=== PATIENT | female | born 1950 | race Caucasian/White ===

== ENCOUNTER 2019-01-09 13:57 | Inpatient (IN) | payer MEDICARE ==
--- NOTE | 2019-01-09 14:48 | ED ---
Lower Extremity Injury HPI - General Source: patient, EMS, RN notes reviewed, old records reviewed Mode of arrival: EMS Limitations: no limitations <Jill Sierra - Last Filed: 01/09/19 16:38> <Jimbo Lopez - Last Filed: 01/09/19 16:49> - General Chief Complaint: Extremity Injury, Lower Stated Complaint: Fall-ankle injury Time Seen by Provider: 01/09/19 14:02 - History of Present Illness Initial Comments: Patient is a 68-year-old female who presents emergency department today with complaints of left ankle and foot pain. Patient which she rolled her ankle while trying to get into her vehicle after leaving a restaurant. Patient reports the road was slippery and she slipped and fell while lifting up her right leg and caused her left ankle to twist. Patient states that she has had no previous injuries to this ankle. She denies any hip pain. She denies any other injury related to the slight fall. (Jill Sierra) - Related Data Allergies Allergy/AdvReac Type Severity Reaction Status Date / Time No Known Allergies Allergy Verified 01/09/19 14:05 Review of Systems ROS Other: All systems not noted in ROS Statement are negative. <Jill Sierra - Last Filed: 01/09/19 16:38> ROS Other: All systems not noted in ROS Statement are negative. <Jimbo Lopez - Last Filed: 01/09/19 16:49> ROS Statement: Those systems with pertinent positive or pertinent negative responses have been documented in the HPI. Past Medical History Past Medical History: Hyperlipidemia, Hypertension, Thyroid Disorder History of Any Multi-Drug Resistant Organisms: None Reported Past Surgical History: No Surgical Hx Reported Past Psychological History: No Psychological Hx Reported Smoking Status: Never smoker Past Alcohol Use History: None Reported Past Drug Use History: None Reported <Jill Sierra - Last Filed: 01/09/19 16:38> General Exam Limitations: no limitations General appearance: alert, in no apparent distress Head exam: Present: atraumatic, normocephalic, normal inspection Eye exam: Present: normal appearance, PERRL, EOMI. Absent: scleral icterus, conjunctival injection, periorbital swelling ENT exam: Present: normal exam, mucous membranes moist Neck exam: Present: normal inspection. Absent: tenderness, meningismus, lymphadenopathy Respiratory exam: Present: normal lung sounds bilaterally. Absent: respiratory distress, wheezes, rales, rhonchi, stridor Cardiovascular Exam: Present: regular rate, normal rhythm, normal heart sounds. Absent: systolic murmur, diastolic murmur, rubs, gallop, clicks GI/Abdominal exam: Present: soft, normal bowel sounds. Absent: distended, tenderness, guarding, rebound, rigid Extremities exam: Present: normal inspection, full ROM, normal capillary refill. Absent: tenderness, pedal edema, joint swelling, calf tenderness Left Knee exam: Present: normal inspection, full ROM Lower Leg exam: Present: normal inspection, full ROM Ankle exam: Present: normal inspection, full ROM Foot/Toe exam: Present: normal inspection, tenderness (over lateral malleolus) Neurovascular tendon exam: Present: no vascular compromise, abnormal cap refill Gait: observed and normal Back exam: Present: normal inspection Neurological exam: Present: alert, oriented X3, CN II-XII intact Psychiatric exam: Present: normal affect, normal mood Skin exam: Present: warm, dry, intact, normal color. Absent: rash <Jill Sierra - Last Filed: 01/09/19 16:38> - General Exam Comments Initial Comments: 68-year-old female. Alert and oriented. No distress. (iJll Sierra) Course Vital Signs 01/09/19 01/09/19 14:05 15:57 Temperature 97.9 F Pulse Rate 115 H 103 H Respiratory 18 18 Rate Blood Pressure 176/84 151/83 O2 Sat by Pulse 98 96 Oximetry Procedures - Orthopedic Splinting/Casting Injury #1 Side: left Lower Extremity Injury Location: ankle Lower Extremity Immobilizer: posterior splint, stirrup splint, José Manuel wrap, synthetic pre-padded splint <Jill Sierra - Last Filed: 01/09/19 16:38> - Orthopedic Fracture Reduction Fracture #1 Consent Obtained: written consent Side: left Fracture Reduction Location: tibia, fibula Technique: direct manipulation Post Reduction X-rays Demonstrate: anatomical reduction Post-Reduction Neuro Exam: intact Post-Reduction Vascular Exam: intact Splint Applied: Yes Patient Tolerated Procedure: well <Jimbo Lopez - Last Filed: 01/09/19 16:49> Medical Decision Making - Lab Data Result diagrams: 01/09/19 15:54 01/09/19 15:54 - Radiology Data Radiology results: report reviewed <Jill Sierra - Last Filed: 01/09/19 16:38> - Lab Data Result diagrams: 01/09/19 15:54 01/09/19 15:54 <Jimbo Lopez - Last Filed: 01/09/19 16:49> - Medical Decision Making 60-year-old female is after rolling her left ankle. Patient x-ray of the ankle shows evidence of a trimalleolar fracture with ankle dislocation. Pulses are obtained she was wrestling intact. Ankle was reduced by Dr. Moe without sedation. Patient is placed in a posterior and ankle stirrup splint. Patient's repeat x-ray shows a subtle reduction. At this time Patient will be admitted under Dr. New's group with consult to medical physician for clearance for surgery likely on Friday. (Jill Sierra) 68-year-old female with left ankle injury. Patient has midshaft fibular fracture and trimalleolar fracture left ankle. This is reduced in the emergency department with morphine and Toradol. Patient tolerates procedure well. Patient lives alone, will be admitted for orthopedic evaluation. (Jimbo Lopez) - Lab Data Lab Results 01/09/19 01/09/19 01/09/19 Range/Units 15:54 15:54 15:54 WBC 14.9 H (3.8-10.6) k/uL RBC 5.11 (3.80-5.40) m/uL Hgb 14.9 (11.4-16.0) gm/dL Hct 46.9 H (34.0-46.0) % MCV 91.6 (80.0-100.0) fL MCH 29.2 (25.0-35.0) pg MCHC 31.9 (31.0-37.0) g/dL RDW 14.1 (11.5-15.5) % Plt Count 314 (150-450) k/uL Neutrophils % 84 % Lymphocytes % 9 % Monocytes % 4 % Eosinophils % 1 % Basophils % 0 % Neutrophils # 12.6 H (1.3-7.7) k/uL Lymphocytes # 1.4 (1.0-4.8) k/uL Monocytes # 0.7 (0-1.0) k/uL Eosinophils # 0.2 (0-0.7) k/uL Basophils # 0.0 (0-0.2) k/uL PT 9.5 (9.0-12.0) sec INR 0.9 (<1.2) APTT 21.7 L (22.0-30.0) sec Sodium 140 (137-145) mmol/L Potassium 4.6 (3.5-5.1) mmol/L Chloride 105 (98-107) mmol/L Carbon Dioxide 23 (22-30) mmol/L Anion Gap 12 mmol/L BUN 19 H (7-17) mg/dL Creatinine 0.82 (0.52-1.04) mg/dL Est GFR (CKD-EPI)AfAm 85 (>60 ml/min/1.73 sqM) Est GFR (CKD-EPI)NonAf 74 (>60 ml/min/1.73 sqM) Glucose 200 H (74-99) mg/dL Calcium 9.9 (8.4-10.2) mg/dL Total Bilirubin 0.4 (0.2-1.3) mg/dL AST 27 (14-36) U/L ALT 36 (9-52) U/L Alkaline Phosphatase 124 (38-126) U/L Total Protein 7.4 (6.3-8.2) g/dL Albumin 4.3 (3.5-5.0) g/dL - Radiology Data Evidence of trimalleolar fracture with mid fibular fracture. Interval reduction and casting previously dislocated ankle more T's. Redemonstrated trimalleolar fracture. (Jill Sierra) Disposition Is patient prescribed a controlled substance at d/c from ED?: No Time of Disposition: 16:40 <Jill Sierra - Last Filed: 01/09/19 16:38> <Jimbo Lopez - Last Filed: 01/09/19 16:49> Clinical Impression: Trimalleolar fracture Disposition: ADMITTED IP TO THIS HOSP Condition: Good Referrals: Nonstaff,Physician [Primary Care Provider] - 1-2 days
--- NOTE | 2019-01-09 15:06 | XR ---
EXAMINATION TYPE: XR tibia fibula LT DATE OF EXAM: 01/09/2019 CLINICAL HISTORY: Fall, pain TECHNIQUE: Two views of the left leg are obtained. COMPARISON: None. FINDINGS: Comminuted fracture with mild lateral displacement is identified of the mid diaphysis of th e left fibula. There is also an obliquely oriented fracture identified of the distal fibula with comm inution, lateral displacement, medial angulation and extension of the fracture line into the tibiofib ular articulation. Fracture is also identified of the medial malleolus with extension into the ankle mortise. The osseous structures appear grossly demineralized. The visualized portions of the distal femur are unremarkable. IMPRESSION: Tibial and fibular fractures as above. For further findings relating to the foot and ankle please see separate report
--- NOTE | 2019-01-09 15:09 | XR ---
EXAMINATION TYPE: XR ankle complete LT DATE OF EXAM: 01/09/2019 CLINICAL HISTORY: Fall, pain TECHNIQUE: Frontal, lateral and oblique images of the left ankle are obtained. COMPARISON: Radiographs earlier the same day. FINDINGS: Fractures are again identified of the medial and lateral malleoli. There is also suggestion of a frac ture involving the posterior aspect of the tibia. There is anterior dislocation of the tibiotalar art iculation with the talar dome. Diffuse soft tissue swelling is seen throughout the ankle. IMPRESSION: Trimalleolar fracture with dislocation of the ankle mortise.
--- NOTE | 2019-01-09 15:11 | XR ---
EXAMINATION TYPE: XR foot complete LT DATE OF EXAM: 01/09/2019 CLINICAL HISTORY: Fall, pain TECHNIQUE: Frontal, lateral, and oblique images of the left foot are obtained. COMPARISON: Ankle and leg radiographs earlier the same day FINDINGS: Trimalleolar fracture with anterior dislocation of the ankle mortise is again evident. There is no ev idence of fracture involving the calcaneus, forefoot or midfoot. Lisfranc interval appears intact. IMPRESSION: No fracture or dislocation of the foot. Please refer to separate reports for findings involving the a nkle and leg.
[2019-01-09] MEDS ORDERED: MORPHINE SULFATE 4 MG/ML SYRINGE IVP STA (15:15)
[2019-01-09] MEDS ORDERED: KETOROLAC 30 MG/ML 1 ML VIAL IVP STA (16:00)
[2019-01-09 16:15] LABS: Basophils % (A) 0 %; Eosinophils # (A) 0.2 k/uL (0-0.7); Eosinophils % (A) 1 %; HCT 46.9 % (34.0-46.0); HGB 14.9 gm/dL (11.4-16.0); Lymphocytes # (A) 1.4 k/uL (1.0-4.8); Lymphocytes % (A) 9 %; MCH 29.2 pg (25.0-35.0); MCHC 31.9 g/dL (31.0-37.0); MCV 91.6 fL (80.0-100.0); Mean Platelet Volume 6.9; Monocytes # (A) 0.7 k/uL (0-1.0); Monocytes % (A) 4 %; Neutrophils # (A) 12.6 k/uL (1.3-7.7); Neutrophils % (A) 84 %; Platelet Count 314 k/uL (150-450); RBC 5.11 m/uL (3.80-5.40); RDW 14.1 % (11.5-15.5); WBC 14.9 k/uL (3.8-10.6)
[2019-01-09 16:25] LABS: Albumin 4.3 g/dL (3.5-5.0); Calcium 9.9 mg/dL (8.4-10.2); Potassium 4.6 mmol/L (3.5-5.1); Total Bilirubin 0.4 mg/dL (0.2-1.3); Total Protein 7.4 g/dL (6.3-8.2)
[2019-01-09 16:28] LABS: INR 0.9 (<1.2); Prothrombin Time 9.5 sec (9.0-12.0)
--- NOTE | 2019-01-09 16:33 | XR ---
EXAMINATION TYPE: XR ankle limited LT DATE OF EXAM: 01/09/2019 CLINICAL HISTORY: Fall, fracture, interval casting TECHNIQUE: Frontal, lateral images of the left ankle are obtained. COMPARISON: Tibia/fibula, ankle and foot radiographs from earlier the same day. FINDINGS: Overlying cast material limits evaluation of the osseous structures. There is interval near complete reduction of the distal fibular fracture. Medial malleolus fracture is not well identified. The poste rior tibial fracture is again seen on the lateral projection. The ankle mortise is now in normal sri omic alignment. IMPRESSION: 1. Interval reduction and casting of previously dislocated ankle mortise. 2. Redemonstrated of trimalleolar fracture.
[2019-01-09] MEDS ORDERED: NALOXONE 0.4 MG/ML 1 ML VIAL IV PRN (16:41)
[2019-01-09] MEDS ORDERED: KETOROLAC 30 MG/ML 1 ML VIAL IVP PRN (16:41)
[2019-01-09] MEDS ORDERED: MORPHINE SULFATE 4 MG/ML SYRINGE IV PRN (16:41)
[2019-01-09 16:44] LABS: Partial Thromboplastin Time 21.7 sec (22.0-30.0)
[2019-01-09] MEDS ORDERED: hydrALAZINE HCL 20 MG/ML 1 ML VIAL IVP PRN (18:47)
[2019-01-09] MEDS ORDERED: TEMAZEPAM 15 MG CAP PO PRN (18:47)
[2019-01-09] MEDS ORDERED: ALPRAZolam 0.25 MG TAB PO PRN (18:47)
[2019-01-09] MEDS ORDERED: HYDROcodone/APAP 5-325MG 1 EACH TAB PO PRN (18:47)
[2019-01-09] MEDS: HEPARIN SODIUM,PORCINE 5,000 UNIT/ML 1 ML VIAL SQ SCH (20:13)
--- NOTE | 2019-01-10 00:18 | CONS ---
CONSULTATION DATE OF SERVICE: 01/09/2019. REASON FOR CONSULTATION: Advice regarding hypertension requested by Dr. Yin. HISTORY OF PRESENT ILLNESS: This 68-year-old woman with a past medical history of multiple medical problems including hypertension, hyperlipidemia, hypothyroidism being followed by in the outpatient setting, apparently admitted with left fall and left lower injury with left ankle pain. The patient had left ankle fracture which was reduced in the ER and the patient admitted to the hospital under orthopedic surgery. Blood pressure is slightly elevated. There is no history of fever, rigors. No history of headache, loss of consciousness, seizures. Definitive surgery is planned subsequently. PAST MEDICAL HISTORY: Hypertension, hyperlipidemia and hypothyroidism. MEDICATIONS: Prior to admission include: 1. Detrol LA 4 mg p.o. daily. 2. Zocor 20 mg daily. 3. Synthroid 125 mcg. 4. Bisacodyl hydrochlorothiazide 1 tablet p.o. daily. ALLERGIES: None. FAMILY HISTORY: No history of heart disease or strokes in the family. SOCIAL HISTORY: No history of smoking. No history of alcohol. REVIEW OF SYSTEMS: ENT: No diminished vision. No diminished hearing. Cardio system: No angina. Respiratory: No cough. No hemoptysis. GI no nausea or vomiting. : No dysuria. NERVOUS SYSTEM: No numbness or weakness. ALLERGY/IMMUNOLOGY: No asthma or hayfever. MUSCULOSKELETAL as mentioned earlier. ENDOCRINE: As mentioned earlier. HEMATOLOGY/ONCOLOGY: No history of anemia. CONSTITUTIONAL: As mentioned earlier. Dermatology: Negative. Rheumatology: Negative. Psychiatry: As mentioned earlier. PHYSICAL EXAMINATION: The patient is alert and oriented times three. Pulse is 107, blood pressure 143/87, respiratory rate 20, temperature 97.9, pulse ox 93% on room air. HEENT: Conjunctivae normal. Oral mucosa moist. Neck is no jugular venous distention. No carotid bruit. No lymph node enlargement. Cardiovascular system: S1, S2. No S3, no S4. Respiratory: Breath sounds diminished in the bases. No rhonchi. No crackles. ABDOMEN: Soft, obese, nontender. No mass. Legs status post left ankle fracture which is in a splint. Nervous system: No focal deficits. Skin: No ulcer, rash, bleeding. JOINTS: No active deforming arthropathy. LABS: WBC 14.2, hemoglobin is 14.9. APTT 21.2. Sodium 140, potassium 4.6, glucose 200. The x-rays from the tibial-fibular x-ray showed noted. ASSESSMENT: 1. Left ankle fracture with comminuted fracture with mild lateral displacement identified in the left fibula. 2. Hypertension. 3. Hyperlipidemia. 4. Hypothyroidism. 5. Morbid obesity. 6. Increased WBC. 7. Increased random blood sugar. RECOMMENDATIONS AND DISCUSSION: This 68-year-old woman who presented with multiple medical issues, at this time I recommend to continue current medicine, resume the home medication. Monitor blood sugars closely. DVT prophylaxis. Also recommend UA with micro and baseline chest x- ray and EKG also. The patient is stable and previous exercise tolerance appears to be adequate. The patient cleared for surgery at this time. We will continue to monitor. Thank you, Dr. Yin for letting us participate in the care of this patient. [place] / DESTINEY: [id number] / MTDD
[2019-01-10] MEDS: LEVOTHYROXINE 125 MCG TAB PO SCH (08:29)
[2019-01-10] MEDS: OXYBUTYNIN XL 5 MG TAB.ER.24 PO SCH (08:29)
[2019-01-10] MEDS: ATORVASTATIN 10 MG TAB PO SCH (08:29)
[2019-01-10] MEDS: BISOPROLOL-HCTZ 5-6.25 MG 1 EACH TAB PO SCH (08:29)
[2019-01-10] MEDS: HEPARIN SODIUM,PORCINE 5,000 UNIT/ML 1 ML VIAL SQ SCH ×2 (08:30→21:44)
[2019-01-10] MEDS: PANTOPRAZOLE 40 MG/10 ML VIAL IV SCH (08:30)
--- NOTE | 2019-01-10 10:43 | P.HPOR ---
History of Present Illness H&P Date: 01/10/19 Chief Complaint: Left Ankle fracture Patient is a 68-year-old female who was brought to yesterday afternoon after sustaining a slip and fall and injury to her left ankle. She was attempting to get into her car when she slipped on wet pavement. Upon arrival to the hospital, imaging lab test done. Images demonstrated a displaced and subluxed left ankle with a trimalleolar ankle fracture. I was contacted by the emergency room staff regarding this patient, was able to review the images with attending Dr. Yin. Emergency room staff reduced the ankle and splinted. Patient does live alone and has minimal help, she was admitted to the hospital for further workup and likely surgical intervention. Patient was evaluated bedside, she is resting comfortably. Her pain is well-controlled with regards to left ankle. She denies any other orthopedic complaints at this time. She utilizes a cane with ambulation, she has a history of bilateral knee osteoarthritis. She denies any previous orthopedic surgery. Review of Systems Constitutional: Reports as per HPI Past Medical History Past Medical History: Hyperlipidemia, Hypertension, Thyroid Disorder History of Any Multi-Drug Resistant Organisms: None Reported Past Surgical History: No Surgical Hx Reported Past Anesthesia/Blood Transfusion Reactions: No Reported Reaction Past Psychological History: No Psychological Hx Reported Smoking Status: Never smoker Past Alcohol Use History: None Reported Past Drug Use History: None Reported Medications and Allergies Home Medications Medication Instructions Recorded Confirmed Type Bisoprolol-Hctz 5-6.25 mg [Ziac 1 tab PO DAILY 01/09/19 01/09/19 History 5-6.25 MG] Levothyroxine Sodium [Synthroid] 125 mcg PO DAILY 01/09/19 01/09/19 History Simvastatin [Zocor] 20 mg PO DAILY 01/09/19 01/09/19 History Tolterodine Tartrate [Detrol LA] 4 mg PO DAILY 01/09/19 01/09/19 History Allergies Allergy/AdvReac Type Severity Reaction Status Date / Time No Known Allergies Allergy Verified 01/09/19 17:08 Physical Examination Left lower extremity: Posterior splint is in good position and condition, she is able to wiggle the toes with no difficulty. Her sensory exam to light touch. Proximal distal to the splinter intact. There is no tenderness with palpation surrounding the knee. Logroll maneuver the hip reproduces no pain. Results - Labs Labs: Abnormal Lab Results - Last 24 Hours (Table) 01/09/19 01/09/19 01/09/19 Range/Units 15:54 15:54 15:54 WBC 14.9 H (3.8-10.6) k/uL Hct 46.9 H (34.0-46.0) % Neutrophils # 12.6 H (1.3-7.7) k/uL APTT 21.7 L (22.0-30.0) sec BUN 19 H (7-17) mg/dL Glucose 200 H (74-99) mg/dL H & H 01/09/19 Range/Units 15:54 Hgb 14.9 (11.4-16.0) gm/dL Hct 46.9 H (34.0-46.0) % Coagulation 01/09/19 Range/Units 15:54 INR 0.9 (<1.2) Result Diagrams: 01/09/19 15:54 01/09/19 15:54 - Diagnostic results Ankle/Foot x-ray: report reviewed, image reviewed Assessment and Plan Plan: Imaging: Multiple views of the left ankle were obtained. Prereduction films demonstrated a displaced left trimalleolar ankle fracture with subluxation of the mortise joint. Reduction x-rays do demonstrate adequate alignment left ankle, fractures are visualized. Assessment: 1. Displaced left trimalleolar ankle fracture 2. Status post fall from standing Plan: I was able to discuss the case, including the physical exam findings and imaging studies my attending Dr. Yin. We would like to proceed with surgical intervention, more specifically open reduction internal fixation procedure of the left ankle. We plan for surgery on 01/12/2019. Nothing by mouth after midnight 01/11/2019 Obtaining consent Risk and benefits of the procedure were discussed with the patient, this to include but not exclusive blood loss, infection, neurovascular injury, development of blood clot, pain and stiffness, inadequate healing of bone, need for subsequent surgery. Patient is in good understanding would like to proceed. Medical clearance Pain control Nonweightbearing left lower extremity Further recommendations to follow Time with Patient: Less than 30
[2019-01-10 12:25] LABS: Basophils % (A) 0 %; Eosinophils # (A) 0.1 k/uL (0-0.7); Eosinophils % (A) 1 %; HCT 42.6 % (34.0-46.0); HGB 13.7 gm/dL (11.4-16.0); Lymphocytes # (A) 1.4 k/uL (1.0-4.8); Lymphocytes % (A) 15 %; MCH 29.1 pg (25.0-35.0); MCHC 32.1 g/dL (31.0-37.0); MCV 90.7 fL (80.0-100.0); Mean Platelet Volume 7.2; Monocytes # (A) 0.8 k/uL (0-1.0); Monocytes % (A) 9 %; Neutrophils # (A) 6.9 k/uL (1.3-7.7); Neutrophils % (A) 73 %; Platelet Count 294 k/uL (150-450); RDW 14.2 % (11.5-15.5); WBC 9.4 k/uL (3.8-10.6)
[2019-01-10 12:41] LABS: Potassium 4.7 mmol/L (3.5-5.1)
[2019-01-10] MEDS: ACETAMINOPHEN TAB 500 MG TAB PO PRN (19:23)
--- NOTE | 2019-01-10 22:01 | PN ---
PROGRESS NOTE DATE OF SERVICE: 01/10/2019 This 68-year-old woman who was admitted with left ankle fracture also had hypertension. The patient being closely monitored. Orthopedics are planning surgery. No chest pain. No palpitations. No fever. EXAM: Alert and oriented times three. Pulse is 83. Blood pressure 130/74. Respiration 14, temperature 97.8, pulse ox 94% on room air. HEENT: Conjunctivae normal. NECK: No jugular venous distention. CARDIOVASCULAR: S1, S2 muffled. RESPIRATORY: Breath sounds diminished in the bases. No rhonchi. No crackles. Abdomen soft. Legs status post left ankle fracture. central nervous system: No focal deficits. LABS: WBC 9.4, sodium 130, potassium 4.7. ASSESSMENT: 1. Left ankle fracture with a comminuted fracture with mild lateral displacement identified in the left fibula. 2. Hypertension. 3. Hyperlipidemia. 4. Hypothyroidism. 5. Morbid obesity. 6. Increased WBC. 7. Increased random blood sugar. RECOMMENDATIONS AND DISCUSSION: Recommend to continue current medications, continue with monitoring, symptomatic treatment. Patient is clinically stable. The patient cleared was cleared for surgery. Otherwise, continue with DVT prophylaxis. Continue with the rest of the medications. Closely followed with Orthopedic surgery. Further recommendations to follow. MMODL / IJN: [id number] /
[2019-01-11] MEDS: LEVOTHYROXINE 125 MCG TAB PO SCH (06:03)
[2019-01-11] MEDS: OXYBUTYNIN XL 5 MG TAB.ER.24 PO SCH (09:21)
[2019-01-11] MEDS: ATORVASTATIN 10 MG TAB PO SCH (09:21)
[2019-01-11] MEDS: BISOPROLOL-HCTZ 5-6.25 MG 1 EACH TAB PO SCH (09:21)
[2019-01-11] MEDS: HEPARIN SODIUM,PORCINE 5,000 UNIT/ML 1 ML VIAL SQ SCH ×2 (09:22→20:37)
[2019-01-11] MEDS: PANTOPRAZOLE 40 MG/10 ML VIAL IV SCH (09:22)
--- NOTE | 2019-01-11 10:59 | P.PN ---
Subjective Progress Note Date: 01/11/19 Principal diagnosis: Left trimalleolar ankle fracture Patient evaluated at bedside today, she is resting comfortably. She has no acute complaints. Objective - Vital Signs Vital signs: Vital Signs Temp 97.8 F 01/11/19 05:20 Pulse 75 01/11/19 05:20 Resp 20 01/11/19 05:20 BP 132/77 01/11/19 05:20 Pulse Ox 95 01/10/19 22:00 Intake & Output 01/10/19 01/11/19 01/11/19 18:59 06:59 18:59 Intake Total 1200 500 Balance 1200 500 Intake: Oral 1200 500 Other: Voiding Method Bedpan Bedpan # Voids 1 2 # Bowel Movements 0 - Exam Lower extremity: Posterior splint is in good position and condition. She is able to wiggle the toes minimal difficulty, sensation to light touch both proximal distal splint are intact. - Labs CBC & Chem 7: 01/10/19 11:27 01/10/19 11:27 Labs: Abnormal Lab Results - Last 24 Hours (Table) 01/10/19 Range/Units 11:27 BUN 22 H (7-17) mg/dL Glucose 152 H (74-99) mg/dL Assessment and Plan Plan: Assessment: 1. Displaced left trimalleolar ankle fracture 2. Status post fall from standing Plan: Planning for surgery on 01/12/2019 Nothing by mouth after midnight 01/11/2019 Obtaining consent Medical clearance Pain control Nonweightbearing left lower extremity Further recommendations to follow Time with Patient: Less than 30
[2019-01-11 11:53] LABS: Basophils # (A) 0.1 k/uL (0-0.2); Basophils % (A) 1 %; Eosinophils # (A) 0.2 k/uL (0-0.7); Eosinophils % (A) 3 %; HCT 40.4 % (34.0-46.0); HGB 13.5 gm/dL (11.4-16.0); Lymphocytes # (A) 1.2 k/uL (1.0-4.8); Lymphocytes % (A) 16 %; MCHC 33.3 g/dL (31.0-37.0); MCV 90.1 fL (80.0-100.0); Mean Platelet Volume 7.8; Monocytes # (A) 0.6 k/uL (0-1.0); Monocytes % (A) 8 %; Neutrophils % (A) 70 %; Platelet Count 251 k/uL (150-450); RBC 4.48 m/uL (3.80-5.40); RDW 14.5 % (11.5-15.5); WBC 7.1 k/uL (3.8-10.6)
[2019-01-11 12:01] LABS: Calcium 9.6 mg/dL (8.4-10.2); Potassium 4.8 mmol/L (3.5-5.1)
[2019-01-11 15:03] LABS: Appearance,Urine Cloudy (Clear); Bilirubin,Urine Negative (Negative); Blood,Urine Negative (Negative); Color,Urine Yellow; Glucose,Urine (UA) Negative (Negative); Hyaline Casts,Urine 1 /lpf (0-2); Ketones,Urine Negative (Negative); Leukocyte Esterase,Urine Moderate (Negative); Mucus,Urine Rare /hpf; Nitrite,Urine Negative (Negative); PH, Urine 5.5 (5.0-8.0); Protein,Urine Negative (Negative); RBC,Urine 5 /hpf (0-5); Specific Gravity,Urine 1.021 (1.001-1.035); Squamous Epithelial Cell,Urine 4 /hpf (0-4); Urobilinogen,Urine <2.0 mg/dL (<2.0); WBC,Urine 14 /hpf (0-5)
--- NOTE | 2019-01-11 18:12 | PN ---
PROGRESS NOTE DATE OF SERVICE: 01/11/2019 This 68-year-old woman who was admitted after left ankle fracture is slated to have surgery tomorrow. The blood pressure is well controlled. No chest pain. No palpitations. No fever. The patient is cleared from medical standpoint for surgery. PHYSICAL EXAMINATION: Alert and oriented x3. Pulse 70, blood pressure 133/80, respirations 17, temperature normal, pulse ox 96% on room air. HEENT: Conjunctivae normal. NECK: No jugular venous distention. CARDIOVASCULAR SYSTEM: S1, S2 muffled. RESPIRATORY SYSTEM: Breath sounds diminished at the bases. No rhonchi. No crackles. ABDOMEN: Soft, non-tender. LEGS: Status post left ankle fracture. NERVOUS SYSTEM: No focal deficit. LABS: CBC within normal limits. Sodium 139, potassium 4.8. Urine is cloudy; evidence of possible mild UTI. ASSESSMENT: 1. Left ankle fracture with a comminuted fracture with mild lateral displacement identified in the left fibula. 2. Hypertension. 3. Hyperlipidemia. 4. Possible mild urinary tract infection, present on admission. 5. Hypothyroidism. 6. Morbid obesity. 7. Increased white count. 8. Increased random blood sugar. RECOMMENDATIONS AND DISCUSSION: I recommend to continue current medications, continue with the monitoring, symptomatic treatment. I recommend continuing with antibiotics. Otherwise, I would recommend DVT prophylaxis. Continue the blood pressure medications. Closely follow with Orthopedic Surgery. Further recommendations to follow. [place] / DESTINEY: [id number] /
[2019-01-12] MEDS ORDERED: LACTATED RINGERS 1,000 ML IV ONE (07:15)
[2019-01-12] MEDS ORDERED: MIDAZOLAM 2 MG/2 ML VIAL IV ONE (07:16)
[2019-01-12] MEDS ORDERED: ONDANSETRON 4 MG/2 ML VIAL IVP ONE (07:30)
[2019-01-12] MEDS ORDERED: DEXAMETHASONE SOD PHOSPHATE 10 MG/ML 1 ML VIAL IV ONE (07:30)
--- NOTE | 2019-01-12 07:37 | P.ONQ ---
Anesthesiology Proc Note - PNB - Peripheral Nerve Block Performed Left Popliteal Single Time Out Performed: Yes Procedure Start Time: :17 Procedure Stop Time: : Indication: Acute Post-Operative Pain, Analgesia, Requested by physician Sedation Type: Sedate with meaningful contact maintained Preparation: Sterile Prep Position: Supine Catheter: None Needle Types: On-Q Needle Size: 100mm (4") Needle Gauge: 20 Technique: Ultrasound Injectate: 0.5% Ropivacaine (see comment for volume) Blood Aspirated: No Pain Paresthesia on Injection Noted: No Resistance on Injection: Normal Events: Uneventful and Well Tolerated (20ml total solution used)
[2019-01-12] MEDS ORDERED: ROPIVACAINE 5 MG/ML 30 ML VIAL ONE (07:57)
[2019-01-12] MEDS ORDERED: LIDOCAINE 1% INJ 10MG/ML (20 ML MDV) ONE (07:57)
[2019-01-12] MEDS ORDERED: SUCCINYLCHOLINE CHLORIDE 100 MG/5 ML SYR IV ONE (07:57)
[2019-01-12] MEDS ORDERED: MIDAZOLAM 2 MG/2 ML VIAL ONE (07:57)
[2019-01-12] MEDS ORDERED: PROPOFOL 10 MG/ML 20 ML VIAL IV ONE (07:57)
[2019-01-12] MEDS ORDERED: fentaNYL (PF) 50 MCG/ML 2 ML AMP ONE (07:57)
[2019-01-12] MEDS ORDERED: ceFAZolin 1,000 MG in SODIUM CHLORIDE 0.9% 1,000 ML IRRIGATION ONE (08:28)
[2019-01-12] MEDS ORDERED: HYDROcodone/APAP 5-325MG 1 EACH TAB PO PRN (09:47)
[2019-01-12] MEDS ORDERED: MAGNESIUM HYDROXIDE 2,400 MG/10 ML CUP PO PRN (09:48)
[2019-01-12] MEDS ORDERED: DOCUSATE 100 MG CAP PO PRN (09:48)
--- NOTE | 2019-01-12 09:57 | P.OP ---
Date of Procedure: 01/12/19 Preoperative Diagnosis: Left trimalleolar ankle fracture/dislocation Postoperative Diagnosis: Same Procedure(s) Performed: Open reduction and internal fixation left lateral malleolar/medial malleolar fractures Implants: Arthrex 7 hole one third tubular plate with appropriate length screws, partially threaded 4.0 x 44 mm cancellus screws 2 Anesthesia: zeus ONOFRE Surgeon: Justin Yin Estimated Blood Loss (ml): 75 Pathology: none sent Condition: stable Disposition: PACU Indications for Procedure: The patient is a 68-year-old morbidly obese female presents after falling injuring her left ankle. Upon evaluation she is noted to have a closed di splaced left trimalleolar ankle fracture/dislocation. A discussion of the risks and benefits of operative intervention was made with patient. Check proceed with surgery. Operative risks to include infection, neurovascular injury, development of blood clots, possible development of nonunion/malunion/and possible need for subsequent procedures was discussed. Informed consent was obtained. Operative Findings: As below Description of Procedure: The patient was brought to the operating room, and after induction of general anesthesia the left lower extremity was prepped and draped in a normal fashion. The tourniquet was inflated to 270 mmHg. Attention was first paid towards the lateral malleolar fracture. A 12 cm incision was made along the posterior subcutaneous border of the fibula. The skin was incised sharply. Subcu tissues were divided bluntly. Electrocautery was used for hemostasis. The fracture site was identified and cleaned of clot and debris. The periosteum was elevated. The fracture was easily reduced with a reduction clamp. A 7-hole one third tubular plate was placed laterally in a neutralization position. This was attached proximally with 3.5 mm cortical screws of the appropriate length. Distally 4.0 mm cancellus screws the appropriate length were placed. This was done with the aid of fluoroscopy. I felt there was adequate mandaeism of fibular length and alignment. Attention was then paid towards fixation the medial lateral fragment. A 5 cm incision was made along the medial aspect of the ankle over the medial malleolus. The skin was incised sharply. The subcutaneous tissues were divided bluntly. Again electrocautery was used for hemostasis. A fracture site was identified and the periosteum elevated. The medial talar dome was inspected. There was some posterior fragmentation of the fragment. 2 parallel guidewires were then placed for provisional fixation. This is verified with fluoroscopy. A cannulated drill was used over these. 4.0 mm x 44 mm partially threaded cancellus screws were then inserted. There was good compression at the fracture site. Final fluoroscopic views to include AP, mortise, and lateral view showed adequate reduction of the medial and lateral malleolar fractures as well as the small posterior malleolar fragment. The medial clear space appeared 3 mm. A cotton test was performed and I do not feel the need for any syndesmotic fixation. The wounds were irrigated with normal saline. The subcutaneous tissues were reapproximated interrupted 2-0 Vicryl sutures. The tourniquet was deflated with approximately 70 minutes total tourniquet time. The skin was reapproximated with waylon. A sterile dressing was applied in addition to a bulky splint. The patient was then awoken from general anesthesia and transferred to recovery room in good condition. Blood loss was estimated 75 mL. No complications were incurred. Sponge and needle counts were correct at the end of the case.
[2019-01-12 10:50] LABS: ABG Base Excess -0.4 mmol/L; ABG HCO3 27 mmol/L (21-25); ABG PCO2 63 mmHg (35-45); ABG PH 7.24 (7.35-7.45); ABG PO2 114 mmHg (83-108); ABG TCO2 29 mmol/L (19-24)
[2019-01-12] MEDS: NEOSTIGMINE 1 MG/ML 10 ML VIAL IV ONE ×2 (10:53→10:55)
[2019-01-12] MEDS ORDERED: GLYCOPYRROLATE 0.2 MG/ML 2 ML VIAL IVP ONE (10:53)
[2019-01-12] MEDS ORDERED: ALBUTEROL NEBULIZED 2.5 MG/3 ML INHALATION ONE ×2 (10:59→11:04)
--- NOTE | 2019-01-12 11:52 | XR ---
Limited left ankle HISTORY: Open reduction internal fixation 2 intraoperative C-arm images document the procedure.
--- NOTE | 2019-01-12 12:28 | FL ---
EXAMINATION TYPE: FL guidance operating room DATE OF EXAM: 01/12/2019 FLUOROSCOPY Fluoroscopy time of 16 seconds was used during left ankle ORIF. 2 image/s document/s the procedure.
[2019-01-12] MEDS: LEVOTHYROXINE 125 MCG TAB PO SCH (14:12)
[2019-01-12] MEDS: HEPARIN SODIUM,PORCINE 5,000 UNIT/ML 1 ML VIAL SQ SCH ×2 (14:14→20:37)
[2019-01-12] MEDS: ATORVASTATIN 10 MG TAB PO SCH (14:14)
[2019-01-12] MEDS: BISOPROLOL-HCTZ 5-6.25 MG 1 EACH TAB PO SCH (14:14)
[2019-01-12] MEDS: OXYBUTYNIN XL 5 MG TAB.ER.24 PO SCH (14:15)
[2019-01-12 14:41] LABS: Glucose,Whole Blood 196 mg/dL (75-99)
[2019-01-12] MEDS: ACETAMINOPHEN TAB 500 MG TAB PO PRN ×2 (15:49→23:20)
[2019-01-12 16:39] LABS: Calcium 9.1 mg/dL (8.4-10.2); Potassium 5.9 mmol/L (3.5-5.1)
[2019-01-12 16:44] LABS: Basophils % (A) 0 %; Eosinophils # (A) 0.1 k/uL (0-0.7); Eosinophils % (A) 1 %; HCT 41.5 % (34.0-46.0); Lymphocytes # (A) 0.6 k/uL (1.0-4.8); Lymphocytes % (A) 5 %; MCH 29.3 pg (25.0-35.0); MCHC 31.3 g/dL (31.0-37.0); MCV 93.6 fL (80.0-100.0); Mean Platelet Volume 7.1; Monocytes # (A) 0.7 k/uL (0-1.0); Monocytes % (A) 6 %; Neutrophils # (A) 10.7 k/uL (1.3-7.7); Neutrophils % (A) 88 %; Platelet Count 294 k/uL (150-450); RBC 4.43 m/uL (3.80-5.40); WBC 12.2 k/uL (3.8-10.6)
[2019-01-12 16:48] LABS: Glucose,Whole Blood 143 mg/dL (75-99)
[2019-01-12] MEDS: INSULIN ASPART (NovoLOG) 100 UNIT/ML VIAL SQ SCH ×2 (17:14→20:37)
[2019-01-12] MEDS: PANTOPRAZOLE 40 MG/10 ML VIAL IV SCH (17:15)
--- NOTE | 2019-01-12 19:01 | CONS ---
CONSULTATION DATE OF CONSULTATION: 01/12/2019 This is a 68-year-old female who underwent open reduction, internal fixation of a left ankle fracture. The patient apparently injured her ankle on Friday when she was at one of the local restaurants. She apparently fell in the restaurant but then was able to pull herself up and get back into the romero that she was sitting in. Subsequent to that, when she was walking out to the car, she fell trying to get into the car. She may have also injured the ankle then. Anyway, she underwent an open reduction, internal fixation of a left ankle fracture today by Dr. Yin. She apparently was difficult to extubate and was apparently placed on BiPAP in the recovery area. When she arrived here in the ICU, she was not on BiPAP. The patient denies any history of lung issues. She did smoke for a number of years, maybe 18 or so, less than a pack a day. She quit many years back. In addition, she does admit to me that she snores at nighttime when she sleeps and she may have underlying sleep apnea syndrome and/or pickwickian syndrome. Anyway, since she has been here in the ICU she has been extremely stable. She has been on a couple liters of oxygen. Her blood pressure has been good. She has not been sleepy or lethargic. No BiPAP therapy here in the unit. ALLERGIES: NONE. HOME MEDICATIONS: Her home medications include: 1. Detrol LA. 2. Zocor. 3. Synthroid. 4. Ziac. MEDICAL HISTORY: Includes: 1. Hyperlipidemia. 2. Hypertension. 3. Hypothyroidism. 4. Urinary incontinence. PAST SURGICAL HISTORY: Apparently negative. SOCIAL HISTORY: Significant for previous tobacco use. She quit many years back. She denies any alcohol use or illicit drug use. The rest of the history is not pertinent. Again, she denies any history of any lung issues. Her primary doctor is a doctor down in the [place] area. As I mentioned, she may in fact have sleep apnea syndrome, but it has never been actually diagnosed. REVIEW OF SYSTEMS: CONSTITUTIONAL: Negative. NEUROLOGIC: Negative. HEENT: Negative. CARDIOVASCULAR: Negative. PULMONARY: Negative. GI: Negative. : Negative. RHEUMATOLOGIC: Negative. IMMUNOLOGIC: Negative. ENDOCRINOLOGIC: Negative. DERMATOLOGIC: Negative. PHYSICAL EXAMINATION: Current vital signs are reviewed. Temperature 98, heart rate 80, respiratory rate 13, blood pressure 133/84, mean 100, saturations on a couple of liters 99%. Appears in no acute distress. HEENT examination is grossly unremarkable. Mucous membranes are moist. No oral lesions. NECK: Supple. Full range of motion. No adenopathy or thyromegaly. Neck veins are flat. Cardiovascular examination reveals regular rhythm and rate. Heart rate about 80 beats per minute. S1, S2 normal. No S3, S4, murmur. Heart sounds are distant. Lungs are relatively clear. A few scattered rhonchi noted. No wheezes or crackles. ABDOMEN: Soft. Bowel sounds are heard. She is obese. Extremities are intact. The left leg is wrapped. Skin without rash. Neurologic examination is brief but nonfocal. LAB WORK: She did have lab work today showing alveolar hypoventilation. Her PO2 was 114. Her pCO2 was 63. Her pH was 7.24. This is consistent with pure alveolar hypoventilation, probably from narcotics. She was on 100% at that time. Yesterday she had a CBC which was normal. White count 7.1, hemoglobin 13.5 and platelet count normal. Likewise yesterday she had an electrolyte profile, all of which was normal. No x-rays noted. ASSESSMENT: 1. Alveolar hypoventilation secondary to sedatives, anesthetics and narcotics used during the surgical procedure, resolved. 2. Possible sleep apnea syndrome. 3. Possible pickwickian syndrome (obesity/hypoventilation syndrome). 4. History of obesity. 5. Urinary incontinence. 6. Hyperlipidemia. 7. Hypothyroidism. 8. Hypertension. PLAN: The patient is doing well. She probably will stay here in the unit overnight. No additional recommendations are made. We will put in the ICU orders. The patient could probably be weaned off of oxygen. No additional recommendations are made. Prognosis is guarded. She will need to be evaluated for sleep apnea syndrome in the future. She may also have a component of obesity/hypoventilation syndrome or pickwickian syndrome. MMODL / IJN: [id number] /
--- NOTE | 2019-01-12 19:49 | PN ---
PROGRESS NOTE DATE OF SERVICE: 01/12/2019 This 68-year-old woman was admitted with left ankle sprain also has history of hypertension. The patient underwent ORIF of the left ankle by Dr. Yin. The patient had hypoxia and respiratory difficulties postprocedure. The patient also had an ABG showed 7.24 with respiratory acidosis. The patient was also noted to have sodium 136 and potassium was 5.9 and because of multiple abnormalities, patient has been admitted to ICU at this time. PAST MEDICAL HISTORY: Reviewed. REVIEW OF SYSTEMS: CARDIOVASCULAR: No angina or palpitations. Respirations: As mentioned earlier. GI as mentioned earlier. : No nausea or vomiting. Central nervous system: No focal deficits. CURRENT MEDICATIONS ARE: Current medications are reviewed and include: 1. Tylenol 650 q.6h p.r.n. 2. [place] 5 mg q.8h p.r.n. 3. Xanax. 4. Lipitor 10 mg. 5. Ziac. 6. Rocephin 1 g daily. 7. Colace. 8. Heparin 5000 subcu b.i.d. 9. Apresoline. 10.NovoLog. 11.Toradol. 12.Synthroid. 13.Milk of Magnesia. 14.Narcan. 16.Protonix. 17.Restoril. PHYSICAL EXAM: Patient is alert, oriented x3. Pulse is 98, blood pressure 129/74, respirations 18, temperature normal, pulse ox 98 percent. HEENT: Conjunctivae normal. Oral mucosa moist. Neck is no jugular venous distention. No carotid bruit. No lymph node enlargement. Cardiovascular: S1, S2 muffled. Respirations: Breath sounds diminished in the bases. A few scattered rhonchi. No crackles. ABDOMEN: Soft, nontender. No mass palpable. Legs no edema. No swelling. NERVOUS SYSTEM: Higher functions as mentioned earlier. Moves all four extremities. No focal deficits. Lymphatics: No lymph nodes palpable in the neck, axillae or groin. SKIN: No ulcer, rash or bleeding. LEGS: Status post surgery. LAB STUDIES: WBC 12.2, sodium 130, potassium 5.9. Ankle x-ray noted. ASSESSMENT: 1. Left ankle fracture with comminuted fracture status post ORIF. 2. Postoperative hypoxia. 3. Hypertension. 4. Rule out sleep apnea. 5. Hyperlipidemia. 6. Possible mild urinary tract infection, present on admission. 7. Hypothyroidism. 8. Morbid obesity. 9. Increased WBC. 10.Increased random blood sugar. 11.Hyponatremia. 12.Mild hyperkalemia. RECOMMENDATIONS/DISCUSSION: In this 68-year-old woman who presented with multiple complex medical issues, we will monitor the patient closely, continue the current medications, management and symptomatic treatment. I would recommend continue the current medications. Continue with bronchodilators. Monitor closely in ICU. Otherwise, I would also recommend a portable chest x-ray. Continue with DVT prophylaxis. Continue with empiric antibiotics for UTI. I would also recommend repeat lytes. Dr. Dunn is consulted. Guarded prognosis. Further recommendations to follow. Patient also under care for further evaluation for sleep apnea as well as other medical issues. MMODL / IJN: [id number] / MTDInes
[2019-01-12 20:32] LABS: Glucose,Whole Blood 152 mg/dL (75-99)
[2019-01-13 05:17] LABS: Basophils % (A) 0 %; Eosinophils # (A) 0.1 k/uL (0-0.7); Eosinophils % (A) 1 %; Lymphocytes # (A) 1.4 k/uL (1.0-4.8); Lymphocytes % (A) 14 %; MCH 29.7 pg (25.0-35.0); MCHC 32.4 g/dL (31.0-37.0); MCV 91.7 fL (80.0-100.0); Mean Platelet Volume 7.1; Monocytes # (A) 0.8 k/uL (0-1.0); Monocytes % (A) 8 %; Neutrophils # (A) 7.5 k/uL (1.3-7.7); Neutrophils % (A) 75 %; Platelet Count 268 k/uL (150-450); RBC 4.03 m/uL (3.80-5.40)
[2019-01-13 05:51] LABS: Calcium 9.3 mg/dL (8.4-10.2); Magnesium 2.2 mg/dL (1.6-2.3); Phosphorus 4.8 mg/dL (2.5-4.5)
[2019-01-13] MEDS: LEVOTHYROXINE 125 MCG TAB PO SCH (06:13)
[2019-01-13] MEDS: ACETAMINOPHEN TAB 500 MG TAB PO PRN ×2 (06:33→15:34)
[2019-01-13] MEDS: INSULIN ASPART (NovoLOG) 100 UNIT/ML VIAL SQ SCH ×4 (06:57→20:59)
[2019-01-13 07:07] LABS: Glucose,Whole Blood 118 mg/dL (75-99)
[2019-01-13] MEDS: ATORVASTATIN 10 MG TAB PO SCH (09:16)
[2019-01-13] MEDS: HEPARIN SODIUM,PORCINE 5,000 UNIT/ML 1 ML VIAL SQ SCH ×2 (09:18→20:59)
[2019-01-13] MEDS: PANTOPRAZOLE 40 MG/10 ML VIAL IV SCH (09:18)
[2019-01-13] MEDS: BISOPROLOL-HCTZ 5-6.25 MG 1 EACH TAB PO SCH (09:18)
[2019-01-13] MEDS: OXYBUTYNIN XL 5 MG TAB.ER.24 PO SCH (09:18)
--- NOTE | 2019-01-13 09:28 | XR ---
EXAMINATION TYPE: XR chest 1V DATE OF EXAM: 01/13/2019 COMPARISON: None INDICATION: Short of breath TECHNIQUE: Single frontal view of the chest is obtained. FINDINGS: The heart size is normal. The pulmonary vasculature is normal. Some mild atelectasis may be at the left lung base. Lungs otherwise appear clear. Linear opacity at the right lung base appears to extend beyond the thoracic cavity is felt to be rela marquez to skinfold. IMPRESSION: 1. Mild plate atelectasis left lung base.
--- NOTE | 2019-01-13 09:39 | P.PN ---
Subjective Progress Note Date: 01/13/19 Principal diagnosis: Left trimalleolar ankle fracture Patient evaluated at bedside today, she's currently the ICU. She had a episode of very low O2 sats after surgery, she was not able to be, BiPAP. She is currently on BiPAP doing well. She'll be transferred back to the medic al/surgical floor. We will likely keep her 1 additional night for observation with plan for discharge to rehab tomorrow. Objective - Vital Signs Vital signs: Vital Signs Temp 97.4 F L 01/13/19 08:00 Pulse 74 01/13/19 09:00 Resp 8 L 01/13/19 09:00 BP 121/63 01/13/19 09:00 Pulse Ox 95 01/13/19 09:00 Intake & Output 01/12/19 01/13/19 01/13/19 18:59 06:59 18:59 Intake Total 1073 960 200 Output Total 325 1150 100 Balance 748 -190 100 Weight 154.7 kg Intake: IV 851 Oral 222 960 200 Output: Urine 250 1150 100 Estimated Blood Loss 75 Other: # Bowel Movements 1 - Exam Lower extremity: Postop splint is in good position and condition. She is able to wiggle the toes minimal difficulty, sensation to light touch both proximal distal splint are intact. - Labs CBC & Chem 7: 01/13/19 04:35 01/13/19 04:35 Labs: Abnormal Lab Results - Last 24 Hours (Table) 01/12/19 01/12/19 01/12/19 Range/Units 10:24 14:39 16:14 WBC 12.2 H (3.8-10.6) k/uL Neutrophils # 10.7 H (1.3-7.7) k/uL Lymphocytes # 0.6 L (1.0-4.8) k/uL ABG pH 7.24 L (7.35-7.45) ABG pCO2 63 H (35-45) mmHg ABG pO2 114 H (83-108) mmHg ABG HCO3 27 H (21-25) mmol/L ABG Total CO2 29 H (19-24) mmol/L Sodium (137-145) mmol/L Potassium (3.5-5.1) mmol/L BUN (7-17) mg/dL Glucose (74-99) mg/dL POC Glucose (mg/dL) 196 H (75-99) mg/dL Phosphorus (2.5-4.5) mg/dL 01/12/19 01/12/19 01/12/19 Range/Units 16:14 16:46 20:30 WBC (3.8-10.6) k/uL Neutrophils # (1.3-7.7) k/uL Lymphocytes # (1.0-4.8) k/uL ABG pH (7.35-7.45) ABG pCO2 (35-45) mmHg ABG pO2 (83-108) mmHg ABG HCO3 (21-25) mmol/L ABG Total CO2 (19-24) mmol/L Sodium 136 L (137-145) mmol/L Potassium 5.9 H (3.5-5.1) mmol/L BUN 21 H (7-17) mg/dL Glucose 161 H (74-99) mg/dL POC Glucose (mg/dL) 143 H 152 H (75-99) mg/dL Phosphorus (2.5-4.5) mg/dL 01/13/19 01/13/19 Range/Units 04:35 06:56 WBC (3.8-10.6) k/uL Neutrophils # (1.3-7.7) k/uL Lymphocytes # (1.0-4.8) k/uL ABG pH (7.35-7.45) ABG pCO2 (35-45) mmHg ABG pO2 (83-108) mmHg ABG HCO3 (21-25) mmol/L ABG Total CO2 (19-24) mmol/L Sodium (137-145) mmol/L Potassium (3.5-5.1) mmol/L BUN 19 H (7-17) mg/dL Glucose 112 H (74-99) mg/dL POC Glucose (mg/dL) 118 H (75-99) mg/dL Phosphorus 4.8 H (2.5-4.5) mg/dL Assessment and Plan Plan: Assessment: 1. Postop day #1 status post ORIF left lateral malleolus/medial malleolus fracture Plan: Pain control, continue oral medication GI and DVT prophylaxis, continue current medication Patient will be transferred out of the ICU hopefully today, back to the medical surgical floor with 1 more day of observation. We'll discharge to rehab tomorrow Nonweightbearing left lower extremity Other forensic medical examiner recommendations Time with Patient: Less than 30
--- NOTE | 2019-01-13 10:14 | PN ---
PROGRESS NOTE DATE OF SERVICE: January 13, 2019 This is a very pleasant 68-year-old female, postop day #1 status post open reduction internal fixation of a left ankle fracture. The patient developed some postoperative alveolar hypoventilation secondary to sedatives, narcotics and anesthetics after her surgery yesterday. She apparently was placed on BiPAP in the recovery room after being extubated. She was transferred here to the ICU. She arrives here on nasal O2, never needed BiPAP after that. This morning, she is doing very well. After I saw her yesterday, I suspected that she probably has some underlying Pickwickian syndrome and/or sleep apnea syndrome. Anyway, the patient is doing much better. She does have a history of hyperlipidemia, hypertension, hypothyroidism, urinary incontinence and obesity and she may have as I mentioned above sleep apnea syndrome, and Pickwickian syndrome. She is feeling well today. No major complaints. Vital signs are reviewed. Temperature 97.4, heart rate 68, respiratory rate 15, blood pressure 121/63, mean 82, and saturation on room air 95%. Appears in no acute distress. HEENT examination is grossly unremarkable. Mucous membranes are moist. No oral lesions. NECK: Supple. Full range of motion. No adenopathy or thyromegaly. Neck veins are flat. Cardiovascular examination reveals regular rhythm and rate. Heart rate in mid 70s. S1, S2 normal. No S3, S4 or murmur. Lungs reveal relatively clear breath sounds. No wheezes, rhonchi, or crackles. Breath sounds equal. Abdomen is soft. Bowel sounds are heard. Extremities are intact. No cyanosis, clubbing, or edema. Left ankle and leg is wrapped. Skin without rash. Neurologic examination is nonfocal. Labs are reviewed. White count 10, hemoglobin 12, hematocrit 37.0, platelet count 268,000. Sodium, potassium, chloride, CO2 all normal. Anion gap 9. BUN and creatinine were 19 and 0.86. Chest x-ray shows some plate atelectasis at the left lung base. Medications are reviewed. ASSESSMENT: 1. Alveolar hypoventilation secondary to sedatives, anesthetics and narcotics used during the surgical procedure, resolved. 2. Possible/probable sleep apnea syndrome. 3. Possible/probable Pickwickian syndrome (obesity/hypoventilation syndrome). 4. History of obesity. 5. Urinary incontinence. 6. Hyperlipidemia. 7. Hypothyroidism. 8. Hypertension. PLAN: The patient is doing well. We encouraged her to continue using the incentive spirometer. She has been weaned off of oxygen. The patient is not having any pain. We will continue to follow. The patient could be transferred out of the ICU. She apparently is going to be transferred over to [facility] for rehab. We will continue to follow here in the hospital while she is here. Again prognosis is generally thought to be very good. MMMARIA ESTHERL / IJN: [id number] /
[2019-01-13 12:02] LABS: Glucose,Whole Blood 137 mg/dL (75-99)
[2019-01-13 16:58] LABS: Glucose,Whole Blood 122 mg/dL (75-99)
--- NOTE | 2019-01-13 18:38 | PN ---
PROGRESS NOTE DATE OF SERVICE: 01/13/2019 This 68-year-old woman who was admitted after left ankle fracture and ORIF also had hypoxia. The patient was monitored in the ICU. Orthopedic Surgery is following the patient closely. Dr. Dunn saw the patient as well. The hypoxia was thought to be secondary to sedative anesthesia narcotics and possible surgical procedures. Possibility of pickwickian syndrome is also considered. The patient is improving significantly at this time. Patient will be transferred out of ICU. A chest x-ray was done, reviewed personally by me, which showed mild atelectasis in the left lung base. PHYSICAL EXAMINATION: Patient is alert and oriented x3. Pulse is 79, blood pressure 112/70, respiration 16, temperature normal, pulse ox 94% on room air. HEENT: Conjunctivae normal. NECK: No jugular venous distention. CARDIOVASCULAR SYSTEM: S1, S2 muffled. RESPIRATORY SYSTEM: Breath sounds diminished at the bases. A few scattered rhonchi. No crackles. ABDOMEN: Soft, obese, non-tender. LEGS: Status post surgery. NERVOUS SYSTEM: No focal deficit. LABS: CBC within normal limits. Glucose 112, 118. Phosphorus 4.8. ASSESSMENT: 1. Left ankle fracture with comminuted fracture, status post open reduction internal fixation. 2. Postoperative hypoxia, multifactorial, possibly secondary to sedatives, narcotics or sleep apnea and pickwickian syndrome. 3. Hypertension. 4. Possible sleep apnea. 5. Hyperlipidemia. 6. Possible mild urinary tract infection, present on admission. 7. Hypothyroidism. 8. Morbid obesity. 9. Increased white count. 10.Increased random blood sugar. 11.Hyponatremia. 12.Mild hypokalemia. RECOMMENDATIONS AND DISCUSSION: I recommend to continue current medications, continue with the monitoring, symptomatic treatment. Continue with incentive spirometry, DVT prophylaxis. Continue with empiric antibiotics. Otherwise, I would follow closely with Pulmonary as well as Orthopedic Surgery. PT/OT evaluation. Further recommendations to follow. MMODL / IJN: [id number] /
[2019-01-13 20:48] LABS: Glucose,Whole Blood 161 mg/dL (75-99)
[2019-01-14 03:37] VITALS: TEMP 98.3
[2019-01-14] MEDS: LEVOTHYROXINE 125 MCG TAB PO SCH (05:54)
[2019-01-14 07:43] LABS: Glucose,Whole Blood 129 mg/dL (75-99)
[2019-01-14] MEDS: INSULIN ASPART (NovoLOG) 100 UNIT/ML VIAL SQ SCH ×2 (08:33→12:46)
[2019-01-14] MEDS: PANTOPRAZOLE 40 MG/10 ML VIAL IV SCH (08:36)
[2019-01-14] MEDS: HEPARIN SODIUM,PORCINE 5,000 UNIT/ML 1 ML VIAL SQ SCH (08:36)
[2019-01-14] MEDS: OXYBUTYNIN XL 5 MG TAB.ER.24 PO SCH (08:36)
[2019-01-14] MEDS: ATORVASTATIN 10 MG TAB PO SCH (08:36)
[2019-01-14] MEDS: BISOPROLOL-HCTZ 5-6.25 MG 1 EACH TAB PO SCH (08:42)
[2019-01-14] MEDS ORDERED: PANTOPRAZOLE 40 MG TABLET PO SCH (08:45)
[2019-01-14 09:44] VITALS: BP 119/71; RESP 18
[2019-01-14 10:52] VITALS: PULSE 82
--- NOTE | 2019-01-14 10:53 | P.PN ---
Subjective Progress Note Date: 01/14/19 Principal diagnosis: Left trimalleolar ankle fracture Patient evaluated at bedside today, she is resting comfortably. She's had no difficulty with breathing. Her pain is well-controlled. No shortness of breath or chest pain. Objective - Vital Signs Vital signs: Vital Signs Temp 98.3 F 01/14/19 07:00 Pulse 95 01/14/19 07:00 Resp 18 01/14/19 08:00 BP 119/71 01/14/19 07:00 Pulse Ox 96 01/14/19 02:04 Intake & Output 01/13/19 01/14/19 01/14/19 18:59 06:59 18:59 Intake Total 550 Output Total 300 Balance 250 Intake: Intake, IV Titration 50 Amount cefTRIAXone 1 gm In 50 Sodium Chloride 0.9% 50 ml @ 100 mls/hr IVPB Q24HR GARY Rx#:[id number] Oral 500 Output: Urine 300 Other: Voiding Method Incontinent Incontinent # Bowel Movements 1 - Exam Lower extremity: Postop splint is in good position and condition. She is able to wiggle the toes minimal difficulty, sensation to light touch both proximal distal splint are intact. - Labs CBC & Chem 7: 01/13/19 04:35 01/13/19 04:35 Labs: Abnormal Lab Results - Last 24 Hours (Table) 01/13/19 01/13/19 01/13/19 Range/Units 11:35 16:42 20:37 POC Glucose (mg/dL) 137 H 122 H 161 H (75-99) mg/dL 01/14/19 Range/Units 07:32 POC Glucose (mg/dL) 129 H (75-99) mg/dL Assessment and Plan Plan: Assessment: 1. Postop day #2 status post ORIF left lateral malleolus/medial malleolus fracture Plan: Pain control, continue oral medication GI and DVT prophylaxis, aspirin 325 daily Nonweightbearing left lower extremity Other medical records specialist recommendations Discharge rehab today Time with Patient: Less than 30
--- NOTE | 2019-01-14 10:59 | P.DS ---
Providers Date of admission: 01/09/19 16:47 Expected date of discharge: 01/14/19 Attending physician: Justin Yin Consults: 01/09/19 16:41 Consult Physician Stat Consulting Provider: Reba Bowens Consult Reason/Comments: Medical clearance for Ankle fracture Do you want consulting provider notified?: Yes 01/12/19 12:34 Consult Physician Routine Consulting Provider: Jimbo Dunn Reason/Comments: Low O2 sats, status post ankle surgery requiring BiPAP Do you want consulting provider notified?: Yes Primary care physician: Physician Nonstaff Hospital Course: Date of admission: 01/09/2019 Date of discharge: 01/14/2019 Admission diagnosis: Displaced left ankle trimalleolar Discharge diagnosis: Status post ORIF left lateral malleolus/medial malleolus fracture Attending physician: Dr. Yin Surgical procedures: Open reduction internal fixation left ankle lateral malleolus/medial malleolus fracture Brief history: Patient is a 68-year-old female with a history of with a slip and fall on 01/09/2019 that resulted in the displaced left trimalleolar ankle fracture. She was brought to [facility] prehospital for further evaluation and x-rays. Patient was admitted to the hospital for further evaluation and treatment. Patient underwent surgery on 01/12/2019. Hospital course: Details of patient's surgery can be found in operative report. Patient tolerated the procedure well and was subsequently transported to orthopedic floor. Patient's orthopeidc and medical care was provided daily. Patient had daily laboratory tests performed for evaluation of overall blood counts. Patient had daily physical therapy to include strengthening range of motion as well as education with walker ambulation. Patient was treated with heparin for their postoperative DVT prophylaxis during their inpatient stay. After surgery, patient had a very difficult time coming up that the ventilator. She required BiPAP for a full day, she was in the ICU. Her O2 levels and breathing did improve, she was transferred back to the med surgical floor. She was followed by pulmonology during this time, she will be scheduled for follow- up palpation. Patient reported satisfactory pain control with oral pain medications by postoperative day 0. Patient showed satisfactory progress with physical therapy. Patient moved steadily through the program and had no diffic ulty meeting the goals by postoperative day 2. Given patient's otherwise satisfactory course and having met physical therapy goals, plan is to discharge patient rehab on postoperative day 2. Discharge condition/disposition: Patient will be discharged to rehab in stable condition. Discharge medications: Instructions are given on resumption of patient's normal daily medications per primary care recommendation, in addition patient will be prescribed Tylenol 650 mg, aspirin 325 mg. Discharge instructions: 1. Wound care and infection precautions, keep incision dry and covered while showering, no lotions, creams, moisturizers. No soaking, tubs, pools, hottubs. Do not scrub over the incision. 2. Nonweightbearing left lower extremity, do not remove splint 3. Ice and elevate when necessary. Do not exceed 20 minutes per hour with ice pack. 4. Utilize compression sleeve until seen at first follow up appointment. 5. Visiting nursing care. 6. Home physical therapy. 7. Pain meds and anticoagulants per prescription. 8. Pain medication has potential to cause constipation. Increase oral fluid and fiber intake. Contact primary care provider if you have not had a bowel movement within 48 hours after discharge 9. No anti-inflammatory medication until discussed at first post operative visit, this including Motrin, Aleve, Mobic, Diclofenac. 10. Follow up in office at 2 weeks postop with Joselito Marie PA-C 11. Follow up with your primary care doctor 7-10 days after discharge. 12. Contact [facility] with any questions, . Procedures: Open reduction internal fixation left lateral malleolus/medial malleolus fracture Patient Condition at Discharge: Good Plan - Discharge Summary New Discharge Prescriptions: New Aspirin 325 mg PO DAILY #30 tab Acetaminophen Tab [Tylenol Tab] 650 mg PO Q6H PRN #30 tablet PRN Reason: Pain No Action Tolterodine Tartrate [Detrol LA] 4 mg PO DAILY Simvastatin [Zocor] 20 mg PO DAILY Levothyroxine Sodium [Synthroid] 125 mcg PO DAILY Bisoprolol-Hctz 5-6.25 mg [Ziac 5-6.25 MG] 1 tab PO DAILY Discharge Medication List Bisoprolol-Hctz 5-6.25 mg [Ziac 5-6.25 MG] 1 tab PO DAILY 01/09/19 [History] Levothyroxine Sodium [Synthroid] 125 mcg PO DAILY 01/09/19 [History] Simvastatin [Zocor] 20 mg PO DAILY 01/09/19 [History] Tolterodine Tartrate [Detrol LA] 4 mg PO DAILY 01/09/19 [History] Acetaminophen Tab [Tylenol Tab] 650 mg PO Q6H PRN #30 tablet 01/14/19 [Rx] Aspirin 325 mg PO DAILY #30 tab 01/14/19 [Rx] Follow up Appointment(s)/Referral(s): Nonstaff,Physician [Primary Care Provider] - 1-2 days Sravan Marie PAC [PHYSICIAN ELEVATOR PILOT] - 2 Weeks Activity/Diet/Wound Care/Special Instructions: Orthopedic discharge instructions: 1. Pain control, Tylenol as needed 2. Nonweightbearing left lower extremity, do not remove splint 3. Ice and elevate often 4. Aspirin 325 mg daily for DVT prophylaxis 5. Follow-up [facility] in 2 weeks Discharge Disposition: TRANSFER TO SNF/ECF
[2019-01-14 12:13] LABS: Glucose,Whole Blood 124 mg/dL (75-99)
--- NOTE | 2019-01-14 21:45 | PN ---
PROGRESS NOTE DATE OF SERVICE: 01/14/2019 This 68-year-old woman who was admitted with left ankle fracture with comminuted fracture is being closely monitored. ECF rehab is being planned. No chest pain. No palpitations. No fever. On exam, alert and oriented x3. Pulse 82, blood pressure 119/71, respiration 18, temperature 98.3, pulse ox 94% on room air. HEENT: Conjunctivae normal. NECK: No jugular venous distention. CARDIOVASCULAR SYSTEM: S1, S2 muffled. RESPIRATORY SYSTEM: Breath sounds diminished at the bases. A few scattered rhonchi and crackles. ABDOMEN: Soft, non-tender. LEGS: Status post surgery. NERVOUS SYSTEM: No focal deficit. LABS: CBC within normal limits. Sodium 138, potassium 5, glucose 124. ASSESSMENT: 1. Left ankle fracture with comminuted fracture, status post open reduction internal fixation. 2. Postoperative hypoxia, multifactorial, possibly secondary to sedatives, narcotics, sleep apnea and pickwickian syndrome. 3. Hypertension. 4. Possible sleep apnea. 5. Hyperlipidemia. 6. Possible mild urinary tract infection, present on admission. 7. Hypothyroidism. 8. Morbid obesity. 9. Increased white count. 10.Increased random blood sugar. 11.Hyponatremia. 12.Mild hypokalemia. RECOMMENDATIONS AND DISCUSSION: I recommend to continue current medications, continue with the monitoring, symptomatic treatment. Otherwise at this time I would recommend continuing with current medications. ECF rehab per Orthopedic Surgery. Further recommendations to follow. MMODL / IJN: [id number] /
== END 2019-01-14 16:35 | DRG 493 ==
LOC: EC 13:57 → 4MS4W 16:47 → 2SICU 01-12 14:57 → 4SSUR 01-13 14:41
PROVIDERS: ADMIT Orthopaedic Surgery; ATTEND Orthopaedic Surgery
PROC: 0QSH04Z Reposition Left Tibia with Internal Fixation Device, Open Approach (ICD-10-PCS; 2019-01-12)
PROC: 0QSHXZZ Reposition Left Tibia, External Approach (ICD-10-PCS; 2019-01-12)
PROC: 0QSKXZZ Reposition Left Fibula, External Approach (ICD-10-PCS; 2019-01-12)
PROC: 5A09457 Assistance with Respiratory Ventilation, 24-96 Consecutive Hours, Continuous Positive Airway Pressure (ICD-10-PCS; 2019-01-12)
PROC: 0QSK04Z Reposition Left Fibula with Internal Fixation Device, Open Approach (ICD-10-PCS; principal; 2019-01-12 08:00)
DX: S82.852A Displaced trimalleolar fracture of left lower leg, initial encounter for closed fracture (principal); Z68.44 Body mass index [BMI] 60.0-69.9, adult; E66.2 Morbid (severe) obesity with alveolar hypoventilation; E87.1 Hypo-osmolality and hyponatremia; E87.2 Acidosis; J98.11 Atelectasis; N39.0 Urinary tract infection, site not specified; E87.5 Hyperkalemia; R09.02 Hypoxemia; G47.30 Sleep apnea, unspecified; E03.9 Hypothyroidism, unspecified; E78.5 Hyperlipidemia, unspecified; I10 Essential (primary) hypertension; M17.0 Bilateral primary osteoarthritis of knee; R32 Unspecified urinary incontinence; Z79.890 Hormone replacement therapy; Z79.899 Other long term (current) drug therapy; Z87.891 Personal history of nicotine dependence; W01.0XXA Fall on same level from slipping, tripping and stumbling without subsequent striking against object, initial encounter; Y93.01 Activity, walking, marching and hiking; Y92.481 Parking lot as the place of occurrence of the external cause
CPT/HCPCS: 27818; 36415; 36600; 64450; 71045; 80048; 80053; 81001; 82805; 83735; 84100; 85025; 85610; 85730; 86850; 86900; 86901; 94002; 94660; 96374; 96375; 99285

== ENCOUNTER 2024-04-13 11:12 | Inpatient (IN) | payer MEDICARE ==
[2024-04-13] MEDS: ACETAMINOPHEN TAB 500 MG TAB PO STA (12:00)
[2024-04-13] MEDS: SODIUM CHLORIDE 0.9% 1,000 ML IV STA (12:37)
[2024-04-13 12:51] LABS: Basophils % (A) 0 %; Eosinophils # (A) 0.1 k/uL (0-0.7); Eosinophils % (A) 1 %; HCT 54.4 % (34.0-46.0); HGB 16.9 gm/dL (11.4-16.0); Lymphocytes # (A) 0.8 k/uL (1.0-4.8); Lymphocytes % (A) 8 %; MCV 96.8 fL (80.0-100.0); Mean Platelet Volume 8.3; Monocytes # (A) 0.7 k/uL (0-1.0); Monocytes % (A) 7 %; Neutrophils % (A) 83 %; Platelet Count 297 k/uL (150-450); RBC 5.62 m/uL (3.80-5.40); RDW 15.2 % (11.5-15.5); WBC 9.7 k/uL (3.8-10.6)
[2024-04-13 13:04] LABS: INR 1.2 (<1.2); Prothrombin Time 12.9 sec (10.0-12.5)
[2024-04-13 13:12] LABS: Partial Thromboplastin Time 20.1 sec (22.0-30.0)
[2024-04-13] MEDS ORDERED: VANCOMYCIN IV PER PHARMACY 1 EACH MISC MISCELLANE PRN ×2 (13:19→16:57)
[2024-04-13 13:32] LABS: Appearance,Urine Clear (Clear); Bilirubin,Urine 1+ (Negative); Blood,Urine Small (Negative); Color,Urine Yellow; Glucose,Urine (UA) Negative (Negative); Hyaline Casts,Urine 11 /lpf (0-2); Ketones,Urine 1+ (Negative); Leukocyte Esterase,Urine Negative (Negative); Mucus,Urine Few /hpf; Nitrite,Urine Negative (Negative); PH, Urine 5.5 (5.0-8.0); Protein,Urine 1+ (Negative); RBC,Urine 20 /hpf (0-5); Specific Gravity,Urine 1.036 (1.001-1.035); Squamous Epithelial Cell,Urine 1 /hpf (0-4); WBC,Urine 4 /hpf (0-5)
--- NOTE | 2024-04-13 13:39 | ED ---
General Adult HPI - General Source: patient, RN notes reviewed, old records reviewed Mode of arrival: EMS Limitations: no limitations, physical limitation <Joss Copeland - Last Filed: 04/13/24 14:57> - General Source: RN notes reviewed, old records reviewed Mode of arrival: EMS Limitations: no limitations, altered mental status - History of Present Illness -: days(s) Radiation: non-radiation Consistency: constant Worsens with: none Associated Symptoms: malaise, weakness Treatments Prior to Arrival: none <Marco Nguyen - Last Filed: 04/17/24 00:20> - General Chief complaint: Weakness Stated complaint: weakness Time Seen by Provider: 04/13/24 11:45 - History of Present Illness Initial comments: Patient is a 73-year-old female who presents emergency department complaining of weakness. Has been having weeks of weakness. Has been issues performing her normal ADLs. Has been sliding down at home but no obvious falls or loss of conscious or hitting her head. Is not on blood thinners. Complaining of sores and sweating and wounds under her pannus as well as under her left armpit. Presents for further evaluation at this time. No obvious complaints at this time other than generalized weakness which is progressively chronic. (Joss Copeland) 73 female to ER for evaluation of multiple complaints weakness debility shortness of breath decreased activity level abdominal pain swelling leg pain and swelling (Marco Nguyen) - Related Data Home Medications Medication Instructions Recorded Confirmed No Known Home Medications 04/13/24 04/13/24 Allergies Allergy/AdvReac Type Severity Reaction Status Date / Time No Known Allergies Allergy Verified 04/13/24 12:58 Review of Systems ROS Other: All systems not noted in ROS Statement are negative. <Joss Copeland - Last Filed: 04/13/24 14:57> ROS Other: All systems not noted in ROS Statement are negative. <Marco Nguyen - Last Filed: 04/17/24 00:20> ROS Statement: Those systems with pertinent positive or pertinent negative responses have been documented in the HPI. Review of Systems: CONST: Denies fever EYES: Denies blurry vision ENT: Denies nasal congestion C/V: Denies Chest pain RESP: Denies shortness of breath GI: Denies abdominal pain : Denies dysuria SKIN: Endorses rash under right armpit as well as under her pannus along the right side. MSK: Endorses right shoulder pain NEURO: Denies headache (Joss Copeland) Past Medical History Past Medical History: Hyperlipidemia, Hypertension, Thyroid Disorder History of Any Multi-Drug Resistant Organisms: None Reported Past Surgical History: No Surgical Hx Reported Additional Past Surgical History / Comment(s): Left ankle surgery Past Anesthesia/Blood Transfusion Reactions: No Reported Reaction Past Psychological History: No Psychological Hx Reported Smoking Status: Former smoker Past Alcohol Use History: None Reported Past Drug Use History: None Reported <Joss Copeland - Last Filed: 04/13/24 14:57> General Exam Limitations: no limitations, physical limitation <Joss Copeland - Last Filed: 04/13/24 14:57> Limitations: no limitations, altered mental status, physical limitation General appearance: alert, anxious, in distress, obese Head exam: Present: atraumatic, normocephalic, normal inspection Eye exam: Present: normal appearance, PERRL, EOMI. Absent: scleral icterus, conjunctival injection, periorbital swelling ENT exam: Present: normal exam, mucous membranes moist Neck exam: Present: normal inspection. Absent: tenderness, meningismus, lymphadenopathy Respiratory exam: Present: normal lung sounds bilaterally. Absent: respiratory distress, wheezes, rales, rhonchi, stridor Cardiovascular Exam: Present: regular rate, normal rhythm, normal heart sounds. Absent: systolic murmur, diastolic murmur, rubs, gallop, clicks GI/Abdominal exam: Present: soft, normal bowel sounds. Absent: distended, tenderness, guarding, rebound, rigid Extremities exam: Present: normal inspection, full ROM, normal capillary refill. Absent: tenderness, pedal edema, joint swelling, calf tenderness Back exam: Present: normal inspection Neurological exam: Present: alert, oriented X3, CN II-XII intact Psychiatric exam: Present: normal affect, normal mood Skin exam: Present: warm, dry, intact, normal color. Absent: rash <Marco Nguyen - Last Filed: 04/17/24 00:20> - General Exam Comments Initial Comments: General: Obese, poor hygiene. Patient does have dirt under her pannus. HEAD: Normal with no signs of head trauma. EYES: PERRLA, EOMI, conjunctiva normal, no discharge. ENT: Hearing grossly intact, normal oropharynx. RESPIRATORY: Clear breath sounds bilaterally. No wheezes, rales, or rhonchi. C/V: Regular rate and rhythm. S1 and S2 auscultated, no edema, peripheral pulses 2+ and intact throughout ABD: Abd is soft, nontender, nondistended EXT: Normal range of motion, no obvious deformity. Patient has tenderness palpation over the right shoulder, worse with movement. Has been ongoing for multiple weeks. SKIN: Patient has skin breakdown concerning for cellulitis under her pannus as well as into the right arm which is also appears somewhat of an abrasion. NEURO: Alert and oriented x 4. No focal deficits. (Joss Copeland) Course Vital Signs 04/13/24 04/13/24 04/13/24 11:13 14:21 15:42 Temperature 97.6 F Pulse Rate 99 84 78 Respiratory 20 20 20 Rate Blood Pressure 139/96 124/74 124/70 O2 Sat by Pulse 94 L 96 Oximetry 04/13/24 04/13/24 04/13/24 18:14 19:56 22:36 Temperature 97.8 F 97.4 F L Pulse Rate 75 71 75 Respiratory 20 18 20 Rate Blood Pressure 137/87 116/78 102/78 O2 Sat by Pulse 98 99 97 Oximetry 04/14/24 04/14/24 04/14/24 01:06 01:46 05:19 Temperature Pulse Rate 73 67 65 Respiratory 18 16 16 Rate Blood Pressure 119/74 142/73 O2 Sat by Pulse 92 L 98 96 Oximetry 04/14/24 04/14/24 04/14/24 05:40 08:00 12:00 Temperature 98.5 F Pulse Rate 62 62 82 Respiratory 21 16 16 Rate Blood Pressure 128/76 115/71 96/65 O2 Sat by Pulse 96 97 97 Oximetry 04/14/24 15:17 Temperature Pulse Rate 80 Respiratory 16 Rate Blood Pressure 148/83 O2 Sat by Pulse 98 Oximetry Medical Decision Making - Lab Data Result diagrams: 04/13/24 12:03 - EKG Data -: EKG Interpreted by Mo <Joss Copeland - Last Filed: 04/13/24 14:57> - Lab Data Result diagrams: 04/16/24 02:18 04/16/24 02:18 - Radiology Data Radiology results: report reviewed (Chest x-ray x-ray shoulder ultrasound shows positive DVT), image reviewed <Marco Nguyen Donald - Last Filed: 04/17/24 00:20> - Medical Decision Making Was pt. sent in by a medical professional or institution (KATHY Smith, INDUSTRIAL SOCIOLOGIST, urgent care, hospital, or long-term...) When possible be specific @ -No Did you speak to anyone other than the patient for history (EMS, parent, family, police, friend...)? What history was obtained from this source @ -No Did you review nursing and triage notes (agree or disagree)? Why? @ -I reviewed and agree with nursing and triage notes Were old charts reviewed (outside hosp., previous admission, EMS record, old EKG, old radiological studies, urgent care reports/EKG's, long-term records)? Report findings @ -No old charts were reviewed Differential Diagnosis (chest pain, altered mental status, abdominal pain women, abdominal pain men, vaginal bleeding, weakness, fever, dyspnea, syncope, headache, dizziness, GI bleed, back pain, seizure, CVA, palpatations, mental health, musculoskeletal)? @ -Differential Weakness: Hypoglycemia, shock, sepsis, hyponatremia, anemia, infection, RI, ETOH, adverse medicine reaction, overdose, stroke, this is not meant to be an all-inclusive list. EKG interpreted by me (3pts min.). @ -None done X-rays interpreted by me (1pt min.). @ -Pending CT interpreted by me (1pt min.). @ -Pending U/S interpreted by me (1pt. min.). @ -None done What testing was considered but not performed or refused? (CT, X-rays, U/S, labs)? Why? @ -None What meds were considered but not given or refused? Why? @ -None Did you discuss the management of the patient with other professionals (professionals i.e. KATHY Smith, INDUSTRIAL SOCIOLOGIST, lab, RT, psych nurse, hospital social worker, equity trader, teacher, chief commercial officer, family preservation caseworker)? Give summary @ -No Was smoking cessation discussed for >3mins.? @ -No Was critical care preformed (if so, how long)? @ -No Were there social determinants of health that impacted care today? How? (Homelessness, low income, unemployed, alcoholism, drug addiction, transportation, low edu. Level, literacy, decrease access to med. care, group home, rehab)? @ -No Was there de-escalation of care discussed even if they declined (Discuss DNR or withdrawal of care, Hospice)? DNR status @ -No What co-morbidities impacted this encounter? (DM, HTN, Smoking, COPD, CAD, Cancer, CVA, ARF, Chemo, Hep., AIDS, mental health diagnosis, sleep apnea, morbid obesity)? @ -None Was patient admitted / discharged? Hospital course, mention meds given and route, prescriptions, significant lab abnormalities, going to OR and other pertinent info. @ -Patient presents with weakness and failure to thrive and debility. Concern also for right shoulder injury as well as skin infection. We will obtain CT imaging the abdomen pelvis as well as x-rays and broad labs. She will be empirically started on vancomycin over concern for skin infection under pannus. Blood cultures obtained and sent. Patient was in agreement this plan. She will be admitted to the hospital. Patient's laboratory studies remarkable for elevated lactic acidosis of 2.1. Remainder the labs so far unremarkable. Had to redraw recent multiple laboratory studies. CT imaging and x-ray still pending at this time. Patient signed out to Dr. Nguyen Pending results of remaining workup. Patient would likely be admitted. Undiagnosed new problem with uncertain prognosis? @ -No Drug Therapy requiring intensive monitoring for toxicity (Heparin, Nitro, Insulin, Cardizem)? @ -No Were any procedures done? @ -No (Joss Copeland) 73 female to ER for evaluation will admit for significant cellulitis abdominal wall cellulitis and candidiasis as well as left lower extremity DVT and cellulitis, patient admitted for further supportive care (Marco Nguyen) - Lab Data Lab Results 04/13/24 04/13/24 04/13/24 Range/Units 12:03 12:03 12:03 WBC 9.7 (3.8-10.6) k/uL RBC 5.62 H (3.80-5.40) m/uL Hgb 16.9 H (11.4-16.0) gm/dL Hct 54.4 H (34.0-46.0) % MCV 96.8 (80.0-100.0) fL MCH 30.0 (25.0-35.0) pg MCHC 31.0 (31.0-37.0) g/dL RDW 15.2 (11.5-15.5) % Plt Count 297 (150-450) k/uL MPV 8.3 Neutrophils % 83 % Lymphocytes % 8 % Monocytes % 7 % Eosinophils % 1 % Basophils % 0 % Neutrophils # 8.0 H (1.3-7.7) k/uL Lymphocytes # 0.8 L (1.0-4.8) k/uL Monocytes # 0.7 (0-1.0) k/uL Eosinophils # 0.1 (0-0.7) k/uL Basophils # 0.0 (0-0.2) k/uL PT 12.9 H (10.0-12.5) sec INR 1.2 H (<1.2) APTT 20.1 L (22.0-30.0) sec Sodium (137-145) mmol/L Potassium (3.5-5.1) mmol/L Chloride (98-107) mmol/L Carbon Dioxide (22-30) mmol/L Anion Gap mmol/L BUN (7-17) mg/dL Creatinine (0.52-1.04) mg/dL Est GFR (CKD-EPI)AfAm (>60 ml/min/1.73 sqM) Est GFR (CKD-EPI)NonAf (>60 ml/min/1.73 sqM) Glucose (74-99) mg/dL Lactic Ac Sepsis Rflx Plasma Lactic Acid Tristan (0.7-2.0) mmol/L Calcium (8.4-10.2) mg/dL Magnesium (1.6-2.3) mg/dL Total Bilirubin (0.2-1.3) mg/dL AST (14-36) U/L ALT (4-34) U/L Alkaline Phosphatase (38-126) U/L Total Protein (6.3-8.2) g/dL Albumin (3.5-5.0) g/dL Urine Color Yellow Urine Appearance Clear (Clear) Urine pH 5.5 (5.0-8.0) Ur Specific [place] 1.036 H (1.001-1.035) Urine Protein 1+ H (Negative) Urine Glucose (UA) Negative (Negative) Urine Ketones 1+ H (Negative) Urine Blood Small H (Negative) Urine Nitrite Negative (Negative) Urine Bilirubin 1+ H (Negative) Urine Urobilinogen 3.0 (<2.0) mg/dL Ur Leukocyte Esterase Negative (Negative) Urine RBC 20 H (0-5) /hpf Urine WBC 4 (0-5) /hpf Ur Squamous Epith Cells 1 (0-4) /hpf Hyaline Casts 11 H (0-2) /lpf Urine Mucus Few H (None) /hpf Influenza Type A (PCR) (Not Detectd) Influenza Type B (PCR) (Not Detectd) RSV (PCR) (Not Detectd) SARS-CoV-2 (PCR) (Not Detectd) 04/13/24 04/13/24 04/13/24 Range/Units 12:03 12:03 13:08 WBC (3.8-10.6) k/uL RBC (3.80-5.40) m/uL Hgb (11.4-16.0) gm/dL Hct (34.0-46.0) % MCV (80.0-100.0) fL MCH (25.0-35.0) pg MCHC (31.0-37.0) g/dL RDW (11.5-15.5) % Plt Count (150-450) k/uL MPV Neutrophils % % Lymphocytes % % Monocytes % % Eosinophils % % Basophils % % Neutrophils # (1.3-7.7) k/uL Lymphocytes # (1.0-4.8) k/uL Monocytes # (0-1.0) k/uL Eosinophils # (0-0.7) k/uL Basophils # (0-0.2) k/uL PT (10.0-12.5) sec INR (<1.2) APTT (22.0-30.0) sec Sodium (137-145) mmol/L Potassium (3.5-5.1) mmol/L Chloride (98-107) mmol/L Carbon Dioxide (22-30) mmol/L Anion Gap mmol/L BUN (7-17) mg/dL Creatinine (0.52-1.04) mg/dL Est GFR (CKD-EPI)AfAm (>60 ml/min/1.73 sqM) Est GFR (CKD-EPI)NonAf (>60 ml/min/1.73 sqM) Glucose (74-99) mg/dL Lactic Ac Sepsis Rflx Y Plasma Lactic Acid Tristan 2.1 H* (0.7-2.0) mmol/L Calcium (8.4-10.2) mg/dL Magnesium (1.6-2.3) mg/dL Total Bilirubin (0.2-1.3) mg/dL AST (14-36) U/L ALT (4-34) U/L Alkaline Phosphatase (38-126) U/L Total Protein (6.3-8.2) g/dL Albumin (3.5-5.0) g/dL Urine Color Urine Appearance (Clear) Urine pH (5.0-8.0) Ur Specific [place] (1.001-1.035) Urine Protein (Negative) Urine Glucose (UA) (Negative) Urine Ketones (Negative) Urine Blood (Negative) Urine Nitrite (Negative) Urine Bilirubin (Negative) Urine Urobilinogen (<2.0) mg/dL Ur Leukocyte Esterase (Negative) Urine RBC (0-5) /hpf Urine WBC (0-5) /hpf Ur Squamous Epith Cells (0-4) /hpf Hyaline Casts (0-2) /lpf Urine Mucus (None) /hpf Influenza Type A (PCR) Not Detected (Not Detectd) Influenza Type B (PCR) Not Detected (Not Detectd) RSV (PCR) Not Detected (Not Detectd) SARS-CoV-2 (PCR) Not Detected (Not Detectd) 04/13/24 04/13/24 04/13/24 Range/Units 14:02 15:50 16:43 WBC (3.8-10.6) k/uL RBC (3.80-5.40) m/uL Hgb (11.4-16.0) gm/dL Hct (34.0-46.0) % MCV (80.0-100.0) fL MCH (25.0-35.0) pg MCHC (31.0-37.0) g/dL RDW (11.5-15.5) % Plt Count (150-450) k/uL MPV Neutrophils % % Lymphocytes % % Monocytes % % Eosinophils % % Basophils % % Neutrophils # (1.3-7.7) k/uL Lymphocytes # (1.0-4.8) k/uL Monocytes # (0-1.0) k/uL Eosinophils # (0-0.7) k/uL Basophils # (0-0.2) k/uL PT (10.0-12.5) sec INR (<1.2) APTT (22.0-30.0) sec Sodium 139 (137-145) mmol/L Potassium 4.0 (3.5-5.1) mmol/L Chloride 107 (98-107) mmol/L Carbon Dioxide 18 L (22-30) mmol/L Anion Gap 14 mmol/L BUN 27 H (7-17) mg/dL Creatinine 1.41 H (0.52-1.04) mg/dL Est GFR (CKD-EPI)AfAm 43 (>60 ml/min/1.73 sqM) Est GFR (CKD-EPI)NonAf 37 (>60 ml/min/1.73 sqM) Glucose 127 H (74-99) mg/dL Lactic Ac Sepsis Rflx Y Plasma Lactic Acid Tristan 2.4 H* (0.7-2.0) mmol/L Calcium 9.0 (8.4-10.2) mg/dL Magnesium 1.8 (1.6-2.3) mg/dL Total Bilirubin 1.0 (0.2-1.3) mg/dL AST 24 (14-36) U/L ALT 26 (4-34) U/L Alkaline Phosphatase 131 H (38-126) U/L Total Protein 6.2 L (6.3-8.2) g/dL Albumin 3.3 L (3.5-5.0) g/dL Urine Color Urine Appearance (Clear) Urine pH (5.0-8.0) Ur Specific [place] (1.001-1.035) Urine Protein (Negative) Urine Glucose (UA) (Negative) Urine Ketones (Negative) Urine Blood (Negative) Urine Nitrite (Negative) Urine Bilirubin (Negative) Urine Urobilinogen (<2.0) mg/dL Ur Leukocyte Esterase (Negative) Urine RBC (0-5) /hpf Urine WBC (0-5) /hpf Ur Squamous Epith Cells (0-4) /hpf Hyaline Casts (0-2) /lpf Urine Mucus (None) /hpf Influenza Type A (PCR) (Not Detectd) Influenza Type B (PCR) (Not Detectd) RSV (PCR) (Not Detectd) SARS-CoV-2 (PCR) (Not Detectd) - EKG Data EKG Comments: 12-lead Electrocardiogram Interpretation Note EKG was reviewed and interpreted by myself. 12-lead ECG performed at 1220 is interpreted by me as revealing normal sinus rhythm at a rate of 92 beats per minute. [place] is normal. [place] interval is 138 ms, QRS duration is 82 ms, QTc is 422 ms.. There were no ST or T wave abnormalities to suggest myocardial ischemia or injury. R wave progression across the precordium was satisfactory. By my interpretation this EKG is non-diagnostic for acute ischemia. (Joss Copeland) Disposition <Joss Copeland - Last Filed: 04/13/24 14:57> Is patient prescribed a controlled substance at d/c from ED?: No Time of Disposition: 18:00 <Marco Nguyen - Last Filed: 04/17/24 00:20> Clinical Impression: Dehydration, Abdominal wall cellulitis, Candidal intertrigo, Left leg cellulitis, Lactic acidosis, DVT (deep venous thrombosis), Cellulitis of groin Disposition: ADMITTED IP TO THIS HOSP Condition: Fair
[2024-04-13] MEDS: DIPH,PERTUS(ACELL)TETVAC-LF 0.5 ML VIAL IM ONE (14:15)
[2024-04-13] MEDS: VANCOMYCIN 2,000 MG in SODIUM CHLORIDE 0.9% 500 ML 500 ML IVPB STA (14:20)
--- NOTE | 2024-04-13 15:14 | XR ---
EXAMINATION TYPE: XR chest 2V DATE OF EXAM: 04/13/2024 3:05 PM CLINICAL INDICATION:Female, 73 years old with history of Weakness; [facility] COMPARISON: Chest radiographs from 01/13/2019 TECHNIQUE: XR chest 2V Frontal and lateral views of the chest. FINDINGS: Lungs/Pleura: There is no evidence of pleural effusion, focal consolidation, or pneumothorax. Pulmonary vascularity: Unremarkable. Heart/mediastinum: Cardiomediastinal silhouette is unremarkable. Musculoskeletal: No acute osseous pathology. IMPRESSION: Low lung volumes with a generalized hazy appearance which could represent atelectasis versus pulmonar y edema correlate with serum BNP.
--- NOTE | 2024-04-13 15:15 | XR ---
EXAMINATION TYPE: XR shoulder complete RT DATE OF EXAM: 04/13/2024 3:05 PM CLINICAL INDICATION:Female, 73 years old with history of pain; COMPARISON: None TECHNIQUE: XR shoulder complete RT; examined in AP, internally rotated and scapular Y projections. FINDINGS: No evidence of acute osseous pathology, joint dislocation, or soft tissue swelling. The remaining po rtions of the visualized chest are unremarkable. Degeneration changes of the acromion, distal clavic le with osteophyte formation. There is osteophyte formation of the glenoid and humeral head. There is joint space narrowing of glenohumeral joint. IMPRESSION: 1. No acute osseous pathology. 2. 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
[2024-04-13 16:06] LABS: ALT 26 U/L (4-34); African American GFR (CKD) 43 (>60 ml/min/1.73 sqM); Albumin 3.3 g/dL (3.5-5.0); Anion Gap 14 mmol/L; Blood Urea Nitrogen 27 mg/dL (7-17); Carbon Dioxide 18 mmol/L (22-30); Chloride 107 mmol/L (98-107); Glucose 127 mg/dL (74-99); Non-African American GFR(CKD) 37 (>60 ml/min/1.73 sqM); Sodium 139 mmol/L (137-145); Total Protein 6.2 g/dL (6.3-8.2)
[2024-04-13 16:38] LABS: AST 24 U/L (14-36); Alkaline Phosphatase 131 U/L (38-126)
[2024-04-13 16:39] LABS: Magnesium 1.8 mg/dL (1.6-2.3)
[2024-04-13] MEDS ORDERED: MORPHINE SULFATE 4 MG/ML SYRINGE IV PRN (17:54)
[2024-04-13] MEDS ORDERED: ONDANSETRON 4 MG/2 ML VIAL IVP PRN (17:54)
[2024-04-13] MEDS ORDERED: NALOXONE 0.4 MG/ML 1 ML VIAL IV PRN (17:54)
--- NOTE | 2024-04-13 17:57 | CT ---
EXAMINATION TYPE: CT abdomen pelvis w con DATE OF EXAM: 04/13/2024 COMPARISON: NONE HISTORY: 73-year-old female generalized abd pain TECHNIQUE: Contiguous axial scanning of the abdomen and pelvis following administration of 80 ml Isov ue 300 IV contrast. Delayed images through the kidneys and coronal/sagittal reconstructions performe d. CT DLP: 2666.7 mGycm Automated exposure control for dose reduction was used. FINDINGS: Heart normal size without pericardial effusion. RCA coronary artery calcifications are pres ent. Some mild strandy atelectasis in the lower lungs. No pleural effusion. Possible tiny hiatal hernia. Markedly diminished attenuation of the hepatic parenchyma. Portal venous system is patent. No biliary ductal dilatation. Gallbladder mildly hydropic and 4.1 cm wide but without any surrounding inflammation. Adrenal glands, left kidney, and pancreas within normal limits. There is a 3.1 cm cyst at the upper pole of the spleen. 4 mm nonobstructing right renal stone. No dilated small bowel, free fluid, or free air. No mesenteric or retroperitoneal lymphadenopathy. No significant stool burden. There is proximal sigmoid diverticulosis. No pericolonic inflammatory ch kaylene. Bladder is collapsed with Daugherty catheter in place. Uterus anteverted. Ovaries are visualized. Right-s ided pelvic phlebolith. No abnormal fluid collection in the pelvis or pelvic lymphadenopathy. Osteopenia. Mild degenerative change of the hips. Advanced spondylotic changes throughout the lumbar spine. Nearly grade 2 anterolisthesis at L4-L5. Mcelroy perior endplate deformities at both L3 and L4 have a chronic appearance and can be correlated clinica lly. IMPRESSION: 1. OSTEOPENIA. L3 AND L4 SUPERIOR ENDPLATE DEFORMITIES ARE SUSPECTED TO BE CHRONIC. CLINICALLY CORREL ATE. 2. SEVERE HEPATIC STEATOSIS. MILDLY HYDROPIC GALLBLADDER LIKELY DUE TO FASTING STATE. NO SURROUNDING INFLAMMATION BY CT. IF FURTHER IMAGING ASSESSMENT OF THE GALLBLADDER IS DESIRED, HIDA SCAN CAN BE CON SIDERED. 3. A NONOBSTRUCTIVE 4 MM RIGHT RENAL STONE. SIGMOID DIVERTICULOSIS WITHOUT ACUTE DIVERTICULITIS.
[2024-04-13] MEDS: SODIUM CHLORIDE 0.9% 1,000 ML IV SCH (18:43)
[2024-04-13] MEDS: NYSTATIN 100,000UNIT/GM CREAM 30 GM TUBE TOPICAL STA (18:47)
[2024-04-13] MEDS: TRIAMCINOLONE 0.1% CREAM 80 GM TUBE TOPICAL STA (18:47)
[2024-04-13] MEDS: NYSTAT-TRIAMCIN 100,000-0.1 UNIT/GM-% CREAM 30 GM TUBE TOPICAL STA (18:48)
--- NOTE | 2024-04-13 20:11 | US ---
EXAMINATION TYPE: US venous doppler duplex LE LT DATE OF EXAM: 04/13/2024 7:13 PM COMPARISON: NONE CLINICAL INDICATION: Female, 73 years old with history of DVT; Patient states no known hx of DVT. Pat ient not on blood thinners. Left leg swelling. SIDE PERFORMED: Left TECHNIQUE: The lower extremity deep venous system is examined utilizing real time linear array sonog osmel with graded compression, doppler sonography and color-flow sonography. VESSELS IMAGED: Common Femoral Vein Deep Femoral Vein Greater Saphenous Vein * Femoral Vein Popliteal Vein Small Saphenous Vein * Proximal Calf Veins (* superficial vessels) Extremely limited exam due to morbidly obese patient and deep course of vessels Left Leg: Echoes seen throughout upper CFV down to the popliteal vein. Areas of thready flow seen wi thin. This vessel does not appear fully compressible. Unable to visualize distal CFV and distal popli teal vein IMPRESSION: Extensive DVT of the left lower extremity from at least the upper CFV down into the popliteal vein. T he presence of thready flow in some portions suggests a chronic component. Further clinical correlati on recommended.
[2024-04-13] MEDS: HEPARIN SOD,PORK IN 0.45% NACL 25,000 UNIT in 0.45% NACL 1 250ML.BAG IV SCH (22:03)
[2024-04-13] MEDS: HEPARIN SODIUM 1,000 UN/ML (10ML VL) IV ONE (22:03)
[2024-04-14 04:48] LABS: ALT 19 U/L (4-34); AST 30 U/L (14-36); African American GFR (CKD) 66 (>60 ml/min/1.73 sqM); Albumin 2.4 g/dL (3.5-5.0); Albumin/Globulin Ratio 0.9; Alkaline Phosphatase 111 U/L (38-126); Anion Gap 8 mmol/L; Blood Urea Nitrogen 23 mg/dL (7-17); Calcium 8.1 mg/dL (8.4-10.2); Carbon Dioxide 20 mmol/L (22-30); Chloride 109 mmol/L (98-107); Globulin 2.7 g/dL; Glucose 106 mg/dL (74-99); Magnesium 1.9 mg/dL (1.6-2.3); Non-African American GFR(CKD) 57 (>60 ml/min/1.73 sqM); Phosphorus 3.1 mg/dL (2.5-4.5); Potassium 3.1 mmol/L (3.5-5.1); Sodium 137 mmol/L (137-145); Total Bilirubin 0.8 mg/dL (0.2-1.3); Total Protein 5.1 g/dL (6.3-8.2)
[2024-04-14] MEDS ORDERED: Potassium Replacement Protocol 1 EACH MISC MISCELLANE PRN ×2 (05:22→05:24)
[2024-04-14] MEDS: POTASSIUM CHLORIDE ER 20 MEQ TAB.ER PO SCH (05:34)
[2024-04-14 09:03] LABS: Basophils # (A) 0.04 X 10*3/uL (0.00-0.10); Basophils % (A) 0.6 %; Eosinophils % (A) 2.9 %; HCT 40.8 % (37.2-46.3); HGB 13.2 g/dL (12.0-15.0); Lymphocytes # (A) 1.46 X 10*3/uL (0.90-5.00); Lymphocytes % (A) 21.1 %; MCH 30.1 pg (27.0-32.0); MCHC 32.4 g/dL (32.0-37.0); MCV 92.9 FL (80.0-97.0); Monocytes # (A) 0.73 X 10*3/uL (0.20-1.00); Monocytes % (A) 10.6 %; NRBC Per 100 WBC 0 X 10*3/uL (0.00-0.01); Neutrophils # (A) 4.39 X 10*3/uL (1.80-7.70); Neutrophils % (A) 63.5 %; Platelet Count 238 X 10*3/uL (140-440); RBC 4.39 X 10*6/uL (4.10-5.20); RDW 16.6 % (11.5-14.5); WBC 6.91 X 10*3/uL (4.50-10.00)
[2024-04-14] MEDS: NYSTATIN 100,000 UNIT/GM POWD 15 GM TOPICAL SCH (09:13)
[2024-04-14] MEDS: VANCOMYCIN 2,000 MG in SODIUM CHLORIDE 0.9% 500 ML 500 ML IVPB ONE (09:14)
[2024-04-14] MEDS ORDERED: HYDROcodone/APAP 5-325MG 1 EACH TAB PO PRN (12:54)
[2024-04-14] MEDS ORDERED: HYDROmorphone 0.5 MG/0.5 ML SYRINGE IVP PRN (12:54)
--- NOTE | 2024-04-14 20:01 | HP ---
HISTORY AND PHYSICAL CHIEF COMPLAINT: Bilateral leg cellulitis as well as weakness. HISTORY OF PRESENT ILLNESS: This is a 73-year-old woman with a past medical history of multiple medical problems including hypertension, hyperlipidemia, was noted to have bilateral leg cellulitis. The patient is also having weakness and sliding down at home. The patient also had infection under the pannus. There is no history of any fever, rigors, or chills at this time. The patient is being admitted for further evaluation and treatment. The labs which I reviewed personally showed lactic acid is 2.1. The APTT was more than 200. PAST MEDICAL HISTORY: Reviewed include hypertension, hyperlipidemia. Rest of the history and rest of the chart is also reviewed. HOME MEDICATIONS: None. ALLERGIES: None. FAMILY HISTORY: No history of heart disease or strokes in the family. SOCIAL HISTORY: Previous history of smoking. REVIEW OF SYSTEMS: Fourteen-point review is negative except as mentioned earlier. PHYSICAL EXAMINATION: VITAL SIGNS: Pulse is 62, blood pressure 115/70, respirations 16. HEENT: Conjunctivae normal. NECK: No JVD. CARDIOVASCULAR: S1, S2. RESPIRATIONS: Breath sounds diminished at the bases. Scattered rhonchi and crackles. ABDOMEN: Soft, obese, nontender. Intertrigo present. LEGS: Bilateral leg cellulitis and infection present. Edema present. LABORATORY DATA: Potassium 3.1. Rest of the labs are noted. ASSESSMENT: 1. Bilateral leg cellulitis. 2. Extensive deep venous thrombosis of the left lower limb. 3. Hypokalemia. 4. Acute renal failure present on admission. 5. Dehydration present on admission. 6. Lactic acidosis, present on admission. 7. Abdominal wall cellulitis. RECOMMENDATIONS: Recommend to continue current management. Continue symptomatic treatment. Otherwise, we will repeat labs. Antibiotics, Infectious Disease evaluation, cultures. Resume the home medications once they are confirmed. Prognosis guarded because of multiple complex medical issues. Further recommendations to follow. The patient had multiple evaluations including chest x-ray, which showed some increased bronchovascular markings. I would also recommend a 2D echo with a doppler and complete cardiac workup also. CT scan of the abdomen showed osteopenia and severe hepatic steatosis. Nonobstructing renal calculi was also noted. The venous Doppler showed extensive DVT on the left lower extremity. We will consult Hematology, Oncology also. Guarded prognosis. Further recommendations to follow. MMODL / IJN: [id number] /
[2024-04-14] MEDS: HEPARIN SODIUM 1,000 UN/ML (10ML VL) IV PRN (21:04)
--- NOTE | 2024-04-14 23:48 | P.CONS ---
History of Present Illness - Reason for Consult Consult date: 04/14/24 Cellulitis Requesting physician: Reba Bowens - Chief Complaint Weakness groin and armpit excoriation x days - History of Present Illness Patient is a 73-year-old female with a past medical history significant for hypertension hyperlipidemia morbid obesity former smoker presenting to the hospital yesterday afternoon for evaluation of weakness apparently the patient did have a progressive illness and did have difficulty performing her normal activities of daily living has been sliding down at home but no obvious falls or loss of consciousness patient be complaining of sores and pain to the bilateral groin and the right armpit area that apparently has been getting worse over the last few days patient has been attributing them to be significant swelling and maceration she did have a mild dull aching to sharp pain without any radiation with associated maceration and some foul-smelling but denies having any purulent drainage patient denies having any headache or URI symptoms no chest pain shortness of the cough no nausea vomiting no abdominal pain no diarrhea on presentation to the hospital the patient was afebrile and no fever have recorded subsequently patient was nontachycardic hypotensive or hypoxic patient did have a white count of 9 point 7 repeat is 6.91 BUN/creatinine has been mildly elevated liver isms are normal urine is negative influenza RSV COVID testing negative blood cultures obtained which are currently pending patient did have a chest x-ray low lung volumes with generalized hazy appearance could represent atelectasis abdominal pelvis CT osteopenia L3-L4 superior endplate deformities suspected to be chronic severe hepatic steatosis nonobstructing renal calculus venous Doppler no mention of acute thrombus patient has been started on vancomycin last admission border infectious disease was consulted for further management of antibiotic therapy Review of Systems Positive point and negatives has been mentioned in the HPI, complete review of systems was performed and all other systems are negative Past Medical History Past Medical History: Hyperlipidemia, Hypertension, Thyroid Disorder History of Any Multi-Drug Resistant Organisms: None Reported Past Surgical History: No Surgical Hx Reported Additional Past Surgical History / Comment(s): Left ankle surgery Past Anesthesia/Blood Transfusion Reactions: No Reported Reaction Past Psychological History: No Psychological Hx Reported Smoking Status: Former smoker Past Alcohol Use History: None Reported Past Drug Use History: None Reported Medications and Allergies Home Medications Medication Instructions Recorded Confirmed Type No Known Home Medications 04/13/24 04/13/24 History Allergies Allergy/AdvReac Type Severity Reaction Status Date / Time No Known Allergies Allergy Verified 04/13/24 12:58 Physical Exam Vitals: Vital Signs Temp Pulse Resp BP Pulse Ox 04/14/24 08:00 62 16 115/71 97 04/14/24 05:40 98.5 F 62 21 128/76 96 04/14/24 05:19 65 16 142/73 96 04/14/24 01:46 67 16 98 04/14/24 01:06 73 18 119/74 92 L 04/13/24 22:36 75 20 102/78 97 04/13/24 19:56 97.4 F L 71 18 116/78 99 04/13/24 18:14 97.8 F 75 20 137/87 98 04/13/24 15:42 78 20 124/70 96 04/13/24 14:21 84 20 124/74 Intake and Output 04/13/24 04/14/24 04/14/24 22:59 06:59 14:59 Intake Total 166.202 98.27 Output Total 320 150 Balance -153.798 -51.73 Intake: Intake, IV Titration 166.202 98.27 Amount Heparin Sod,Pork in 0.45% 166.202 98.27 NaCl 25,000 unit In 0.45 % NaCl 1 250ml.bag @ 18 UNITS/KG/HR 23.914 mls/hr IV .[id number] [facility] Rx#: [id number] Output: Urine 320 150 Uretheral (Daugherty) 150 GENERAL DESCRIPTION: Elderly female lying in bed, no distress. No tachypnea or accessory muscle of respiration use. HEENT: Shows Pallor , no scleral icterus. Oral mucous membrane is dry. NECK: Trachea central, no thyromegaly. LUNGS: Unlabored breathing. Clear to auscultation anteriorly. No wheeze or crackle. HEART: S1, S2, regular rate and rhythm. No loud murmur ABDOMEN: Soft, no tenderness , EXTREMITIES: Patient did have extensive excoriation of bilateral groin area and also to the right armpit with some foul smell minimal redness SKIN: No rash, no masses palpable. NEUROLOGICAL: The patient is awake, alert, oriented x3, mood and affect normal. Results CBC & Chem 7: 04/14/24 03:49 04/14/24 10:52 Labs: Abnormal Lab Results - Last 24 Hours (Table) 04/13/24 04/13/24 04/13/24 Range/Units 12:03 12:03 12:03 RDW (11.5-14.5) % Immature Gran # (0.00-0.04) X 10*3/uL PT 12.9 H (10.0-12.5) sec INR 1.2 H (<1.2) APTT 20.1 L (22.0-30.0) sec Potassium (3.5-5.1) mmol/L Chloride (98-107) mmol/L Carbon Dioxide (22-30) mmol/L BUN (7-17) mg/dL Creatinine (0.52-1.04) mg/dL Glucose (74-99) mg/dL Plasma Lactic Acid Tristan 2.1 H* (0.7-2.0) mmol/L Calcium (8.4-10.2) mg/dL Alkaline Phosphatase (38-126) U/L Total Protein (6.3-8.2) g/dL Albumin (3.5-5.0) g/dL Ur Specific [place] 1.036 H (1.001-1.035) Urine Protein 1+ H (Negative) Urine Ketones 1+ H (Negative) Urine Blood Small H (Negative) Urine Bilirubin 1+ H (Negative) Urine RBC 20 H (0-5) /hpf Hyaline Casts 11 H (0-2) /lpf Urine Mucus Few H (None) /hpf 04/13/24 04/13/24 04/13/24 Range/Units 14:02 15:50 18:49 RDW (11.5-14.5) % Immature Gran # (0.00-0.04) X 10*3/uL PT (10.0-12.5) sec INR (<1.2) APTT (22.0-30.0) sec Potassium (3.5-5.1) mmol/L Chloride (98-107) mmol/L Carbon Dioxide 18 L (22-30) mmol/L BUN 27 H (7-17) mg/dL Creatinine 1.41 H (0.52-1.04) mg/dL Glucose 127 H (74-99) mg/dL Plasma Lactic Acid Tristan 2.4 H* 2.1 H* (0.7-2.0) mmol/L Calcium (8.4-10.2) mg/dL Alkaline Phosphatase 131 H (38-126) U/L Total Protein 6.2 L (6.3-8.2) g/dL Albumin 3.3 L (3.5-5.0) g/dL Ur Specific [place] (1.001-1.035) Urine Protein (Negative) Urine Ketones (Negative) Urine Blood (Negative) Urine Bilirubin (Negative) Urine RBC (0-5) /hpf Hyaline Casts (0-2) /lpf Urine Mucus (None) /hpf 04/14/24 04/14/24 04/14/24 Range/Units 03:49 03:49 03:49 RDW 16.6 H (11.5-14.5) % Immature Gran # 0.09 H (0.00-0.04) X 10*3/uL PT (10.0-12.5) sec INR (<1.2) APTT >200.0 H* (22.0-30.0) sec Potassium 3.1 L (3.5-5.1) mmol/L Chloride 109 H (98-107) mmol/L Carbon Dioxide 20 L (22-30) mmol/L BUN 23 H (7-17) mg/dL Creatinine (0.52-1.04) mg/dL Glucose 106 H (74-99) mg/dL Plasma Lactic Acid Tristan (0.7-2.0) mmol/L Calcium 8.1 L (8.4-10.2) mg/dL Alkaline Phosphatase (38-126) U/L Total Protein 5.1 L (6.3-8.2) g/dL Albumin 2.4 L (3.5-5.0) g/dL Ur Specific [place] (1.001-1.035) Urine Protein (Negative) Urine Ketones (Negative) Urine Blood (Negative) Urine Bilirubin (Negative) Urine RBC (0-5) /hpf Hyaline Casts (0-2) /lpf Urine Mucus (None) /hpf 04/14/24 Range/Units 10:52 RDW (11.5-14.5) % Immature Gran # (0.00-0.04) X 10*3/uL PT (10.0-12.5) sec INR (<1.2) APTT >200.0 H* (22.0-30.0) sec Potassium (3.5-5.1) mmol/L Chloride (98-107) mmol/L Carbon Dioxide (22-30) mmol/L BUN (7-17) mg/dL Creatinine (0.52-1.04) mg/dL Glucose (74-99) mg/dL Plasma Lactic Acid Tristan (0.7-2.0) mmol/L Calcium (8.4-10.2) mg/dL Alkaline Phosphatase (38-126) U/L Total Protein (6.3-8.2) g/dL Albumin (3.5-5.0) g/dL Ur Specific [place] (1.001-1.035) Urine Protein (Negative) Urine Ketones (Negative) Urine Blood (Negative) Urine Bilirubin (Negative) Urine RBC (0-5) /hpf Hyaline Casts (0-2) /lpf Urine Mucus (None) /hpf Assessment and Plan (1) Cellulitis of groin Current Visit: Yes Status: Acute Code(s): L03.314 - CELLULITIS OF GROIN SNOMED Code(s): 00669747 (2) Candidal intertrigo Current Visit: Yes Status: Acute Code(s): B37.2 - CANDIDIASIS OF SKIN AND NAIL SNOMED Code(s): 343292418 Plan: 1patient with extensive excoriation to the bilateral groin and right armpit area likely from extensive cutaneous candidiasis and possible component of secondary cellulitis not entirely excluded and likely from gram-positive skin joy 2-patient with elevated creatinine and risk of nephrotoxicity from vancomycin 3-discontinue vancomycin 4-we will start the patient cefazolin 2 g every 8 hours along with nystatin powder to the groin and armpit area We will follow on clinical condition and cultures to further adjust medication if needed Thank you for this consultation we will follow the patient along with you Dictation was produced using [employer] software. please excuse any grammatical, word or spelling errors.
[2024-04-15 04:39] LABS: Basophils % (A) 1 %; Eosinophils # (A) 0.2 k/uL (0-0.7); Eosinophils % (A) 3 %; HCT 42.2 % (34.0-46.0); Lymphocytes % (A) 17 %; MCH 30.2 pg (25.0-35.0); MCHC 30.7 g/dL (31.0-37.0); MCV 98.1 fL (80.0-100.0); Monocytes # (A) 0.6 k/uL (0-1.0); Monocytes % (A) 9 %; Neutrophils # (A) 4.3 k/uL (1.3-7.7); Neutrophils % (A) 69 %; Platelet Count 227 k/uL (150-450); RDW 15.2 % (11.5-15.5); WBC 6.2 k/uL (3.8-10.6)
[2024-04-15 06:20] LABS: African American GFR (CKD) 77 (>60 ml/min/1.73 sqM); Anion Gap 5 mmol/L; Blood Urea Nitrogen 18 mg/dL (7-17); Calcium 8.1 mg/dL (8.4-10.2); Carbon Dioxide 22 mmol/L (22-30); Chloride 109 mmol/L (98-107); Glucose 99 mg/dL (74-99); Non-African American GFR(CKD) 66 (>60 ml/min/1.73 sqM); Potassium 3.4 mmol/L (3.5-5.1); Sodium 136 mmol/L (137-145)
[2024-04-15 06:25] LABS: Vancomycin,Random 14.7 ug/mL
[2024-04-15] MEDS: POTASSIUM CHLORIDE ER 20 MEQ TAB.ER PO SCH (06:38)
--- NOTE | 2024-04-15 13:17 | P.CONS ---
History of Present Illness - Reason for Consult Consult date: 04/15/24 LLE DVT - History of Present Illness The patient is a 73-year-old white female, with multimedical problems, including morbid obesity. The patient come into the hospital because of progressive weakness over the past several weeks. this was causing difficulty in ambulation and performance of daily activities. She had had episodes of sliding down to the ground, although she had not had overt falls with trauma. The patient had been having irritation in the right axillary and bilateral groin areas, as well as under her abdominal pannus due to which she had been scratching these areas quite persistently. She had developed excoriation with redness in both these areas. On evaluation she was felt to have extensive fungal infection with possible superimposed cellulitis. Shoulder and chest x-ray, due to trauma and pain on examination, did not reveal any fracture. She also had a Doppler of the left lower extremity, due to swelling and increased redness revealing an extensive DVT, extending from the common femoral down into the calf veins. There was some thready flow indicating at least a partial chronic component. Consult was therefore placed for further evaluation and recommendations. In the meantime the patient was started on IV heparin. She denies any prior history of arterial or venous thrombosis she had left ankle surgery after an ankle fracture, 4 years ago. She states that the left leg has felt heavier and somewhat weaker compared to the right, or possibly the past few weeks. She denies any chest pain or change in respiratory status. However she was placed on oxygen, because of desaturations felt to be related to sleep apnea. She denies any recent hospitalizations, prior to this 1, or any prolonged travel. However she states that she is quite sedentary at home, although she was doing her regular ADLs, before onset of the current symptoms. She quit smoking in 1987. No history of any pre-existing, chronic inflammatory condition. No history of COVID Review of Systems Constitutional: Reports poor appetite, Reports weakness Eyes: denies blurred vision, denies pain Ears: deny: decreased hearing, ear discharge, earache, tinnitus Ears, nose, mouth and throat: Denies headache, Denies sore throat Cardiovascular: Reports decreased exercise tolerance Respiratory: Denies cough Gastrointestinal: Denies abdominal pain, Denies diarrhea, Denies nausea, Denies vomiting Genitourinary: Denies dysuria, Denies hematuria Menstruation: Reports postmenopausal Musculoskeletal: Reports muscle weakness Integumentary: Reports as per HPI Neurological: Reports weakness Psychiatric: Denies anxiety, Denies depression Endocrine: Reports fatigue Hematologic/Lymphatic: Reports as per HPI, Reports lymphedema Past Medical History Past Medical History: Hyperlipidemia, Hypertension, Thyroid Disorder History of Any Multi-Drug Resistant Organisms: None Reported Past Surgical History: No Surgical Hx Reported Additional Past Surgical History / Comment(s): Left ankle surgery Past Anesthesia/Blood Transfusion Reactions: No Reported Reaction Past Psychological History: No Psychological Hx Reported Smoking Status: Former smoker Past Alcohol Use History: None Reported Past Drug Use History: None Reported Medications and Allergies Home Medications Medication Instructions Recorded Confirmed Type No Known Home Medications 04/13/24 04/13/24 History Allergies Allergy/AdvReac Type Severity Reaction Status Date / Time No Known Allergies Allergy Verified 04/13/24 12:58 Physical Exam Vitals: Vital Signs Temp Pulse Pulse Resp BP BP BP 04/15/24 07:24 97.4 F L 61 18 131/80 04/15/24 01:14 97.8 F 70 20 107/68 04/14/24 18:55 98.4 F 77 20 111/65 04/14/24 16:24 98.7 F 81 19 108/65 04/14/24 15:17 80 16 148/83 Pulse Ox 04/15/24 07:24 99 04/15/24 01:14 96 04/14/24 18:55 94 L 04/14/24 16:24 96 04/14/24 15:17 98 Intake and Output 04/14/24 04/15/24 04/15/24 22:59 06:59 14:59 Intake Total 0 130.133 46.823 Output Total 300 Balance 0 -169.867 46.823 Intake: Intake, IV Titration 0 130.133 46.823 Amount Heparin Sod,Pork in 0.45% 0 130.133 46.823 NaCl 25,000 unit In 0.45 % NaCl 1 250ml.bag @ 18 UNITS/KG/HR 23.914 mls/hr IV [id number] [facility] Rx#: [id number] Output: Urine 300 Other: Voiding Method Indwelling Catheter Weight 132.857 kg - Constitutional General appearance: no acute distress - EENT Eyes: EOMI, PERRLA ENT: hearing grossly normal, normal oropharynx - Respiratory Respiratory: bilateral: diminished - Cardiovascular Rhythm: regular Heart sounds: normal: S1, S2 - Gastrointestinal General gastrointestinal: normal bowel sounds, soft - Integumentary Extensive erythema with excoriation, right axilla, lower abdomen intertriginous area, and bilateral groins as well as distal left lower extremity - Neurologic Neurologic: CNII-XII intact - Musculoskeletal Left lower extremity girth greater than right. Musculoskeletal: generalized weakness, strength equal bilaterally - Psychiatric Psychiatric: A&O x's 3, appropriate affect, intact judgment & insight Results CBC & Chem 7: 04/15/24 04:15 04/15/24 04:15 Labs: Abnormal Lab Results - Last 24 Hours (Table) 04/14/24 04/15/24 04/15/24 Range/Units 10:52 04:15 04:15 MCHC 30.7 L (31.0-37.0) g/dL APTT >200.0 H* (22.0-30.0) sec Sodium 136 L (137-145) mmol/L Potassium 3.4 L (3.5-5.1) mmol/L Chloride 109 H (98-107) mmol/L BUN 18 H (7-17) mg/dL Calcium 8.1 L (8.4-10.2) mg/dL 04/15/24 04/15/24 Range/Units 04:15 11:10 MCHC (31.0-37.0) g/dL APTT >200.0 H* 41.2 H (22.0-30.0) sec Sodium (137-145) mmol/L Potassium (3.5-5.1) mmol/L Chloride (98-107) mmol/L BUN (7-17) mg/dL Calcium (8.4-10.2) mg/dL Microbiology - Last 24 Hours (Table) 04/13/24 12:37 Blood Culture - Preliminary Blood 04/13/24 12:07 Blood Culture - Preliminary Blood Chest x-ray: report reviewed CT scan - abdomen: report reviewed CT scan - pelvis: report reviewed Venous US: report reviewed Assessment and Plan (1) DVT (deep venous thrombosis) Narrative/Plan: The patient has been found to have an extensive left lower extremity DVT. Doppl ers indicate at least a partial chronic component. The patient did have ankle surgery on the left side, 4 years ago. Therefore a chronic DVT in that lower extremity cannot be ruled out. However given the ultrasound appearance, as well as clinical history of increased symptoms more prominent on the left compared to the right over the past few weeks, and acute component is definitely possible. -Therefore it is reasonable to start the patient on anticoagulation, as has been done. Switch to oral, preferably a DOAC, depending on coverage -The patient does have some risk factors in terms of morbid obesity, overall decreased activity, as well as recent issues with inflammation in multiple areas . These are overall somewhat soft, and therefore it would be reasonable to consider doing a hypercoagulable workup as an outpatient. Patient was advised that the results would likely not change her management, but may have implications for her family. She is willing to consider this. -Check Dopplers of the right lower extremity, as well as CT angiogram for baseline. -Recommend anticoagulation for at least 3 months, or for 6 months (if a PE is found) at which time the patient should be reevaluated. If she is felt to have ongoing risk factors at the time, such as the current ones, then a longer duration of anticoagulation will need to be considered. Current Visit: Yes Status: Acute Code(s): I82.409 - ACUTE EMBOLISM AND THOMBOS UNSP DEEP VN UNSP LOWER EXTREMITY SNOMED Code(s): 288284381 Plan: Defer to the admitting service and other consultants for management of other medical problems
[2024-04-15] MEDS: FLUCONAZOLE IN NACL,ISO-OSM 100 MG in SALINE 1 50ML.BAG IVPB SCH (14:50)
--- NOTE | 2024-04-15 16:28 | P.PN ---
Subjective Progress Note Date: 04/15/24 Principal diagnosis: Reason for follow-up is extensive cutaneous candidiasis and cellulitis Patient is a 73-year-old female with a past medical history significant for hypertension hyperlipidemia morbid obesity former smoker presenting to the hospital for evaluation of worsening excoriation and discomfort to the armpit and bilateral groin area has been diagnosed with extensive cutaneous candidiasis and cellulitis. On today's evaluation that is 04/15/2024,the patient remains to be afebrile, patient is on 2 L nasal cannula supplemental oxygen and denies any shortness of breath no chest pain or cough.Patient denies having any nausea or vomiting, no abdominal pain and no diarrhea, the pain discomfort to the armpit and the groin slightly decreased. Patient white count 6.2 creatinine 0.87 Objective - Vital Signs Vital signs: Vital Signs Temp 97.4 F L 04/15/24 07:24 Pulse 61 04/15/24 07:24 Resp 18 04/15/24 07:24 BP 131/80 04/15/24 07:24 Pulse Ox 99 04/15/24 07:24 FiO2 Intake & Output 04/14/24 04/15/24 04/15/24 18:59 06:59 18:59 Intake Total 98.27 130.133 46.823 Output Total 150 300 Balance -51.73 -169.867 46.823 Weight 132.857 kg Intake: Intake, IV Titration 98.27 130.133 46.823 Amount Heparin Sod,Pork in 0.45% 98.27 130.133 46.823 NaCl 25,000 unit In 0.45 % NaCl 1 250ml.bag @ 18 UNITS/KG/HR 23.914 mls/hr IV .[id number] [facility] Rx#: [id number] Output: Urine 150 300 Uretheral (Daugherty) 150 Other: Voiding Method Indwelling Catheter - Exam GENERAL DESCRIPTION: An elderly female lying in bed in no distress RESPIRATORY SYSTEM: Unlabored breathing , decreased breath sounds at bases HEART: S1 S2 regular rate and rhythm , ABDOMEN: Soft , no tenderness EXTREMITIES: Swelling to the lower extremity no redness - Labs CBC & Chem 7: 04/15/24 04:15 04/15/24 04:15 Labs: Abnormal Lab Results - Last 24 Hours (Table) 04/15/24 04/15/24 04/15/24 Range/Units 04:15 04:15 04:15 MCHC 30.7 L (31.0-37.0) g/dL APTT >200.0 H* (22.0-30.0) sec Sodium 136 L (137-145) mmol/L Potassium 3.4 L (3.5-5.1) mmol/L Chloride 109 H (98-107) mmol/L BUN 18 H (7-17) mg/dL Calcium 8.1 L (8.4-10.2) mg/dL 04/15/24 Range/Units 11:10 MCHC (31.0-37.0) g/dL APTT 41.2 H (22.0-30.0) sec Sodium (137-145) mmol/L Potassium (3.5-5.1) mmol/L Chloride (98-107) mmol/L BUN (7-17) mg/dL Calcium (8.4-10.2) mg/dL Microbiology - Last 24 Hours (Table) 04/13/24 12:37 Blood Culture - Preliminary Blood 04/13/24 12:07 Blood Culture - Preliminary Blood Assessment and Plan (1) Cellulitis of groin Current Visit: Yes Status: Acute Code(s): L03.314 - CELLULITIS OF GROIN SNOMED Code(s): 72849542 (2) Candidal intertrigo Current Visit: Yes Status: Acute Code(s): B37.2 - CANDIDIASIS OF SKIN AND NAIL SNOMED Code(s): 461087171 Plan: 1patient with extensive excoriation to the bilateral groin and right armpit area likely from extensive cutaneous candidiasis and possible component of secondary cellulitis not entirely excluded and likely from gram-positive skin joy 2-patient with elevated creatinine and risk of nephrotoxicity from vancomycin 3-patient to continue with cefazolin 2 g every 8 hours along with nystatin powder to the groin and armpit area Dictation was produced using [employer] software. please excuse any grammatical, word or spelling errors. Time with Patient: Less than 30
--- NOTE | 2024-04-15 16:48 | US ---
EXAMINATION TYPE: US venous doppler duplex LE RT DATE OF EXAM: 04/15/2024 4:21 PM COMPARISON: LLEV 04/13/2024 CLINICAL INDICATION: Female, 73 years old with history of DVT; Hx DVT left leg 04/13/24, patient is on Heparin. SIDE PERFORMED: Right TECHNIQUE: The lower extremity deep venous system is examined utilizing real time linear array sonog osmel with graded compression, doppler sonography and color-flow sonography. VESSELS IMAGED: Common Femoral Vein Deep Femoral Vein Greater Saphenous Vein * Femoral Vein Popliteal Vein Small Saphenous Vein * Proximal Calf Veins (* superficial vessels) Right Leg: No evidence of DVT. Exam is very limited due to patient body habitus. Unable to compress right distal femoral vein due to patient's pain level. Color flow seen within all veins imaged. IMPRESSION: No evidence for deep vein thrombosis
--- NOTE | 2024-04-15 19:57 | PN ---
PROGRESS NOTE DATE OF SERVICE: 04/15/2024 SUBJECTIVE: This is a 73-year-old woman, who was admitted with bilateral leg cellulitis, also had extensive DVT of the left leg. The patient is closely monitored. The patient is on heparin. Hematology/Oncology following the patient closely and also recommended hypercoagulable workup as an outpatient. At least 3 to 6 months anticoagulation has been recommended by Hematology/Oncology. CT angio of the chest was ordered. PAST MEDICAL HISTORY: Reviewed. REVIEW OF SYSTEMS: Fourteen-point review is negative except as mentioned earlier. CURRENT MEDICATIONS: Reviewed include: 1. Heparin. 2. Cefazolin. PHYSICAL EXAMINATION: VITAL SIGNS: Pulse is 70, blood pressure 107/60, and respirations 20. HEENT: Conjunctivae normal. CARDIOVASCULAR: S1 and S2. RESPIRATIONS: Breath sounds diminished at the bases. Few scattered rhonchi. ABDOMEN: Soft. LEGS: Left leg cellulitis present. LABORATORY DATA: Sodium 136 and potassium 3.4. ASSESSMENT: 1. Extensive deep vein thrombosis of the left leg, on heparin. 2. Bilateral leg cellulitis. 3. Hypokalemia. 4. Acute renal failure, present on admission. 5. Dehydration, present on admission. 6. Lactic acidosis. 7. Abdominal wall cellulitis. RECOMMENDATIONS: Recommend to continue current medical management, continue symptomatic treatment. Closely follow with multiple consultants. Continue with heparin, antifungals, antibacterials. The cultures are negative so far. Repeat labs in the morning. Supplement potassium replacement protocol. Prognosis guarded. Further recommendations to follow. MMODL / IJN: [id number] /
[2024-04-16 02:45] LABS: Basophils # (A) 0.1 k/uL (0-0.2); Basophils % (A) 1 %; Eosinophils # (A) 0.2 k/uL (0-0.7); Eosinophils % (A) 3 %; HGB 13.1 gm/dL (11.4-16.0); Hypochromasia Slight; Lymphocytes # (A) 1.3 k/uL (1.0-4.8); Lymphocytes % (A) 19 %; MCH 30.7 pg (25.0-35.0); MCHC 31.2 g/dL (31.0-37.0); MCV 98.5 fL (80.0-100.0); Macrocytosis Slight; Monocytes # (A) 0.5 k/uL (0-1.0); Monocytes % (A) 8 %; Neutrophils # (A) 4.7 k/uL (1.3-7.7); Neutrophils % (A) 68 %; Platelet Count 220 k/uL (150-450); RBC 4.26 m/uL (3.80-5.40); RDW 15.4 % (11.5-15.5); WBC 6.9 k/uL (3.8-10.6)
[2024-04-16 08:58] LABS: ALT 16 U/L (8-44); AST 20 U/L (13-35); Albumin 2.7 g/dL (3.8-4.9); Albumin/Globulin Ratio 1.17 Ratio (1.60-3.17); Alkaline Phosphatase 87 U/L (41-126); Calcium 7.9 mg/dL (8.7-10.3); Carbon Dioxide 21.6 mmol/L (21.6-31.8); Chloride 107 mmol/L (96-109); Globulin 2.3 g/dL (1.6-3.3); Glucose 105 mg/dL (70-110); Potassium 4.2 mmol/L (3.5-5.5); Sodium 138 mmol/L (135-145); Total Bilirubin <0.2 mg/dL (0.3-1.2)
--- NOTE | 2024-04-16 10:21 | CT ---
EXAMINATION TYPE: CT angio chest DATE OF EXAM: 04/16/2024 COMPARISON: Radiographs 04/13/2024 HISTORY: 73-year-old female with DVT, SOB TECHNIQUE: Contiguous axial scanning of the chest after the administration of 80 mL of Isovue 370. C oronal/sagittal MIP reconstructions performed. CT DLP: 1349mGycm. Automatic exposure control utilized for a dose reduction. FINDINGS: The heart is upper limits of normal in size without pericardial effusion. No flattening of the interv entricular septum reflux of contrast into the hepatic veins. LAD and RCA coronary calcifications are present. Mild atherosclerotic arch calcifications. Aberrant direct takeoff of the left vertebral artery direct ly from the aortic arch. Borderline caliber main right and left pulmonary arteries up to 2.5 cm may reflect underlying pulmona ry arterial hypertension. No pulmonary embolus is seen. No thoracic lymphadenopathy by CT size criteria. There is some focal pleural thickening along the posteromedial left mid lung, etiology unclear, proba jerod some localized subpleural atelectasis. Minimal underlying emphysematous change suspected. Strandy scarring or atelectasis at the lung bases. Visualized upper abdomen shows diminished attenuation of the hepatic parenchyma as well as a probable cyst measuring 2.2 cm upper pole of the spleen. Osteopenia. Disc lower thoracic spine. Mild to moderate height loss of T3 vertebral body with a horiz ontal cleft of air at the superior endplate. There may be mild paravertebral soft tissue thickening h ere, axial image 33. Mild superior endplate deformity T2. IMPRESSION: 1. No evidence for pulmonary embolus. 2. Age-indeterminate mild to moderate vertebral compression deformity of the T3 vertebral body. Prese nce of mild paravertebral thickening here suggests a possible subacute compression deformity. Correla te for any focal pain at this level. 3. Mild compression deformity of T2 suspected chronic. 4. Some focal pleural thickening along the posteromedial left mid lung may be reactive to the vertebr al body injury. Follow-up CT chest in 6 months to assess for stability/clearance. Minimal emphysema. 5. Incidental: Hepatic steatosis.
--- NOTE | 2024-04-16 15:04 | P.PN ---
Subjective Progress Note Date: 04/16/24 Principal diagnosis: Reason for follow-up is extensive cutaneous candidiasis and cellulitis Patient is a 73-year-old female with a past medical history significant for hypertension hyperlipidemia morbid obesity former smoker presenting to the hospital for evaluation of worsening excoriation and discomfort to the armpit and bilateral groin area has been diagnosed with extensive cutaneous candidiasis and cellulitis. On today's evaluation that is 04/16/2024, the patient continues to be afebrile, the patient is on 2 L nasal cannula oxygen and breathing comfortably, the Pt denies having any chest pain or cough, the patient denies having any abdominal pain no vomiting or any diarrhea patient mention slight decrease in discomfort to the armpit and groin area. Patient white count 6.9 creatinine is 1.2 groin cultures growing E. coli and Proteus Objective - Vital Signs Vital signs: Vital Signs Temp 97.4 F L 04/16/24 07:55 Pulse 66 04/16/24 07:55 Resp 19 04/16/24 07:55 BP 122/77 04/16/24 07:55 Pulse Ox 99 04/16/24 07:55 FiO2 Intake & Output 04/15/24 04/16/24 04/16/24 18:59 06:59 18:59 Intake Total 87.507 66.473 180.17 Output Total 950 Balance 87.507 -883.527 180.17 Intake: Intake, IV Titration 87.507 66.473 180.17 Amount Heparin Sod,Pork in 0.45% 87.507 66.473 180.17 NaCl 25,000 unit In 0.45 % NaCl 1 250ml.bag @ 18 UNITS/KG/HR 23.914 mls/hr IV .[id number] [facility] Rx#: [id number] Output: Urine 950 Other: Voiding Method Indwelling Catheter Indwelling Catheter Indwelling Catheter # Bowel Movements 1 - Exam GENERAL DESCRIPTION: An elderly female lying in bed in no distress RESPIRATORY SYSTEM: Unlabored breathing , decreased breath sounds at bases HEART: S1 S2 regular rate and rhythm , ABDOMEN: Soft , no tenderness EXTREMITIES: Swelling to the lower extremity no redness - Labs CBC & Chem 7: 04/16/24 02:18 04/16/24 02:18 Labs: Abnormal Lab Results - Last 24 Hours (Table) 04/15/24 04/16/24 04/16/24 Range/Units 19:22 02:18 02:18 APTT 87.0 H 55.4 H (22.0-30.0) sec Est GFR (CKD-EPI) 48 L (>=60) Calcium 7.9 L (8.7-10.3) mg/dL Total Bilirubin <0.2 L (0.3-1.2) mg/dL Total Protein 5.0 L (6.2-8.2) g/dL Albumin 2.7 L (3.8-4.9) g/dL Albumin/Globulin Ratio 1.17 L (1.60-3.17) Ratio 04/16/24 Range/Units 06:50 APTT 48.1 H (22.0-30.0) sec Est GFR (CKD-EPI) (>=60) Calcium (8.7-10.3) mg/dL Total Bilirubin (0.3-1.2) mg/dL Total Protein (6.2-8.2) g/dL Albumin (3.8-4.9) g/dL Albumin/Globulin Ratio (1.60-3.17) Ratio Microbiology - Last 24 Hours (Table) 04/14/24 22:30 Gram Stain - Preliminary Groin Wound Culture - Preliminary Escherichia coli Proteus mirabilis 04/13/24 12:37 Blood Culture - Preliminary Blood 04/13/24 12:07 Blood Culture - Preliminary Blood Assessment and Plan (1) Cellulitis of groin Current Visit: Yes Status: Acute Code(s): L03.314 - CELLULITIS OF GROIN SNOMED Code(s): 95488690 (2) Candidal intertrigo Current Visit: Yes Status: Acute Code(s): B37.2 - CANDIDIASIS OF SKIN AND NAIL SNOMED Code(s): 479786536 Plan: 1patient with extensive excoriation to the bilateral groin and right armpit area likely from extensive cutaneous candidiasis and possible component of secondary cellulitis not entirely excluded and likely from gram-positive skin joy 2-patient white count is normal groin culture done by admitting team and growing Proteus and E. coli awaiting sensitivity 3-patient to continue with cefazolin 2 g every 8 hours along with nystatin powder to the groin and armpit area and monitor clinical course closely Dictation was produced using dragon dictation software. please excuse any grammatical, word or spelling errors. Time with Patient: Less than 30
--- NOTE | 2024-04-17 15:24 | P.PN ---
Subjective Progress Note Date: 04/17/24 Principal diagnosis: Reason for follow-up is extensive cutaneous candidiasis and cellulitis Patient is a 73-year-old female with a past medical history significant for hypertension hyperlipidemia morbid obesity former smoker presenting to the hospital for evaluation of worsening excoriation and discomfort to the armpit and bilateral groin area has been diagnosed with extensive cutaneous candidiasis and cellulitis. On today's evaluation that is 04/17/2024, Patient is afebrile patient is currently on 2 L nasal cannula oxygen and denies having any shortness of breath, the patient denies any chest pain or cough, the patient denies any nausea vomiting did not have any abdominal pain and no diarrhea discomfort to the outpatient groin has decreased in intensity. Did have a PTT of 36.8 no CBC was done today groin culture growing E. coli Proteus and strep Objective - Vital Signs Vital signs: Vital Signs Temp 97.5 F L 04/17/24 07:44 Pulse 77 04/17/24 07:44 Resp 18 04/17/24 07:44 BP 108/73 04/17/24 07:44 Pulse Ox 95 04/17/24 07:44 FiO2 Intake & Output 04/16/24 04/17/24 04/17/24 18:59 06:59 18:59 Intake Total 180.17 219.335 Output Total 620 600 Balance -439.83 -600 219.335 Intake: Intake, IV Titration 180.17 219.335 Amount Heparin Sod,Pork in 0.45% 180.17 219.335 NaCl 25,000 unit In 0.45 % NaCl 1 250ml.bag @ 18 UNITS/KG/HR 23.914 mls/hr IV .[id number] [facility] Rx#: [id number] Output: Urine 620 600 Other: Voiding Method Indwelling Catheter Indwelling Catheter # Bowel Movements 1 1 - Exam GENERAL DESCRIPTION: An elderly female lying in bed in no distress RESPIRATORY SYSTEM: Unlabored breathing , decreased breath sounds at bases HEART: S1 S2 regular rate and rhythm , ABDOMEN: Soft , no tenderness EXTREMITIES: Swelling to the lower extremity no redness - Labs CBC & Chem 7: 04/16/24 02:18 04/16/24 02:18 Labs: Abnormal Lab Results - Last 24 Hours (Table) 04/17/24 Range/Units 06:18 APTT 36.8 H (22.0-30.0) sec Microbiology - Last 24 Hours (Table) 04/14/24 22:30 Gram Stain - Preliminary Groin Wound Culture - Preliminary Escherichia coli Proteus mirabilis 04/13/24 12:37 Blood Culture - Preliminary Blood 04/13/24 12:07 Blood Culture - Preliminary Blood Assessment and Plan (1) Cellulitis of groin Current Visit: Yes Status: Acute Code(s): L03.314 - CELLULITIS OF GROIN SNOMED Code(s): 95080605 (2) Candidal intertrigo Current Visit: Yes Status: Acute Code(s): B37.2 - CANDIDIASIS OF SKIN AND NAIL SNOMED Code(s): 397499945 Plan: 1patient with extensive excoriation to the bilateral groin and right armpit area likely from extensive cutaneous candidiasis and possible component of secondary cellulitis not entirely excluded and likely from gram-positive skin joy 2-patient white count is normal groin culture done by admitting team and growing Proteus and E. coli which is a sensitive pathogen 3-patient did have some clinical improvement and will continue with cefazolin 2 g every 8 hours along with nystatin powder to the groin and armpit area and monitor clinical course closely Dictation was produced using [employer] dictation software. please excuse any grammatical, word or spelling errors. Time with Patient: Less than 30
--- NOTE | 2024-04-18 08:19 | P.PN ---
Subjective Progress Note Date: 04/16/24 73-year-old female with a past medical history significant for hypertension hyperlipidemia morbid obesity former smoker presenting to the hospital yesterday afternoon for evaluation of weakness apparently the patient did have a progressive illness and did have difficulty performing her normal ac tivities of daily living has been sliding down at home but no obvious falls or loss of consciousness patient be complaining of sores and pain to the bilateral groin and the right armpit area that apparently has been getting worse over the last few days patient has been attributing them to be significant swelling and maceration she did have a mild dull aching to sharp pain without any radiation with associated maceration and some foul-smelling but denies having any purulent drainage patient denies having any headache or URI symptoms no chest pain shortness of the cough no nausea vomiting no abdominal pain no diarrhea on presentation to the hospital the patient was afebrile and no fever have recorded subsequently patient was nontachycardic hypotensive or hypoxic patient did have a white count of 9 point 7 repeat is 6.91 BUN/creatinine has been mildly elevated liver isms are normal urine is negative influenza RSV COVID testing negative blood cultures obtained which are currently pending patient did have a chest x-ray low lung volumes with generalized hazy appearance could represent atelectasis abdominal pelvis CT osteopenia L3-L4 superior endplate deformities suspected to be chronic severe hepatic steatosis nonobstructing renal calculus venous Doppler no mention of acute thrombus patient has been started on vancomycin Objective - Vital Signs Vital signs: Vital Signs Temp 97.4 F L 04/16/24 07:55 Pulse 66 04/16/24 07:55 Resp 19 04/16/24 07:55 BP 122/77 04/16/24 07:55 Pulse Ox 99 04/16/24 07:55 FiO2 Intake & Output 04/15/24 04/16/24 04/16/24 18:59 06:59 18:59 Intake Total 87.507 66.473 180.17 Output Total 950 Balance 87.507 -883.527 180.17 Intake: Intake, IV Titration 87.507 66.473 180.17 Amount Heparin Sod,Pork in 0.45% 87.507 66.473 180.17 NaCl 25,000 unit In 0.45 % NaCl 1 250ml.bag @ 18 UNITS/KG/HR 23.914 mls/hr IV .[id number] Rx#: [id number] Output: Urine 950 Other: Voiding Method Indwelling Catheter Indwelling Catheter Indwelling Catheter # Bowel Movements 1 - Exam GENERAL DESCRIPTION: Elderly female lying in bed, no distress. No tachypnea or accessory muscle of respiration use. HEENT: Shows Pallor , no scleral icterus. Oral mucous membrane is dry. NECK: Trachea central, no thyromegaly. LUNGS: Unlabored breathing. Clear to auscultation anteriorly. No wheeze or crackle. HEART: S1, S2, regular rate and rhythm. No loud murmur ABDOMEN: Soft, no tenderness , EXTREMITIES: Patient did have extensive excoriation of bilateral groin area and also to the right armpit with some foul smell minimal redness SKIN: No rash, no masses palpable. NEUROLOGICAL: The patient is awake, alert, oriented x3, mood and affect normal. - Labs CBC & Chem 7: 04/16/24 02:18 04/16/24 02:18 Labs: Abnormal Lab Results - Last 24 Hours (Table) 04/15/24 04/16/24 04/16/24 Range/Units 19:22 02:18 02:18 APTT 87.0 H 55.4 H (22.0-30.0) sec Est GFR (CKD-EPI) 48 L (>=60) Calcium 7.9 L (8.7-10.3) mg/dL Total Bilirubin <0.2 L (0.3-1.2) mg/dL Total Protein 5.0 L (6.2-8.2) g/dL Albumin 2.7 L (3.8-4.9) g/dL Albumin/Globulin Ratio 1.17 L (1.60-3.17) Ratio 04/16/24 Range/Units 06:50 APTT 48.1 H (22.0-30.0) sec Est GFR (CKD-EPI) (>=60) Calcium (8.7-10.3) mg/dL Total Bilirubin (0.3-1.2) mg/dL Total Protein (6.2-8.2) g/dL Albumin (3.8-4.9) g/dL Albumin/Globulin Ratio (1.60-3.17) Ratio Microbiology - Last 24 Hours (Table) 04/14/24 22:30 Gram Stain - Preliminary Groin Wound Culture - Preliminary Escherichia coli Proteus mirabilis 04/13/24 12:37 Blood Culture - Preliminary Blood 04/13/24 12:07 Blood Culture - Preliminary Blood Assessment and Plan Assessment: 1. Extensive cellulitis bilateral lower extremities -Patient remains on cefazolin 2 g IV every 8 hours; patient initially treated with IV vancomycin which was discontinued given high risk for nephrotoxicity -Will monitor CBC, CRP and procalcitonin 2. Extensive cutaneous candidiasis; skin folds including groin and armpit area; patient remains on nystatin powder; fluconazole 100 mg IV daily -We will monitor closely 3. Extensive DVT left lower extremity -CTA chest was completed and is negative for PE -Patient remains on IV heparin per protocol -Hematology on board 4. Acute renal injury; resolved; creatinine is down to normal at 1.2; we will monitor strict ASHLEY's, daily weights, renal function electrolytes; avoid nephrotoxins and hypotension 5. Electrolyte imbalance/hypokalemia; supplemented; will monitor electrolytes closely and supplement as needed DVT prophylaxis; IV heparin CODE STATUS; full code
--- NOTE | 2024-04-18 08:20 | P.PN ---
Subjective Progress Note Date: 04/17/24 73-year-old female with a past medical history significant for hypertension hyperlipidemia morbid obesity former smoker presenting to the hospital yesterday afternoon for evaluation of weakness apparently the patient did have a progressive illness and did have difficulty performing her normal ac tivities of daily living has been sliding down at home but no obvious falls or loss of consciousness patient be complaining of sores and pain to the bilateral groin and the right armpit area that apparently has been getting worse over the last few days patient has been attributing them to be significant swelling and maceration she did have a mild dull aching to sharp pain without any radiation with associated maceration and some foul-smelling but denies having any purulent drainage patient denies having any headache or URI symptoms no chest pain shortness of the cough no nausea vomiting no abdominal pain no diarrhea on presentation to the hospital the patient was afebrile and no fever have recorded subsequently patient was nontachycardic hypotensive or hypoxic patient did have a white count of 9 point 7 repeat is 6.91 BUN/creatinine has been mildly elevated liver isms are normal urine is negative influenza RSV COVID testing negative blood cultures obtained which are currently pending patient did have a chest x-ray low lung volumes with generalized hazy appearance could represent atelectasis abdominal pelvis CT osteopenia L3-L4 superior endplate deformities suspected to be chronic severe hepatic steatosis nonobstructing renal calculus venous Doppler no mention of acute thrombus patient has been started on vancomycin 24-hour interval change 04/17/2024 Patient is seen and evaluated in room at bedside; resting comfortably; denies any specific complaint Vital signs are reviewed and remained stable patient with extensive excoriation to the bilateral groin and right armpit area likely from extensive cutaneous candidiasis and possible component of secondary cellulitis not entirely excluded and likely from gram-positive skin joy -patient white count is normal groin culture done by admitting team and growing Proteus and E. coli which is a sensitive pathogen -patient did have some clinical improvement and will continue with cefazolin 2 g every 8 hours along with nystatin powder to the groin and armpit area and monitor clinical course closely Objective - Vital Signs Vital signs: Vital Signs Temp 97.7 F 04/17/24 14:10 Pulse 105 H 04/17/24 14:10 Resp 18 07/06/24 14:10 BP 129/70 04/17/24 14:10 Pulse Ox 97 04/17/24 14:10 FiO2 Intake & Output 04/16/24 04/17/24 04/17/24 18:59 06:59 18:59 Intake Total 180.17 250.000 Output Total 620 600 Balance -439.83 -600 250.000 Intake: Intake, IV Titration 180.17 250.000 Amount Heparin Sod,Pork in 0.45% 180.17 250.000 NaCl 25,000 unit In 0.45 % NaCl 1 250ml.bag @ 18 UNITS/KG/HR 23.914 mls/hr IV .[id number] [facility] Rx#: [id number] Output: Urine 620 600 Other: Voiding Method Indwelling Catheter Indwelling Catheter Indwelling Catheter # Bowel Movements 1 1 - Exam GENERAL DESCRIPTION: Elderly female lying in bed, no distress. No tachypnea or accessory muscle of respiration use. HEENT: Shows Pallor , no scleral icterus. Oral mucous membrane is dry. NECK: Trachea central, no thyromegaly. LUNGS: Unlabored breathing. Clear to auscultation anteriorly. No wheeze or crackle. HEART: S1, S2, regular rate and rhythm. No loud murmur ABDOMEN: Soft, no tenderness , EXTREMITIES: Patient did have extensive excoriation of bilateral groin area and also to the right armpit with some foul smell minimal redness SKIN: No rash, no masses palpable. NEUROLOGICAL: The patient is awake, alert, oriented x3, mood and affect normal. - Labs CBC & Chem 7: 04/16/24 02:18 04/16/24 02:18 Labs: Abnormal Lab Results - Last 24 Hours (Table) 04/17/24 Range/Units 06:18 APTT 36.8 H (22.0-30.0) sec Microbiology - Last 24 Hours (Table) 04/14/24 22:30 Gram Stain - Preliminary Groin Wound Culture - Preliminary Escherichia coli Proteus mirabilis Beta Hemolytic Streptococcus F 04/13/24 12:37 Blood Culture - Preliminary Blood 04/13/24 12:07 Blood Culture - Preliminary Blood Assessment and Plan Assessment: 1. Extensive cellulitis bilateral lower extremities -Patient remains on cefazolin 2 g IV every 8 hours; patient initially treated with IV vancomycin which was discontinued given high risk for nephrotoxicity -Will monitor CBC, CRP and procalcitonin 2. Extensive cutaneous candidiasis; skin folds including groin and armpit area; patient remains on nystatin powder; fluconazole 100 mg IV daily -We will monitor closely 3. Extensive DVT left lower extremity -CTA chest was completed and is negative for PE -Patient remains on IV heparin per protocol -Hematology on board 4. Acute renal injury; resolved; creatinine is down to normal at 1.2; we will monitor strict ASHLEY's, daily weights, renal function electrolytes; avoid nephrotoxins and hypotension 5. Electrolyte imbalance/hypokalemia; supplemented; will monitor electrolytes closely and supplement as needed DVT prophylaxis; IV heparin CODE STATUS; full code
[2024-04-18 09:12] LABS: Basophils # (A) 0.1 k/uL (0-0.2); Basophils % (A) 1 %; Eosinophils # (A) 0.2 k/uL (0-0.7); Eosinophils % (A) 4 %; HCT 41.9 % (34.0-46.0); HGB 12.9 gm/dL (11.4-16.0); Hypochromasia Slight; Lymphocytes # (A) 1.2 k/uL (1.0-4.8); Lymphocytes % (A) 19 %; MCH 30.5 pg (25.0-35.0); MCHC 30.7 g/dL (31.0-37.0); MCV 99.4 fL (80.0-100.0); Macrocytosis Slight; Mean Platelet Volume 8.6; Monocytes # (A) 0.7 k/uL (0-1.0); Monocytes % (A) 10 %; Neutrophils # (A) 4.1 k/uL (1.3-7.7); Neutrophils % (A) 64 %; Platelet Count 201 k/uL (150-450); RBC 4.22 m/uL (3.80-5.40); RDW 15.4 % (11.5-15.5); WBC 6.4 k/uL (3.8-10.6)
[2024-04-18 09:18] LABS: African American GFR (CKD) >90 (>60 ml/min/1.73 sqM); Anion Gap 1 mmol/L; Blood Urea Nitrogen 11 mg/dL (7-17); Calcium 8.3 mg/dL (8.4-10.2); Carbon Dioxide 25 mmol/L (22-30); Chloride 108 mmol/L (98-107); Glucose 94 mg/dL (74-99); Non-African American GFR(CKD) 86 (>60 ml/min/1.73 sqM); Sodium 134 mmol/L (137-145)
[2024-04-18 09:23] LABS: Potassium 4.1 mmol/L (3.5-5.1)
--- NOTE | 2024-04-18 15:23 | P.PN ---
Subjective Progress Note Date: 04/18/24 Principal diagnosis: Reason for follow-up is extensive cutaneous candidiasis and cellulitis Patient is a 73-year-old female with a past medical history significant for hypertension hyperlipidemia morbid obesity former smoker presenting to the hospital for evaluation of worsening excoriation and discomfort to the armpit and bilateral groin area has been diagnosed with extensive cutaneous candidiasis and cellulitis. On today's evaluation that is 04/18/2024, patient has been afebrile, patient is breathing comfortably and is currently on 2 L current oxygen patient denies having any significant cough no chest pain shortness of breath, patient denies nausea vomiting or diarrhea and no abdominal pain patient has right upper extremity excoriation from infiltrated IV which has been discontinued. The patient white count is 6.4 creatinine 0.70 blood culture negative Objective - Vital Signs Vital signs: Vital Signs Temp 97.8 F 04/18/24 13:30 Pulse 70 04/18/24 13:30 Resp 20 04/18/24 13:30 BP 120/84 04/18/24 13:30 Pulse Ox 99 04/18/24 13:30 FiO2 Intake & Output 04/17/24 04/18/24 04/18/24 18:59 06:59 18:59 Intake Total 250.000 235.211 Output Total 200 Balance 250.000 -200 235.211 Intake: Intake, IV Titration 250.000 235.211 Amount Heparin Sod,Pork in 0.45% 250.000 235.211 NaCl 25,000 unit In 0.45 % NaCl 1 250ml.bag @ 18 UNITS/KG/HR 23.914 mls/hr IV .[id number] [facility] Rx#: [id number] Output: Urine 200 Other: Voiding Method Indwelling Catheter External Catheter External Catheter # Voids 0 - Exam GENERAL DESCRIPTION: An elderly female lying in bed in no distress RESPIRATORY SYSTEM: Unlabored breathing , decreased breath sounds at bases HEART: S1 S2 regular rate and rhythm , ABDOMEN: Soft , no tenderness EXTREMITIES: Patient did have localized excoriation to the right upper extremity from the IV site no fluctuation no drainage - Labs CBC & Chem 7: 04/18/24 06:33 04/18/24 06:33 Labs: Abnormal Lab Results - Last 24 Hours (Table) 04/18/24 04/18/24 04/18/24 Range/Units 06:33 06:33 06:33 MCHC 30.7 L (31.0-37.0) g/dL APTT 68.1 H (22.0-30.0) sec Sodium 134 L (137-145) mmol/L Chloride 108 H (98-107) mmol/L Calcium 8.3 L (8.4-10.2) mg/dL Microbiology - Last 24 Hours (Table) 04/14/24 22:30 Gram Stain - Final Groin Wound Culture - Final Escherichia coli Proteus mirabilis Beta Hemolytic Streptococcus F Assessment and Plan (1) Cellulitis of groin Current Visit: Yes Status: Acute Code(s): L03.314 - CELLULITIS OF GROIN SNOMED Code(s): 78706400 (2) Candidal intertrigo Current Visit: Yes Status: Acute Code(s): B37.2 - CANDIDIASIS OF SKIN AND NAIL SNOMED Code(s): 194377143 Plan: 1patient with extensive excoriation to the bilateral groin and right armpit area likely from extensive cutaneous candidiasis and possible component of secondary cellulitis not entirely excluded and likely from gram-positive skin joy 2-patient white count is normal groin culture done by admitting team and growing Proteus and E. coli which is a sensitive pathogen 3-patient did have excoriation to right upper extremity from an IV infiltration which has been discontinued nursing staff is advised to monitor the area for redness will apply Mycolog cream to the area, patient to continue with cefazolin 2 g every 8 hours along with nystatin powder to the groin and armpit area and monitor clinical course closely Dictation was produced using [employer] dictation software. please excuse any grammatical, word or spelling errors. Time with Patient: Less than 30
[2024-04-18] MEDS: NYSTATIN 100,000UNIT/GM CREAM 30 GM TUBE TOPICAL SCH (17:49)
[2024-04-18] MEDS: TRIAMCINOLONE 0.1% CREAM 80 GM TUBE TOPICAL SCH (17:49)
[2024-04-18] MEDS: NYSTAT-TRIAMCIN 100,000-0.1 UNIT/GM-% CREAM 30 GM TUBE TOPICAL SCH (17:56)
--- NOTE | 2024-04-19 05:30 | P.PN ---
Subjective Progress Note Date: 04/18/24 73-year-old female with a past medical history significant for hypertension hyperlipidemia morbid obesity former smoker presenting to the hospital yesterday afternoon for evaluation of weakness apparently the patient did have a progressive illness and did have difficulty performing her normal ac tivities of daily living has been sliding down at home but no obvious falls or loss of consciousness patient be complaining of sores and pain to the bilateral groin and the right armpit area that apparently has been getting worse over the last few days patient has been attributing them to be significant swelling and maceration she did have a mild dull aching to sharp pain without any radiation with associated maceration and some foul-smelling but denies having any purulent drainage patient denies having any headache or URI symptoms no chest pain shortness of the cough no nausea vomiting no abdominal pain no diarrhea on presentation to the hospital the patient was afebrile and no fever have recorded subsequently patient was nontachycardic hypotensive or hypoxic patient did have a white count of 9 point 7 repeat is 6.91 BUN/creatinine has been mildly elevated liver isms are normal urine is negative influenza RSV COVID testing negative blood cultures obtained which are currently pending patient did have a chest x-ray low lung volumes with generalized hazy appearance could represent atelectasis abdominal pelvis CT osteopenia L3-L4 superior endplate deformities suspected to be chronic severe hepatic steatosis nonobstructing renal calculus venous Doppler no mention of acute thrombus patient has been started on vancomycin 24-hour interval change 04/17/2024 Patient is seen and evaluated in room at bedside; resting comfortably; denies any specific complaint Vital signs are reviewed and remained stable patient with extensive excoriation to the bilateral groin and right armpit area likely from extensive cutaneous candidiasis and possible component of secondary cellulitis not entirely excluded and likely from gram-positive skin joy -patient white count is normal groin culture done by admitting team and growing Proteus and E. coli which is a sensitive pathogen -patient did have some clinical improvement and will continue with cefazolin 2 g every 8 hours along with nystatin powder to the groin and armpit area and monitor clinical course closely 24-hour interval change 04/18/2024 Patient is seen and evaluated in room at bedside; no specific complaints reported Vital signs are reviewed and remained stable patient with extensive excoriation to the bilateral groin and right armpit area likely from extensive cutaneous candidiasis and possible component of secondary cellulitis not entirely excluded and likely from gram-positive skin joy -patient white count is normal groin culture done by admitting team and growing Proteus and E. coli which is a sensitive pathogen -patient did have excoriation to right upper extremity from an IV infiltration which has been discontinued nursing staff is advised to monitor the area for redness will apply Mycolog cream to the area, patient to continue with cefazolin 2 g every 8 hours along with nystatin powder to the groin and armpit area and monitor clinical course closely Objective - Vital Signs Vital signs: Vital Signs Temp 97.3 F L 04/18/24 07:10 Pulse 67 04/18/24 07:10 Resp 22 04/18/24 07:10 BP 120/79 04/18/24 07:10 Pulse Ox 98 04/18/24 07:10 FiO2 Intake & Output 04/17/24 04/18/24 04/18/24 18:59 06:59 18:59 Intake Total 250.000 Output Total 200 Balance 250.000 -200 Intake: Intake, IV Titration 250.000 Amount Heparin Sod,Pork in 0.45% 250.000 NaCl 25,000 unit In 0.45 % NaCl 1 250ml.bag @ 18 UNITS/KG/HR 23.914 mls/hr IV .[id number] [facility] Rx#: [id number] Output: Urine 200 Other: Voiding Method Indwelling Catheter External Catheter # Voids 0 - Exam GENERAL DESCRIPTION: Elderly female lying in bed, no distress. No tachypnea or accessory muscle of respiration use. HEENT: Shows Pallor , no scleral icterus. Oral mucous membrane is dry. NECK: Trachea central, no thyromegaly. LUNGS: Unlabored breathing. Clear to auscultation anteriorly. No wheeze or crackle. HEART: S1, S2, regular rate and rhythm. No loud murmur ABDOMEN: Soft, no tenderness , EXTREMITIES: Patient did have extensive excoriation of bilateral groin area and also to the right armpit with some foul smell minimal redness SKIN: No rash, no masses palpable. NEUROLOGICAL: The patient is awake, alert, oriented x3, mood and affect normal. - Labs CBC & Chem 7: 04/18/24 06:33 04/18/24 06:33 Labs: Abnormal Lab Results - Last 24 Hours (Table) 04/18/24 Range/Units 06:33 APTT 68.1 H (22.0-30.0) sec Microbiology - Last 24 Hours (Table) 04/14/24 22:30 Gram Stain - Preliminary Groin Wound Culture - Preliminary Escherichia coli Proteus mirabilis Beta Hemolytic Streptococcus F Assessment and Plan Assessment: 1. Extensive cellulitis bilateral lower extremities -Patient remains on cefazolin 2 g IV every 8 hours; patient initially treated with IV vancomycin which was discontinued given high risk for nephrotoxicity -Will monitor CBC, CRP and procalcitonin 2. Extensive cutaneous candidiasis; skin folds including groin and armpit area; patient remains on nystatin powder; fluconazole 100 mg IV daily -We will monitor closely 3. Extensive DVT left lower extremity -CTA chest was completed and is negative for PE -Patient remains on IV heparin per protocol -Hematology on board 4. Acute renal injury; resolved; creatinine is down to normal at 1.2; we will monitor strict ASHLEY's, daily weights, renal function electrolytes; avoid nephrotoxins and hypotension 5. Electrolyte imbalance/hypokalemia; supplemented; will monitor electrolytes closely and supplement as needed DVT prophylaxis; IV heparin CODE STATUS; full code
[2024-04-19 08:33] LABS: HCT 38.5 % (37.2-46.3); HGB 12.6 g/dL (12.0-15.0); MCH 30.7 pg (27.0-32.0); MCHC 32.7 g/dL (32.0-37.0); MCV 93.9 FL (80.0-97.0); Mean Platelet Volume 10.3 FL (9.5-12.2); NRBC Per 100 WBC 0 X 10*3/uL (0.00-0.01); Platelet Count 170 X 10*3/uL (140-440); RDW 16.9 % (11.5-14.5); WBC 6.92 X 10*3/uL (4.50-10.00)
[2024-04-19 09:24] LABS: Basophils # (M) 0.07 X 10*3/uL (0.00-0.10); Eosinophils # (M) 0.14 X 10*3/uL (0.04-0.35); Lymphocytes # (M) 1.25 X 10*3/uL (0.90-5.00); Metamyelocytes % 1 % (0-0); Monocytes # (M) 0.42 X 10*3/uL (0.20-1.00); Myelocytes % 1 % (0-0); Neutrophils # (M) 4.91 X 10*3/uL (1.80-7.70); Neutrophils % (M) 71 %; RBC Morphology Normal (Normal)
[2024-04-19 11:23] LABS: BUN/Creat Ratio 14.14 Ratio (12.00-20.00); Blood Urea Nitrogen 9.9 mg/dL (9.0-27.0); Calcium 8.5 mg/dL (8.7-10.3); Carbon Dioxide 22.8 mmol/L (21.6-31.8); Chloride 104 mmol/L (96-109); Glucose 102 mg/dL (70-110); Potassium 4.1 mmol/L (3.5-5.5); Sodium 138 mmol/L (135-145)
--- NOTE | 2024-04-19 12:24 | P.PN ---
Subjective Progress Note Date: 04/19/24 Principal diagnosis: Reason for follow-up is extensive cutaneous candidiasis and cellulitis Patient is a 73-year-old female with a past medical history significant for hypertension hyperlipidemia morbid obesity former smoker presenting to the hospital for evaluation of worsening excoriation and discomfort to the armpit and bilateral groin area has been diagnosed with extensive cutaneous candidiasis and cellulitis. On today's evaluation that is 04/19/2024, Patient is afebrile this morning and denies any chills, patient mention breathing comfortably and is currently on 2 L current oxygen, patient denies any chest pain occasional cough patient denies any abdominal pain no diarrhea no nausea no vomiting denies any discomfort to the output of the right forearm. Patient white count 6.92, creatinine 0.7 Objective - Vital Signs Vital signs: Vital Signs Temp 98.3 F 04/19/24 07:21 Pulse 72 04/19/24 07:21 Resp 17 04/19/24 07:21 BP 131/81 04/19/24 07:21 Pulse Ox 98 04/19/24 07:21 FiO2 Intake & Output 04/18/24 04/19/24 04/19/24 18:59 06:59 18:59 Intake Total 235.211 242.992 Output Total 200 500 Balance 35.211 -257.008 Intake: Intake, IV Titration 235.211 242.992 Amount Heparin Sod,Pork in 0.45% 235.211 242.992 NaCl 25,000 unit In 0.45 % NaCl 1 250ml.bag @ 18 UNITS/KG/HR 23.914 mls/hr IV .[id number] [facility] Rx#: [id number] Output: Urine 200 500 Other: Voiding Method External Catheter External Catheter External Catheter # Voids 1 # Bowel Movements 1 - Exam GENERAL DESCRIPTION: An elderly female lying in bed in no distress RESPIRATORY SYSTEM: Unlabored breathing , decreased breath sounds at bases HEART: S1 S2 regular rate and rhythm , ABDOMEN: Soft , no tenderness EXTREMITIES: Patient did have localized excoriation to the right upper extremity from the IV site no fluctuation no drainage - Labs CBC & Chem 7: 04/19/24 03:58 04/19/24 03:58 Labs: Abnormal Lab Results - Last 24 Hours (Table) 04/19/24 04/19/24 04/19/24 Range/Units 03:58 03:58 03:58 RDW 16.9 H (11.5-14.5) % APTT 63.8 H (22.0-30.0) sec Calcium 8.5 L (8.7-10.3) mg/dL Microbiology - Last 24 Hours (Table) 04/13/24 12:37 Blood Culture - Final Blood 04/13/24 12:07 Blood Culture - Final Blood 04/14/24 22:30 Gram Stain - Final Groin Wound Culture - Final Escherichia coli Proteus mirabilis Beta Hemolytic Streptococcus F Assessment and Plan (1) Cellulitis of groin Current Visit: Yes Status: Acute Code(s): L03.314 - CELLULITIS OF GROIN SNOMED Code(s): 98754508 (2) Candidal intertrigo Current Visit: Yes Status: Acute Code(s): B37.2 - CANDIDIASIS OF SKIN AND NAIL SNOMED Code(s): 343636241 Plan: 1patient with extensive excoriation to the bilateral groin and right armpit area likely from extensive cutaneous candidiasis and possible component of secondary cellulitis not entirely excluded and likely from gram-positive skin joy 2-patient white count is normal groin culture done by admitting team and growing Proteus and E. coli which is a sensitive pathogen 3-patient did have excoriation to right upper extremity from an IV infiltration which has been discontinued nursing staff is advised to monitor the area for redness to continue with Mycolog cream to the area, 4- patient to continue with cefazolin 2 g every 8 hours along with nystatin powder to the groin and armpit area and plan to finish therapy with oral Keflex Dictation was produced using [employer] dictation software. please excuse any grammatical, word or spelling errors. Time with Patient: Less than 30
[2024-04-19] MEDS: APIXABAN 5 MG TAB PO SCH (21:05)
[2024-04-20 07:44] VITALS: BMI 63.3
[2024-04-20 08:22] VITALS: RESP 17
--- NOTE | 2024-04-20 09:12 | P.PN ---
Subjective Progress Note Date: 04/19/24 73-year-old female with a past medical history significant for hypertension hyperlipidemia morbid obesity former smoker presenting to the hospital yesterday afternoon for evaluation of weakness apparently the patient did have a progressive illness and did have difficulty performing her normal activities of daily living has been sliding down at home but no obvious falls or loss of consciousness patient be complaining of sores and pain to the bilateral groin and the right armpit area that apparently has been getting worse over the last few days patient has been attributing them to be significant swelling and maceration she did have a mild dull aching to sharp pain without any radiation w ith associated maceration and some foul-smelling but denies having any purulent drainage patient denies having any headache or URI symptoms no chest pain shortness of the cough no nausea vomiting no abdominal pain no diarrhea on presentation to the hospital the patient was afebrile and no fever have recorded subsequently patient was nontachycardic hypotensive or hypoxic patient did have a white count of 9 point 7 repeat is 6.91 BUN/creatinine has been mildly elevated liver isms are normal urine is negative influenza RSV COVID testing negative blood cultures obtained which are currently pending patient did have a chest x-ray low lung volumes with generalized hazy appearance could represent at electasis abdominal pelvis CT osteopenia L3-L4 superior endplate deformities suspected to be chronic severe hepatic steatosis nonobstructing renal calculus venous Doppler no mention of acute thrombus patient has been started on vancomycin 24-hour interval change 04/17/2024 Patient is seen and evaluated in room at bedside; resting comfortably; denies any specific complaint Vital signs are reviewed and remained stable patient with extensive excoriation to the bilateral groin and right armpit area likely from extensive cutaneous candidiasis and possible component of secondary cellulitis not entirely excluded and likely from gram-positive skin joy -patient white count is normal groin culture done by admitting team and growing Proteus and E. coli which is a sensitive pathogen -patient did have some clinical improvement and will continue with cefazolin 2 g every 8 hours along with nystatin powder to the groin and armpit area and monitor clinical course closely 24-hour interval change 04/18/2024 Patient is seen and evaluated in room at bedside; no specific complaints reported Vital signs are reviewed and remained stable patient with extensive excoriation to the bilateral groin and right armpit area likely from extensive cutaneous candidiasis and possible component of secondary cellulitis not entirely excluded and likely from gram-positive skin joy -patient white count is normal groin culture done by admitting team and growing Proteus and E. coli which is a sensitive pathogen -patient did have excoriation to right upper extremity from an IV infiltration which has been discontinued nursing staff is advised to monitor the area for redness will apply Mycolog cream to the area, patient to continue with cefazolin 2 g every 8 hours along with nystatin powder to the groin and armpit area and monitor clinical course closely 04/19/2024 Patient is seen and evaluated in follow-up today with infectious disease following. Continued on local wound care and antibiotics in the form of cefazolin. Patient showing clinical improvement and will hopefully discharge to [facility] on oral antibiotics. Continue with nystatin cream and also Mycolog to the right extremity with previous IV site. Patient is afebrile with no reports of chest pain or shortness of breath. Patient tolerating diet with no reported nausea or vomiting. Patient with significant weakness evaluated by physical therapy recommending rehab. Case management is following with plans on discharging to [facility]. Patient will require insurance authorization which is currently pending. Review of systems: Constitutional: No reports of fatigue, fever, or chills Cardiovascular: No reports of chest pain or palpitations Respiratory: No reports of shortness of breath or cough GI: No reports of nausea, vomiting, or diarrhea : No reports of dysuria or retention Neurovascular: reports of generalized weakness All medications have been reviewed Physical exam: GENERAL DESCRIPTION: Elderly female sitting up in bed, no distress. No tachypnea or accessory muscle of respiration use. Well-developed, elderly appearing, morbidly obese HEENT: Shows Pallor , no scleral icterus. Oral mucous membrane is moist NECK: Trachea central, no thyromegaly. LUNGS: Unlabored breathing. Clear to auscultation anteriorly. No wheeze or crackle. HEART: S1, S2, regular rate and rhythm. No loud murmur ABDOMEN: Soft, no tenderness , obese EXTREMITIES: Patient did have extensive excoriation of bilateral groin area and also to the right armpit with some foul smell minimal redness SKIN: No rash, no masses palpable. NEUROLOGICAL: The patient is awake, alert, oriented x3, mood and affect normal. Assessment: -Extensive cellulitis bilateral lower extremities, present on admission, culture showing Proteus and Marilee -Extensive cutaneous candidiasis; skin folds including groin and armpit area; patient remains on nystatin powder; fluconazole 100 mg IV daily -Extensive DVT left lower extremity, continued on IV heparin and will transition to Eliquis -CTA chest was completed and is negative for PE -Acute renal injury; resolved -Electrolyte imbalance/hypokalemia; supplemented; improved -DVT prophylaxis; IV heparin and will transition to Eliquis -full code -GI prophylaxis Plan: Patient to continue on IV antibiotics in the form of cefazolin with infectious disease following. Patient will continue on oral Diflucan and will transition to oral Keflex on discharge. Continue with local wound care and nystatin cream as well as Mycolog to the right arm. Elevate right arm while at rest Patient evaluated by PT/OT therapy recommending rehab and patient is agreeable. Case management following working on possible [place] and patient will require insurance authorization Encouraged oral intake and increase activity as tolerated Possible discharge planning in the next 24 to 48 hours to [facility] The impression and plan of care has been dictated by Julia Saavedra, Nurse Practitioner as directed. Dr. Gunnar MD I have performed a history and examination and MDM of this patient, discussed the same with the dictator, and agree with the dictator's assessment and plan as written ,documented as a scribe. Based on total visit time, I have performed more than 50% of the visit. Objective - Vital Signs Vital signs: Vital Signs Temp 98.3 F 04/19/24 07:21 Pulse 72 04/19/24 07:21 Resp 17 04/19/24 07:21 BP 131/81 04/19/24 07:21 Pulse Ox 98 04/19/24 07:21 FiO2 Intake & Output 04/18/24 04/19/24 04/19/24 18:59 06:59 18:59 Intake Total 235.211 242.992 Output Total 200 500 Balance 35.211 -257.008 Intake: Intake, IV Titration 235.211 242.992 Amount Heparin Sod,Pork in 0.45% 235.211 242.992 NaCl 25,000 unit In 0.45 % NaCl 1 250ml.bag @ 18 UNITS/KG/HR 23.914 mls/hr IV .[id number] [facility] Rx#: [id number] Output: Urine 200 500 Other: Voiding Method External Catheter External Catheter # Voids 1 # Bowel Movements 1 - Labs CBC & Chem 7: 04/19/24 03:58 04/19/24 03:58 Labs: Abnormal Lab Results - Last 24 Hours (Table) 04/19/24 04/19/24 Range/Units 03:58 03:58 RDW 16.9 H (11.5-14.5) % APTT 63.8 H (22.0-30.0) sec Microbiology - Last 24 Hours (Table) 04/13/24 12:37 Blood Culture - Final Blood 04/13/24 12:07 Blood Culture - Final Blood 04/14/24 22:30 Gram Stain - Final Groin Wound Culture - Final Escherichia coli Proteus mirabilis Beta Hemolytic Streptococcus F
--- NOTE | 2024-04-20 12:51 | P.PN ---
Subjective Progress Note Date: 04/20/24 Principal diagnosis: Reason for follow-up is extensive cutaneous candidiasis and cellulitis Patient is a 73-year-old female with a past medical history significant for hypertension hyperlipidemia morbid obesity former smoker presenting to the hospital for evaluation of worsening excoriation and discomfort to the armpit and bilateral groin area has been diagnosed with extensive cutaneous candidiasis and cellulitis. On today's evaluation that is 04/20/2024,the patient denies any fever or any chills, patient is breathing comfortably on room air, the patient denies chest pain shortness of breath and no significant cough, patient denies abdominal pain, no nausea vomiting or diarrhea. Overall discomfort to the abdomen in the groin and has decreased not complaining of some discomfort to the left knee fold No new labs has been repeated today Objective - Vital Signs Vital signs: Vital Signs Temp 97.9 F 04/20/24 07:35 Pulse 76 04/20/24 07:35 Resp 17 04/20/24 07:35 BP 136/83 04/20/24 07:35 Pulse Ox 95 04/20/24 07:35 FiO2 Intake & Output 04/19/24 04/20/24 04/20/24 18:59 06:59 18:59 Output Total 1200 1750 Balance -1200 -1750 Weight 132.857 kg Output: Urine 1200 1750 Other: Voiding Method External Catheter External Catheter External Catheter # Bowel Movements 2 - Exam GENERAL DESCRIPTION: An elderly female lying in bed in no distress RESPIRATORY SYSTEM: Unlabored breathing , decreased breath sounds at bases HEART: S1 S2 regular rate and rhythm , ABDOMEN: Soft , no tenderness EXTREMITIES: Patient did have localized excoriation to the right upper extremity from the IV site no fluctuation no drainage - Labs CBC & Chem 7: 04/19/24 03:58 04/19/24 03:58 Assessment and Plan (1) Cellulitis of groin Current Visit: Yes Status: Acute Code(s): L03.314 - CELLULITIS OF GROIN SNOMED Code(s): 25288953 (2) Candidal intertrigo Current Visit: Yes Status: Acute Code(s): B37.2 - CANDIDIASIS OF SKIN AND NAIL SNOMED Code(s): 247288762 Plan: 1patient with extensive excoriation to the bilateral groin and right armpit area likely from extensive cutaneous candidiasis and possible component of secondary cellulitis not entirely excluded and likely from gram-positive skin joy 2-patient white count is normal groin culture done by admitting team and growing Proteus and E. coli which is a sensitive pathogen 3-patient did have excoriation to right upper extremity from an IV infiltration which has been discontinued nursing staff is advised to monitor the area for redness to continue with Mycolog cream to the area, 4- patient to continue with cefazolin 2 g every 8 hours along with nystatin powder to the groin and armpit area while inpatient however the patient be able to finish therapy with oral Keflex and to continue with the nystatin powder for about 7 days on discharge Dictation was produced using [employer] dictation software. please excuse any gr ammatical, word or spelling errors. Time with Patient: Less than 30
--- NOTE | 2024-04-20 14:30 | P.DS ---
Providers Date of admission: 04/13/24 17:56 Expected date of discharge: 04/20/24 Attending physician: Reba Bowens Consults: 04/14/24 12:52 Consult Physician Routine Consulting Provider: Og Mc Consult Reason/Comments: dvt Do you want consulting provider notified?: Yes Consult Physician Routine Consulting Provider: Andreina Nugent Consult Reason/Comments: cellulitis Do you want consulting provider notified?: Yes Primary care physician: Yadira Alberto Hospital Course: Final diagnosis -Extensive cellulitis bilateral lower extremities, present on admission, culture showing Proteus and Marilee -Extensive cutaneous candidiasis; skin folds including groin and armpit area; present on admission -Extensive DVT left lower extremity, continued on Eliquis -CTA chest was completed and is negative for PE -Acute renal injury; resolved -Electrolyte imbalance/hypokalemia; supplemented; improved -DVT prophylaxis; transition to Eliquis -full code -GI prophylaxis Discharge disposition Patient is being discharged in a stable condition with guarded prognosis to [facility]. Patient will follow-up with Dr. Alberto in the outpatient setting upon discharge. Patient is to continue with oral antibiotics as well as Diflucan and close outpatient follow-up with infectious disease as scheduled. Total time taken is greater than 35 minutes. Hospital course This is a 73-year-old female who was recently admitted with extensive bilateral lower extremity cellulitis with culture showing Proteus as well as Marilee. Patient also with intertrigo in multiple areas of skin folds with cellulitic appearance as well as yeasty buildup being followed by infectious disease maintained on nystatin creams and powders along with IV cefazolin. Patient showing clinical improvement in lower extremities and will continue on oral Keflex to complete the course. Recommend outpatient follow-up with infectious disease in the clinic. Patient to continue with local wound care as mentioned below and also has been instructed to follow-up with primary care provider on discharge. Patient with significant weakness and prolonged hospitalization was evaluated by physical therapy recommending rehab and patient is agreeable. Patient has been accepted at [facility] and insurance authorization was obtained. Please refer to other consultation notes for further HPI. Currently no reports of chest pain, shortness of breath, or palpitations. Patient is afebrile. No reports of nausea or vomiting and patient is tolerating diet. Patient with some generalized swelling of the upper and lower extremities will be given a dose of IV Lasix on discharge and recommend to continue with Lasix 40 mg daily for the next 1 week and repeat labs of CBC, CMP, magnesium. Encouraged the patient to elevate lower extremities while at rest and continue with local wound care. Patient will be going to [facility] today. Guarded prognosis Physical exam: Gen: This is a 73-year-old female who is awake, alert and oriented x 3, well- developed, elderly appearing, morbidly obese HEENT: Head is atraumatic, normocephalic. Pupils equal, round. Sclerae is anicteric. NECK: Supple. No JVD. No lymphadenopathy. No thyromegaly. LUNGS: Diminished breath sounds bilaterally otherwise clear to auscultation. No wheezes or rhonchi. No intercostal retractions. HEART: Regular rate and rhythm. No murmur. ABDOMEN: Soft. Obese bowel sounds are present. No masses. No tenderness. EXTREMITIES: No pedal edema. No calf tenderness. Lower extremity swelling bilaterally showing improvements in redness of the calf area NEUROLOGICAL: Patient is awake, alert and oriented x3. Cranial nerves 2 through 12 are grossly intact. Diffusely weak Please refer to medication reconciliation sheet for a list of medications. The impression and plan of care has been dictated by Julia Saavedra, Nurse Practitioner as directed. Dr. Gunnar MD I have performed a history and examination and MDM of this patient, discussed the same with the dictator, and agree with the dictator's assessment and plan as written ,documented as a scribe. Based on total visit time, I have performed more than 50% of the visit. Patient Condition at Discharge: Fair Plan - Discharge Summary Discharge Rx Participant: Yes New Discharge Prescriptions: New Cephalexin [Keflex] 500 mg PO Q8HR 10 Days #30 cap Triamcinolone 0.1% Cream [Kenalog 0.1% Cream] 1 applic TOPICAL BID each Nystatin 100,000 Unit/gm Powd [Mycostatin Powder] 1 applic TOPICAL BID each Fluconazole [Diflucan] 100 mg PO DAILY 10 Days #10 tablet Apixaban [Eliquis] See Taper PO BID tab Nystatin 100,000Unit/gm Cream [Mycostatin Cream] 1 applic TOPICAL BID each Furosemide [Lasix] 40 mg PO DAILY 7 Days #7 tablet Discharge Medication List Apixaban [Eliquis] See Taper PO BID tab 04/20/24 [Rx] Cephalexin [Keflex] 500 mg PO Q8HR 10 Days #30 cap 04/20/24 [Rx] Fluconazole [Diflucan] 100 mg PO DAILY 10 Days #10 tablet 04/20/24 [Rx] Furosemide [Lasix] 40 mg PO DAILY 7 Days #7 tablet 04/20/24 [Rx] Nystatin 100,000 Unit/gm Powd [Mycostatin Powder] 1 applic TOPICAL BID each 04/20/24 [Rx] Nystatin 100,000Unit/gm Cream [Mycostatin Cream] 1 applic TOPICAL BID each 04/20/24 [Rx] Triamcinolone 0.1% Cream [Kenalog 0.1% Cream] 1 applic TOPICAL BID each 04/20/24 [Rx] Follow up Appointment(s)/Referral(s): Og Mc [STAFF PHYSICIAN] - 1 Week (Office stated they will call patient with follow-up appointment time and date.) Yadira Alberto DO [Primary Care Provider] - 1-2 days ([facility] please call for follow-up appointment.) Bautista Pollard, [NON-STAFF] - As Needed Andreina Nugent MD [STAFF PHYSICIAN] - 04/26/24 2:45 pm Activity/Diet/Wound Care/Special Instructions: Patient is going to [facility] Activity as tolerated Continue with antibiotics for 10 days to complete the course Continue nystatin cream twice daily to all the folds of the skin Follow-up with primary care provider on discharge Follow-up with infectious disease outpatient Continue local wound care with cleansing the area and reapplying nystatin cream and powder to the folds Continue heart healthy diet Continue with Eliquis 10 mg twice daily for the next 6 days and then transition to Eliquis 5 mg twice daily thereafter, verify coverage and provide 1 month free coupon on discharge Follow-up with hematology outpatient on discharge from [facility] Discharge Disposition: TRANSFER TO SNF/F
[2024-04-20] MEDS: FUROSEMIDE 10 MG/ML 4 ML VIAL IV STA (14:46)
[2024-04-20 16:09] VITALS: BP 135/81; PULSE 98; TEMP 97.8
== END 2024-04-20 18:05 | DRG 603 ==
LOC: EC 11:12 → SUPCPDRO 11:12 → 4SSUR 17:56
PROVIDERS: ADMIT Hospitalist; ATTEND Hospitalist
DX: L03.314 Cellulitis of groin (principal); E87.20 Acidosis, unspecified; I82.402 Acute embolism and thrombosis of unspecified deep veins of left lower extremity; L03.115 Cellulitis of right lower limb; L03.116 Cellulitis of left lower limb; N17.9 Acute kidney failure, unspecified; Z68.44 Body mass index [BMI] 60.0-69.9, adult; L03.311 Cellulitis of abdominal wall; B37.2 Candidiasis of skin and nail; B96.20 Unspecified Escherichia coli [E. coli] as the cause of diseases classified elsewhere; B96.4 Proteus (mirabilis) (morganii) as the cause of diseases classified elsewhere; E66.01 Morbid (severe) obesity due to excess calories; E78.5 Hyperlipidemia, unspecified; E86.0 Dehydration; E87.6 Hypokalemia; G47.30 Sleep apnea, unspecified; I10 Essential (primary) hypertension; K76.0 Fatty (change of) liver, not elsewhere classified; M85.80 Other specified disorders of bone density and structure, unspecified site; R62.7 Adult failure to thrive; Z79.01 Long term (current) use of anticoagulants; Z87.891 Personal history of nicotine dependence
CPT/HCPCS: 36415; 71046; 71275; 74177; 80048; 80053; 80202; 81001; 83605; 83735; 84100; 84132; 85025; 85610; 85730; 87040; 87070; 87077; 87186; 87205; 87636; 90471; 90715; 93005; 96361; 96365; 96366; 96367; 96375; 99285

== ENCOUNTER 2024-06-09 18:01 | Observation (INO) | payer MEDICARE ==
--- NOTE | 2024-06-09 20:32 | XR ---
EXAMINATION TYPE: XR chest 2V DATE OF EXAM: 06/09/2024 8:25 PM CLINICAL INDICATION:Female, 73 years old with history of Weakness; [facility] COMPARISON: Chest radiographs from 04/13/2024 TECHNIQUE: XR chest 2V Frontal and lateral views of the chest. FINDINGS: Lungs/Pleura: There is no evidence of pleural effusion, focal consolidation, or pneumothorax. Pulmonary vascularity: Unremarkable. Heart/mediastinum: Cardiomediastinal silhouette is unremarkable. Musculoskeletal: Redemonstrated mild compression deformities seen on prior CT. IMPRESSION: 1. No acute cardiopulmonary disease/process. 2. Redemonstrated remote compression deformities of the thoracic spine, most pronounced at T3.
--- NOTE | 2024-06-09 20:33 | XR ---
EXAMINATION TYPE: XR pelvis AP view DATE OF EXAM: 06/09/2024 8:25 PM CLINICAL INDICATION:Female, 73 years old with history of fall; [facility] COMPARISON: None TECHNIQUE: The pelvis was examined in a single projection. FINDINGS: There is no evidence of fracture or dislocation. There is no soft tissue abnormality. No a bnormal calcifications are present. The spine appears intact. IMPRESSION: No acute osseous pathology.
[2024-06-09] MEDS: LIDOCAINE 4% PATCH TOPICAL ONE (20:43)
[2024-06-09] MEDS: DIPH,PERTUS(ACELL)TETVAC-LF 0.5 ML VIAL IM ONE (20:44)
--- NOTE | 2024-06-09 21:00 | CT ---
EXAMINATION TYPE: CT brain wo con CT DLP: 1272.4 mGycm, Automated exposure control for dose reduction was used. DATE OF EXAM: 06/09/2024 8:40 PM COMPARISON: None. CLINICAL INDICATION:Female, 73 years old with history of weakness, Weakness. TECHNIQUE: Brain: Axial CT images of the brain were obtained with coronal and sagittal reformats created and rev iewed. Contrast used: None. Oral contrast used: None. FINDINGS: Brain: Extra-axial spaces: No abnormal extra-axial fluid collections. Ventricular system: Within normal limits Cerebral parenchyma: No acute intraparenchymal hemorrhage or mass effect. Focal areas of hypoattenua tion are present within the right MCA territory involving the right frontal and parietal lobes as wel l as the precentral gyrus. Scattered hypoattenuating areas are seen within the white matter. Cerebellum: Unremarkable. Mass effect: No evidence of midline shift. Intracranial vasculature: Atherosclerotic calcifications of the intracranial vessels. Soft tissues: Normal. Calvarium/osseous structures: No depressed skull fracture. Paranasal sinuses and mastoid air cells: Mild scattered paranasal sinus disease. Visualized orbits: Orbital contents are intact. IMPRESSION: 1. Areas of low-attenuation and loss of mendes-white junction involving the right MCA territory, favore d subacute in nature. Consider further evaluation with dedicated MRI brain. 2. No intracranial hemorrhage. Findings of the case were called to and discussed with Dr. Copeland on 06/01/2024 at [address] Nuno.
[2024-06-09] MEDS ORDERED: NALOXONE 0.4 MG/ML 1 ML VIAL IV PRN (21:21)
[2024-06-09] MEDS ORDERED: ACETAMINOPHEN TAB 325 MG TAB PO PRN (21:21)
--- NOTE | 2024-06-09 21:39 | ED ---
General Adult HPI - General Chief complaint: Fall Stated complaint: Weakness Time Seen by Provider: 06/09/24 18:48 Source: patient, EMS, RN notes reviewed, old records reviewed Mode of arrival: EMS Limitations: no limitations - History of Present Illness Initial comments: Is a 73-year-old female with past medical history remarkable for hypertension, hyperlipidemia,, DVT on blood thinners who presents emergency department complaining of a mechanical fall at home. Patient states she was using her walker when she had a mechanical fall after she stepped awkwardly. No significant injuries when she landed on the floor. Does not believe she hit her head. No loss of consciousness. Complaining of chronic right buttock pain. Has chronic lower extremity weakness and ambulates with a walker at baseline. Also chronic right shoulder pain from old rotator cuff injury. Has an abrasion on her right forearm from when she was being extricated from her home. Has no other acute complaints at this time. Denies chest pain or shortness of breath. Denies any sensory deficits. Denies fainting. Presents for further evaluation. States she lives by herself. Feels unsafe going home. Would like to be admitted. - Related Data Previous Rx's Medication Instructions Recorded Apixaban [Eliquis] See Taper PO BID tab 04/20/24 Cephalexin [Keflex] 500 mg PO Q8HR 10 Days #30 cap 04/20/24 Fluconazole [Diflucan] 100 mg PO DAILY 10 Days #10 tablet 04/20/24 Furosemide [Lasix] 40 mg PO DAILY 7 Days #7 tablet 04/20/24 Nystatin 100,000 Unit/gm Powd 1 applic TOPICAL BID each 04/20/24 [Mycostatin Powder] Nystatin 100,000Unit/gm Cream 1 applic TOPICAL BID each 04/20/24 [Mycostatin Cream] Triamcinolone 0.1% Cream [Kenalog 1 applic TOPICAL BID each 04/20/24 0.1% Cream] Allergies Allergy/AdvReac Type Severity Reaction Status Date / Time No Known Allergies Allergy Verified 04/13/24 12:58 Review of Systems ROS Statement: Those systems with pertinent positive or pertinent negative responses have been documented in the HPI. Review of Systems: CONST: Denies fever EYES: Denies blurry vision ENT: Denies nasal congestion C/V: Denies Chest pain RESP: Denies shortness of breath GI: Denies abdominal pain : Denies dysuria SKIN: Endorses abrasion to right forearm MSK: Endorses chronic right buttock pain, chronic right shoulder pain. NEURO: Denies headache ROS Other: All systems not noted in ROS Statement are negative. Past Medical History Past Medical History: Hyperlipidemia, Hypertension, Thyroid Disorder History of Any Multi-Drug Resistant Organisms: None Reported Past Surgical History: No Surgical Hx Reported Additional Past Surgical History / Comment(s): Left ankle surgery Past Anesthesia/Blood Transfusion Reactions: No Reported Reaction Past Psychological History: No Psychological Hx Reported Smoking Status: Former smoker Past Alcohol Use History: None Reported Past Drug Use History: None Reported General Exam - General Exam Comments Initial Comments: General: Appears in no acute distress. Obvious debility. Patient covered in urine. HEAD: Normal with no signs of head trauma. No Syed sign. Negative raccoon eyes. EYES: PERRLA, EOMI, conjunctiva normal, no discharge. Pupils are 3 mm and equal bilaterally. ENT: Hearing grossly intact, normal oropharynx. RESPIRATORY: Clear breath sounds bilaterally. No wheezes, rales, or rhonchi. C/V: Regular rate and rhythm. S1 and S2 auscultated, chronic lower extremity pitting edema peripheral pulses 2+ and intact throughout ABD: Abd is soft, nontender, nondistended EXT: Normal range of motion, no obvious deformity SKIN: Skin tear on posterior right forearm NEURO: Alert and oriented x 4. Cranial nerves II-XII intact. No focal sensory or strength deficits. GCS of 15. NIH of 0 for acute symptoms. Chronic symmetrical lower extremity weakness. Chronic weakness of the right upper extremity secondary to chronic rotator cuff issues. Limitations: no limitations Course Vital Signs 06/09/24 18:04 Temperature 97.5 F L Pulse Rate 91 Respiratory 18 Rate Blood Pressure 141/82 O2 Sat by Pulse 95 Oximetry Medical Decision Making - Medical Decision Making Was pt. sent in by a medical professional or institution (, PA, DIRECTOR PUBLIC, urgent care, hospital, or halfway...) When possible be specific @ -No Did you speak to anyone other than the patient for history (EMS, parent, family, police, friend...)? What history was obtained from this source @ -No Did you review nursing and triage notes (agree or disagree)? Why? @ -I reviewed and agree with nursing and triage notes Were old charts reviewed (outside hosp., previous admission, EMS record, old EKG, old radiological studies, urgent care reports/EKG's, halfway records)? Report findings @ -No old charts were reviewed Differential Diagnosis (chest pain, altered mental status, abdominal pain women, abdominal pain men, vaginal bleeding, weakness, fever, dyspnea, syncope, headache, dizziness, GI bleed, back pain, seizure, CVA, palpatations, mental health, musculoskeletal)? @ -Differential Weakness: Hypoglycemia, shock, sepsis, hyponatremia, anemia, infection, MT, ETOH, adverse medicine reaction, overdose, stroke, this is not meant to be an all-inclusive list. EKG interpreted by me (3pts min.). @ -As above X-rays interpreted by me (1pt min.). @ -Chest x-ray, pelvis x-ray negative for any obvious acute process or injury. CT interpreted by me (1pt min.). @ -CT brain per radiology shows concerning signs of subacute infarct in the right MCA. I was contacted via phone call regarding these findings. U/S interpreted by me (1pt. min.). @ -None done What testing was considered but not performed or refused? (CT, X-rays, U/S, labs)? Why? @ -None What meds were considered but not given or refused? Why? @ -None Did you discuss the management of the patient with other professionals (professionals i.e. , PA, DIRECTOR PUBLIC, lab, RT, psych nurse, social work program coordinator, town planner, teacher, licensed mortgage loan officer, lead case manager)? Give summary @ -Spoke with admitting provider, CHIN Small of [facility] who accepted the admission. Spoke with radiologist regarding the CT findings. Spoke with on-call neurologist Dr. Dunn. Recommended ordering CT angiogram and he will evaluate the patient in the morning. Was smoking cessation discussed for >3mins.? @ -No Was critical care preformed (if so, how long)? @ -No Were there social determinants of health that impacted care today? How? (Homelessness, low income, unemployed, alcoholism, drug addiction, transportation, low edu. Level, literacy, decrease access to med. care, detention, rehab)? @ -No Was there de-escalation of care discussed even if they declined (Discuss DNR or withdrawal of care, Hospice)? DNR status @ -No What co-morbidities impacted this encounter? (DM, HTN, Smoking, COPD, CAD, Cancer, CVA, ARF, Chemo, Hep., AIDS, mental health diagnosis, sleep apnea, morbid obesity)? @ -Debility Was patient admitted / discharged? Hospital course, mention meds given and route, prescriptions, significant lab abnormalities, going to OR and other pertinent info. @ -Patient presents emergency department after mechanical fall at home on blood thinners. Patient is on blood thinners for DVT. Has chronic neurological findings including symmetrical lower extremity weakness and a relates with a walker at baseline. Also chronic right upper extremity weakness from rotator cuff injury. No acute findings. NIH is 0 for any acute findings. Laboratory studies are still pending at this time. Vitals are within acceptable limits. Imaging is remarkable for negative x-rays however patient does have possible subacute right MCA stroke on brain CT. Patient has no symptoms to suggest this at this time that are obviously acute. NIH is 0 for acute symptoms. Therefore patient is not a candidate for tPA. Risks far outweigh the benefits. However we will have neurology evaluate the patient. I spoke with Dr. Dunn of neurology. Requested CTA which was ordered and pending. Patient will be admitted for debility and for placement. Patient given 325 mg of aspirin. Tet anus updated. EKG showed no signs of acute ischemia. I spoke with CHIN Small of [facility] who accepted the admission. Undiagnosed new problem with uncertain prognosis? @ -No Drug Therapy requiring intensive monitoring for toxicity (Heparin, Nitro, Insulin, Cardizem)? @ -No Were any procedures done? @ -No Diagnosis/symptom? @ -Mechanical fall, debility, possible subacute CVA Acute, or Chronic, or Acute on Chronic? @ -Acute on chronic Uncomplicated (without systemic symptoms) or Complicated (systemic symptoms)? @ -Complicated Side effects of treatment? @ -No Exacerbation, Progression, or Severe Exacerbation? @ -No Poses a threat to life or bodily function? How? (Chest pain, USA, MT, pneumonia, PE, COPD, DKA, ARF, appy, cholecystitis, CVA, Diverticulitis, Homicidal, Suicidal, threat to staff... and all critical care pts) @ -Potentially, yes Disposition Clinical Impression: Fall, Debility Narrative: Possible subacute CVA Disposition: ADMITTED IP TO THIS HOSP Condition: Stable Referrals: Yadira Alberto DO [Primary Care Provider] - 1-2 days Time of Disposition: 21:40
[2024-06-09 21:59] LABS: INR 1.3 (<1.2); Partial Thromboplastin Time 32.6 sec (22.0-30.0); Prothrombin Time 13.4 sec (10.0-12.5)
[2024-06-09 22:03] LABS: ALT 16 U/L (4-34); AST 27 U/L (14-36); African American GFR (CKD) 71 (>60 ml/min/1.73 sqM); Albumin 3.1 g/dL (3.5-5.0); Alkaline Phosphatase 121 U/L (38-126); Anion Gap 5 mmol/L; Blood Urea Nitrogen 13 mg/dL (7-17); Calcium 8.9 mg/dL (8.4-10.2); Carbon Dioxide 24 mmol/L (22-30); Chloride 108 mmol/L (98-107); Glucose 114 mg/dL (74-99); Non-African American GFR(CKD) 62 (>60 ml/min/1.73 sqM); Potassium 3.6 mmol/L (3.5-5.1); Sodium 137 mmol/L (137-145); Total Bilirubin 1.3 mg/dL (0.2-1.3); Total Protein 5.9 g/dL (6.3-8.2)
[2024-06-09] MEDS: ASPIRIN 325 MG TAB PO STA (22:14)
[2024-06-09 22:19] LABS: Basophils % (A) 0 %; Eosinophils # (A) 0.1 k/uL (0-0.7); Eosinophils % (A) 1 %; HCT 43.2 % (34.0-46.0); HGB 14.3 gm/dL (11.4-16.0); Lymphocytes # (A) 1.1 k/uL (1.0-4.8); Lymphocytes % (A) 10 %; MCH 31.9 pg (25.0-35.0); MCHC 33.1 g/dL (31.0-37.0); MCV 96.2 fL (80.0-100.0); Mean Platelet Volume 8.9; Monocytes % (A) 9 %; Neutrophils # (A) 7.9 k/uL (1.3-7.7); Neutrophils % (A) 78 %; Platelet Count 260 k/uL (150-450); RBC 4.49 m/uL (3.80-5.40); RDW 15.9 % (11.5-15.5); WBC 10.1 k/uL (3.8-10.6)
--- NOTE | 2024-06-10 00:21 | CT ---
EXAMINATION TYPE: CT angio head neck DATE OF EXAM: 06/10/2024 HISTORY: Possible subacute stroke. COMPARISON: None CT DLP: 1268 mGycm. Automated Exposure Control for Dose Reduction was Utilized. TECHNIQUE: CTA scan of the head and neck is performed with IV Contrast, patient injected with 80 mL of Isovue 370, axial images are obtained, coronal and sagittal reformatted images are reviewed. 3D re constructed images are created on an independent workstation and reviewed. FINDINGS: Carotid/Vascular Structures: There is a 4 vessel origin from aortic arch which is normal variant. Stephan e calcified plaque in the proximal left vertebral artery is present. There is medial course of the co mmon carotid arteries bilaterally. [id number] peripheral calcified plaque proximal right photo intern al carotid artery just past carotid bulb without significant stenosis. The right external carotid art peter. More severe calcified plaque left carotid bulb extending into the proximal internal carotid rosanna ry without significant stenosis. Patent left external carotid artery. Tortuous course to the internal carotid arteries bilaterally is seen. Vertebral arteries are codominant and patent to the basilar ju nction. Mild to moderate peripheral calcified plaque distal internal carotid arteries bilaterally. No large vessel occlusion or aneurysm in the anterior posterior circulations. Patent left-sided posteri or communicating artery is seen. Other: Mild compression type fracture at T2 level and moderate to severe compression type fracture at T3 lev el. Both are sclerotic suggesting subacute or chronic in age. IMPRESSION: No significant vascular abnormality is seen. NASCET criteria was used in interpretation of this exam?
[2024-06-10 09:19] LABS: Appearance,Urine Cloudy (Clear); Bacteria,Urine Moderate /hpf; Bilirubin,Urine Negative (Negative); Blood,Urine Small (Negative); Color,Urine Yellow; Glucose,Urine (UA) Negative (Negative); Hyaline Casts,Urine 16 /lpf (0-2); Ketones,Urine Trace (Negative); Leukocyte Esterase,Urine Large (Negative); Mucus,Urine Occasional /hpf; Nitrite,Urine Positive (Negative); PH, Urine 5.5 (5.0-8.0); Protein,Urine Trace (Negative); RBC,Urine 4 /hpf (0-5); Specific Gravity,Urine 1.026 (1.001-1.035); Squamous Epithelial Cell,Urine 2 /hpf (0-4); Urobilinogen,Urine <2.0 mg/dL (<2.0); WBC,Urine 24 /hpf (0-5)
[2024-06-10 11:03] LABS: Basophils % (A) 0 %; Eosinophils # (A) 0.2 k/uL (0-0.7); Eosinophils % (A) 3 %; HCT 39.7 % (34.0-46.0); HGB 12.6 gm/dL (11.4-16.0); Hypochromasia Moderate; Lymphocytes # (A) 0.9 k/uL (1.0-4.8); Lymphocytes % (A) 11 %; MCH 31.2 pg (25.0-35.0); MCHC 31.7 g/dL (31.0-37.0); MCV 98.3 fL (80.0-100.0); Mean Platelet Volume 8.2; Monocytes # (A) 0.7 k/uL (0-1.0); Monocytes % (A) 9 %; Neutrophils % (A) 76 %; Platelet Count 248 k/uL (150-450); RBC 4.04 m/uL (3.80-5.40); RDW 15.4 % (11.5-15.5); WBC 7.9 k/uL (3.8-10.6)
[2024-06-10 11:15] LABS: ALT 13 U/L (4-34); AST 23 U/L (14-36); African American GFR (CKD) 72 (>60 ml/min/1.73 sqM); Albumin 2.6 g/dL (3.5-5.0); Alkaline Phosphatase 115 U/L (38-126); Anion Gap 5 mmol/L; Blood Urea Nitrogen 14 mg/dL (7-17); Calcium 8.4 mg/dL (8.4-10.2); Carbon Dioxide 22 mmol/L (22-30); Chloride 108 mmol/L (98-107); Glucose 133 mg/dL (74-99); Non-African American GFR(CKD) 62 (>60 ml/min/1.73 sqM); Potassium 3.7 mmol/L (3.5-5.1); Sodium 135 mmol/L (137-145); Total Protein 5.2 g/dL (6.3-8.2)
--- NOTE | 2024-06-10 11:40 | P.HPIM ---
History of Present Illness 73-year-old female came in after mechanical fall and generalized weakness patient denied any focal weakness although imaging studies including CT of brain chest x-ray and pelvic x-ray did not show any significant abnormality. Patient has extensive bilateral pedal edema with the left leg cellulitis with localized of temperature patient does not have any fever or leukocytosis at this time. Patient does have intertrigo as well. Patient is on Eliquis for left lower extremity DVT in the past. REVIEW OF SYSTEMS: All other systems are negative except those mentioned in the HPI PHYSICAL EXAMINATION: GENERAL: The patient is alert and oriented x3, not in any acute distress. Well developed, well nourished. Obese HEENT: Pupils are round and equally reacting to light. EOMI. No scleral icterus. No conjunctival pallor. Normocephalic, atraumatic. No pharyngeal erythema. No thyromegaly. CARDIOVASCULAR: S1 and S2 present. No murmurs, rubs, or gallops. PULMONARY: Chest is clear to auscultation, no wheezing or crackles. ABDOMEN: Soft, nontender, nondistended, normoactive bowel sounds. No palpable organomegaly. MUSCULOSKELETAL: No joint swelling or deformity. EXTREMITIES: No cyanosis, clubbing, patient does have bilateral pedal edema NEUROLOGICAL: Gross neurological examination did not reveal any focal deficits. SKIN: Patient has skin fold fungal infection along with cellulitis of the left lower extremity extending almost up to the knee circumferentially with localized of temperature and redness Assessment and plan -Cellulitis of the left lower extremity patient does not have any history of MRSA in the past patient will be started on cefazolin with ID consultation. -Chronic venous insufficiency -Morbid obesity -Falls secondary to generalized weakness physical therapy Occupational Therapy evaluation -History of DVT in the past for which patient is on Eliquis which will be continued DVT prophylaxis: Patient is on Eliquis because of her history of DVT in the past Past Medical History Past Medical History: Hyperlipidemia, Hypertension, Thyroid Disorder History of Any Multi-Drug Resistant Organisms: None Reported Past Surgical History: No Surgical Hx Reported Additional Past Surgical History / Comment(s): Left ankle surgery Past Anesthesia/Blood Transfusion Reactions: No Reported Reaction Past Psychological History: No Psychological Hx Reported Smoking Status: Former smoker Past Alcohol Use History: None Reported Past Drug Use History: None Reported Medications and Allergies Home Medications Medication Instructions Recorded Confirmed Type Apixaban [Eliquis] 5 mg PO DAILY 08/29/24 08/29/24 History Allergies Allergy/AdvReac Type Severity Reaction Status Date / Time No Known Allergies Allergy Verified 06/10/24 06:53 Physical Exam Vitals: Vital Signs Temp Pulse Resp BP Pulse Ox 06/10/24 04:00 98.4 F 78 20 108/71 96 06/10/24 00:00 97.9 F 83 20 129/79 96 06/09/24 18:04 97.5 F L 91 18 141/82 95 Intake and Output 06/09/24 06/10/24 06/10/24 22:59 06:59 14:59 Other: Weight 135.171 kg Results CBC & Chem 7: 06/10/24 10:14 06/10/24 10:14 Labs: Abnormal Lab Results - Last 24 Hours (Table) 06/09/24 06/09/24 06/09/24 Range/Units 21:39 21:39 21:39 RDW 15.9 H (11.5-15.5) % Neutrophils # 7.9 H (1.3-7.7) k/uL Lymphocytes # (1.0-4.8) k/uL PT 13.4 H (10.0-12.5) sec INR 1.3 H (<1.2) APTT 32.6 H (22.0-30.0) sec Sodium (137-145) mmol/L Chloride 108 H (98-107) mmol/L Glucose 114 H (74-99) mg/dL Total Protein 5.9 L (6.3-8.2) g/dL Albumin 3.1 L (3.5-5.0) g/dL Urine Appearance (Clear) Urine Protein (Negative) Urine Ketones (Negative) Urine Blood (Negative) Urine Nitrite (Negative) Ur Leukocyte Esterase (Negative) Urine WBC (0-5) /hpf Urine Bacteria (None) /hpf Hyaline Casts (0-2) /lpf Urine Mucus (None) /hpf 06/09/24 06/10/24 06/10/24 Range/Units 23:04 10:14 10:14 RDW (11.5-15.5) % Neutrophils # (1.3-7.7) k/uL Lymphocytes # 0.9 L (1.0-4.8) k/uL PT (10.0-12.5) sec INR (<1.2) APTT (22.0-30.0) sec Sodium 135 L (137-145) mmol/L Chloride 108 H (98-107) mmol/L Glucose 133 H (74-99) mg/dL Total Protein 5.2 L (6.3-8.2) g/dL Albumin 2.6 L (3.5-5.0) g/dL Urine Appearance Cloudy H (Clear) Urine Protein Trace H (Negative) Urine Ketones Trace H (Negative) Urine Blood Small H (Negative) Urine Nitrite Positive H (Negative) Ur Leukocyte Esterase Large H (Negative) Urine WBC 24 H (0-5) /hpf Urine Bacteria Moderate H (None) /hpf Hyaline Casts 16 H (0-2) /lpf Urine Mucus Occasional H (None) /hpf
[2024-06-10] MEDS: NYSTATIN 100,000 UNIT/GM POWD 15 GM TOPICAL SCH (13:11)
[2024-06-10] MEDS: ceFAZolin 3 GM in SODIUM CHLORIDE 0.9% 100 ML IVPB SCH (13:11)
[2024-06-10] MEDS: FUROSEMIDE 10 MG/ML 4 ML VIAL IV SCH (13:12)
--- NOTE | 2024-06-10 21:37 | P.CONS ---
History of Present Illness - Reason for Consult Consult date: 06/10/24 Cellulitis Requesting physician: Nereyda Harvey - Chief Complaint Weakness and fall x 1 day - History of Present Illness Patient is a 73-year-old female past medical history significant for hypertension hyperlipidemia hypothyroidism, DVT presenting to the hospital after apparently the patient did have a fall at home patient was using her walker still stepped and fell landing on the floor hit her head but no loss of consciousness has been complaining of weakness with the symptoms the patient has been brought into the hospital on presentation to the hospital patient was afebrile and no fever have been recorded subsequently patient was not tachycardic hypotensive or hypoxic did have white count of 10.1 with a left shift creatinine was normal electrolytes are normal liver isms are normal urine has been positive patient noticed to have a significant swelling redness left lower extremity has been diagnosed with a cellulitis started on cefazolin infect ious disease was consulted for further management of antibiotic therapy patient did have a chest x-ray no acute cardiopulmonary disease process patient did have diffuse swelling and redness of the left lower extremity apparently getting worse for last few days. Denies any history of trauma to the leg open wound or any drainage denies significant pain or any drainage from the left leg Review of Systems Positive point and negatives has been mentioned in the HPI, complete review of systems was performed and all other systems are negative Past Medical History Past Medical History: Hyperlipidemia, Hypertension, Thyroid Disorder History of Any Multi-Drug Resistant Organisms: None Reported Past Surgical History: No Surgical Hx Reported Additional Past Surgical History / Comment(s): Left ankle surgery Past Anesthesia/Blood Transfusion Reactions: No Reported Reaction Past Psychological History: No Psychological Hx Reported Smoking Status: Former smoker Past Alcohol Use History: None Reported Past Drug Use History: None Reported - Past Family History Mother Family Medical History: Diabetes Mellitus Medications and Allergies Home Medications Medication Instructions Recorded Confirmed Type Apixaban [Eliquis] 5 mg PO DAILY 06/10/24 06/10/24 History Allergies Allergy/AdvReac Type Severity Reaction Status Date / Time No Known Allergies Allergy Verified 06/10/24 06:53 Physical Exam Vitals: Vital Signs Temp Pulse Resp BP Pulse Ox 06/10/24 04:00 98.4 F 78 20 108/71 96 06/10/24 00:00 97.9 F 83 20 129/79 96 06/09/24 18:04 97.5 F L 91 18 141/82 95 Intake and Output 06/09/24 06/10/24 06/10/24 22:59 06:59 14:59 Other: Weight 135.171 kg GENERAL DESCRIPTION: Elderly female lying in bed, no distress. No tachypnea or accessory muscle of respiration use. HEENT: Shows Pallor , no scleral icterus. Oral mucous membrane is dry. No pharyngeal erythema or thrush NECK: Trachea central, no thyromegaly. LUNGS: Unlabored breathing. Clear to auscultation anteriorly. No wheeze or crackle. HEART: S1, S2, regular rate and rhythm. No loud murmur ABDOMEN: Soft, no tenderness , guarding or rigidity, no organomegaly EXTREMITIES: Left lower extremity diffuse swelling and redness which is warm to touch SKIN: No rash, no masses palpable. NEUROLOGICAL: The patient is awake, alert, oriented x3, mood and affect normal. Results CBC & Chem 7: 06/10/24 10:14 06/10/24 10:14 Labs: Abnormal Lab Results - Last 24 Hours (Table) 06/09/24 06/09/24 06/09/24 Range/Units 21:39 21:39 21:39 RDW 15.9 H (11.5-15.5) % Neutrophils # 7.9 H (1.3-7.7) k/uL Lymphocytes # (1.0-4.8) k/uL PT 13.4 H (10.0-12.5) sec INR 1.3 H (<1.2) APTT 32.6 H (22.0-30.0) sec Sodium (137-145) mmol/L Chloride 108 H (98-107) mmol/L Glucose 114 H (74-99) mg/dL Total Protein 5.9 L (6.3-8.2) g/dL Albumin 3.1 L (3.5-5.0) g/dL Urine Appearance (Clear) Urine Protein (Negative) Urine Ketones (Negative) Urine Blood (Negative) Urine Nitrite (Negative) Ur Leukocyte Esterase (Negative) Urine WBC (0-5) /hpf Urine Bacteria (None) /hpf Hyaline Casts (0-2) /lpf Urine Mucus (None) /hpf 06/09/24 06/10/24 06/10/24 Range/Units 23:04 10:14 10:14 RDW (11.5-15.5) % Neutrophils # (1.3-7.7) k/uL Lymphocytes # 0.9 L (1.0-4.8) k/uL PT (10.0-12.5) sec INR (<1.2) APTT (22.0-30.0) sec Sodium 135 L (137-145) mmol/L Chloride 108 H (98-107) mmol/L Glucose 133 H (74-99) mg/dL Total Protein 5.2 L (6.3-8.2) g/dL Albumin 2.6 L (3.5-5.0) g/dL Urine Appearance Cloudy H (Clear) Urine Protein Trace H (Negative) Urine Ketones Trace H (Negative) Urine Blood Small H (Negative) Urine Nitrite Positive H (Negative) Ur Leukocyte Esterase Large H (Negative) Urine WBC 24 H (0-5) /hpf Urine Bacteria Moderate H (None) /hpf Hyaline Casts 16 H (0-2) /lpf Urine Mucus Occasional H (None) /hpf Assessment and Plan (1) Left leg cellulitis Current Visit: No Status: Acute Code(s): L03.116 - CELLULITIS OF LEFT LOWER LIMB SNOMED Code(s): 95640053556757571 Plan: 1patient with diffuse swelling and redness to the left lower extremity which is warm to touch concerning for cellulitis likely from gram-positive skin joy in this patient with diffuse swelling redness likely streptococcal disease. 2marked the area of the redness. And will benefit from gentle José Manuel wrap for compression to get some of the swelling down 3cefazolin 3 g every 8 hours We will follow on clinical condition and cultures to further adjust medication if needed Thank you for this consultation we will follow the patient along with you Dictation was produced using [employer] dictation software. please excuse any grammatical, word or spelling errors. Time with Patient: Greater than 30
[2024-06-10] MEDS: APIXABAN 5 MG TAB PO SCH (22:21)
[2024-06-11 01:44] LABS: Chol/HDL Ratio 2.26 Ratio; LDL Cholesterol,Calculated 29.7 mg/dL (0.0-131.0)
[2024-06-11 10:41] LABS: HGB 11.8 g/dL (12.0-15.0); MCH 31.1 pg (27.0-32.0); MCHC 32.8 g/dL (32.0-37.0); Mean Platelet Volume 10.8 FL (9.5-12.2); NRBC Per 100 WBC 0 X 10*3/uL (0.00-0.01); Platelet Count 231 X 10*3/uL (140-440); RBC 3.79 X 10*6/uL (4.10-5.20); RDW 16.6 % (11.5-14.5); WBC 7.69 X 10*3/uL (4.50-10.00)
[2024-06-11 10:53] LABS: BUN/Creat Ratio 11.58 Ratio (12.00-20.00); Blood Urea Nitrogen 13.9 mg/dL (9.0-27.0); Calcium 7.8 mg/dL (8.7-10.3); Carbon Dioxide 22.9 mmol/L (21.6-31.8); Chloride 104 mmol/L (96-109); Glucose 92 mg/dL (70-110); Potassium 3.4 mmol/L (3.5-5.5); Sodium 139 mmol/L (135-145)
--- NOTE | 2024-06-11 12:50 | P.PN ---
Subjective Progress Note Date: 06/11/24 Principal diagnosis: Reason for follow-up is left leg cellulitis Patient is a 73-year-old female past medical history significant for hypertension hyperlipidemia hypothyroidism, DVT presenting to the hospital after apparently the patient did have a fall at home, patient also noted to have extensive swelling redness of the left leg concerning for cellulitis. On today's evaluation that is 06/11/2024, Patient is afebrile this morning patient denies having any chest pain shortness of breath or cough, the patient is breathing comfortably and currently on room air, patient denies any abdominal pain no diarrhea no nausea no vomiting, denies pain to the left lower extremity still have some swelling redness is slightly down. Patient white count is 7.69, creatinine is 1.2 Objective - Vital Signs Vital signs: Vital Signs Temp 98.2 F 06/11/24 07:30 Pulse 72 06/11/24 07:30 Resp 16 06/11/24 07:30 BP 106/69 06/11/24 07:30 Pulse Ox 94 L 06/11/24 07:30 FiO2 Intake & Output 06/10/24 06/11/24 06/11/24 18:59 06:59 18:59 Output Total 650 Balance -650 Weight 135.171 kg Output: Urine 650 Other: Voiding Method External Catheter External Catheter # Voids 2 # Bowel Movements 1 - Exam GENERAL DESCRIPTION: An elderly female hyponatremia in no distress RESPIRATORY SYSTEM: Unlabored breathing , decreased breath sounds at bases HEART: S1 S2 regular rate and rhythm , ABDOMEN: Soft , no tenderness EXTREMITIES: Diffuse swelling to the left leg redness slightly decreased - Labs CBC & Chem 7: 06/11/24 06:25 06/11/24 06:25 Labs: Abnormal Lab Results - Last 24 Hours (Table) 06/11/24 06/11/24 Range/Units 06:25 06:25 RBC 3.79 L (4.10-5.20) X 10*6/uL Hgb 11.8 L (12.0-15.0) g/dL Hct 36.0 L (37.2-46.3) % RDW 16.6 H (11.5-14.5) % Potassium 3.4 L (3.5-5.5) mmol/L Anion Gap 12.10 H (4.00-12.00) mmol/L Est GFR (CKD-EPI) 48 L (>=60) BUN/Creatinine Ratio 11.58 L (12.00-20.00) Ratio Calcium 7.8 L (8.7-10.3) mg/dL Assessment and Plan (1) Left leg cellulitis Current Visit: No Status: Acute Code(s): L03.116 - CELLULITIS OF LEFT LOWER LIMB SNOMED Code(s): 19562516511890810 Plan: 1patient with diffuse swelling and redness to the left lower extremity which is warm to touch concerning for cellulitis likely from gram-positive skin joy in this patient with diffuse swelling redness likely streptococcal disease. 2we will check a Doppler if negative apply José Manuel wrap to get some of the swelling down 3patient to continue cefazolin 3 g every 8 hours Dictation was produced using [employer] dictation software. please excuse any grammatical, word or spelling errors. Time with Patient: Less than 30
--- NOTE | 2024-06-11 13:56 | US ---
EXAMINATION TYPE: US venous doppler duplex LE LT DATE OF EXAM: 06/11/2024 1:45 PM COMPARISON: 04/15/2024 CLINICAL INDICATION: Female, 73 years old with history of swelling; History of DVT. Edema left leg. P atient on blood thinner SIDE PERFORMED: left TECHNIQUE: The lower extremity deep venous system is examined utilizing real time linear array sonog osmel with graded compression, doppler sonography and color-flow sonography. VESSELS IMAGED: Common Femoral Vein Deep Femoral Vein Greater Saphenous Vein * Femoral Vein Popliteal Vein Small Saphenous Vein * Proximal Calf Veins (* superficial vessels) Left Leg: Technical limitations due to patient's body habitus ( morbidly obese). Unable to visuali ze lower femoral vein for compression. Patient unable to tolerate compressions CFV. positive for DVT left femoral vein, thready flow (as on prior exam). unable to evaluate popliteal vein, patient unable to tolerate Grayscale, color doppler, spectral doppler imaging performed of the deep veins of the lower extremiti es. There is normal flow, compressibility, vascular waveforms. IMPRESSION: Positive deep vein thrombosis in the left femoral vein. Limited evaluation of other mass es described above.
[2024-06-12 09:54] LABS: Basophils # (A) 0.02 X 10*3/uL (0.00-0.10); Basophils % (A) 0.3 %; Eosinophils # (A) 0.31 X 10*3/uL (0.04-0.35); Eosinophils % (A) 4.7 %; HCT 35.2 % (37.2-46.3); HGB 11.6 g/dL (12.0-15.0); Lymphocytes # (A) 1.32 X 10*3/uL (0.90-5.00); Lymphocytes % (A) 19.9 %; MCH 30.7 pg (27.0-32.0); MCV 93.1 FL (80.0-97.0); Mean Platelet Volume 10.7 FL (9.5-12.2); Monocytes # (A) 0.71 X 10*3/uL (0.20-1.00); Monocytes % (A) 10.7 %; NRBC Per 100 WBC 0 X 10*3/uL (0.00-0.01); Neutrophils # (A) 4.19 X 10*3/uL (1.80-7.70); Neutrophils % (A) 63.3 %; Platelet Count 236 X 10*3/uL (140-440); RBC 3.78 X 10*6/uL (4.10-5.20); RDW 16.1 % (11.5-14.5); WBC 6.62 X 10*3/uL (4.50-10.00)
[2024-06-12 10:08] LABS: Blood Urea Nitrogen 12.8 mg/dL (9.0-27.0); Calcium 7.9 mg/dL (8.7-10.3); Carbon Dioxide 25.1 mmol/L (21.6-31.8); Chloride 100 mmol/L (96-109); Glucose 87 mg/dL (70-110); Potassium 3.2 mmol/L (3.5-5.5); Sodium 137 mmol/L (135-145)
[2024-06-12] MEDS: POTASSIUM CHLORIDE ER 20 MEQ TAB.ER PO STA (13:57)
--- NOTE | 2024-06-12 15:35 | P.PN ---
Subjective Progress Note Date: 06/11/24 73-year-old female came in after mechanical fall and generalized weakness patient denied any focal weakness although imaging studies including CT of brain chest x-ray and pelvic x-ray did not show any significant abnormality. Patient has extensive bilateral pedal edema with the left leg cellulitis with localized of temperature patient does not have any fever or leukocytosis at this time. Patient does have intertrigo as well. Patient is on Eliquis for left lower extremity DVT in the past. Objective - Vital Signs Vital signs: Vital Signs Temp 97.5 F L 06/11/24 13:01 Pulse 75 06/11/24 13:01 Resp 20 06/11/24 13:01 BP 125/81 06/11/24 13:01 Pulse Ox 95 06/11/24 13:01 FiO2 Intake & Output 06/10/24 06/11/24 06/11/24 18:59 06:59 18:59 Output Total 650 Balance -650 Weight 135.171 kg Output: Urine 650 Other: Voiding Method External Catheter External Catheter # Voids 2 # Bowel Movements 1 - Exam GENERAL: The patient is alert and oriented x3, not in any acute distress. Well developed, well nourished. Obese HEENT: Pupils are round and equally reacting to light. EOMI. No scleral icterus. No conjunctival pallor. Normocephalic, atraumatic. No pharyngeal erythema. No thyromegaly. CARDIOVASCULAR: S1 and S2 present. No murmurs, rubs, or gallops. PULMONARY: Chest is clear to auscultation, no wheezing or crackles. ABDOMEN: Soft, nontender, nondistended, normoactive bowel sounds. No palpable organomegaly. MUSCULOSKELETAL: No joint swelling or deformity. EXTREMITIES: No cyanosis, clubbing, patient does have bilateral pedal edema NEUROLOGICAL: Gross neurological examination did not reveal any focal deficits. SKIN: Patient has skin fold fungal infection along with cellulitis of the left lower extremity extending almost up to the knee circumferentially with localized of temperature and redness - Labs CBC & Chem 7: 06/12/24 05:13 06/12/24 05:13 Labs: Abnormal Lab Results - Last 24 Hours (Table) 06/11/24 06/11/24 Range/Units 06:25 06:25 RBC 3.79 L (4.10-5.20) X 10*6/uL Hgb 11.8 L (12.0-15.0) g/dL Hct 36.0 L (37.2-46.3) % RDW 16.6 H (11.5-14.5) % Potassium 3.4 L (3.5-5.5) mmol/L Anion Gap 12.10 H (4.00-12.00) mmol/L Est GFR (CKD-EPI) 48 L (>=60) BUN/Creatinine Ratio 11.58 L (12.00-20.00) Ratio Calcium 7.8 L (8.7-10.3) mg/dL Assessment and Plan Assessment: -Cellulitis of the left lower extremity patient does not have any history of MRSA in the past patient will be started on cefazolin with ID consultation. -Chronic venous insufficiency -Morbid obesity -Falls secondary to generalized weakness physical therapy Occupational Therapy evaluation -History of DVT in the past for which patient is on Eliquis which will be con tinued DVT prophylaxis: Patient is on Eliquis because of her history of DVT in the past
--- NOTE | 2024-06-12 15:37 | P.PN ---
Subjective Progress Note Date: 06/12/24 73-year-old female came in after mechanical fall and generalized weakness patient denied any focal weakness although imaging studies including CT of brain chest x-ray and pelvic x-ray did not show any significant abnormality. Patient has extensive bilateral pedal edema with the left leg cellulitis with localized of temperature patient does not have any fever or leukocytosis at this time. Patient does have intertrigo as well. Patient is on Eliquis for left lower extremity DVT in the past. 24-hour interval change 06/12/2024 Patient is seen and evaluated sitting up in bedside chair; denies any specific complaints Vital signs are reviewed stable with temperature 97.4, pulse 75, respirations 16 blood pressure 111/79 Lab review WBC 6.6, hemoglobin 11.6 and platelet count of 236, sodium 137, potassium 3.2, BUNs/creatinine of 12.8/1.0 -Patient remains on IV cefazolin -- PT/OT consulted for generalized weakness and falls Objective - Vital Signs Vital signs: Vital Signs Temp 97.7 F 06/12/24 07:39 Pulse 70 06/12/24 07:39 Resp 15 06/12/24 07:39 BP 111/77 06/12/24 07:39 Pulse Ox 95 06/12/24 07:39 FiO2 Intake & Output 06/11/24 06/12/24 06/12/24 18:59 06:59 18:59 Intake Total 1620 Output Total 700 400 Balance 920 -400 Intake: Oral 1620 Output: Urine 700 400 Other: Voiding Method External Catheter External Catheter External Catheter # Voids 2 1 # Bowel Movements 1 1 - Exam GENERAL: The patient is alert and oriented x3, not in any acute distress. Well developed, well nourished. Obese HEENT: Pupils are round and equally reacting to light. EOMI. No scleral icterus. No conjunctival pallor. Normocephalic, atraumatic. No pharyngeal erythema. No thyromegaly. CARDIOVASCULAR: S1 and S2 present. No murmurs, rubs, or gallops. PULMONARY: Chest is clear to auscultation, no wheezing or crackles. ABDOMEN: Soft, nontender, nondistended, normoactive bowel sounds. No palpable organomegaly. MUSCULOSKELETAL: No joint swelling or deformity. EXTREMITIES: No cyanosis, clubbing, patient does have bilateral pedal edema NEUROLOGICAL: Gross neurological examination did not reveal any focal deficits. SKIN: Patient has skin fold fungal infection along with cellulitis of the left lower extremity extending almost up to the knee circumferentially with localized of temperature and redness - Labs CBC & Chem 7: 06/12/24 05:13 06/12/24 05:13 Labs: Abnormal Lab Results - Last 24 Hours (Table) 06/12/24 06/12/24 Range/Units 05:13 05:13 RBC 3.78 L (4.10-5.20) X 10*6/uL Hgb 11.6 L (12.0-15.0) g/dL Hct 35.2 L (37.2-46.3) % RDW 16.1 H (11.5-14.5) % Immature Gran # 0.07 H (0.00-0.04) X 10*3/uL Potassium 3.2 L (3.5-5.5) mmol/L Est GFR (CKD-EPI) 59 L (>=60) Calcium 7.9 L (8.7-10.3) mg/dL Assessment and Plan Assessment: -Cellulitis of the left lower extremity patient does not have any history of MRSA in the past patient will be started on cefazolin with ID consultation. -Chronic venous insufficiency -Morbid obesity -Falls secondary to generalized weakness physical therapy Occupational Therapy evaluation -History of DVT in the past for which patient is on Eliquis which will be continued DVT prophylaxis: Patient is on Eliquis because of her history of DVT in the past
--- NOTE | 2024-06-12 21:16 | P.PN ---
Subjective Progress Note Date: 06/12/24 Principal diagnosis: Reason for follow-up is left leg cellulitis Patient is a 73-year-old female past medical history significant for hypertension hyperlipidemia hypothyroidism, DVT presenting to the hospital after apparently the patient did have a fall at home, patient also noted to have extensive swelling redness of the left leg concerning for cellulitis. On today's evaluation that is 06/12/2024,the patient denies any fever or any chills, patient is breathing comfortably on room air, the patient denies chest pain shortness of breath and no significant cough, patient denies abdominal pain, no nausea vomiting or diarrhea. Patient denies pain to the left lower extremity. White count 6.62, creatinine 1.0 Objective - Vital Signs Vital signs: Vital Signs Temp 98.4 F 06/12/24 01:47 Pulse 84 06/12/24 01:47 Resp 18 06/12/24 01:47 BP 128/77 06/12/24 01:47 Pulse Ox 92 L 06/12/24 01:47 FiO2 Intake & Output 06/11/24 06/12/24 06/12/24 18:59 06:59 18:59 Intake Total 1620 Output Total 700 400 Balance 920 -400 Intake: Oral 1620 Output: Urine 700 400 Other: Voiding Method External Catheter External Catheter # Voids 2 1 # Bowel Movements 1 1 - Exam GENERAL DESCRIPTION: An elderly female hyponatremia in no distress RESPIRATORY SYSTEM: Unlabored breathing , decreased breath sounds at bases HEART: S1 S2 regular rate and rhythm , ABDOMEN: Soft , no tenderness EXTREMITIES: Diffuse swelling to the left leg redness slightly decreased - Labs CBC & Chem 7: 06/12/24 05:13 06/12/24 05:13 Labs: Abnormal Lab Results - Last 24 Hours (Table) 06/11/24 06/11/24 Range/Units 06:25 06:25 RBC 3.79 L (4.10-5.20) X 10*6/uL Hgb 11.8 L (12.0-15.0) g/dL Hct 36.0 L (37.2-46.3) % RDW 16.6 H (11.5-14.5) % Potassium 3.4 L (3.5-5.5) mmol/L Anion Gap 12.10 H (4.00-12.00) mmol/L Est GFR (CKD-EPI) 48 L (>=60) BUN/Creatinine Ratio 11.58 L (12.00-20.00) Ratio Calcium 7.8 L (8.7-10.3) mg/dL Assessment and Plan (1) Left leg cellulitis Current Visit: No Status: Acute Code(s): L03.116 - CELLULITIS OF LEFT LOWER LIMB SNOMED Code(s): 82238391793682707 Plan: 1patient with diffuse swelling and redness to the left lower extremity which is warm to touch concerning for cellulitis likely from gram-positive skin joy in this patient with diffuse swelling redness likely streptococcal disease. 2Doppler ultrasound has been negative for DVT nursing staff has been advised to apply José Manuel wrap to get some of the swelling down 3patient will be treated with cefazolin and will reevaluate tomorrow Dictation was produced using [employer] dictation software. please excuse any grammatical, word or spelling errors. Time with Patient: Less than 30
--- NOTE | 2024-06-13 15:02 | P.PN ---
Subjective Progress Note Date: 06/13/24 Principal diagnosis: Reason for follow-up is left leg cellulitis Patient is a 73-year-old female past medical history significant for hypertension hyperlipidemia hypothyroidism, DVT presenting to the hospital after apparently the patient did have a fall at home, patient also noted to have extensive swelling redness of the left leg concerning for cellulitis. On today's evaluation that is 06/13/2024,the patient remains to be afebrile, patient is on room air not requiring supplemental oxygen and denies any shortness of breath no chest pain or cough.Patient denies having any nausea or vomiting, no abdominal pain and no diarrhea has been reported, denies pain to the left lower extremity. Patient did have potassium of 3.7 no CBC was done today no cultures Objective - Vital Signs Vital signs: Vital Signs Temp 97.3 F L 06/13/24 12:53 Pulse 63 06/13/24 12:53 Resp 17 06/13/24 12:53 BP 120/78 06/13/24 12:53 Pulse Ox 95 06/13/24 12:53 FiO2 Intake & Output 06/12/24 06/13/24 06/13/24 18:59 06:59 18:59 Output Total 1550 300 Balance -1550 -300 Output: Urine 1550 300 Other: Voiding Method External Catheter External Catheter External Catheter # Bowel Movements 1 1 - Exam GENERAL DESCRIPTION: An elderly female hyponatremia in no distress RESPIRATORY SYSTEM: Unlabored breathing , decreased breath sounds at bases HEART: S1 S2 regular rate and rhythm , ABDOMEN: Soft , no tenderness EXTREMITIES: Left leg is covered in José Manuel wrap - Labs CBC & Chem 7: 06/12/24 05:13 06/13/24 13:18 Assessment and Plan (1) Left leg cellulitis Current Visit: No Status: Acute Code(s): L03.116 - CELLULITIS OF LEFT LOWER LIMB SNOMED Code(s): 60523889463036165 Plan: 1patient with diffuse swelling and redness to the left lower extremity which is warm to touch concerning for cellulitis likely from gram-positive skin joy in this patient with diffuse swelling redness likely streptococcal disease. 2Doppler ultrasound has been negative for DVT patient to continue with apply José Manuel wrap to get some of the swelling down 3patient currently being treated with cefazolin and monitor clinical course closely Dictation was produced using dragon dictation software. please excuse any grammatical, word or spelling errors. Time with Patient: Less than 30
--- NOTE | 2024-06-13 18:13 | P.PN ---
Subjective Progress Note Date: 06/13/24 73-year-old female came in after mechanical fall and generalized weakness patient denied any focal weakness although imaging studies including CT of brain chest x-ray and pelvic x-ray did not show any significant abnormality. Patient has extensive bilateral pedal edema with the left leg cellulitis with localized of temperature patient does not have any fever or leukocytosis at this time. Patient does have intertrigo as well. Patient is on Eliquis for left lower extremity DVT in the past. 24-hour interval change 06/12/2024 Patient is seen and evaluated sitting up in bedside chair; denies any specific complaints Vital signs are reviewed stable with temperature 97.4, pulse 75, respirations 16 blood pressure 111/79 Lab review WBC 6.6, hemoglobin 11.6 and platelet count of 236, sodium 137, potassium 3.2, BUNs/creatinine of 12.8/1.0 -Patient remains on IV cefazolin -- PT/OT consulted for generalized weakness and falls 06/13/2024 --the patient remains to be afebrile, patient is on room air not requiring supplemental oxygen and denies any shortness of breath no chest pain or cough.Patient denies having any nausea or vomiting, no abdominal pain and no diarrhea has been reported, denies pain to the left lower extremity. Patient did have potassium of 3.7 no CBC was done today no cultures patient with diffuse swelling and redness to the left lower extremity which is warm to touch concerning for cellulitis likely from gram-positive skin joy in this patient with diffuse swelling redness likely streptococcal disease. Doppler ultrasound has been negative for DVT patient to continue with apply José Manuel wrap to get some of the swelling down patient currently being treated with cefazolin and monitor clinical course closely Objective - Vital Signs Vital signs: Vital Signs Temp 97.8 F 06/13/24 07:42 Pulse 68 06/13/24 07:42 Resp 16 06/13/24 07:42 BP 116/74 06/13/24 07:42 Pulse Ox 91 L 06/13/24 07:42 FiO2 Intake & Output 06/12/24 06/13/24 06/13/24 18:59 06:59 18:59 Output Total 1550 300 Balance -1550 -300 Output: Urine 1550 300 Other: Voiding Method External Catheter External Catheter External Catheter # Bowel Movements 1 1 - Exam GENERAL: The patient is alert and oriented x3, not in any acute distress. Well developed, well nourished. Obese HEENT: Pupils are round and equally reacting to light. EOMI. No scleral icterus. No conjunctival pallor. Normocephalic, atraumatic. No pharyngeal erythema. No thyromegaly. CARDIOVASCULAR: S1 and S2 present. No murmurs, rubs, or gallops. PULMONARY: Chest is clear to auscultation, no wheezing or crackles. ABDOMEN: Soft, nontender, nondistended, normoactive bowel sounds. No palpable organomegaly. MUSCULOSKELETAL: No joint swelling or deformity. EXTREMITIES: No cyanosis, clubbing, patient does have bilateral pedal edema NEUROLOGICAL: Gross neurological examination did not reveal any focal deficits. SKIN: Patient has skin fold fungal infection along with cellulitis of the left lower extremity extending almost up to the knee circumferentially with localized of temperature and redness - Labs CBC & Chem 7: 06/12/24 05:13 06/13/24 13:18 Assessment and Plan Assessment: -Cellulitis of the left lower extremity patient does not have any history of MRSA in the past patient will be started on cefazolin with ID consultation. -Chronic venous insufficiency -Morbid obesity -Falls secondary to generalized weakness physical therapy Occupational Therapy evaluation -History of DVT in the past for which patient is on Eliquis which will be continued DVT prophylaxis: Patient is on Eliquis because of her history of DVT in the past
[2024-06-14 12:42] LABS: Blood Urea Nitrogen 11.6 mg/dL (9.0-27.0); Calcium 7.9 mg/dL (8.7-10.3); Carbon Dioxide 29.7 mmol/L (21.6-31.8); Chloride 99 mmol/L (96-109); Glucose 127 mg/dL (70-110); Potassium 3.5 mmol/L (3.5-5.5); Sodium 138 mmol/L (135-145)
--- NOTE | 2024-06-14 16:10 | P.PN ---
Subjective 73-year-old female came in after mechanical fall and generalized weakness patient denied any focal weakness although imaging studies including CT of brain chest x-ray and pelvic x-ray did not show any significant abnormality. Patient has extensive bilateral pedal edema with the left leg cellulitis with localized of temperature patient does not have any fever or leukocytosis at this time. Patient does have intertrigo as well. Patient is on Eliquis for left lower extremity DVT in the past. 24-hour interval change 06/12/2024 Patient is seen and evaluated sitting up in bedside chair; denies any specific complaints Vital signs are reviewed stable with temperature 97.4, pulse 75, respirations 16 blood pressure 111/79 Lab review WBC 6.6, hemoglobin 11.6 and platelet count of 236, sodium 137, potassium 3.2, BUNs/creatinine of 12.8/1.0 -Patient remains on IV cefazolin -- PT/OT consulted for generalized weakness and falls 06/13/2024 --the patient remains to be afebrile, patient is on room air not requiring supplemental oxygen and denies any shortness of breath no chest pain or cough.Patient denies having any nausea or vomiting, no abdominal pain and no diarrhea has been reported, denies pain to the left lower extremity. Patient did have potassium of 3.7 no CBC was done today no cultures patient with diffuse swelling and redness to the left lower extremity which is warm to touch concerning for cellulitis likely from gram-positive skin joy in this patient with diffuse swelling redness likely streptococcal disease. Doppler ultrasound has been negative for DVT patient to continue with apply José Manuel wrap to get some of the swelling down patient currently being treated with cefazolin and monitor clinical course closely 06/14/2024 Patient lying bed comfortable She was admitted with left leg cellulitis and currently receiving cefazolin. No leg pain and dressing of the left leg is in place Also on admission patient had a fall at home without syncope, she had CT of the brain showing area of low-attenuation and loss of mendes-white junction territory of the right MCA Pelvic x-ray was negative for acute fracture Patient is already on Eliquis 5 mg She is also on IV Lasix 40 mg once daily, which can be switched to oral dose Review of systems CONSTITUTIONAL: No fever, no malaise, no fatigue. HEENT: No recent visual problems or hearing problems. Denied any sore throat. pain. Normoactive bowel sounds. NEUROLOGICAL: No headaches, no weakness, no numbness. HEMATOLOGICAL: Denies any bleeding or petechiae. GENITOURINARY: Denies any burning micturition, frequency, or urgency. MUSCULOSKELETAL/RHEUMATOLOGICAL: Denies any joint pain, swelling, or any muscle pain. ENDOCRINE: Denies any polyuria or polydipsia. Active Medications Generic Name Dose Route Start Last Admin Trade Name Freq PRN Reason Stop Dose Admin Acetaminophen 650 mg 06/09/24 21:21 Acetaminophen Tab 325 Mg Tab PO Q6HR PRN Mild Pain or Fever > 100.5 Apixaban 5 mg 06/10/24 21:00 06/14/24 08:21 Apixaban 5 Mg Tab PO 5 mg BID GARY Administration Protocol Furosemide 40 mg 06/15/24 09:00 Furosemide 40 Mg Tab PO DAILY GARY Cefazolin Sodium 3 gm/ Sodium 100 mls @ 200 mls/hr 06/10/24 12:00 06/14/24 12:06 Chloride IVPB 200 mls/hr Q8H [facility] Administration Protocol Naloxone HCl 0.2 mg 06/09/24 21:21 Naloxone 0.4 Mg/Ml 1 Ml Vial IV Q2M PRN Opioid Reversal Nystatin 1 applic 06/10/24 16:00 06/14/24 08:21 Nystatin 100,000 Unit/Gm Powd 15 Gm TOPICAL 1 applic TID GARY Administration Protocol Objective - Vital Signs Vital signs: Vital Signs Temp 97.4 F L 06/14/24 13:04 Pulse 66 06/14/24 13:04 Resp 18 06/14/24 13:04 BP 120/84 06/14/24 13:04 Pulse Ox 97 06/14/24 13:04 FiO2 Intake & Output 06/13/24 06/14/24 06/14/24 18:59 06:59 18:59 Intake Total 240 1080 Output Total 650 200 Balance -266 02 8047 Intake: Oral 240 1080 Output: Urine 650 200 Other: Voiding Method External Catheter External Catheter External Catheter # Voids 1 # Bowel Movements 1 1 - Exam -GENERAL: The patient is alert and oriented x3, not in any acute distress. Well developed, well nourished. Morbidly obese HEENT: Pupils are round and equally reacting to light. EOMI. No scleral icterus. No conjunctival pallor. Normocephalic, atraumatic. No pharyngeal erythema. No thyromegaly. CARDIOVASCULAR: S1 and S2 present. No murmurs, rubs, or gallops. PULMONARY: Chest is clear to auscultation, no wheezing , no crackles. ABDOMEN: Soft, nontender, nondistended, normoactive bowel sounds. No palpable organomegaly. MUSCULOSKELETAL: No joint swelling or deformity. -EXTREMITIES: No cyanosis, clubbing, or pedal edema. Left leg cellulitis with José Manuel wrap in place NEUROLOGICAL: Gross neurological examination did not reveal any focal deficits. SKIN: No rashes. no petechiae. - Labs CBC & Chem 7: 06/12/24 05:13 06/14/24 03:02 Labs: Abnormal Lab Results - Last 24 Hours (Table) 06/14/24 Range/Units 03:02 Est GFR (CKD-EPI) 59 L (>=60) BUN/Creatinine Ratio 11.60 L (12.00-20.00) Ratio Glucose 127 H (70-110) mg/dL Calcium 7.9 L (8.7-10.3) mg/dL Assessment and Plan Assessment: -Cellulitis of the left lower extremity patient does not have any history of MRSA in the past patient will be started on cefazolin with ID consultation. -Possible stroke with CT of the brain showing area of low-attenuation and loss of mendes-white junction territory of the right MCA artery thought secondary to subacute stroke. Patient currently not on antiplatelet therapy. Will consult neurology. Check lipid panel -Chronic venous insufficiency -Morbid obesity -Falls secondary to generalized weakness physical therapy Occupational Therapy evaluation -History of DVT in the past for which patient is on Eliquis which will be c ontinued DVT prophylaxis: Patient is on Eliquis because of her history of DVT in the past GI prophylaxis: Pepcid PT/OT evaluation
[2024-06-14] MEDS: FAMOTIDINE 20 MG/2 ML VIAL IV SCH (20:18)
--- NOTE | 2024-06-14 22:51 | P.PN ---
Subjective Progress Note Date: 06/14/24 Principal diagnosis: Reason for follow-up is left leg cellulitis Patient is a 73-year-old female past medical history significant for hypertension hyperlipidemia hypothyroidism, DVT presenting to the hospital after apparently the patient did have a fall at home, patient also noted to have extensive swelling redness of the left leg concerning for cellulitis. On today's evaluation that is 06/14/2024, the patient continues to be afebrile, the patient is on room air and breathing comfortably, the Pt denies having any chest pain or cough, the patient denies having any abdominal pain no vomiting or any diarrhea denies pain to the left lower extremity. Patient did have a creatinine 1.0 Objective - Vital Signs Vital signs: Vital Signs Temp 97.4 F L 06/14/24 13:04 Pulse 66 06/14/24 13:04 Resp 18 06/14/24 13:04 BP 120/84 06/14/24 13:04 Pulse Ox 97 06/14/24 13:04 FiO2 Intake & Output 06/13/24 06/14/24 06/14/24 18:59 06:59 18:59 Intake Total 240 1080 Output Total 650 200 Balance -048 20 7965 Intake: Oral 240 1080 Output: Urine 650 200 Other: Voiding Method External Catheter External Catheter External Catheter # Voids 1 # Bowel Movements 1 1 - Exam GENERAL DESCRIPTION: An elderly female hyponatremia in no distress RESPIRATORY SYSTEM: Unlabored breathing , decreased breath sounds at bases HEART: S1 S2 regular rate and rhythm , ABDOMEN: Soft , no tenderness EXTREMITIES: Left leg is covered in José Manuel wrap - Labs CBC & Chem 7: 06/12/24 05:13 06/14/24 03:02 Labs: Abnormal Lab Results - Last 24 Hours (Table) 06/14/24 Range/Units 03:02 Est GFR (CKD-EPI) 59 L (>=60) BUN/Creatinine Ratio 11.60 L (12.00-20.00) Ratio Glucose 127 H (70-110) mg/dL Calcium 7.9 L (8.7-10.3) mg/dL Assessment and Plan (1) Left leg cellulitis Current Visit: No Status: Acute Code(s): L03.116 - CELLULITIS OF LEFT LOWER LIMB SNOMED Code(s): 09293650592933424 Plan: 1patient with diffuse swelling and redness to the left lower extremity which is warm to touch concerning for cellulitis likely from gram-positive skin joy in this patient with diffuse swelling redness likely streptococcal disease. 2Doppler ultrasound has been negative for DVT patient to continue with apply José Manuel wrap to get some of the swelling down 3patient did have some clinical improvement, will continue cefazolin and patient in therapy with oral Keflex Dictation was produced using [employer] dictation software. please excuse any grammatical, word or spelling errors. Time with Patient: Less than 30
[2024-06-15] MEDS: FUROSEMIDE 40 MG TAB PO SCH (09:46)
[2024-06-15] MEDS: FAMOTIDINE 20 MG/2 ML VIAL IV SCH (09:47)
--- NOTE | 2024-06-15 13:54 | P.CNNES ---
History of Present Illness Consult date: 06/15/24 Requesting physician: Sonu E Martin Reason for Consult: subacute stroke on ct of the brain History of Present Illness: Patient is a 73-year-old right-handed female came to the hospital by ambulance on 06/09/2024 for a fall. Neurology consulted for abnormal CT head, rule out CVA. Patient states that she uses walker with seat at home. She tried to get into the bathroom, turned around, lost balance and fell between the toilet seat and the wall. Her right leg was folded but the left leg was straight forwards, going into the adkins. Patient could not get up. She herself called 911, and they helped her up. Patient denies any slurred speech, facial droop, focal numbness or tingling or weakness. Denies any stroke symptoms. As per EMS flowsheet, they arrived for patient for lift assist after patient alva ffered from a fall. Patient was sitting on the floor alert, next to her toilet in the bathroom. Patient had mentioned that she was attempting to sit on the toilet when she slipped falling on her buttock. Patient denied any head injury or loss of consciousness. Patient has history of previous falls and does take Eliquis daily. Patient was alert and orient x 4, GCS 15 lungs were clear. Patient was complaining of difficulty with ambulating on her own. Patient's vitals at the scene was blood pressure 160/82, pulse rate 104, respirations 16 saturation 95%. Temperature 98.1. Her blood test shows normal WBC hemoglobin 11.6, platelets 236. Basic metabolic panel is normal. BUN 11.6, creatinine 1.0. Hepatic panel is normal. UA shows positive nitrite, large amount of leukocyte esterase. Patient currently on cefazolin 3 g every [address] head showed area of low-attenuation and loss of mendes-white junction involving the right MCA territory favors subacute in nature. Consider further evaluation with dedicated MRI. No intracranial hemorrhage. On my review there is no definitive evidence of subacute stroke. Patient does have moderate burden of small vessel ischemic disease, with evidence of somewhat confluent hypodensity in the bilateral frontal centrum semiovale.. Patient s tates that about 1 or 2 years ago, 1 day she had problem with the right leg. She had less strength on the right side. Next day she was fine. However gradually she has noticed that she does not have strength as she used to have in the past. Patient denies history of hypertension or diabetes. She is smoked half pack per day for 20 years, quit 08/29/1988. Denies any use of marijuana. Denies any alcohol use. Home medications include Eliquis 5 mg daily. Patient has history of blood clot in the left leg about couple months ago. Review of Systems Positive for peripheral edema, tiredness. Patient has some skin changes. Other all pertinent positive and negative review of systems as per HPI. Past Medical History Past Medical History: Hyperlipidemia, Hypertension, Thyroid Disorder History of Any Multi-Drug Resistant Organisms: None Reported Past Surgical History: No Surgical Hx Reported Additional Past Surgical History / Comment(s): Left ankle surgery Past Anesthesia/Blood Transfusion Reactions: No Reported Reaction Past Psychological History: No Psychological Hx Reported Smoking Status: Former smoker Past Alcohol Use History: None Reported Past Drug Use History: None Reported - Past Family History Mother Family Medical History: Diabetes Mellitus Medications and Allergies Home Medications Medication Instructions Recorded Confirmed Type Apixaban [Eliquis] 5 mg PO DAILY 06/10/24 06/10/24 History Allergies Allergy/AdvReac Type Severity Reaction Status Date / Time No Known Allergies Allergy Verified 06/10/24 06:53 Physical Examination - Vital Signs Vital Signs: Vital Signs Temp Pulse Resp BP Pulse Ox 06/15/24 07:55 97.7 F 67 18 111/72 95 06/15/24 01:12 98.2 F 71 18 118/75 92 L 06/14/24 19:21 97.4 F L 80 18 131/82 94 L 06/14/24 13:04 97.4 F L 66 18 120/84 97 Intake and Output 06/14/24 06/15/24 06/15/24 22:59 06:59 14:59 Intake Total 1080 Output Total 200 250 Balance 880 -250 Intake: Oral 1080 Output: Urine 200 250 Other: Voiding Method Toilet Toilet Diaper # Bowel Movements 1 Patient is an elderly female, very pleasant, in no acute distress. Patient is alert awake oriented to time place and person. Speech and language functions are normal. Patient can name and repeat very well. No aphasia or dysarthria. Attention, concentration and fund of knowledge is adequate. On cranial nerve examination, pupils are equal, round and reacting to light, visual armas are full on confrontation, with no neglect on double simultaneous stimulation. Extraocular muscles are intact with no nystagmus. Face is symmetric, tongue protrudes to the midline. Palatal elevation and sensation normal, hearing and shoulder shrug normal, facial sensation normal. On muscle strength testing, there is no pronator drift and the strength is normal in arms and legs distally and proximally, except bilateral shoulder, which are weak from arthritis/rotator cuff problems. Deep tendon reflexes are (right/left) biceps 1/2, brachioradialis 1/2, knees are absent, ankles absent. Plantars are flat. Sensory to touch is equal with no neglect on double simultaneous stimulation. Cerebellar function showed no ataxia for [id number] testing. No dysdiadocho kinesia. Tone and bulk of muscles normal. Gait deferred.. On general examination, there is no carotid bruit or murmur, S1-S2 audible. Chest is clear on consultation. Abdomen is soft nontender. No organomegaly, bowel sounds present. Peripheral pulses could not be felt because of significant peripheral edema. Patient has some skin changes. Results - Laboratory Findings CBC and BMP: 06/12/24 05:13 06/14/24 03:02 Abnormal Lab Findings: Abnormal Labs 06/09/24 06/09/24 06/09/24 21:39 21:39 21:39 RBC Hgb Hct RDW 15.9 H Immature Gran # Neutrophils # 7.9 H Lymphocytes # PT 13.4 H INR 1.3 H APTT 32.6 H Sodium Potassium Chloride 108 H Anion Gap Est GFR (CKD-EPI) BUN/Creatinine Ratio Glucose 114 H Calcium Total Protein 5.9 L Albumin 3.1 L Urine Appearance Urine Protein Urine Ketones Urine Blood Urine Nitrite Ur Leukocyte Esterase Urine WBC Urine Bacteria Hyaline Casts Urine Mucus 06/09/24 06/10/24 06/10/24 23:04 10:14 10:14 RBC Hgb Hct RDW Immature Gran # Neutrophils # Lymphocytes # 0.9 L PT INR APTT Sodium 135 L Potassium Chloride 108 H Anion Gap Est GFR (CKD-EPI) BUN/Creatinine Ratio Glucose 133 H Calcium Total Protein 5.2 L Albumin 2.6 L Urine Appearance Cloudy H Urine Protein Trace H Urine Ketones Trace H Urine Blood Small H Urine Nitrite Positive H Ur Leukocyte Esterase Large H Urine WBC 24 H Urine Bacteria Moderate H Hyaline Casts 16 H Urine Mucus Occasional H 06/11/24 06/11/24 06/12/24 06:25 06:25 05:13 RBC 3.79 L 3.78 L Hgb 11.8 L 11.6 L Hct 36.0 L 35.2 L RDW 16.6 H 16.1 H Immature Gran # 0.07 H Neutrophils # Lymphocytes # PT INR APTT Sodium Potassium 3.4 L Chloride Anion Gap 12.10 H Est GFR (CKD-EPI) 48 L BUN/Creatinine Ratio 11.58 L Glucose Calcium 7.8 L Total Protein Albumin Urine Appearance Urine Protein Urine Ketones Urine Blood Urine Nitrite Ur Leukocyte Esterase Urine WBC Urine Bacteria Hyaline Casts Urine Mucus 06/12/24 06/14/24 05:13 03:02 RBC Hgb Hct RDW Immature Gran # Neutrophils # Lymphocytes # PT INR APTT Sodium Potassium 3.2 L Chloride Anion Gap Est GFR (CKD-EPI) 59 L 59 L BUN/Creatinine Ratio 11.60 L Glucose 127 H Calcium 7.9 L 7.9 L Total Protein Albumin Urine Appearance Urine Protein Urine Ketones Urine Blood Urine Nitrite Ur Leukocyte Esterase Urine WBC Urine Bacteria Hyaline Casts Urine Mucus Assessment and Plan Assessment: * Status post fall, due to losing balance. Patient did not pass out. Patient denies any focal neurological symptoms whatsoever. * Abnormal CT head, with evidence of confluent bilateral frontal subcortical white matter hypodensities, likely due to small vessel disease. * Cellulitis of the left lower extremity * Chronic venous insufficiency * Morbid obesity * Possible UTI, on cefazolin. * History of DVT in the left leg, for which patient is on Eliquis. Plan: * Patient CT head showed evidence of subcortical white hypodensities, likely fr om small vessel disease. No evidence of MCA territory infarct. Patient has no focal neurological symptoms or neurological deficits on examination. * We will however check carotid Doppler, rule out carotid stenosis. * Lipid panel with cholesterol 98, LDL 29, HDL 43, triglycerides 125. Lipids are well-controlled. * We will check hemoglobin A1c, B12, folate, TSH. * Continue Eliquis 5 mg twice daily. * Other medical management as per IM. * Neurology will follow. Thank you for the consult.
--- NOTE | 2024-06-15 14:35 | P.PN ---
Subjective 73-year-old female came in after mechanical fall and generalized weakness patient denied any focal weakness although imaging studies including CT of brain chest x-ray and pelvic x-ray did not show any significant abnormality. Patient has extensive bilateral pedal edema with the left leg cellulitis with localized of temperature patient does not have any fever or leukocytosis at this time. Patient does have intertrigo as well. Patient is on Eliquis for left lower extremity DVT in the past. 24-hour interval change 06/12/2024 Patient is seen and evaluated sitting up in bedside chair; denies any specific complaints Vital signs are reviewed stable with temperature 97.4, pulse 75, respirations 16 blood pressure 111/79 Lab review WBC 6.6, hemoglobin 11.6 and platelet count of 236, sodium 137, potassium 3.2, BUNs/creatinine of 12.8/1.0 -Patient remains on IV cefazolin -- PT/OT consulted for generalized weakness and falls 06/13/2024 --the patient remains to be afebrile, patient is on room air not requiring supplemental oxygen and denies any shortness of breath no chest pain or cough.Patient denies having any nausea or vomiting, no abdominal pain and no diarrhea has been reported, denies pain to the left lower extremity. Patient did have potassium of 3.7 no CBC was done today no cultures patient with diffuse swelling and redness to the left lower extremity which is warm to touch concerning for cellulitis likely from gram-positive skin joy in this patient with diffuse swelling redness likely streptococcal disease. Doppler ultrasound has been negative for DVT patient to continue with apply José Manuel wrap to get some of the swelling down patient currently being treated with cefazolin and monitor clinical course closely 06/14/2024 Patient lying bed comfortable She was admitted with left leg cellulitis and currently receiving cefazolin. No leg pain and dressing of the left leg is in place Also on admission patient had a fall at home without syncope, she had CT of the brain showing area of low-attenuation and loss of mendes-white junction territory of the right MCA Pelvic x-ray was negative for acute fracture Patient is already on Eliquis 5 mg She is also on IV Lasix 40 mg once daily, which can be switched to oral dose 06/15 Left leg infection is improving slowly and gradually No new complaints Patient is pleasant Neurological evaluation is appreciated, no evidence of stroke currently Follow-up carotid duplex Objective - Vital Signs Vital signs: Vital Signs Temp 97.4 F L 06/15/24 12:27 Pulse 67 06/15/24 12:27 Resp 16 06/15/24 12:27 BP 137/83 06/15/24 12:27 Pulse Ox 94 L 06/15/24 12:27 FiO2 Intake & Output 06/14/24 06/15/24 06/15/24 18:59 06:59 18:59 Intake Total 2160 Output Total 200 250 Balance 1960 -250 Intake: Oral 2160 Output: Urine 200 250 Other: Voiding Method External Catheter Toilet Toilet Diaper # Voids 1 # Bowel Movements 1 - Exam -GENERAL: The patient is alert and oriented x3, not in any acute distress. Well developed, well nourished. Morbidly obese HEENT: Pupils are round and equally reacting to light. EOMI. No scleral icterus. No conjunctival pallor. Normocephalic, atraumatic. No pharyngeal erythema. No thyromegaly. CARDIOVASCULAR: S1 and S2 present. No murmurs, rubs, or gallops. PULMONARY: Chest is clear to auscultation, no wheezing , no crackles. ABDOMEN: Soft, nontender, nondistended, normoactive bowel sounds. No palpable organomegaly. MUSCULOSKELETAL: No joint swelling or deformity. -EXTREMITIES: No cyanosis, clubbing, or pedal edema. Left leg cellulitis with José Manuel wrap in place NEUROLOGICAL: Gross neurological examination did not reveal any focal deficits. SKIN: No rashes. no petechiae. - Labs CBC & Chem 7: 06/12/24 05:13 06/14/24 03:02 Assessment and Plan Assessment: -Cellulitis of the left lower extremity patient does not have any history of MRSA in the past patient will be started on cefazolin with ID consultation. -Unlikely stroke stroke but rather ischemic chronic small vessel disease seen with CT of the brain showing area of low-attenuation and loss of mendes-white junction territory of the right MCA artery thought secondary to subacute stroke. Patient currently not on antiplatelet therapy. Will consult neurology. Check lipid panel -Chronic venous insufficiency -Morbid obesity -Falls secondary to generalized weakness physical therapy Occupational Therapy evaluation -History of DVT in the past for which patient is on Eliquis which will be continued DVT prophylaxis: Patient is on Eliquis because of her history of DVT in the past GI prophylaxis: Pepcid PT/OT evaluation
--- NOTE | 2024-06-15 14:48 | P.PN ---
Subjective Progress Note Date: 06/15/24 Principal diagnosis: Reason for follow-up is left leg cellulitis Patient is a 73-year-old female past medical history significant for hypertension hyperlipidemia hypothyroidism, DVT presenting to the hospital after apparently the patient did have a fall at home, patient also noted to have extensive swelling redness of the left leg concerning for cellulitis. On today's evaluation that is 06/15/2024, Patient is afebrile patient is currently on room air and denies having any shortness of breath, the patient denies any chest pain or cough, the patient denies any nausea vomiting did not have any abdominal pain and no diarrhea, denies any worsening pain to the left l ower extremity. Patient did not have any new lab draw today Objective - Vital Signs Vital signs: Vital Signs Temp 97.4 F L 06/15/24 12:27 Pulse 67 06/15/24 12:27 Resp 16 06/15/24 12:27 BP 137/83 06/15/24 12:27 Pulse Ox 94 L 06/15/24 12:27 FiO2 Intake & Output 06/14/24 06/15/24 06/15/24 18:59 06:59 18:59 Intake Total 2160 Output Total 200 250 Balance 1960 -250 Intake: Oral 2160 Output: Urine 200 250 Other: Voiding Method External Catheter Toilet Toilet Diaper # Voids 1 # Bowel Movements 1 - Exam GENERAL DESCRIPTION: An elderly female hyponatremia in no distress RESPIRATORY SYSTEM: Unlabored breathing , decreased breath sounds at bases HEART: S1 S2 regular rate and rhythm , ABDOMEN: Soft , no tenderness EXTREMITIES: Left leg is covered in José Manuel wrap - Labs CBC & Chem 7: 06/12/24 05:13 06/14/24 03:02 Assessment and Plan (1) Left leg cellulitis Current Visit: No Status: Acute Code(s): L03.116 - CELLULITIS OF LEFT LOWER LIMB SNOMED Code(s): 94156663413886724 Plan: 1patient with diffuse swelling and redness to the left lower extremity which is warm to touch concerning for cellulitis likely from gram-positive skin joy in this patient with diffuse swelling redness likely streptococcal disease. 2Doppler ultrasound has been negative for DVT patient to continue with apply José Manuel wrap to get some of the swelling down 3patient will continue cefazolin while inpatient however plan to finish therapy with oral Keflex on discharge Dictation was produced using [employer] dictation software. please excuse any grammatical, word or spelling errors. Time with Patient: Less than 30
--- NOTE | 2024-06-15 16:13 | US ---
EXAMINATION TYPE: US carotid duplex BILAT DATE OF EXAM: 06/15/2024 COMPARISON: CT 2023 CLINICAL INDICATION: Female, 73 years old with history of Fall, abnormal CT head; TECHNIQUE: Carotid duplex ultrasound examination. Indirect Doppler criteria was utilized. FINDINGS: EXAM MEASUREMENTS: RIGHT: Peak Systolic Velocity (PSV) cm/sec ----- Right CCA: 78.3 ----- Right ICA: 63.8 ----- Right ECA: 104.5 ICA/CCA ratio: 0.8 RIGHT: End Diastole cm/sec ----- Right CCA: 11.8 ----- Right ICA: 16.9 ----- Right ECA: 0.0 LEFT: Peak Systolic Velocity (PSV) cm/sec ----- Left CCA: 71.1 ----- Left ICA: 68.9 ----- Left ECA: 83.2 ICA/CCA ratio: 1.0 LEFT: End Diastole cm/sec ----- Left CCA: 8.4 ----- Left ICA: 15.0 ----- Left ECA: 7.3 VERTEBRALS (direction of flow): Right Vertebral: Antegrade Left Vertebral: Antegrade Rhythm: Normal Cloth Dyer notes:Difficult and limited study due to patient body habitus. No significant stenosis IMPRESSION: No hemodynamically significant internal carotid artery stenosis on either side. Technically difficult and limited exam as above. Criteria for Assigning % of Stenosis / Diameter reduction (Estimation based on the indirect measurements of the internal carotid artery velocities (ICA PSV). 1. Normal (no stenosis)=ICA PSV < 125 cm/s: ratio < 2.0: ICA EDV<40 cm/s. 2. Less than 50% stenosis=ICA PSV < 125 cm/s: ratio < 2.0: ICA EDV<40 cm/s. 3. 50 to 69% stenosis=ICA PSV of 125 to 230 cm/s: ration 2.0 ? 4.0: ICA EDV 40-100 cm/s. 4. Greater than 70% stenosis to near occlusion= ICA PSV > 230 cm/s: ratio > 4.0: ICA EDV > 100 cm/s. 5. Near occlusion= ICA PSV velocities may be low or undetectable: variable ratio and ICA EDV. 6. Total occlusion=unable to detect flow.
[2024-06-16 12:25] VITALS: BMI 58.1
[2024-06-17 07:18] LABS: Glucose,Whole Blood 92 mg/dL (70-110)
--- NOTE | 2024-06-17 07:50 | P.PN ---
Subjective Progress Note Date: 06/16/24 Principal diagnosis: Reason for follow-up is left leg cellulitis Patient is a 73-year-old female past medical history significant for hypertension hyperlipidemia hypothyroidism, DVT presenting to the hospital after apparently the patient did have a fall at home, patient also noted to have extensive swelling redness of the left leg concerning for cellulitis. On today's evaluation that is 06/16/2024, patient has been afebrile, patient is breathing comfortably and is currently on room air, patient denies having any significant cough no chest pain shortness of breath, patient denies nausea vomiting or diarrhea and no abdominal pain and denies pain to the left lower extremity. No new labs were obtained today Objective - Vital Signs Vital signs: Vital Signs Temp 97.4 F L 06/16/24 01:49 Pulse 64 06/16/24 01:49 Resp 14 06/16/24 01:49 BP 99/61 06/16/24 01:49 Pulse Ox 92 L 06/16/24 01:49 FiO2 - Exam GENERAL DESCRIPTION: An elderly female hyponatremia in no distress RESPIRATORY SYSTEM: Unlabored breathing , decreased breath sounds at bases HEART: S1 S2 regular rate and rhythm , ABDOMEN: Soft , no tenderness EXTREMITIES: Left leg swelling redness has decreased no drainage - Labs CBC & Chem 7: 06/12/24 05:13 06/14/24 03:02 Assessment and Plan (1) Left leg cellulitis Current Visit: No Status: Acute Code(s): L03.116 - CELLULITIS OF LEFT LOWER LIMB SNOMED Code(s): 99335295471843398 Plan: 1patient with diffuse swelling and redness to the left lower extremity which is warm to touch concerning for cellulitis likely from gram-positive skin joy in this patient with diffuse swelling redness likely streptococcal disease. 2Doppler ultrasound has been negative for DVT patient to continue with apply José Manuel wrap to get some of the swelling down 3patient did have clinical improvement with cefazolin and plan to finish t herapy with oral Keflex on discharge, currently waiting for placement Dictation was produced using [employer] software. please excuse any grammatical, word or spelling errors. Time with Patient: Less than 30
[2024-06-17 08:07] VITALS: RESP 16
--- NOTE | 2024-06-17 09:27 | P.PN ---
Subjective Progress Note Date: 06/16/24 Patient was seen for a follow-up. Patient states that "feels better because she peed". Offers no complaints. Patient is laying in the bed. Patient denies any headache, any numbness tingling focal weakness, or any strokelike symptoms. Objective - Vital Signs Vital signs: Vital Signs Temp 97.5 F L 06/16/24 12:16 Pulse 74 06/16/24 12:16 Resp 16 06/16/24 12:16 BP 111/72 06/16/24 12:16 Pulse Ox 95 06/16/24 12:16 FiO2 Intake & Output 06/15/24 06/16/24 06/16/24 18:59 06:59 18:59 Intake Total 100 120 Balance 100 120 Weight 135.171 kg Intake: Intake, IV Titration 100 Amount ceFAZolin 3 gm In Sodium 100 Chloride 0.9% 100 ml @ 200 mls/hr IVPB Q8H GARY Rx#:[id number] Oral 120 Other: Voiding Method Toilet Toilet Toilet # Voids 1 1 # Bowel Movements 1 - Exam Mentation is normal. Examination unchanged. - Labs CBC & Chem 7: 06/12/24 05:13 06/14/24 03:02 Assessment and Plan Assessment: * Status post fall, due to losing balance. Patient did not pass out. Patient denies any focal neurological symptoms whatsoever. * Abnormal CT head, with evidence of confluent bilateral frontal subcortical white matter hypodensities, likely due to small vessel disease. * Cellulitis of the left lower extremity * Chronic venous insufficiency * Morbid obesity * Possible UTI, on cefazolin. * History of DVT in the left leg, for which patient is on Eliquis. Plan: * Patient CT head showed evidence of subcortical white hypodensities, likely from small vessel disease. No evidence of MCA territory infarct. Patient has no focal neurological symptoms or neurological deficits on examination. * Carotid Doppler has been completed, but because of some technical reason, cannot see the report in the EMR. * Lipid panel with cholesterol 98, LDL 29, HDL 43, triglycerides 125. Lipids are well-controlled. * Await hemoglobin A1c, B12, folate, TSH. * Continue Eliquis 5 mg twice daily. * Other medical management as per IM.
--- NOTE | 2024-06-17 12:30 | P.DS ---
Providers Date of admission: 06/09/24 21:21 Attending physician: Reba Bowens Consults: 06/10/24 11:36 Consult Physician Routine Consulting Provider: Andreina Nugent Consult Reason/Comments: cellulitis Do you want consulting provider notified?: Yes 06/14/24 16:09 Consult Physician Routine Consulting Provider: Prerna Vu Consult Reason/Comments: subacute stroke on ct of the brain Do you want consulting provider notified?: Yes Primary care physician: Yadira Alberto Hospital Course: Final Diagnosis -Cellulitis of the left lower extremity -Unlikely stroke stroke but rather ischemic chronic small vessel disease -Chronic venous insufficiency -Morbid obesity -Falls secondary to generalized weakness physical therapy Occupational Therapy evaluation recommending JEAN-PIERRE -History of DVT in the past for which patient is on Eliquis which will be continued -History hypertension -Hyperlipidemia Discharge Disposition Stable for discharge to subacute rehab she is going to [facility]. She is continue on IV Keflex for the next 7 days and to follow-up with Dr. Nugent in the office in 1 week. Patient should continue on nystatin for the intertrigo to the groin and abdominal folds as well as the back of her knees. Was also discharged on Lasix daily for the lower extremity edema and will continue on oral potassium supplementation with this as well. Patient to continue on Eliquis for history of DVT. Repeat blood work in 2 to 3 days. Hospital Course This is a 73-year-old female with medical history of hypertension, hyperlipidemia, hypothyroidism, patient comes in after mechanical fall and generalized weakness. Patient had a pelvic x-ray that did not show any significant abnormality after the fall. She had a CT of the brain and chest x- ray which were unremarkable. Patient does have evidence of extensive bilateral pedal edema with left leg cellulitis having no history of fever or leukocytosis. Patient is of a history for extremity DVT maintained on Eliquis. Patient was admitted to the hospital with a consult placed to infectious disease was started on IV cefazolin and has had improvement in her lower extremity cellulitis there is also evidence of chronic hyperpigmentation likely from peripheral vascular disease and venous insufficiency. Patient clinically improved and ID is recommending a course of oral Keflex on discharge. Patient has not reported any shortness of breath no chest pain no cough no nausea vomiting or diarrhea she is not having any abdominal pain and she is also not having any pain to her left lower extremity. Patient had a Doppler that was negative for DVT. She was given IV Lasix for the lower extremity with improvement with switch to oral Lasix. Patient was also eval by neurology who felt that there was no evidence of an acute stroke. Her renal function has remained within normal limits, hemodynamically she is stable and she is medically cleared for discharge to subacute rehab. Please see medication reconciliation for a list of current medications. Thank you for allowing us to participate in the care of this patient. The impression and plan of care has been dictated by Rubina Salazar, Nurse Practitioner as directed. Dr. Candice MD I have performed a history and physical examination and medical decision making of this patient, discussed the same with the dictator, and agree with the dictators assessment and plan as written, documented as a scribe. Based on total visit time, I have performed more than 50% of this visit. Patient Condition at Discharge: Stable Plan - Discharge Summary Discharge Rx Participant: No New Discharge Prescriptions: New Furosemide [Lasix] 40 mg PO DAILY tab Famotidine [Pepcid] 20 mg PO DAILY #30 tablet Acetaminophen Tab [Tylenol] 650 mg PO Q6HR PRN tab PRN Reason: Mild Pain Or Fever > 100.5 Cephalexin [Keflex] 500 mg PO Q8HR 7 Days #28 cap Potassium Chloride ER [K-Dur 20] 20 meq PO DAILY #30 tab Nystatin 100,000 Unit/gm Powd [Mycostatin Powder] 1 applic TOPICAL TID each Continue Apixaban [Eliquis] 5 mg PO DAILY Discharge Medication List Apixaban [Eliquis] 5 mg PO DAILY 06/10/24 [History] Acetaminophen Tab [Tylenol] 650 mg PO Q6HR PRN tab 06/16/24 [Rx] Cephalexin [Keflex] 500 mg PO Q8HR 7 Days #28 cap 06/16/24 [Rx] Famotidine [Pepcid] 20 mg PO DAILY #30 tablet 06/16/24 [Rx] Furosemide [Lasix] 40 mg PO DAILY tab 06/16/24 [Rx] Nystatin 100,000 Unit/gm Powd [Mycostatin Powder] 1 applic TOPICAL TID each 06/16/24 [Rx] Potassium Chloride ER [K-Dur 20] 20 meq PO DAILY #30 tab 06/16/24 [Rx] Follow up Appointment(s)/Referral(s): Viet Alaniz MD [STAFF PHYSICIAN] - 1-2 Days Yadira Alberto DO [Primary Care Provider] - 1-2 days Andreina Nugent MD [STAFF PHYSICIAN] - 1 Week Ambulatory/Diagnostic Orders: Basic Metabolic Panel [LAB.AMB] Time Frame: 4 Days, Location: None Selected Discharge Disposition: TRANSFER TO SNF/ECF
[2024-06-17 12:41] VITALS: BP 120/80; PULSE 55; TEMP 97.4
[2024-06-17 12:52] LABS: T4, Free (Free Thyroxine) 0.82 ng/dL (0.78-2.19)
[2024-06-17] MEDS: LEVOTHYROXINE 50 MCG TAB PO SCH (15:05)
--- NOTE | 2024-06-17 15:49 | P.PN ---
Subjective Progress Note Date: 06/17/24 Principal diagnosis: Reason for follow-up is left leg cellulitis Patient is a 73-year-old female past medical history significant for hypertension hyperlipidemia hypothyroidism, DVT presenting to the hospital after apparently the patient did have a fall at home, patient also noted to have extensive swelling redness of the left leg concerning for cellulitis. On today's evaluation that is 06/17/2024, Patient is afebrile this morning patient denies having any chest pain shortness of breath or cough, the patient is breathing comfortably and currently on room air, patient denies any abdominal pain no diarrhea no nausea no vomiting, denies pain to the left lower extremity. No CBC or BMP was done today Objective - Vital Signs Vital signs: Vital Signs Temp 97.4 F L 06/17/24 12:40 Pulse 55 L 06/17/24 12:40 Resp 16 06/17/24 12:40 BP 120/80 06/17/24 12:40 Pulse Ox 93 L 06/17/24 12:40 FiO2 Intake & Output 06/16/24 06/17/24 06/17/24 18:59 06:59 18:59 Intake Total 1020 Output Total 1 Balance 1019 Weight 135.171 kg Intake: Oral 1020 Output: Stool 1 Other: Voiding Method Toilet Toilet # Voids 1 0 1 # Bowel Movements 1 - Exam GENERAL DESCRIPTION: An elderly female hyponatremia in no distress RESPIRATORY SYSTEM: Unlabored breathing , decreased breath sounds at bases HEART: S1 S2 regular rate and rhythm , ABDOMEN: Soft , no tenderness EXTREMITIES: Left leg swelling redness has decreased no drainage - Labs CBC & Chem 7: 06/12/24 05:13 06/14/24 03:02 Labs: Abnormal Lab Results - Last 24 Hours (Table) 06/17/24 Range/Units 11:20 TSH 22.500 H (0.465-4.680) mIU/L Assessment and Plan (1) Left leg cellulitis Current Visit: No Status: Acute Code(s): L03.116 - CELLULITIS OF LEFT LOWER LIMB SNOMED Code(s): 70583978234984859 Plan: 1patient with diffuse swelling and redness to the left lower extremity which is warm to touch concerning for cellulitis likely from gram-positive skin joy in this patient with diffuse swelling redness likely streptococcal disease. 2patient to finish therapy with oral Keflex on discharge, along with José Manuel wrap for compression Dictation was produced using [employer] dictation software. please excuse any grammatical, word or spelling errors. Time with Patient: Less than 30
--- NOTE | 2024-06-17 16:34 | P.PN ---
Subjective Progress Note Date: 06/17/24 Patient was seen for a follow-up. Offers no complaints. Patient is laying in the bed. Patient denies any headache, any numbness tingling focal weakness, or any strokelike symptoms. Objective - Vital Signs Vital signs: Vital Signs Temp 97.4 F L 06/17/24 12:40 Pulse 55 L 06/17/24 12:40 Resp 16 06/17/24 12:40 BP 120/80 06/17/24 12:40 Pulse Ox 93 L 06/17/24 12:40 FiO2 Intake & Output 06/16/24 06/17/24 06/17/24 18:59 06:59 18:59 Intake Total 1020 Output Total 1 Balance 1019 Weight 135.171 kg Intake: Oral 1020 Output: Stool 1 Other: Voiding Method Toilet Toilet # Voids 1 0 1 # Bowel Movements 1 - Exam Mentation is normal. Examination unchanged. - Labs CBC & Chem 7: 06/12/24 05:13 06/14/24 03:02 Labs: Abnormal Lab Results - Last 24 Hours (Table) 06/17/24 Range/Units 11:20 TSH 22.500 H (0.465-4.680) mIU/L Assessment and Plan Assessment: * Status post fall, due to losing balance. Patient did not pass out. Patient denies any focal neurological symptoms whatsoever. * Abnormal CT head, with evidence of confluent bilateral frontal subcortical white matter hypodensities, likely due to small vessel disease. * Cellulitis of the left lower extremity * Chronic venous insufficiency * Morbid obesity * Possible UTI, on cefazolin. * History of DVT in the left leg, for which patient is on Eliquis. Plan: * Patient CT head showed evidence of subcortical white hypodensities, likely from small vessel disease. No evidence of MCA territory infarct. Patient has no focal neurological symptoms or neurological deficits on examination. * Carotid Doppler has been completed, but because of some technical reason, cannot see the report in the EMR. * Lipid panel with cholesterol 98, LDL 29, HDL 43, triglycerides 125. Lipids are well-controlled. * Hemoglobin A1c, B12, folate (cancelled by PCP), TSH 22.50, with free T4 normal 0.22. IM to address abnormal thyroid functions. * Continue Eliquis 5 mg twice daily. * Other medical management as per IM. * Neurologically clear.
== END 2024-06-17 17:58 ==
LOC: EC 18:01 → 5NMEDONC 21:21 → INTOOBSV 21:21 → 5NMEDONC 06-10 05:59 → 3SCARD 06-10 13:29 → 5NMEDONC 06-10 16:06 → UNDODISIN 06-17 17:58
PROVIDERS: ADMIT Hospitalist; ATTEND Hospitalist
DX: L03.116 Cellulitis of left lower limb (principal); R53.81 Other malaise; I10 Essential (primary) hypertension; E78.5 Hyperlipidemia, unspecified; E03.9 Hypothyroidism, unspecified; E66.01 Morbid (severe) obesity due to excess calories; G89.29 Other chronic pain; M25.511 Pain in right shoulder; L30.4 Erythema intertrigo; S50.811A Abrasion of right forearm, initial encounter; W01.0XXA Fall on same level from slipping, tripping and stumbling without subsequent striking against object, initial encounter; I87.2 Venous insufficiency (chronic) (peripheral); Z86.718 Personal history of other venous thrombosis and embolism; Z79.01 Long term (current) use of anticoagulants; Z79.899 Other long term (current) drug therapy; Z87.891 Personal history of nicotine dependence; Z23 Encounter for immunization; I73.9 Peripheral vascular disease, unspecified; Z91.81 History of falling
CPT/HCPCS: 36415; 70450; 70496; 70498; 71046; 72170; 80048; 80053; 80061; 81001; 84132; 84439; 84443; 85025; 85027; 85610; 85730; 90471; 90715; 93005; 93880; 96365; 96366; 96367; 96375; 96376; 99285

== ENCOUNTER 2024-09-02 09:50 | Inpatient (IN) | payer MEDICARE ==
[2024-09-02] MEDS ORDERED: VANCOMYCIN IV PER PHARMACY 1 EACH MISC MISCELLANE PRN (10:44)
[2024-09-02 11:52] LABS: Basophils % (A) 0 %; Eosinophils # (A) 0.1 k/uL (0-0.7); Eosinophils % (A) 1 %; HCT 41.8 % (34.0-46.0); HGB 13.6 gm/dL (11.4-16.0); Lymphocytes # (A) 0.6 k/uL (1.0-4.8); Lymphocytes % (A) 7 %; MCH 30.2 pg (25.0-35.0); MCHC 32.4 g/dL (31.0-37.0); MCV 93.1 fL (80.0-100.0); Mean Platelet Volume 8.5; Monocytes # (A) 0.3 k/uL (0-1.0); Monocytes % (A) 3 %; Neutrophils # (A) 6.9 k/uL (1.3-7.7); Neutrophils % (A) 88 %; Platelet Count 195 k/uL (150-450); RBC 4.49 m/uL (3.80-5.40); RDW 14.3 % (11.5-15.5); WBC 7.8 k/uL (3.8-10.6)
[2024-09-02] MEDS: PIPERACILLIN-TAZOBACTAM 3.375 GM in SODIUM CHLORIDE 0.9% 100 ML IVPB STA (12:04)
[2024-09-02 12:06] LABS: ALT 9 U/L (4-34); AST 14 U/L (14-36); African American GFR (CKD) 71 (>60 ml/min/1.73 sqM); Albumin 2.7 g/dL (3.5-5.0); Alkaline Phosphatase 97 U/L (38-126); Anion Gap 16 mmol/L; Blood Urea Nitrogen 16 mg/dL (7-17); Calcium 8.7 mg/dL (8.4-10.2); Carbon Dioxide 15 mmol/L (22-30); Chloride 105 mmol/L (98-107); Glucose 100 mg/dL (74-99); Non-African American GFR(CKD) 61 (>60 ml/min/1.73 sqM); Partial Thromboplastin Time 31.7 sec (22.0-30.0); Potassium 3.7 mmol/L (3.5-5.1); Prothrombin Time 11.2 sec (10.0-12.5); Sodium 136 mmol/L (137-145); Total Bilirubin 0.6 mg/dL (0.2-1.3); Total Protein 5.3 g/dL (6.3-8.2)
[2024-09-02] MEDS: SODIUM CHLORIDE 0.9% 1,000 ML IV ONE ×2 (12:06→13:34)
[2024-09-02 12:21] LABS: Appearance,Urine Clear (Clear); Bilirubin,Urine Negative (Negative); Blood,Urine Negative (Negative); Color,Urine Light Yellow; Glucose,Urine (UA) Negative (Negative); Ketones,Urine 3+ (Negative); Leukocyte Esterase,Urine Negative (Negative); Nitrite,Urine Negative (Negative); Protein,Urine Trace (Negative); Specific Gravity,Urine 1.015 (1.001-1.035)
--- NOTE | 2024-09-02 12:53 | XR ---
EXAMINATION TYPE: XR chest 1V portable DATE OF EXAM: 09/02/2024 COMPARISON: 06/01/2024 HISTORY: Fever TECHNIQUE: Single frontal view of the chest is obtained. FINDINGS: Limited by the portable technique and rotation. There is no definite airspace consolidatio n. There is no pleural effusion or pneumothorax. The heart and pulmonary vasculature are normal for t he technique. The osseous structures are intact. IMPRESSION: Limited study but no definite acute cardiopulmonary disease.. [facility], , 09/02/2024 12:51 PM
[2024-09-02] MEDS: SODIUM CHLORIDE 0.9% 300 ML IV SCH (13:24)
[2024-09-02] MEDS: VANCOMYCIN 1,750 MG in SODIUM CHLORIDE 0.9% 500 ML 500 ML IVPB STA (13:24)
--- NOTE | 2024-09-02 14:00 | ED ---
General Adult HPI - General Chief complaint: Altered Mental Status Stated complaint: AMS Time Seen by Provider: 09/02/24 10:05 Source: patient, EMS, RN notes reviewed, old records reviewed Mode of arrival: EMS - History of Present Illness Initial comments: This is a 74-year-old female who presents to the emergency department because of altered mental status. Patient when she arrives has no complaints. Patient denies any pain. Patient denies any difficulty breathing. Patient denies any recent fever chills or cough. Patient denies any recent trauma. However she is only alert and oriented x 2 but she gives no complaints at this time - Related Data Home Medications Medication Instructions Recorded Confirmed Apixaban [Eliquis] 5 mg PO BID 06/10/24 09/02/24 Famotidine [Pepcid] 20 mg PO HS 09/02/24 09/02/24 Levothyroxine Sodium [Synthroid] 50 mcg PO DAILY 09/02/24 09/02/24 Nystatin 100,000 Unit/gm Powd 1 applic TOPICAL TID 09/02/24 09/02/24 [Mycostatin Powder] Nystatin 100,000Unit/gm Cream 1 applic TOPICAL BID 09/02/24 09/02/24 [Mycostatin Cream] Previous Rx's Medication Instructions Recorded Furosemide [Lasix] 40 mg PO DAILY tab 06/16/24 Potassium Chloride ER [K-Dur 20] 20 meq PO DAILY #30 tab 06/16/24 Allergies Allergy/AdvReac Type Severity Reaction Status Date / Time No Known Allergies Allergy Verified 09/02/24 12:07 Review of Systems ROS Statement: Those systems with pertinent positive or pertinent negative responses have been documented in the HPI. ROS Other: All systems not noted in ROS Statement are negative. Past Medical History Past Medical History: Hyperlipidemia, Hypertension, Thyroid Disorder History of Any Multi-Drug Resistant Organisms: None Reported Past Surgical History: No Surgical Hx Reported Additional Past Surgical History / Comment(s): Left ankle surgery Past Anesthesia/Blood Transfusion Reactions: No Reported Reaction Past Psychological History: No Psychological Hx Reported Smoking Status: Former smoker Past Alcohol Use History: None Reported Past Drug Use History: None Reported - Past Family History Mother Family Medical History: Diabetes Mellitus General Exam - General Exam Comments Initial Comments: GENERAL: Patient is well-developed and well-nourished. Patient is nontoxic and well- hydrated and is in mild distress. ENT: Neck is soft and supple. No significant lymphadenopathy is noted. Oropharynx is clear. Moist mucous membranes. Neck has full range of motion without eliciting any pain. EYES: The sclera were anicteric and conjunctiva were pink and moist. Extraocular movements were intact and pupils were equal round and reactive to light. E yelids were unremarkable. PULMONARY: Unlabored respirations. Good breath sounds bilaterally. No audible rales rhonchi or wheezing was noted. CARDIOVASCULAR: Patient's heart rate is 55 bpm ABDOMEN: Soft and nontender with normal bowel sounds. SKIN: Severe intertrigo under both breasts and in groin area and on the anterior aspect of both thighs. NEUROLOGIC: Patient is alert and oriented x x 2. Cranial nerves II through XII are grossly intact. Motor and sensory are also intact. Normal speech, volume and content. Symmetrical smile. MUSCULOSKELETAL: Normal extremities with adequate strength and full range of motion. No lower extremity swelling or edema. No calf tenderness. LYMPHATICS: No significant lymphadenopathy is noted PSYCHIATRIC: Normal psychiatric evaluation. Course Vital Signs 09/02/24 09/02/24 09/02/24 09:52 10:44 11:10 Temperature 88.4 F L Pulse Rate 59 L 53 L Respiratory 22 20 Rate Blood Pressure 95/58 98/46 O2 Sat by Pulse 95 96 Oximetry 09/02/24 09/02/24 09/02/24 11:15 11:16 11:23 Temperature Pulse Rate 50 L 48 L 49 L Respiratory 20 18 Rate Blood Pressure 83/44 83/44 O2 Sat by Pulse 94 L Oximetry 09/02/24 09/02/24 09/02/24 11:51 12:10 12:19 Temperature 86 F L 86.9 F L 86.9 F L Pulse Rate 52 L 54 L 57 L Respiratory 20 18 20 Rate Blood Pressure 92/46 69/37 89/54 O2 Sat by Pulse 95 95 94 L Oximetry 09/02/24 09/02/24 09/02/24 12:30 12:40 13:00 Temperature 87.3 F L 87.6 F L 88.5 F L Pulse Rate 52 L 48 L 52 L Respiratory 16 16 18 Rate Blood Pressure 69/40 66/38 O2 Sat by Pulse 95 98 98 Oximetry 09/02/24 09/02/24 09/02/24 13:17 13:31 13:50 Temperature 89.2 F L 90.1 F L 91.4 F L Pulse Rate 51 L 62 68 Respiratory 18 18 20 Rate Blood Pressure 70/37 82/30 86/40 O2 Sat by Pulse 94 L 97 97 Oximetry 09/02/24 09/02/24 09/02/24 14:00 14:08 14:41 Temperature 91.8 F L 92.7 F L Pulse Rate 68 50 L Respiratory 18 Rate Blood Pressure 62/36 73/35 78/45 O2 Sat by Pulse 97 95 Oximetry 09/02/24 09/02/24 09/02/24 15:12 15:33 16:09 Temperature 94.5 F L 93.9 F L 94.6 F L Pulse Rate 73 70 68 Respiratory 18 18 20 Rate Blood Pressure 84/47 85/46 79/42 O2 Sat by Pulse 97 96 97 Oximetry 09/02/24 09/02/24 09/02/24 16:31 16:54 17:32 Temperature 95.0 F L 95.2 F L 96.1 F L Pulse Rate 73 77 78 Respiratory 22 20 20 Rate Blood Pressure 75/47 70/39 86/43 O2 Sat by Pulse 96 96 98 Oximetry 09/02/24 09/02/24 17:41 17:56 Temperature 96.3 F L 96.6 F L Pulse Rate 76 71 Respiratory 20 20 Rate Blood Pressure 83/41 95/46 O2 Sat by Pulse 96 97 Oximetry Procedures - Sepsis Sepsis Focused Exam #1 Time Sepsis Criteria Met: 12:15 (no source found) Sepsis Focused Exam Date: 09/02/24 Sepsis Focused Exam Time: 14:45 Sepsis Focused Exam Complete: Yes Vital Signs & RN Notes Reviewed: Yes Capillary Refill: < 2 Seconds: Fingers Peripheral Pulses: Weak: Radial (L) Skin Color: Normal for Patient Respiratory Exam: normal lung sounds Cardiovascular Exam: regular rate Medical Decision Making - Medical Decision Making EKG is interpreted by myself read EKG shows sinus bradycardia 53 bpm VT was under 79 QRS is 90 QT interval is 438 QTc is 420. Patient's EKG shows no ST segment ovation or depression Patient's ideal body weight is 43 kg Was pt. sent in by a medical professional or institution (, PA, RETAIL SALESMAN, urgent care, hospital, or shelter...) When possible be specific @ -No Did you speak to anyone other than the patient for history (EMS, parent, family, police, friend...)? What history was obtained from this source @ -No Did you review nursing and triage notes (agree or disagree)? Why? @ -I reviewed and agree with nursing and triage notes Were old charts reviewed (outside hosp., previous admission, EMS record, old EKG, old radiological studies, urgent care reports/EKG's, shelter records)? Report findings @ -No old charts were reviewed Differential Diagnosis? @ -Differential Altered Mental Status: Hypoglycemia, DKA, hypercapnia, ETOH, overdose, CO poisoning, trauma, myxedema coma, HTN encephalopathy, infection, encephalitis, psychosis, intercranial hemorrhage, hepatic encephalopathy, meningitis, CVA, this is not meant to be an all-inclusive list EKG interpreted by me (3pts min.). @ -As above X-rays interpreted by me (1pt min.). @ -Checks x-ray shows no acute abnormality CT interpreted by me (1pt min.). @ -None done U/S interpreted by me (1pt. min.). @ -None done What testing was considered but not performed or refused? (CT, X-rays, U/S, labs)? Why? @ -None What meds were considered but not given or refused? Why? @ -None Did you discuss the management of the patient with other professionals (professionals i.e. , PA, RETAIL SALESMAN, lab, RT, psych nurse, professor of social work, restoration technician, teacher, chief program officer, returned case inspector)? Give summary @ -I spoke with Dr. Who came down and saw the patient in the emergency department. I spoke with Dr. Clarke he came down and saw the patient in the emergency department. Was smoking cessation discussed for >3mins.? @ -No Was critical care preformed (if so, how long)? @ -50 Were there social determinants of health that impacted care today? How? (Homelessness, low income, unemployed, alcoholism, drug addiction, transportation, low edu. Level, literacy, decrease access to med. care, shelter, rehab)? @ -No Was there de-escalation of care discussed even if they declined (Discuss DNR or withdrawal of care, Hospice)? DNR status @ -No What co-morbidities impacted this encounter? (DM, HTN, Smoking, COPD, CAD, Cancer, CVA, ARF, Chemo, Hep., AIDS, mental health diagnosis, sleep apnea, morbid obesity)? @ -None Was patient admitted / discharged? Hospital course, mention meds given and route, prescriptions, significant lab abnormalities, going to OR and other pertinent info. @ -I started the patient on antibiotics because I thought the patient might be septic. Patient also was put on a blanketrol with a bear hugger to bring the temperature up. Patient was given 2 L of warm fluid. Patient was also given hydrocortisone. Patient was also given Synthroid IV because of the possibility of myxedema coma. The patient will be admitted to Dr. Bowens with a consult to Dr. Dunn. Undiagnosed new problem with uncertain prognosis? @ -No Drug Therapy requiring intensive monitoring for toxicity (Heparin, Nitro, Insulin, Cardizem)? @ -No Were any procedures done? @ -No Diagnosis/symptom? @ -Hypotension Acute, or Chronic, or Acute on Chronic? @ -Acute Uncomplicated (without systemic symptoms) or Complicated (systemic symptoms)? @ -Complicate Side effects of treatment? @ -No Exacerbation, Progression, or Severe Exacerbation? @ -No Poses a threat to life or bodily function? How? (Chest pain, USA, PA, pneumonia, PE, COPD, DKA, ARF, appy, cholecystitis, CVA, Diverticulitis, Homicidal, Suicidal, threat to staff... and all critical care pts) @ -Yes this could lead to poor perfusion and endorgan dysfunction Diagnosis/symptom? @ -Hypothermia Acute, or Chronic, or Acute on Chronic? @ -Acute Uncomplicated (without systemic symptoms) or Complicated (systemic symptoms)? @ -Complicate Side effects of treatment? @ -None Exacerbation, Progression, or Severe Exacerbation] @ -No Poses a threat to life or bodily function? @ -Yes this can lead to dysrhythmias and endorgan dysfunction - Lab Data Result diagrams: 09/02/24 11:20 09/02/24 11:20 Lab Results 09/02/24 09/02/24 09/02/24 Range/Units 11:20 11:20 11:20 WBC 7.8 (3.8-10.6) k/uL RBC 4.49 (3.80-5.40) m/uL Hgb 13.6 (11.4-16.0) gm/dL Hct 41.8 (34.0-46.0) % MCV 93.1 (80.0-100.0) fL MCH 30.2 (25.0-35.0) pg MCHC 32.4 (31.0-37.0) g/dL RDW 14.3 (11.5-15.5) % Plt Count 195 (150-450) k/uL MPV 8.5 Neutrophils % 88 % Lymphocytes % 7 % Monocytes % 3 % Eosinophils % 1 % Basophils % 0 % Neutrophils # 6.9 (1.3-7.7) k/uL Lymphocytes # 0.6 L (1.0-4.8) k/uL Monocytes # 0.3 (0-1.0) k/uL Eosinophils # 0.1 (0-0.7) k/uL Basophils # 0.0 (0-0.2) k/uL PT 11.2 (10.0-12.5) sec INR 1.0 (<1.2) APTT 31.7 H (22.0-30.0) sec VBG pH (7.31-7.41) VBG pCO2 (37-51) mmHg VBG HCO3 (24-28) mmol/L Sodium 136 L (137-145) mmol/L Potassium 3.7 (3.5-5.1) mmol/L Chloride 105 (98-107) mmol/L Carbon Dioxide 15 L (22-30) mmol/L Anion Gap 16 mmol/L BUN 16 (7-17) mg/dL Creatinine 0.93 (0.52-1.04) mg/dL Est GFR (CKD-EPI)AfAm 71 (>60 ml/min/1.73 sqM) Est GFR (CKD-EPI)NonAf 61 (>60 ml/min/1.73 sqM) Glucose 100 H (74-99) mg/dL Plasma Lactic Acid Tristan (0.7-2.0) mmol/L Calcium 8.7 (8.4-10.2) mg/dL Total Bilirubin 0.6 (0.2-1.3) mg/dL AST 14 (14-36) U/L ALT 9 (4-34) U/L Alkaline Phosphatase 97 (38-126) U/L Troponin I (0.000-0.034) ng/mL Total Protein 5.3 L (6.3-8.2) g/dL Albumin 2.7 L (3.5-5.0) g/dL TSH (0.465-4.680) mIU/L Free T4 (0.78-2.19) ng/dL Urine Color Urine Appearance (Clear) Urine pH (5.0-8.0) Ur Specific Jackpot (1.001-1.035) Urine Protein (Negative) Urine Glucose (UA) (Negative) Urine Ketones (Negative) Urine Blood (Negative) Urine Nitrite (Negative) Urine Bilirubin (Negative) Urine Urobilinogen (<2.0) mg/dL Ur Leukocyte Esterase (Negative) 09/02/24 09/02/24 09/02/24 Range/Units 11:20 11:20 11:20 WBC (3.8-10.6) k/uL RBC (3.80-5.40) m/uL Hgb (11.4-16.0) gm/dL Hct (34.0-46.0) % MCV (80.0-100.0) fL MCH (25.0-35.0) pg MCHC (31.0-37.0) g/dL RDW (11.5-15.5) % Plt Count (150-450) k/uL MPV Neutrophils % % Lymphocytes % % Monocytes % % Eosinophils % % Basophils % % Neutrophils # (1.3-7.7) k/uL Lymphocytes # (1.0-4.8) k/uL Monocytes # (0-1.0) k/uL Eosinophils # (0-0.7) k/uL Basophils # (0-0.2) k/uL PT (10.0-12.5) sec INR (<1.2) APTT (22.0-30.0) sec VBG pH (7.31-7.41) VBG pCO2 (37-51) mmHg VBG HCO3 (24-28) mmol/L Sodium (137-145) mmol/L Potassium (3.5-5.1) mmol/L Chloride (98-107) mmol/L Carbon Dioxide (22-30) mmol/L Anion Gap mmol/L BUN (7-17) mg/dL Creatinine (0.52-1.04) mg/dL Est GFR (CKD-EPI)AfAm (>60 ml/min/1.73 sqM) Est GFR (CKD-EPI)NonAf (>60 ml/min/1.73 sqM) Glucose (74-99) mg/dL Plasma Lactic Acid Tristan 1.0 (0.7-2.0) mmol/L Calcium (8.4-10.2) mg/dL Total Bilirubin (0.2-1.3) mg/dL AST (14-36) U/L ALT (4-34) U/L Alkaline Phosphatase (38-126) U/L Troponin I (0.000-0.034) ng/mL Total Protein (6.3-8.2) g/dL Albumin (3.5-5.0) g/dL TSH 5.010 H (0.465-4.680) mIU/L Free T4 1.18 (0.78-2.19) ng/dL Urine Color Light Yellow Urine Appearance Clear (Clear) Urine pH 5.0 (5.0-8.0) Ur Specific Jackpot 1.015 (1.001-1.035) Urine Protein Trace H (Negative) Urine Glucose (UA) Negative (Negative) Urine Ketones 3+ H (Negative) Urine Blood Negative (Negative) Urine Nitrite Negative (Negative) Urine Bilirubin Negative (Negative) Urine Urobilinogen 2.0 (<2.0) mg/dL Ur Leukocyte Esterase Negative (Negative) 09/02/24 09/02/24 Range/Units 15:05 15:05 WBC (3.8-10.6) k/uL RBC (3.80-5.40) m/uL Hgb (11.4-16.0) gm/dL Hct (34.0-46.0) % MCV (80.0-100.0) fL MCH (25.0-35.0) pg MCHC (31.0-37.0) g/dL RDW (11.5-15.5) % Plt Count (150-450) k/uL MPV Neutrophils % % Lymphocytes % % Monocytes % % Eosinophils % % Basophils % % Neutrophils # (1.3-7.7) k/uL Lymphocytes # (1.0-4.8) k/uL Monocytes # (0-1.0) k/uL Eosinophils # (0-0.7) k/uL Basophils # (0-0.2) k/uL PT (10.0-12.5) sec INR (<1.2) APTT (22.0-30.0) sec VBG pH 7.33 (7.31-7.41) VBG pCO2 31 L (37-51) mmHg VBG HCO3 16 L (24-28) mmol/L Sodium (137-145) mmol/L Potassium (3.5-5.1) mmol/L Chloride (98-107) mmol/L Carbon Dioxide (22-30) mmol/L Anion Gap mmol/L BUN (7-17) mg/dL Creatinine (0.52-1.04) mg/dL Est GFR (CKD-EPI)AfAm (>60 ml/min/1.73 sqM) Est GFR (CKD-EPI)NonAf (>60 ml/min/1.73 sqM) Glucose (74-99) mg/dL Plasma Lactic Acid Tristan (0.7-2.0) mmol/L Calcium (8.4-10.2) mg/dL Total Bilirubin (0.2-1.3) mg/dL AST (14-36) U/L ALT (4-34) U/L Alkaline Phosphatase (38-126) U/L Troponin I <0.012 (0.000-0.034) ng/mL Total Protein (6.3-8.2) g/dL Albumin (3.5-5.0) g/dL TSH (0.465-4.680) mIU/L Free T4 (0.78-2.19) ng/dL Urine Color Urine Appearance (Clear) Urine pH (5.0-8.0) Ur Specific Jackpot (1.001-1.035) Urine Protein (Negative) Urine Glucose (UA) (Negative) Urine Ketones (Negative) Urine Blood (Negative) Urine Nitrite (Negative) Urine Bilirubin (Negative) Urine Urobilinogen (<2.0) mg/dL Ur Leukocyte Esterase (Negative) Critical Care Time Critical Care Time: Yes Total Critical Care Time: 50 Disposition Clinical Impression: Hypothermia, Hypotension Disposition: ADMITTED IP TO THIS [facility] Time of Disposition: 15:09
[2024-09-02] MEDS: HYDROCORTISONE SUCCINATE 100 MG/2 ML VIAL IV STA (14:14)
[2024-09-02 14:31] LABS: T4, Free (Free Thyroxine) 1.18 ng/dL (0.78-2.19)
[2024-09-02] MEDS ORDERED: HYDROmorphone 0.5 MG/0.5 ML SYRINGE IVP PRN (14:48)
[2024-09-02] MEDS: SODIUM CHLORIDE 0.9% 500 ML 500 ML IV ONE (15:09)
[2024-09-02] MEDS ORDERED: NALOXONE 0.4 MG/ML 1 ML VIAL IV PRN (15:12)
[2024-09-02 15:17] LABS: VBG PH 7.33 (7.31-7.41)
[2024-09-02] MEDS: LEVOTHYROXINE IVP 100 MCG/5 ML VIAL IV STA (15:32)
--- NOTE | 2024-09-02 15:38 | P.CNPUL ---
History of Present Illness Consult date: 09/02/24 Requesting physician: Reba Bowens Reason for consult: other Chief complaint: Hypothermia, and hypotension. History of present illness: Pulmonary consult dated September 02, 2024. 74-year-old female seen in the emergency department, room 8. I was notified by Dr. Zhang about this patient. This patient apparently was brought in from home, because of apparent mental status changes. The patient is alert and awake. She knows where she is at. She knows the year. She knows the current president. The patient was evaluated in the ER, and found to be hypothermic, and hypotensive. The patient denies all complaints including any sort of pain shortness of breath, etc. She seems very stable, and her blood pressure when I was there, was 81/50. She apparently received 2 L of warm fluids. She apparently has a history of hyperlipidemia, hypertension, and hypothyroidism. Her medications include Eliquis, Pepcid, Synthroid, nystatin powder, Lasix, and potassium. The patient is on Eliquis, because of a previous and recent diagnosis of left lower extremity DVT. Current labs include a white count 7.8, hemoglobin hematocrit normal, and a platelet count of 195,000. Sodium 136, potassium 3.7, chlorides 105, CO2 15, anion gap 16, BUN and creatinine are 16 and 0.93. The patient does have an anion gap metabolic acidosis. Total protein 5.3. TSH is elevated at 5.010. Urine shows trace protein and 3+ ketones. Chest x-ray shows no acute disease. The patient's EKG shows sinus bradycardia, with a rate of 53 bpm. Review of Systems REVIEW OF SYSTEMS: The patient herself has no complaints. She was noted to be hypotensive, and hypothermic. CONSTITUTIONAL: [Negative.] NEUROLOGIC: [ Negative.] HEENT: [ Negative.] CARDIAC: [Negative.] PULMONARY: [Negative.] GI: [Negative.] : [Negative.] RHEUMATOLOGIC: [ Negative.] IMMUNOLOGIC: [ Negative.] ENDOCRINE: [Negative. ] DERMATOLOGIC: [Negative.] Past Medical History Past Medical History: Hyperlipidemia, Hypertension, Thyroid Disorder History of Any Multi-Drug Resistant Organisms: None Reported Past Surgical History: No Surgical Hx Reported Additional Past Surgical History / Comment(s): Left ankle surgery Past Anesthesia/Blood Transfusion Reactions: No Reported Reaction Past Psychological History: No Psychological Hx Reported Smoking Status: Former smoker Past Alcohol Use History: None Reported Past Drug Use History: None Reported - Past Family History Mother Family Medical History: Diabetes Mellitus Medications and Allergies Home Medications Medication Instructions Recorded Confirmed Type Apixaban [Eliquis] 5 mg PO BID 06/10/24 09/02/24 History Furosemide [Lasix] 40 mg PO DAILY tab 06/16/24 09/02/24 Rx Potassium Chloride ER [K-Dur 20] 20 meq PO DAILY #30 tab 06/16/24 09/02/24 Rx Famotidine [Pepcid] 20 mg PO HS 09/02/24 09/02/24 History Levothyroxine Sodium [Synthroid] 50 mcg PO DAILY 09/02/24 09/02/24 History Nystatin 100,000 Unit/gm Powd 1 applic TOPICAL TID 09/02/24 09/02/24 History [Mycostatin Powder] Nystatin 100,000Unit/gm Cream 1 applic TOPICAL BID 09/02/24 09/02/24 History [Mycostatin Cream] Allergies Allergy/AdvReac Type Severity Reaction Status Date / Time No Known Allergies Allergy Verified 09/02/24 12:07 Physical Exam Osteopathic Statement: *. No significant issues noted on an osteopathic structural exam other than those noted in the History and Physical/Consult. Vitals: Vital Signs Temp Pulse Resp BP Pulse Ox 09/02/24 15:12 94.5 F L 73 18 84/47 97 09/02/24 14:41 92.7 F L 50 L 78/45 95 09/02/24 14:08 91.8 F L 68 18 73/35 97 09/02/24 14:00 62/36 09/02/24 13:50 91.4 F L 68 20 86/40 97 09/02/24 13:31 90.1 F L 62 18 82/30 97 09/02/24 13:17 89.2 F L 51 L 18 70/37 94 L 09/02/24 13:00 88.5 F L 52 L 18 66/38 98 09/02/24 12:40 87.6 F L 48 L 16 98 09/02/24 12:30 87.3 F L 52 L 16 69/40 95 09/02/24 12:19 86.9 F L 57 L 20 89/54 94 L 11/21/24 12:10 86.9 F L 54 L 18 69/37 95 09/02/24 11:51 86 F L 52 L 20 92/46 95 09/02/24 11:23 49 L 18 83/44 94 L 09/02/24 11:16 48 L 09/02/24 11:15 50 L 20 83/44 09/02/24 11:10 53 L 20 98/46 96 09/02/24 10:44 88.4 F L 09/02/24 09:52 59 L 22 95/58 95 Intake and Output 09/02/24 09/02/24 09/02/24 06:59 14:59 22:59 Other: Weight 117.027 kg No acute distress, oriented 3. The patient is awake and alert. She denies all complaints. HEENT examination is grossly unremarkable. Mucous membranes are moist. No oral lesions. Neck supple. Full range of motion. No adenopathy thyromegaly or neck vein distention. Cardiovascular examination reveals regular rhythm rate. S1-S2 normal. No S3 or S4. No discernible murmur noted. Lungs reveal clear breath sounds. Breath sounds are equal bilaterally. No adventitious lung sounds including wheezes rhonchi or crackles. Abdomen obese. No masses. Extremities are intact. No cyanosis clubbing or edema. Skin reveals multiple areas of excoriation, under her pannus, groin, and under her breast. Neurologic examination is brief but nonfocal. Results - Laboratory Findings CBC and BMP: 09/02/24 11:20 09/02/24 11:20 PT/INR, D-dimer PT 11.2 sec (10.0-12.5) 09/02/24 11:20 INR 1.0 (<1.2) 09/02/24 11:20 Abnormal lab findings: Abnormal Labs 09/02/24 09/02/24 09/02/24 11:20 11:20 11:20 Lymphocytes # 0.6 L APTT 31.7 H Sodium 136 L Carbon Dioxide 15 L Glucose 100 H Total Protein 5.3 L Albumin 2.7 L TSH Urine Protein Urine Ketones 09/02/24 09/02/24 11:20 11:20 Lymphocytes # APTT Sodium Carbon Dioxide Glucose Total Protein Albumin TSH 5.010 H Urine Protein Trace H Urine Ketones 3+ H - Diagnostic Findings Chest x-ray: image reviewed Assessment and Plan Assessment: Hypotension and hypothermia, of unclear etiology, rule out myxedema coma. History of hypothyroidism, with elevated TSH. Recent diagnosis of left lower extremity DVT. History of hypertension. History of hyperlipidemia. Morbid obesity. Plan: Plan dated September 02, 2024. The patient apparently was admitted with a diagnosis of altered mental status although she appears to be awake and alert in the emergency department. She denies all complaints. The patient was found to be hypothermic, and hypotensive. She did receive 2 L of warmed fluids. Her TSH is a bit elevated. She is on Synthroid at home. She does live at home, and does have help. The patient's blood pressure was 81/50. She did receive hydrocortisone 100 mg. The patient will get a dose of Synthroid, just in case she is suffering from myxedema coma. We will check a procalcitonin level. I told the ER physician to hold off with norepinephrine. In addition, the patient should have a head CT. Additional recommendations and suggestions are forthcoming. Labs, x-rays, and all medications are reviewed. Dictation was produced using [employer] software. Please excuse any grammatical, word or spelling errors. Time with Patient: Greater than 30
[2024-09-02] MEDS: DEXTROSE 50% SYRINGE 50 ML IVP STA (15:52)
[2024-09-02] MEDS: PANTOPRAZOLE 40 MG/10 ML VIAL IVP SCH (15:55)
[2024-09-02 15:56] LABS: Glucose,Whole Blood 52 mg/dL (70-110)
[2024-09-02 15:56] LABS: Glucose,Whole Blood 48 mg/dL (70-110)
[2024-09-02 16:02] LABS: Glucose,Whole Blood 153 mg/dL (70-110)
[2024-09-02 16:42] LABS: Glucose,Whole Blood 86 mg/dL (70-110)
--- NOTE | 2024-09-02 17:00 | CT ---
EXAMINATION TYPE: CT brain wo con DATE OF EXAM: 09/02/2024 4:28 PM COMPARISON: 06/09/2024. CLINICAL INDICATION: Female, 74 years old with history of Altered mental status, AMS. TECHNIQUE: Brain: Axial CT images of the brain were obtained with coronal and sagittal reformats created and rev iewed. Contrast used: None. Oral contrast used: None. CT DLP: 1184.4 mGycm, Automated exposure control for dose reduction was used. FINDINGS: Brain: Extra-axial spaces: No abnormal extra-axial fluid collections. Ventricular system: Within normal limits Cerebral parenchyma: Cerebral atrophy. No acute intraparenchymal hemorrhage or mass effect. The mendes -white junction is well differentiated. Scattered hypoattenuating areas are seen within the white mat ter. Cerebellum: Unremarkable. Mass effect: No evidence of midline shift. Intracranial vasculature: Atherosclerotic calcifications of the intracranial vessels. Soft tissues: Normal. Calvarium/osseous structures: No depressed skull fracture. Paranasal sinuses and mastoid air cells: Mild scattered paranasal sinus disease. Visualized orbits: Orbital contents are intact. IMPRESSION: 1. No acute intracranial process. 2. Nonspecific white matter changes, likely secondary to chronic small vessel ischemic disease. [facility], , 09/02/2024 4:58 PM
[2024-09-02] MEDS: NOREPINEPHRINE 4 MG in SODIUM CHLORIDE 0.9% 250 ML IV SCH (17:11)
[2024-09-02] MEDS: HYDROCORTISONE SUCCINATE 100 MG/2 ML VIAL IV SCH (17:15)
[2024-09-02 17:41] LABS: Glucose,Whole Blood 91 mg/dL (70-110)
[2024-09-02 18:18] LABS: Glucose,Whole Blood 103 mg/dL (70-110)
[2024-09-02] MEDS: LACTATED RINGERS 1,000 ML IV SCH (18:50)
[2024-09-02] MEDS ORDERED: PIPERACILLIN-TAZOBACTAM 3.375 GM in SODIUM CHLORIDE 0.9% 100 ML IVPB SCH (20:00)
[2024-09-02] MEDS ORDERED: HEPARIN SODIUM,PORCINE 5,000 UNIT/ML 1 ML VIAL SQ SCH (21:00)
[2024-09-02] MEDS: APIXABAN 5 MG TAB PO SCH (22:10)
[2024-09-02] MEDS: NYSTATIN 100,000 UNIT/GM POWD 15 GM TOPICAL SCH (22:25)
[2024-09-03 05:18] LABS: Glucose,Whole Blood 113 mg/dL (70-110)
[2024-09-03 06:15] LABS: African American GFR (CKD) 65 (>60 ml/min/1.73 sqM); Non-African American GFR(CKD) 56 (>60 ml/min/1.73 sqM)
[2024-09-03] MEDS: MIDODRINE 5 MG TAB PO SCH (06:27)
[2024-09-03] MEDS: LEVOTHYROXINE 50 MCG TAB PO SCH (06:27)
[2024-09-03 08:03] LABS: Basophils % (A) 0 %; Eosinophils % (A) 0 %; HCT 39.2 % (34.0-46.0); HGB 12.4 gm/dL (11.4-16.0); Hypochromasia Slight; Lymphocytes # (A) 0.7 k/uL (1.0-4.8); Lymphocytes % (A) 6 %; MCH 30.1 pg (25.0-35.0); MCHC 31.6 g/dL (31.0-37.0); Mean Platelet Volume 9.6; Monocytes # (A) 0.4 k/uL (0-1.0); Monocytes % (A) 4 %; Neutrophils # (A) 10.2 k/uL (1.3-7.7); Neutrophils % (A) 89 %; Platelet Count 216 k/uL (150-450); RBC 4.13 m/uL (3.80-5.40); RDW 14.4 % (11.5-15.5); WBC 11.5 k/uL (3.8-10.6)
[2024-09-03 08:07] LABS: Blood Urea Nitrogen 14 mg/dL (7-17); Calcium 8.3 mg/dL (8.4-10.2); Carbon Dioxide 13 mmol/L (22-30); Chloride 110 mmol/L (98-107); Glucose 123 mg/dL (74-99); Potassium 3.9 mmol/L (3.5-5.1)
[2024-09-03 08:09] LABS: Anion Gap 16 mmol/L; Sodium 139 mmol/L (137-145)
--- NOTE | 2024-09-03 08:52 | P.CONS ---
History of Present Illness - Reason for Consult Consult date: 09/02/24 Sepsis Requesting physician: Reba Bowens - Chief Complaint Weakness x days - History of Present Illness Patient is a 74-year-old female with a past medical history significant for hypertension hyperlipidemia hypothyroidism, the patient was brought into the hospital for evaluation of mental status changes patient mention he tried to stand up and felt so weak that she fell backwards however the patient denies hitting her head has been complaining of generalized weakness and no energy patient denies having any headache or URI symptoms the patient was aware that she was at [facility] and no nausea vomiting abdominal pain or any diarrhea patient on presentation to the hospital was noticed to be hypothermic with a temperature of 88.4 F patient was tachycardic and mildly hypotensive also mild hypoxia but no need for supplemental oxygen pat ient did have a white count of 7.8 creatinine 0.93 electrolytes are normal liver enzymes are normal urine has been negative patient did have a chest x-ray no definite acute cardiopulmonary disease process patient was started on vancomycin and Zosyn infectious disease was consulted concerning for sepsis patient did have a extensive fungal dermatitis to the groin and breast fold area with the patient has for a while also noted to have increasing swelling redness of left lower extremity but no open wound or any drainage Review of Systems Positive point and negatives has been mentioned in the HPI, complete review of systems was performed and all other systems are negative All systems: negative Constitutional: Denies chills, Denies fever Eyes: denies blurred vision, denies pain Ears, nose, mouth and throat: Denies headache, Denies sore throat Cardiovascular: Denies chest pain, Denies shortness of breath Respiratory: Denies cough Gastrointestinal: Denies abdominal pain, Denies diarrhea, Denies nausea, Denies vomiting Genitourinary: Denies dysuria, Denies hematuria Musculoskeletal: Denies myalgias Integumentary: Denies pruritus, Denies rash Neurological: Denies numbness, Denies weakness Psychiatric: Denies anxiety, Denies depression Endocrine: Denies fatigue, Denies weight change Past Medical History Past Medical History: Hyperlipidemia, Hypertension, Thyroid Disorder History of Any Multi-Drug Resistant Organisms: None Reported Past Surgical History: No Surgical Hx Reported Additional Past Surgical History / Comment(s): Left ankle surgery Past Anesthesia/Blood Transfusion Reactions: No Reported Reaction Past Psychological History: No Psychological Hx Reported Smoking Status: Former smoker Past Alcohol Use History: None Reported Past Drug Use History: None Reported - Past Family History Mother Family Medical History: Diabetes Mellitus Medications and Allergies Home Medications Medication Instructions Recorded Confirmed Type Apixaban [Eliquis] 5 mg PO BID 06/10/24 09/02/24 History Furosemide [Lasix] 40 mg PO DAILY tab 06/16/24 09/02/24 Rx Potassium Chloride ER [K-Dur 20] 20 meq PO DAILY #30 tab 06/16/24 09/02/24 Rx Famotidine [Pepcid] 20 mg PO HS 09/02/24 09/02/24 History Levothyroxine Sodium [Synthroid] 50 mcg PO DAILY 09/02/24 09/02/24 History Nystatin 100,000 Unit/gm Powd 1 applic TOPICAL TID 09/02/24 09/02/24 History [Mycostatin Powder] Nystatin 100,000Unit/gm Cream 1 applic TOPICAL BID 09/02/24 09/02/24 History [Mycostatin Cream] Allergies Allergy/AdvReac Type Severity Reaction Status Date / Time No Known Allergies Allergy Verified 09/02/24 12:07 Physical Exam Vitals: Vital Signs Temp Pulse Resp BP Pulse Ox 09/02/24 15:33 93.9 F L 70 18 85/46 96 09/02/24 15:12 94.5 F L 73 18 84/47 97 09/02/24 14:41 92.7 F L 50 L 78/45 95 09/02/24 14:08 91.8 F L 68 18 73/35 97 09/02/24 14:00 62/36 09/02/24 13:50 91.4 F L 68 20 86/40 97 09/02/24 13:31 90.1 F L 62 18 82/30 97 09/02/24 13:17 89.2 F L 51 L 18 70/37 94 L 09/02/24 13:00 88.5 F L 52 L 18 66/38 98 09/02/24 12:40 87.6 F L 48 L 16 98 09/02/24 12:30 87.3 F L 52 L 16 69/40 95 09/02/24 12:19 86.9 F L 57 L 20 89/54 94 L 09/02/24 12:10 86.9 F L 54 L 18 69/37 95 09/02/24 11:51 86 F L 52 L 20 92/46 95 09/02/24 11:23 49 L 18 83/44 94 L 09/02/24 11:16 48 L 09/02/24 11:15 50 L 20 83/44 09/02/24 11:10 53 L 20 98/46 96 09/02/24 10:44 88.4 F L 09/02/24 09:52 59 L 22 95/58 95 Intake and Output 09/02/24 09/02/24 09/02/24 06:59 14:59 22:59 Other: Weight 117.027 kg GENERAL DESCRIPTION: Elderly female lying in bed, no distress. No tachypnea or accessory muscle of respiration use. HEENT: Shows Pallor , no scleral icterus. Oral mucous membrane is dry. NECK: Trachea central, no thyromegaly. LUNGS: Unlabored breathing. Clear to auscultation anteriorly. No wheeze or crackle. HEART: S1, S2, regular rate and rhythm. No loud murmur ABDOMEN: Soft, no tenderness , guarding or rigidity, no organomegaly EXTREMITIES: Diffuse swelling to bilateral extremities with more erythema to the left leg which is warm to touch SKIN: Did have extensive rash to the bilateral groin and the breast for area NEUROLOGICAL: The patient is awake, alert, oriented x3, mood and affect normal. Results CBC & Chem 7: 09/03/24 05:44 09/03/24 05:44 Labs: Abnormal Lab Results - Last 24 Hours (Table) 09/02/24 09/02/24 09/02/24 Range/Units 11:20 11: 11:20 Lymphocytes # 0.6 L (1.0-4.8) k/uL APTT 31.7 H (22.0-30.0) sec VBG pCO2 (37-51) mmHg VBG HCO3 (24-28) mmol/L Sodium 136 L (137-145) mmol/L Carbon Dioxide 15 L (22-30) mmol/L Glucose 100 H (74-99) mg/dL POC Glucose (mg/dL) (70-110) mg/dL Total Protein 5.3 L (6.3-8.2) g/dL Albumin 2.7 L (3.5-5.0) g/dL TSH (0.465-4.680) mIU/L Urine Protein (Negative) Urine Ketones (Negative) 09/02/24 09/02/24 09/02/24 Range/Units 11:20 11:20 15:05 Lymphocytes # (1.0-4.8) k/uL APTT (22.0-30.0) sec VBG pCO2 31 L (37-51) mmHg VBG HCO3 16 L (24-28) mmol/L Sodium (137-145) mmol/L Carbon Dioxide (22-30) mmol/L Glucose (74-99) mg/dL POC Glucose (mg/dL) (70-110) mg/dL Total Protein (6.3-8.2) g/dL Albumin (3.5-5.0) g/dL TSH 5.010 H (0.465-4.680) mIU/L Urine Protein Trace H (Negative) Urine Ketones 3+ H (Negative) 09/02/24 09/02/24 09/02/24 Range/Units 15:48 15:49 15:56 Lymphocytes # (1.0-4.8) k/uL APTT (22.0-30.0) sec VBG pCO2 (37-51) mmHg VBG HCO3 (24-28) mmol/L Sodium (137-145) mmol/L Carbon Dioxide (22-30) mmol/L Glucose (74-99) mg/dL POC Glucose (mg/dL) 48 L* 52 L 153 H (70-110) mg/dL Total Protein (6.3-8.2) g/dL Albumin (3.5-5.0) g/dL TSH (0.465-4.680) mIU/L Urine Protein (Negative) Urine Ketones (Negative) Assessment and Plan (1) Sepsis Current Visit: Yes Status: Acute Code(s): A41.9 - SEPSIS, UNSPECIFIED ORGANISM SNOMED Code(s): 76011197 (2) Candidal intertrigo Current Visit: No Status: Acute Code(s): B37.2 - CANDIDIASIS OF SKIN AND NAIL SNOMED Code(s): 040971204 (3) Cellulitis of groin Current Visit: No Status: Acute Code(s): L03.314 - CELLULITIS OF GROIN SNOMED Code(s): 96197814 (4) Left leg cellulitis Current Visit: No Status: Acute Code(s): L03.116 - CELLULITIS OF LEFT LOWER LIMB SNOMED Code(s): 10194483529091994 Plan: 1patient presented to hospital with sepsis in this patient who did have a hypothermia tachycardia hypotension source is likely extensive left lower extremity cellulitis in this patient who did have extensive cutaneous candidiasis of the breast and abdominal fold area likely from gram-positive skin joy gram-negative infection less likely but not at excluded 2-patient to continue with the vancomycin watching kidney function closely however switch Zosyn to cefepime to decrease risk of nephrotoxicity 3-nystatin powder to the breast and abdominal fold area twice a day We will follow on clinical condition and cultures to further adjust medication if needed Thank you for this consultation we will follow the patient along with you Dictation was produced using [employer] dictation software. please excuse any grammatical, word or spelling errors.
[2024-09-03] MEDS ORDERED: LEVOTHYROXINE IVP 100 MCG/5 ML VIAL IV SCH ×2 (09:00→14:20)
[2024-09-03] MEDS: VANCOMYCIN 1,750 MG in SODIUM CHLORIDE 0.9% 500 ML 500 ML IVPB SCH (09:41)
--- NOTE | 2024-09-03 09:46 | HP ---
HISTORY AND PHYSICAL CHIEF COMPLAINT: Change in mental status, hypotension, asthma, hypothermia. HISTORY OF PRESENT ILLNESS: This is a 74-year-old woman with a past medical history of multiple medical problems including hypertension, hyperlipidemia, hypothyroidism, living by herself. The patient is complaining of change in mental status and hypotension. The patient was taken to [facility] and was admitted for further evaluation and treatment. The patient is also hypothermic, warming blanket was given. The patient had significant excoriations and diffuse cellulitis at this time. There is no history of any fever, rigors, or chills at this time. PAST MEDICAL HISTORY: Hypertension, hyperlipidemia, hypothyroidism. T4 is normal currently. HOME MEDICATIONS: Reviewed include Mycostatin. Rest of the history and rest of the chart and as well as rest of the medications are reviewed. ALLERGIES: None. FAMILY HISTORY: History of diabetes mellitus. SOCIAL HISTORY: Previous history of smoking. REVIEW OF SYSTEMS: Fourteen-point review of systems is negative except as mentioned earlier. PHYSICAL EXAMINATION: VITAL SIGNS: Pulse is 68, blood pressure is , respirations 18, temperature 91.8. HEENT: Conjunctivae normal. NECK: No JVD. CARDIOVASCULAR: S1, S2. RESPIRATIONS: Breath sounds diminished at the bases. A few scattered rhonchi and crackles. ABDOMEN: Soft, obese. LEGS: Bilateral leg cellulitis. NERVOUS SYSTEM: Diffusely weak. SKIN: Diffuse excoriations, erythema, and infection present. LABORATORY DATA: WBC 7.8, sodium 136. ASSESSMENT: 1. Severe sepsis with hypotension, hypothermia possibly secondary to diffuse cellulitis and infection, rule out necrotizing fasciitis. 2. Morbid obesity. 3. Hypertension. 4. Hyperlipidemia. 5. Hypothyroidism. 6. Remote history of nicotine dependence. RECOMMENDATIONS AND DISCUSSION: This is a 74-year-old woman, who presented with multiple complex medical issues, we will monitor the patient closely. Continue the current medications. Continue symptomatic treatment. We will initiate IV fluids, 2 L bolus was given. I would recommend to repeat 1 more liter and central line, Levophed, pressor support, ICU transfer. Empiric antibiotics. Infectious Disease evaluation, surgical evaluation. Prognosis extremely guarded because of multiple complex medical issues. Further recommendations to follow. See orders for further details. Discussed with the patient. MMODL / IJN: [id number] /
[2024-09-03 11:47] LABS: Glucose,Whole Blood 111 mg/dL (70-110)
--- NOTE | 2024-09-03 11:48 | P.PN ---
Subjective Progress Note Date: 09/03/24 Principal diagnosis: Hypotension, and hypothermia. Pulmonary consult dated September 02, 2024. 74-year-old female seen in the emergency department, room 8. I was notified by Dr. Zhang about this patient. This patient apparently was brought in from home, because of apparent mental status changes. The patient is alert and awake. She knows where she is at. She knows the year. She knows the current president. The patient was evaluated in the ER, and found to be hypothermic, and hypotensive. The patient denies all complaints including any sort of pain shortness of breath, etc. She seems very stable, and her blood pressure when I was there, was 81/50. She apparently received 2 L of warm fluids. She apparently has a history of hyperlipidemia, hypertension, and hypothyroidism. Her medications include Eliquis, Pepcid, Synthroid, nystatin powder, Lasix, and potassium. The patient is on Eliquis, because of a previous and recent diagnosis of left lower extremity DVT. Current labs include a white count 7.8, hemoglobin hematocrit normal, and a platelet count of 195,000. Sodium 136, potassium 3.7, chlorides 105, CO2 15, anion gap 16, BUN and creatinine are 16 a nd 0.93. The patient does have an anion gap metabolic acidosis. Total protein 5.3. TSH is elevated at 5.010. Urine shows trace protein and 3+ ketones. Chest x-ray shows no acute disease. The patient's EKG shows sinus bradycardia, with a rate of 53 bpm. Progress note dated September 03, 2024. This is a 74-year-old female who was seen in the emergency department yesterday. She came in with hypotension, and hypothermia. We thought the patient either had sepsis, or myxedema coma. She did receive adequate amounts of hydrocortisone, and Synthroid. Currently, she is seen in the intensive care unit room 255. The patient is on 3 L of oxygen. She is receiving norepinephrine at 1.3 mcg/min, and lactated Ringer's at 75 cc an [address] Brain CT was negative. The patient is getting hydrocortisone 50 mg every 6 hours. She also received a large dose of Synthroid yesterday, and 50 mcg daily. Her procalcitonin level was normal at 0.26. Antibiotics will be discontinued. White count 11.5, hemoglobin 12.4, hematocrit 39.2, platelet count 216,000. Sodium 139, potassium 3.9, chlorides 110, CO2 13, anion gap 16, BUN 14, and creatinine 1. Glucose 123. Calcium 8.3. Cultures of the patient's groin, show evidence of Escherichia coli, Klebsiella oxytoca, and group B strep. Brain CT showed no acute intracranial process. Objective - Vital Signs Vital signs: Vital Signs Temp 97.9 F 09/03/24 08:00 Pulse 70 09/03/24 11:00 Resp 9 L 09/03/24 11:00 BP 93/41 09/03/24 11:00 Pulse Ox 95 09/03/24 11:00 FiO2 Intake & Output 09/02/24 09/03/24 09/03/24 18:59 06:59 18:59 Intake Total 33.367 900 609.380 Output Total 120 285 95 Balance -86.633 615 514.380 Weight 117.027 kg 130.4 kg Intake: IV 900 375 Lactated Ringers 1,000 ml 900 375 @ 75 mls/hr IV .[id number] GARY Rx#:[id number] Intake, IV Titration 33.367 234.380 Amount Norepinephrine 4 mg In 33.367 234.380 Sodium Chloride 0.9% 250 ml @ 0.03 MCG/KG/MIN 13. 376 mls/hr IV .Q19H GARY Rx#:[id number] Output: Urine 120 285 95 Uretheral (Daugherty) 120 Other: Voiding Method Indwelling Catheter Indwelling Catheter - Exam No acute distress, oriented 3. The patient is awake and alert. She denies all complaints. The patient is currently on 3 L. HEENT examination is grossly unremarkable. Mucous membranes are moist. No oral lesions. Neck supple. Full range of motion. No adenopathy thyromegaly or neck vein distention. Cardiovascular examination reveals regular rhythm rate. S1-S2 normal. No S3 or S4. No discernible murmur noted. Lungs reveal clear breath sounds. Breath sounds are equal bilaterally. No adventitious lung sounds including wheezes rhonchi or crackles. Abdomen obese. No masses. Extremities are intact. No cyanosis clubbing or edema. Skin reveals multiple areas of excoriation, under her pannus, groin, and under her breast. Neurologic examination is brief but nonfocal. - Labs CBC & Chem 7: 09/03/24 05:44 09/03/24 05:44 Labs: Abnormal Lab Results - Last 24 Hours (Table) 09/02/24 09/02/24 09/02/24 Range/Units 11:20 11:20 11:20 WBC (3.8-10.6) k/uL Neutrophils # (1.3-7.7) k/uL Lymphocytes # 0.6 L (1.0-4.8) k/uL APTT 31.7 H (22.0-30.0) sec VBG pCO2 (37-51) mmHg VBG HCO3 (24-28) mmol/L Sodium 136 L (137-145) mmol/L Chloride (98-107) mmol/L Carbon Dioxide 15 L (22-30) mmol/L Glucose 100 H (74-99) mg/dL POC Glucose (mg/dL) (70-110) mg/dL Calcium (8.4-10.2) mg/dL Total Protein 5.3 L (6.3-8.2) g/dL Albumin 2.7 L (3.5-5.0) g/dL TSH (0.465-4.680) mIU/L Free T3 pg/mL (2.30-4.20) pg/mL Urine Protein (Negative) Urine Ketones (Negative) 09/02/24 09/02/24 09/02/24 Range/Units 11:20 11:20 15:05 WBC (3.8-10.6) k/uL Neutrophils # (1.3-7.7) k/uL Lymphocytes # (1.0-4.8) k/uL APTT (22.0-30.0) sec VBG pCO2 31 L (37-51) mmHg VBG HCO3 16 L (24-28) mmol/L Sodium (137-145) mmol/L Chloride (98-107) mmol/L Carbon Dioxide (22-30) mmol/L Glucose (74-99) mg/dL POC Glucose (mg/dL) (70-110) mg/dL Calcium (8.4-10.2) mg/dL Total Protein (6.3-8.2) g/dL Albumin (3.5-5.0) g/dL TSH 5.010 H (0.465-4.680) mIU/L Free T3 pg/mL 1.20 L (2.30-4.20) pg/mL Urine Protein Trace H (Negative) Urine Ketones 3+ H (Negative) 09/02/24 09/02/24 09/02/24 Range/Units 15:48 15:49 15:56 WBC (3.8-10.6) k/uL Neutrophils # (1.3-7.7) k/uL Lymphocytes # (1.0-4.8) k/uL APTT (22.0-30.0) sec VBG pCO2 (37-51) mmHg VBG HCO3 (24-28) mmol/L Sodium (137-145) mmol/L Chloride (98-107) mmol/L Carbon Dioxide (22-30) mmol/L Glucose (74-99) mg/dL POC Glucose (mg/dL) 48 L* 52 L 153 H (70-110) mg/dL Calcium (8.4-10.2) mg/dL Total Protein (6.3-8.2) g/dL Albumin (3.5-5.0) g/dL TSH (0.465-4.680) mIU/L Free T3 pg/mL (2.30-4.20) pg/mL Urine Protein (Negative) Urine Ketones (Negative) 09/03/24 09/03/24 09/03/24 Range/Units 05:17 05:44 05:44 WBC 11.5 H (3.8-10.6) k/uL Neutrophils # 10.2 H (1.3-7.7) k/uL Lymphocytes # 0.7 L (1.0-4.8) k/uL APTT (22.0-30.0) sec VBG pCO2 (37-51) mmHg VBG HCO3 (24-28) mmol/L Sodium (137-145) mmol/L Chloride 110 H (98-107) mmol/L Carbon Dioxide 13 L (22-30) mmol/L Glucose 123 H (74-99) mg/dL POC Glucose (mg/dL) 113 H (70-110) mg/dL Calcium 8.3 L (8.4-10.2) mg/dL Total Protein (6.3-8.2) g/dL Albumin (3.5-5.0) g/dL TSH (0.465-4.680) mIU/L Free T3 pg/mL (2.30-4.20) pg/mL Urine Protein (Negative) Urine Ketones (Negative) Microbiology - Last 24 Hours (Table) 09/02/24 15:54 Gram Stain - Preliminary Groin Wound Culture - Preliminary Escherichia coli Klebsiella oxytoca Strep agalactiae - (group b) Assessment and Plan Assessment: Hypotension and hypothermia, of unclear etiology, rule out myxedema coma. Hypotension, possibly related to underlying sepsis, although the patient's procalcitonin level was normal. History of hypothyroidism, with elevated TSH. Recent diagnosis of left lower extremity DVT. History of hypertension. History of hyperlipidemia. Morbid obesity. Plan: Plan dated September 02, 2024. The patient apparently was admitted with a diagnosis of altered mental status although she appears to be awake and alert in the emergency department. She denies all complaints. The patient was found to be hypothermic, and hypotensive. She did receive 2 L of warmed fluids. Her TSH is a bit elevated. She is on Synthroid at home. She does live at home, and does have help. The patient's blood pressure was 81/50. She did receive hydrocortisone 100 mg. The patient will get a dose of Synthroid, just in case she is suffering from myxedema coma. We will check a procalcitonin level. I told the ER physician to hold off with norepinephrine. In addition, the patient should have a head CT. Additional recommendations and suggestions are forthcoming. Labs, x-rays, and all medications are reviewed. Dictation was produced using [employer] software. Please excuse any grammatical, word or spelling errors. Plan dated September 03, 2024. The patient is in the intensive care unit, room 255. The patient is currently on a small dose of norepinephrine at 1.3 mcg/min. That can probably be weaned off. The patient is receiving hydrocortisone 50 mg every 6 hours IV push, and Synthroid 50 mcg a day. Patient's procalcitonin level was 0.26. Labs, x-rays, and all medications are reviewed. We will continue to follow make recommendations along the way. The CT scan of the brain was negative. Dictation was produced using [employer] software. Please excuse any grammatical, word or spelling errors. Time with Patient: Greater than 30
--- NOTE | 2024-09-03 14:50 | P.PN ---
Subjective Progress Note Date: 09/03/24 Patient is a 74-year-old female with a past medical history significant for hypertension hyperlipidemia hypothyroidism, the patient was brought into the hospital for evaluation of mental status changes patient was significantly hypothermic hypotensive on presentation to the hospital noted to have extensive cutaneous kidney disease and left lower extremity cellulitis requiring admission to ICU. On today's evaluation that is 09/03/2024,the patient did have a low-grade fever 100.4 at midnight the patient is afebrile since then, the patient is on low-dose pressor support patient is breathing comfortably and is currently on 3 L nasal cannula oxygen denies any chest pain or cough no abdominal pain or diarrhea. The patient white count is 11.5 creatinine is 1.0 Objective - Vital Signs Vital signs: Vital Signs Temp 96.1 F L 09/03/24 12:00 Pulse 48 L 09/03/24 14:00 Resp 10 L 09/03/24 14:00 BP 96/45 09/03/24 14:00 Pulse Ox 94 L 09/03/24 14:00 FiO2 Intake & Output 09/02/24 09/03/24 09/03/24 18:59 06:59 18:59 Intake Total 33.367 900 777.438 Output Total 120 285 135 Balance -86.633 615 642.438 Weight 117.027 kg 130.4 kg Intake: IV 900 525 Lactated Ringers 1,000 ml 900 525 @ 75 mls/hr IV .[id number] GARY Rx#:[id number] Intake, IV Titration 33.367 252.438 Amount Norepinephrine 4 mg In 33.367 252.438 Sodium Chloride 0.9% 250 ml @ 0.03 MCG/KG/MIN 13. 376 mls/hr IV .Q19H GARY Rx#:[id number] Output: Urine 120 285 135 Uretheral (Daugherty) 120 Other: Voiding Method Indwelling Catheter Indwelling Catheter - Exam GENERAL DESCRIPTION: An elderly male lying in bed in no distress RESPIRATORY SYSTEM: Unlabored breathing , decreased breath sounds at bases HEART: S1 S2 regular rate and rhythm , ABDOMEN: Soft , no tenderness, did have extensive groin area cutaneous candidiasis EXTREMITIES: Left lower extremity swelling redness no open wound or drainage - Labs CBC & Chem 7: 09/03/24 05:44 09/03/24 05:44 Labs: Abnormal Lab Results - Last 24 Hours (Table) 09/02/24 09/02/24 09/02/24 Range/Units 11:20 15:05 15:48 WBC (3.8-10.6) k/uL Neutrophils # (1.3-7.7) k/uL Lymphocytes # (1.0-4.8) k/uL VBG pCO2 31 L (37-51) mmHg VBG HCO3 16 L (24-28) mmol/L Chloride (98-107) mmol/L Carbon Dioxide (22-30) mmol/L Glucose (74-99) mg/dL POC Glucose (mg/dL) 48 L* (70-110) mg/dL Calcium (8.4-10.2) mg/dL TSH 5.010 H (0.465-4.680) mIU/L Free T3 pg/mL 1.20 L (2.30-4.20) pg/mL 09/02/24 09/02/24 09/03/24 Range/Units 15:49 15:56 05:17 WBC (3.8-10.6) k/uL Neutrophils # (1.3-7.7) k/uL Lymphocytes # (1.0-4.8) k/uL VBG pCO2 (37-51) mmHg VBG HCO3 (24-28) mmol/L Chloride (98-107) mmol/L Carbon Dioxide (22-30) mmol/L Glucose (74-99) mg/dL POC Glucose (mg/dL) 52 L 153 H 113 H (70-110) mg/dL Calcium (8.4-10.2) mg/dL TSH (0.465-4.680) mIU/L Free T3 pg/mL (2.30-4.20) pg/mL 09/03/24 09/03/24 09/03/24 Range/Units 05:44 05:44 11:46 WBC 11.5 H (3.8-10.6) k/uL Neutrophils # 10.2 H (1.3-7.7) k/uL Lymphocytes # 0.7 L (1.0-4.8) k/uL VBG pCO2 (37-51) mmHg VBG HCO3 (24-28) mmol/L Chloride 110 H (98-107) mmol/L Carbon Dioxide 13 L (22-30) mmol/L Glucose 123 H (74-99) mg/dL POC Glucose (mg/dL) 111 H (70-110) mg/dL Calcium 8.3 L (8.4-10.2) mg/dL TSH (0.465-4.680) mIU/L Free T3 pg/mL (2.30-4.20) pg/mL Microbiology - Last 24 Hours (Table) 09/02/24 15:54 Gram Stain - Preliminary Groin Wound Culture - Preliminary Escherichia coli Klebsiella oxytoca Strep agalactiae - (group b) Assessment and Plan (1) Sepsis Current Visit: Yes Status: Acute Code(s): A41.9 - SEPSIS, UNSPECIFIED ORGANISM SNOMED Code(s): 32892777 (2) Candidal intertrigo Current Visit: No Status: Acute Code(s): B37.2 - CANDIDIASIS OF SKIN AND NAIL SNOMED Code(s): 886188748 (3) Cellulitis of groin Current Visit: No Status: Acute Code(s): L03.314 - CELLULITIS OF GROIN SNOMED Code(s): 67062435 (4) Left leg cellulitis Current Visit: No Status: Acute Code(s): L03.116 - CELLULITIS OF LEFT LOWER LIMB SNOMED Code(s): 99995661584115898 Plan: 1patient presented to hospital with sepsis in this patient who did have a hypothermia tachycardia hypotension source is likely extensive left lower extremity cellulitis in this patient who did have extensive cutaneous candidia sis of the breast and abdominal fold area likely from gram-positive skin joy gram-negative infection less likely but not at excluded 2--nystatin powder to the breast and abdominal fold area twice a day 3patient vancomycin and cefepime were discontinued by antichecking iron worker as the patient did have normal procalcitonin however patient source of sepsis is likely left lower extremity cellulitis and not pneumonia cefepime will be restarted Dictation was produced using [employer] dictation software. please excuse any grammatical, word or spelling errors. Time with Patient: Less than 30
--- NOTE | 2024-09-03 15:05 | P.PN ---
Subjective Progress Note Date: 09/03/24 74-year-old female with a past medical history significant for hypertension hyperlipidemia hypothyroidism, the patient was brought into the hospital for evaluation of mental status changes patient mention he tried to stand up and felt so weak that she fell backwards however the patient denies h itting her head has been complaining of generalized weakness and no energy patient denies having any headache or URI symptoms the patient was aware that she was at [facility] and no nausea vomiting abdominal pain or any diarrhea patient on presentation to the hospital was noticed to be hypothermic with a temperature of 88.4 F patient was tachycardic and mildly hypotensive also mild hypoxia but no need for supplemental oxygen patient did have a white count of 7.8 creatinine 0.93 electrolytes are normal liver enzymes are normal urine has been negative patient did have a chest x-ray no definite acute cardiopulmonary disease process patient was started on vancomycin and Zosyn infectious disease was consulted concerning for sepsis patient did have a extensive fungal dermatitis to the groin and breast fold area with the patient has for a while also noted to have increasing swelling redness of left lower extremity but no open wound or any drainage Objective - Vital Signs Vital signs: Vital Signs Temp 97.9 F 09/03/24 08:00 Pulse 70 09/03/24 09:00 Resp 17 09/03/24 09:00 BP 112/56 09/03/24 09:00 Pulse Ox 95 09/03/24 09:00 FiO2 Intake & Output 09/02/24 09/03/24 09/03/24 18:59 06:59 18:59 Intake Total 33.367 900 459.380 Output Total 120 285 55 Balance -86.633 615 404.380 Weight 117.027 kg 130.4 kg Intake: IV 900 225 Lactated Ringers 1,000 ml 900 225 @ 75 mls/hr IV .[id number] GARY Rx#:[id number] Intake, IV Titration 33.367 234.380 Amount Norepinephrine 4 mg In 33.367 234.380 Sodium Chloride 0.9% 250 ml @ 0.03 MCG/KG/MIN 13. 376 mls/hr IV .Q19H GARY Rx#:[id number] Output: Urine 120 285 55 Uretheral ([place]herty) 120 Other: Voiding Method Indwelling Catheter - Exam No acute distress, oriented 3. The patient is awake and alert. She denies all complaints. The patient is currently on 3 L. HEENT examination is grossly unremarkable. Mucous membranes are moist. No oral lesions. Neck supple. Full range of motion. No adenopathy thyromegaly or neck vein distention. Cardiovascular examination reveals regular rhythm rate. S1-S2 normal. No S3 or S4. No discernible murmur noted. Lungs reveal clear breath sounds. Breath sounds are equal bilaterally. No adventitious lung sounds including wheezes rhonchi or crackles.Abdomen obese. No masses. Extremities are intact. No cyanosis clubbing or edema. Skin reveals multiple areas of excoriation, under her pannus, groin, and under her breast. Neurologic examination is brief but nonfocal. - Labs CBC & Chem 7: 09/03/24 05:44 09/03/24 05:44 Labs: Abnormal Lab Results - Last 24 Hours (Table) 09/02/24 09/02/24 09/02/24 Range/Units 11:20 11:20 11:20 WBC (3.8-10.6) k/uL Neutrophils # (1.3-7.7) k/uL Lymphocytes # 0.6 L (1.0-4.8) k/uL APTT 31.7 H (22.0-30.0) sec VBG pCO2 (37-51) mmHg VBG HCO3 (24-28) mmol/L Sodium 136 L (137-145) mmol/L Chloride (98-107) mmol/L Carbon Dioxide 15 L (22-30) mmol/L Glucose 100 H (74-99) mg/dL POC Glucose (mg/dL) (70-110) mg/dL Calcium (8.4-10.2) mg/dL Total Protein 5.3 L (6.3-8.2) g/dL Albumin 2.7 L (3.5-5.0) g/dL TSH (0.465-4.680) mIU/L Free T3 pg/mL (2.30-4.20) pg/mL Urine Protein (Negative) Urine Ketones (Negative) 09/02/24 09/02/24 09/02/24 Range/Units 11:20 11:20 15:05 WBC (3.8-10.6) k/uL Neutrophils # (1.3-7.7) k/uL Lymphocytes # (1.0-4.8) k/uL APTT (22.0-30.0) sec VBG pCO2 31 L (37-51) mmHg VBG HCO3 16 L (24-28) mmol/L Sodium (137-145) mmol/L Chloride (98-107) mmol/L Carbon Dioxide (22-30) mmol/L Glucose (74-99) mg/dL POC Glucose (mg/dL) (70-110) mg/dL Calcium (8.4-10.2) mg/dL Total Protein (6.3-8.2) g/dL Albumin (3.5-5.0) g/dL TSH 5.010 H (0.465-4.680) mIU/L Free T3 pg/mL 1.20 L (2.30-4.20) pg/mL Urine Protein Trace H (Negative) Urine Ketones 3+ H (Negative) 09/02/24 09/02/24 09/02/24 Range/Units 15:48 15:49 15:56 WBC (3.8-10.6) k/uL Neutrophils # (1.3-7.7) k/uL Lymphocytes # (1.0-4.8) k/uL APTT (22.0-30.0) sec VBG pCO2 (37-51) mmHg VBG HCO3 (24-28) mmol/L Sodium (137-145) mmol/L Chloride (98-107) mmol/L Carbon Dioxide (22-30) mmol/L Glucose (74-99) mg/dL POC Glucose (mg/dL) 48 L* 52 L 153 H (70-110) mg/dL Calcium (8.4-10.2) mg/dL Total Protein (6.3-8.2) g/dL Albumin (3.5-5.0) g/dL TSH (0.465-4.680) mIU/L Free T3 pg/mL (2.30-4.20) pg/mL Urine Protein (Negative) Urine Ketones (Negative) 09/03/24 09/03/24 09/03/24 Range/Units 05:17 05:44 05:44 WBC 11.5 H (3.8-10.6) k/uL Neutrophils # 10.2 H (1.3-7.7) k/uL Lymphocytes # 0.7 L (1.0-4.8) k/uL APTT (22.0-30.0) sec VBG pCO2 (37-51) mmHg VBG HCO3 (24-28) mmol/L Sodium (137-145) mmol/L Chloride 110 H (98-107) mmol/L Carbon Dioxide 13 L (22-30) mmol/L Glucose 123 H (74-99) mg/dL POC Glucose (mg/dL) 113 H (70-110) mg/dL Calcium 8.3 L (8.4-10.2) mg/dL Total Protein (6.3-8.2) g/dL Albumin (3.5-5.0) g/dL TSH (0.465-4.680) mIU/L Free T3 pg/mL (2.30-4.20) pg/mL Urine Protein (Negative) Urine Ketones (Negative) Microbiology - Last 24 Hours (Table) 09/02/24 15:54 Gram Stain - Preliminary Groin Wound Culture - Preliminary Escherichia coli Klebsiella oxytoca Strep agalactiae - (group b) Assessment and Plan Assessment: Hypotension and hypothermia, of unclear etiology, rule out myxedema coma versus sepsis related to extensive left lower extremity cellulitis with extensive cutaneous candidiasis of the breast and abdominal folds -ID on board and recommending nystatin powder at the breast and abdominal folds twice daily -ID recommending to continue with IV cefepime -We will monitor CBC, CRP and procalcitonin Hypotension, possibly related to underlying sepsis, related to extensive left lower extremity cellulitis/candidiasis -Local treatment with nystatin powder and IV cefepime for cellulitis -Blood cultures are obtained and pending History of hypothyroidism, with elevated TSH; TSH elevated at 5.010; Free T4 within normal limits at 1.18 -Patient received IV levothyroxine 500 mcg x 1 in ED; currently on levothyroxine 50 mcg daily Recent diagnosis of left lower extremity DVT; remains on home dose of Eliquis 5 mg twice daily History of hypertension; patient takes Lasix 40 mg daily which have been placed on hold given hypotension History of hyperlipidemia; currently not on any statin therapy DVT prophylaxis; SCDs/Eliquis CODE STATUS; full code
--- NOTE | 2024-09-03 15:21 | P.GSCN ---
History of Present Illness Consult date: 09/03/24 History of present illness: CHIEF COMPLAINT: Altered mental status HISTORY OF PRESENT ILLNESS: This is a 74-year-old female who presented with altered mental status. She is currently in the ICU due to hypotension and is on a small dose of Levophed. Patient with a significant yeast infection underneath the breasts and in the groin and abdominal folds. Patient followed by infectious disease. She is receiving nystatin powder to these areas and is on antibiotics for cellulitis lower extremities. Surgical service consulted for evaluation of cellulitis and fasciitis. Patient's hypothermia is improved. Patient seen and examined with Dr. Blackwell PAST MEDICAL HISTORY: Hyperlipidemia, hypertension, thyroid disorder PAST SURGICAL HISTORY: See below MEDICATIONS: See below ALLERGIES: See below SOCIAL HISTORY: No illicit drug use. REVIEW OF SYSTEMS: CONSTITUTIONAL: Denies fever or chills. HEENT: Denies blurred vision, vision changes, or eye pain. Denies hemoptysis CARDIOVASCULAR: Denies chest pain or pressure. RESPIRATORY: No shortness of breath. GASTROINTESTINAL: See HPI for pertinent findings HEMATOLOGIC: Denies bleeding disorders. GENITOURINARY: Denies any blood in urine or increased urinary frequency. SKIN: Denies pruitis. Denies rash. PHYSICAL EXAM: VITAL SIGNS: Reviewed GENERAL: Well-developed in no acute distress. HEENT: No sclera icterus. Extraocular movements grossly intact. Moist buccal mucosa. Head is atraumatic, normocephalic. No nasal drainage. BREAST: Significant candidiasis skin infection under the breasts ABDOMEN: Soft. Obese. Nondistended. Patient has extensive candidiasis infection under the abdominal skin folds and in the groin NEUROLOGIC: Alert and oriented. Cranial nerves II through XII grossly intact. LABORATORY DATA: WBC is up from 7.8-11.5 Hgb 12.4 platelets 216 Creatinine 1.0 Lactic acid 1.0 IMAGING: ASSESSMENT: 1. Candidal intertrigo. Extensive cutaneous candidiasis of the breast, a bdominal fold and groin area PLAN: -No surgical intervention planned -Continue antifungals with nystatin powder -Continue ID recommendations Physician Nurse note has been reviewed by physician. Signing provider agrees with the documented findings, assessment, and plan of care. Past Medical History Past Medical History: Hyperlipidemia, Hypertension, Thyroid Disorder History of Any Multi-Drug Resistant Organisms: None Reported Past Surgical History: No Surgical Hx Reported Additional Past Surgical History / Comment(s): Left ankle surgery Past Anesthesia/Blood Transfusion Reactions: No Reported Reaction Past Psychological History: No Psychological Hx Reported Smoking Status: Former smoker Past Alcohol Use History: None Reported Past Drug Use History: None Reported - Past Family History Mother Family Medical History: Diabetes Mellitus Medications and Allergies Home Medications Medication Instructions Recorded Confirmed Type Apixaban [Eliquis] 5 mg PO BID 06/10/24 09/02/24 History Furosemide [Lasix] 40 mg PO DAILY tab 06/16/24 09/02/24 Rx Potassium Chloride ER [K-Dur 20] 20 meq PO DAILY #30 tab 06/16/24 09/02/24 Rx Famotidine [Pepcid] 20 mg PO HS 09/02/24 09/02/24 History Levothyroxine Sodium [Synthroid] 50 mcg PO DAILY 09/02/24 09/02/24 History Nystatin 100,000 Unit/gm Powd 1 applic TOPICAL TID 09/02/24 09/02/24 History [Mycostatin Powder] Nystatin 100,000Unit/gm Cream 1 applic TOPICAL BID 09/02/24 09/02/24 History [Mycostatin Cream] Allergies Allergy/AdvReac Type Severity Reaction Status Date / Time No Known Allergies Allergy Verified 09/02/24 12:07 Surgical - Exam Vital Signs Pulse Resp BP Pulse Ox 59 L 22 95/58 95 09/02/24 09:52 09/02/24 09:52 09/02/24 09:52 09/02/24 09:52 Results - Labs 09/03/24 05:44 09/03/24 05:44 Abnormal Lab Results - Last 24 Hours (Table) 09/02/24 09/02/24 09/02/24 Range/Units 11:20 11:20 11:20 WBC (3.8-10.6) k/uL Neutrophils # (1.3-7.7) k/uL Lymphocytes # 0.6 L (1.0-4.8) k/uL APTT 31.7 H (22.0-30.0) sec VBG pCO2 (37-51) mmHg VBG HCO3 (24-28) mmol/L Sodium 136 L (137-145) mmol/L Chloride (98-107) mmol/L Carbon Dioxide 15 L (22-30) mmol/L Glucose 100 H (74-99) mg/dL POC Glucose (mg/dL) (70-110) mg/dL Calcium (8.4-10.2) mg/dL Total Protein 5.3 L (6.3-8.2) g/dL Albumin 2.7 L (3.5-5.0) g/dL TSH (0.465-4.680) mIU/L Free T3 pg/mL (2.30-4.20) pg/mL Urine Protein (Negative) Urine Ketones (Negative) 09/02/24 09/02/24 09/02/24 Range/Units 11:20 11:20 15:05 WBC (3.8-10.6) k/uL Neutrophils # (1.3-7.7) k/uL Lymphocytes # (1.0-4.8) k/uL APTT (22.0-30.0) sec VBG pCO2 31 L (37-51) mmHg VBG HCO3 16 L (24-28) mmol/L Sodium (137-145) mmol/L Chloride (98-107) mmol/L Carbon Dioxide (22-30) mmol/L Glucose (74-99) mg/dL POC Glucose (mg/dL) (70-110) mg/dL Calcium (8.4-10.2) mg/dL Total Protein (6.3-8.2) g/dL Albumin (3.5-5.0) g/dL TSH 5.010 H (0.465-4.680) mIU/L Free T3 pg/mL 1.20 L (2.30-4.20) pg/mL Urine Protein Trace H (Negative) Urine Ketones 3+ H (Negative) 09/02/24 09/02/24 09/02/24 Range/Units 15:48 15:49 15:56 WBC (3.8-10.6) k/uL Neutrophils # (1.3-7.7) k/uL Lymphocytes # (1.0-4.8) k/uL APTT (22.0-30.0) sec VBG pCO2 (37-51) mmHg VBG HCO3 (24-28) mmol/L Sodium (137-145) mmol/L Chloride (98-107) mmol/L Carbon Dioxide (22-30) mmol/L Glucose (74-99) mg/dL POC Glucose (mg/dL) 48 L* 52 L 153 H (70-110) mg/dL Calcium (8.4-10.2) mg/dL Total Protein (6.3-8.2) g/dL Albumin (3.5-5.0) g/dL TSH (0.465-4.680) mIU/L Free T3 pg/mL (2.30-4.20) pg/mL Urine Protein (Negative) Urine Ketones (Negative) 09/03/24 09/03/24 09/03/24 Range/Units 05:17 05:44 05:44 WBC 11.5 H (3.8-10.6) k/uL Neutrophils # 10.2 H (1.3-7.7) k/uL Lymphocytes # 0.7 L (1.0-4.8) k/uL APTT (22.0-30.0) sec VBG pCO2 (37-51) mmHg VBG HCO3 (24-28) mmol/L Sodium (137-145) mmol/L Chloride 110 H (98-107) mmol/L Carbon Dioxide 13 L (22-30) mmol/L Glucose 123 H (74-99) mg/dL POC Glucose (mg/dL) 113 H (70-110) mg/dL Calcium 8.3 L (8.4-10.2) mg/dL Total Protein (6.3-8.2) g/dL Albumin (3.5-5.0) g/dL TSH (0.465-4.680) mIU/L Free T3 pg/mL (2.30-4.20) pg/mL Urine Protein (Negative) Urine Ketones (Negative) Microbiology - Last 24 Hours (Table) 09/02/24 15:54 Gram Stain - Preliminary Groin Diabetes panel 09/02/24 09/03/24 Range/Units 11:20 05:44 Sodium 136 L 139 (137-145) mmol/L Potassium 3.7 3.9 (3.5-5.1) mmol/L Chloride 105 110 H (98-107) mmol/L Carbon Dioxide 15 L 13 L (22-30) mmol/L BUN 16 14 (7-17) mg/dL Creatinine 0.93 1.00 (0.52-1.04) mg/dL Glucose 100 H 123 H (74-99) mg/dL Calcium 8.7 8.3 L (8.4-10.2) mg/dL AST 14 (14-36) U/L ALT 9 (4-34) U/L Alkaline Phosphatase 97 (38-126) U/L Total Protein 5.3 L (6.3-8.2) g/dL Albumin 2.7 L (3.5-5.0) g/dL Thyroid panel 09/02/24 Range/Units 11:20 TSH 5.010 H (0.465-4.680) mIU/L Calcium panel 09/02/24 09/03/24 Range/Units 11: 05:44 Calcium 8.7 8.3 L (8.4-10.2) mg/dL Albumin 2.7 L (3.5-5.0) g/dL Pituitary panel 09/02/24 09/02/24 09/03/24 Range/Units 11: 11:20 05:44 Sodium 136 L 139 (137-145) mmol/L Potassium 3.7 3.9 (3.5-5.1) mmol/L Chloride 105 110 H (98-107) mmol/L Carbon Dioxide 15 L 13 L (22-30) mmol/L BUN 16 14 (7-17) mg/dL Creatinine 0.93 1.00 (0.52-1.04) mg/dL Glucose 100 H 123 H (74-99) mg/dL Calcium 8.7 8.3 L (8.4-10.2) mg/dL TSH 5.010 H (0.465-4.680) mIU/L Adrenal panel 09/02/24 09/03/24 Range/Units 11:20 05:44 Sodium 136 L 139 (137-145) mmol/L Potassium 3.7 3.9 (3.5-5.1) mmol/L Chloride 105 110 H (98-107) mmol/L Carbon Dioxide 15 L 13 L (22-30) mmol/L BUN 16 14 (7-17) mg/dL Creatinine 0.93 1.00 (0.52-1.04) mg/dL Glucose 100 H 123 H (74-99) mg/dL Calcium 8.7 8.3 L (8.4-10.2) mg/dL Total Bilirubin 0.6 (0.2-1.3) mg/dL AST 14 (14-36) U/L ALT 9 (4-34) U/L Alkaline Phosphatase 97 (38-126) U/L Total Protein 5.3 L (6.3-8.2) g/dL Albumin 2.7 L (3.5-5.0) g/dL
[2024-09-03] MEDS: CEFEPIME 2 GM in SODIUM CHLORIDE 0.9% 100 ML IVPB SCH (15:58)
[2024-09-03] MEDS ORDERED: CEFEPIME 2 GM in SODIUM CHLORIDE 0.9% 100 ML IVPB SCH (21:00)
[2024-09-04 05:08] LABS: HCT 37.9 % (34.0-46.0); HGB 12.1 gm/dL (11.4-16.0); Hypochromasia Slight; MCH 30.3 pg (25.0-35.0); MCV 94.8 fL (80.0-100.0); Mean Platelet Volume 8.3; Platelet Count 167 k/uL (150-450); RBC 3.99 m/uL (3.80-5.40); RDW 14.5 % (11.5-15.5); WBC 10.2 k/uL (3.8-10.6)
[2024-09-04 05:22] LABS: African American GFR (CKD) 67 (>60 ml/min/1.73 sqM); Anion Gap 9 mmol/L; Blood Urea Nitrogen 16 mg/dL (7-17); Calcium 8.4 mg/dL (8.4-10.2); Carbon Dioxide 18 mmol/L (22-30); Chloride 111 mmol/L (98-107); Glucose 156 mg/dL (74-99); Non-African American GFR(CKD) 58 (>60 ml/min/1.73 sqM); Potassium 3.7 mmol/L (3.5-5.1); Sodium 138 mmol/L (137-145)
[2024-09-04] MEDS ORDERED: Potassium Replacement Protocol 1 EACH MISC MISCELLANE PRN (05:45)
[2024-09-04] MEDS: POTASSIUM CHLORIDE ER 20 MEQ TAB.ER PO SCH (05:55)
--- NOTE | 2024-09-04 10:29 | P.PN ---
Subjective Progress Note Date: 09/04/24 Principal diagnosis: Hypotension, and hypothermia. Pulmonary consult dated September 02, 2024. 74-year-old female seen in the emergency department, room 8. I was notified by Dr. Zhang about this patient. This patient apparently was brought in from home, because of apparent mental status changes. The patient is alert and awake. She knows where she is at. She knows the year. She knows the current president. The patient was evaluated in the ER, and found to be hypothermic, and hypotensive. The patient denies all complaints including any sort of pain shortness of breath, etc. She seems very stable, and her blood pressure when I was there, was 81/50. She apparently received 2 L of warm fluids. She apparently has a history of hyperlipidemia, hypertension, and hypothyroidism. Her medications include Eliquis, Pepcid, Synthroid, nystatin powder, Lasix, and potassium. The patient is on Eliquis, because of a previous and recent diagnosis of left lower extremity DVT. Current labs include a white count 7.8, hemoglobin hematocrit normal, and a platelet count of 195,000. Sodium 136, potassium 3.7, chlorides 105, CO2 15, anion gap 16, BUN and creatinine are 16 a nd 0.93. The patient does have an anion gap metabolic acidosis. Total protein 5.3. TSH is elevated at 5.010. Urine shows trace protein and 3+ ketones. Chest x-ray shows no acute disease. The patient's EKG shows sinus bradycardia, with a rate of 53 bpm. Progress note dated September 03, 2024. This is a 74-year-old female who was seen in the emergency department yesterday. She came in with hypotension, and hypothermia. We thought the patient either had sepsis, or myxedema coma. She did receive adequate amounts of hydrocortisone, and Synthroid. Currently, she is seen in the intensive care unit room 255. The patient is on 3 L of oxygen. She is receiving norepinephrine at 1.3 mcg/min, and lactated Ringer's at [address] was negative. The patient is getting hydrocortisone 50 mg every 6 hours. She also received a large dose of Synthroid yesterday, and 50 mcg daily. Her procalcitonin level was normal at 0.26. Antibiotics will be discontinued. White count 11.5, hemoglobin 12.4, hematocrit 39.2, platelet count 216,000. Sodium 139, potassium 3.9, chlorides 110, CO2 13, anion gap 16, BUN 14, and creatinine 1. Glucose 123. Calcium 8.3. Cultures of the patient's groin, show evidence of Escherichia coli, Klebsiella oxytoca, and group B strep. Brain CT showed no acute intracranial process. Progress note dated September 04, 2024. 74-year-old female seen today in room 255. The patient is on 3 L of oxygen. She is getting lactated Ringer's at 75 cc an hour. She is an awake and alert, without any distress. The patient continues on cefepime as per infectious diseases. The patient is stable to be moved to the general medical floor. She has no specific complaints. Current laboratory data includes a white count of 10.2, hemoglobin 12.1, hematocrit 37.9, and a normal platelet count. Sodium 138, potassium 3.9, chlorides 111, CO2 18, anion gap normal, BUN 16, creatinine 0.97. Glucose 156. Calcium 8.4. Objective - Vital Signs Vital signs: Vital Signs Temp 97.1 F L 09/04/24 04:00 Pulse 63 09/04/24 09:00 Resp 11 L 09/04/24 09:00 BP 126/71 09/04/24 09:00 Pulse Ox 97 09/04/24 09:00 FiO2 Intake & Output 09/03/24 09/04/24 09/04/24 18:59 06:59 18:59 Intake Total 7083.986 0334.545 833 Output Total 225 225 65 Balance 964.741 794.545 768 Weight 133.4 kg Intake: IV 900 900 225 Lactated Ringers 1,000 ml 900 900 225 @ 75 mls/hr IV .[id number] GARY Rx#:[id number] Intake, IV Titration 289.741 119.545 Amount Cefepime 2 gm In Sodium 100 Chloride 0.9% 100 ml @ 25 mls/hr IVPB Q12H GARY Rx# :[id number] Norepinephrine 4 mg In 289.741 19.545 Sodium Chloride 0.9% 250 ml @ 0.03 MCG/KG/MIN 13. 376 mls/hr IV .Q19H GARY Rx#:[id number] Oral 608 Output: Urine 225 225 65 Other: Voiding Method Indwelling Catheter Indwelling Catheter Indwelling Catheter - Exam No acute distress, oriented 3. The patient is awake and alert. She denies all complaints. The patient is currently on 3 L. HEENT examination is grossly unremarkable. Mucous membranes are moist. No oral lesions. Neck supple. Full range of motion. No adenopathy thyromegaly or neck vein distention. Cardiovascular examination reveals regular rhythm rate. S1-S2 normal. No S3 or S4. No discernible murmur noted. Lungs reveal clear breath sounds. Breath sounds are equal bilaterally. No adventitious lung sounds including wheezes rhonchi or crackles. Abdomen obese. No masses. Extremities are intact. No cyanosis clubbing or edema. Skin reveals multiple areas of excoriation, under her pannus, groin, and under her breast. Neurologic examination is brief but nonfocal. - Labs CBC & Chem 7: 09/04/24 04:35 09/04/24 08:53 Labs: Abnormal Lab Results - Last 24 Hours (Table) 09/03/24 09/04/24 Range/Units 11:46 04:35 Chloride 111 H (98-107) mmol/L Carbon Dioxide 18 L (22-30) mmol/L Glucose 156 H (74-99) mg/dL POC Glucose (mg/dL) 111 H (70-110) mg/dL Microbiology - Last 24 Hours (Table) 09/02/24 15:54 Gram Stain - Final Groin Wound Culture - Final Escherichia coli Klebsiella oxytoca Strep agalactiae - (group b) 09/02/24 11:20 Blood Culture - Preliminary Blood Assessment and Plan Assessment: Hypotension and hypothermia, of unclear etiology, rule out myxedema coma. Hypotension, possibly related to underlying sepsis, although the patient's procalcitonin level was normal. History of hypothyroidism, with elevated TSH. Recent diagnosis of left lower extremity DVT. History of hypertension. History of hyperlipidemia. Morbid obesity. Plan: Plan dated September 02, 2024. The patient apparently was admitted with a diagnosis of altered mental status although she appears to be awake and alert in the emergency department. She denies all complaints. The patient was found to be hypothermic, and hypotensive. She did receive 2 L of warmed fluids. Her TSH is a bit elevated. She is on Synthroid at home. She does live at home, and does have help. The patient's blood pressure was 81/50. She did receive hydrocortisone 100 mg. The patient will get a dose of Synthroid, just in case she is suffering from myxedema coma. We will check a procalcitonin level. I told the ER physician to hold off with norepinephrine. In addition, the patient should have a head CT. Additional recommendations and suggestions are forthcoming. Labs, x-rays, and all medications are reviewed. Dictation was produced using [employer]ikloud software. Please excuse any grammatical, word or spelling errors. Plan dated September 03, 2024. The patient is in the intensive care unit, room 255. The patient is currently on a small dose of norepinephrine at 1.3 mcg/min. That can probably be weaned off. The patient is receiving hydrocortisone 50 mg every 6 hours IV push, and Synthroid 50 mcg a day. Patient's procalcitonin level was 0.26. Labs, x-rays, and all medications are reviewed. We will continue to follow make recommendations along the way. The CT scan of the brain was negative. Dictation was produced using [employer] software. Please excuse any grammatical, word or spelling errors. Plan dated September 04, 2024. The patient appears to be doing relatively well. She is awake and alert. No distress. She is on 3 L. She is getting lactated Ringer's at 75 cc an hour. She is on cefepime as per infectious diseases. Labs, x-rays, medications are reviewed. The patient appears to be stable and can be transferred to the general medical floor without telemetry. Labs, x-rays, and all medications are reviewed. Prognosis is guarded. Dictation was produced using [employer] software. Please excuse any grammatical, word or spelling errors. Time with Patient: Less than 30
--- NOTE | 2024-09-04 10:45 | P.PN ---
Subjective Progress Note Date: 09/04/24 Principal diagnosis: Cellulitis 74-year-old female remains in the ICU. Denies pain. No trouble breathing. She is afebrile. No pressors. Plans for transfer out of the ICU. Objective - Vital Signs Vital signs: Vital Signs Temp 97.1 F L 09/04/24 04:00 Pulse 63 09/04/24 09:00 Resp 11 L 09/04/24 09:00 BP 126/71 09/04/24 09:00 Pulse Ox 97 09/04/24 09:00 FiO2 Intake & Output 09/03/24 09/04/24 09/04/24 18:59 06:59 18:59 Intake Total 9413.125 7508.545 833 Output Total 225 225 65 Balance 964.741 794.545 768 Weight 133.4 kg Intake: IV 900 900 225 Lactated Ringers 1,000 ml 900 900 225 @ 75 mls/hr IV .[id number] [facility] Rx#:[id number] Intake, IV Titration 289.741 119.545 Amount Cefepime 2 gm In Sodium 100 Chloride 0.9% 100 ml @ 25 mls/hr IVPB Q12H [facility] Rx# :[id number] Norepinephrine 4 mg In 289.741 19.545 Sodium Chloride 0.9% 250 ml @ 0.03 MCG/KG/MIN 13. 376 mls/hr IV .Q19H [facility] Rx#:[id number] Oral 608 Output: Urine 225 225 65 Other: Voiding Method Indwelling Catheter Indwelling Catheter Indwelling Catheter - Exam Skin beneath bilateral breast folds and groin reveal excoriation with mild erythema, mild tenderness, no fluctuance, no suspicion for abscess at this time - Labs CBC & Chem 7: 09/04/24 04:35 09/04/24 08:53 Labs: Abnormal Lab Results - Last 24 Hours (Table) 09/03/24 09/04/24 Range/Units 11:46 04:35 Chloride 111 H (98-107) mmol/L Carbon Dioxide 18 L (22-30) mmol/L Glucose 156 H (74-99) mg/dL POC Glucose (mg/dL) 111 H (70-110) mg/dL Microbiology - Last 24 Hours (Table) 09/02/24 15:54 Gram Stain - Final Groin Wound Culture - Final Escherichia coli Klebsiella oxytoca Strep agalactiae - (group b) 09/02/24 11:20 Blood Culture - Preliminary Blood Assessment and Plan (1) Abdominal wall cellulitis Narrative/Plan: 74-year-old female with areas of yeast infection beneath skin folds possibly leading to cellulitis. Possible presentation of sepsis. Continue antibiotics. Continue monitoring these areas with topical antifungals as well. Current Visit: No Status: Acute Code(s): L03.311 - CELLULITIS OF ABDOMINAL WALL SNOMED Code(s): 78306702
--- NOTE | 2024-09-04 13:27 | P.PN ---
Subjective Progress Note Date: 09/04/24 Principal diagnosis: Reason for follow-up is left lower extremity cellulitis Patient is a 74-year-old female with a past medical history significant for hypertension hyperlipidemia hypothyroidism, the patient was brought into the hospital for evaluation of mental status changes patient was significantly hypothermic hypotensive on presentation to the hospital noted to have extensive cutaneous kidney disease and left lower extremity cellulitis requiring admission to ICU. On today's evaluation that is 09/04/2024,the patient remains to be afebrile, patient is on 2 L nasal cannula supplemental oxygen and denies any shortness of breath no chest pain or cough.Patient denies having any nausea or vomiting, no abdominal pain and no diarrhea has been reported and denies pain to the lower extremity. Patient white count normalized to 10.2, creatinine 0.97 culture growing Klebsiella E. coli and strep Objective - Vital Signs Vital signs: Vital Signs Temp 97.1 F L 09/04/24 04:00 Pulse 63 09/04/24 09:00 Resp 11 L 09/04/24 09:00 BP 126/71 09/04/24 09:00 Pulse Ox 97 09/04/24 09:00 FiO2 Intake & Output 09/03/24 09/04/24 09/04/24 18:59 06:59 18:59 Intake Total 7284.265 8961.545 1176 Output Total 225 225 125 Balance 964.741 318.067 8357 Weight 133.4 kg Intake: IV 900 900 450 Lactated Ringers 1,000 ml 900 900 450 @ 75 mls/hr IV .[id number] [facility] Rx#:[id number] Intake, IV Titration 289.741 119.545 Amount Cefepime 2 gm In Sodium 100 Chloride 0.9% 100 ml @ 25 mls/hr IVPB Q12H [facility] Rx# :[id number] Norepinephrine 4 mg In 289.741 19.545 Sodium Chloride 0.9% 250 ml @ 0.03 MCG/KG/MIN 13. 376 mls/hr IV .Q19H [facility] Rx#:[id number] Oral 726 Output: Urine 225 225 125 Other: Voiding Method Indwelling Catheter Indwelling Catheter Indwelling Catheter - Exam GENERAL DESCRIPTION: An elderly male lying in bed in no distress RESPIRATORY SYSTEM: Unlabored breathing , decreased breath sounds at bases HEART: S1 S2 regular rate and rhythm , ABDOMEN: Soft , no tenderness, did have extensive groin area cutaneous candidiasis EXTREMITIES: Left lower extremity swelling redness no open wound or drainage - Labs CBC & Chem 7: 09/04/24 04:35 09/04/24 08:53 Labs: Abnormal Lab Results - Last 24 Hours (Table) 09/04/24 Range/Units 04:35 Chloride 111 H (98-107) mmol/L Carbon Dioxide 18 L (22-30) mmol/L Glucose 156 H (74-99) mg/dL Microbiology - Last 24 Hours (Table) 09/02/24 15:54 Gram Stain - Final Groin Wound Culture - Final Escherichia coli Klebsiella oxytoca Strep agalactiae - (group b) 09/02/24 11:20 Blood Culture - Preliminary Blood Assessment and Plan (1) Sepsis Current Visit: Yes Status: Acute Code(s): A41.9 - SEPSIS, UNSPECIFIED ORGANI SM SNOMED Code(s): 25671226 (2) Candidal intertrigo Current Visit: No Status: Acute Code(s): B37.2 - CANDIDIASIS OF SKIN AND NAIL SNOMED Code(s): 075617704 (3) Cellulitis of groin Current Visit: No Status: Acute Code(s): L03.314 - CELLULITIS OF GROIN SNOMED Code(s): 80109025 (4) Left leg cellulitis Current Visit: No Status: Acute Code(s): L03.116 - CELLULITIS OF LEFT LOWER LIMB SNOMED Code(s): 82356219098065472 Plan: 1patient presented to hospital with sepsis in this patient who did have a hypothermia tachycardia hypotension source is likely extensive left lower extremity cellulitis in this patient who did have extensive cutaneous candidiasis of the breast and abdominal fold area likely from gram-positive skin joy gram-negative infection less likely but not at excluded 2--nystatin powder to the breast and abdominal fold area twice a day 3patient local culture currently growing strep E. coli Klebsiella patient is covered with cefepime to continue and monitor clinical course closely Dictation was produced using [employer] dictation software. please excuse any grammatical, word or spelling errors. Time with Patient: Less than 30
--- NOTE | 2024-09-04 18:22 | P.PN ---
Subjective Progress Note Date: 09/04/24 74-year-old female with a past medical history significant for hypertension hyperlipidemia hypothyroidism, the patient was brought into the hospital for evaluation of mental status changes patient mention he tried to stand up and felt so weak that she fell backwards however the patient denies h itting her head has been complaining of generalized weakness and no energy patient denies having any headache or URI symptoms the patient was aware that she was at [facility] and no nausea vomiting abdominal pain or any diarrhea patient on presentation to the hospital was noticed to be hypothermic with a temperature of 88.4 F patient was tachycardic and mildly hypotensive also mild hypoxia but no need for supplemental oxygen patient did have a white count of 7.8 creatinine 0.93 electrolytes are normal liver enzymes are normal urine has been negative patient did have a chest x-ray no definite acute cardiopulmonary disease process patient was started on vancomycin and Zosyn infectious disease was consulted concerning for sepsis patient did have a extensive fungal dermatitis to the groin and breast fold area with the patient has for a while also noted to have increasing swelling redness of left lower extremity but no open wound or any drainage 24-hour interval change 09/04/2024 - the patient remains to be afebrile, patient is on 2 L nasal cannula supplemental oxygen and denies any shortness of breath no chest pain or cough.Patient denies having any nausea or vomiting, no abdominal pain and no diarrhea has been reported and denies pain to the lower extremity. Patient white count normalized to 10.2, creatinine 0.97 culture growing Klebsie lla E. coli and strep patient presented to hospital with sepsis in this patient who did have a hypo thermia tachycardia hypotension source is likely extensive left lower extremity cellulitis in this patient who did have extensive cutaneous candidiasis of the breast and abdominal fold area likely from gram-positive skin joy gram- negative infection less likely but not at excluded -nystatin powder to the breast and abdominal fold area twice a day patient local culture currently growing strep E. coli Klebsiella patient is covered with cefepime to continue and monitor clinical course closely Objective - Vital Signs Vital signs: Vital Signs Temp 97.1 F L 09/04/24 04:00 Pulse 63 09/04/24 09:00 Resp 11 L 09/04/24 09:00 BP 126/71 09/04/24 09:00 Pulse Ox 97 09/04/24 09:00 FiO2 Intake & Output 09/03/24 09/04/24 09/04/24 18:59 06:59 18:59 Intake Total 1762.725 3810.545 833 Output Total 225 225 65 Balance 964.741 794.545 768 Weight 133.4 kg Intake: IV 900 900 225 Lactated Ringers 1,000 ml 900 900 225 @ 75 mls/hr IV .[id number] [facility] Rx#:[id number] Intake, IV Titration 289.741 119.545 Amount Cefepime 2 gm In Sodium 100 Chloride 0.9% 100 ml @ 25 mls/hr IVPB Q12H [facility] Rx# :[id number] Norepinephrine 4 mg In 289.741 19.545 Sodium Chloride 0.9% 250 ml @ 0.03 MCG/KG/MIN 13. 376 mls/hr IV .Q19H [facility] Rx#:[id number] Oral 608 Output: Urine 225 225 65 Other: Voiding Method Indwelling Catheter Indwelling Catheter Indwelling Catheter - Exam No acute distress, oriented 3. The patient is awake and alert. She denies all complaints. The patient is currently on 3 L. HEENT examination is grossly unremarkable. Mucous membranes are moist. No oral lesions. Neck supple. Full range of motion. No adenopathy thyromegaly or neck vein distention. Cardiovascular examination reveals regular rhythm rate. S1-S2 normal. No S3 or S4. No discernible murmur noted. Lungs reveal clear breath sounds. Breath sounds are equal bilaterally. No adventitious lung sounds including wheezes rhonchi or crackles.Abdomen obese. No masses. Extremities are intact. No cyanosis clubbing or edema. Skin reveals multiple areas of excoriation, under her pannus, groin, and under her breast. Neurologic examination is brief but nonfocal. - Labs CBC & Chem 7: 09/04/24 04:35 09/04/24 08:53 Labs: Abnormal Lab Results - Last 24 Hours (Table) 09/03/24 09/04/24 Range/Units 11:46 04:35 Chloride 111 H (98-107) mmol/L Carbon Dioxide 18 L (22-30) mmol/L Glucose 156 H (74-99) mg/dL POC Glucose (mg/dL) 111 H (70-110) mg/dL Microbiology - Last 24 Hours (Table) 09/02/24 15:54 Gram Stain - Final Groin Wound Culture - Final Escherichia coli Klebsiella oxytoca Strep agalactiae - (group b) 09/02/24 11:20 Blood Culture - Preliminary Blood Assessment and Plan Assessment: Hypotension and hypothermia, of unclear etiology, rule out myxedema coma versus sepsis related to extensive left lower extremity cellulitis with extensive cutaneous candidiasis of the breast and abdominal folds -ID on board and recommending nystatin powder at the breast and abdominal folds twice daily -ID recommending to continue with IV cefepime -We will monitor CBC, CRP and procalcitonin Hypotension, possibly related to underlying sepsis, related to extensive left lower extremity cellulitis/candidiasis -Local treatment with nystatin powder and IV cefepime for cellulitis -Blood cultures are obtained and pending History of hypothyroidism, with elevated TSH; TSH elevated at 5.010; Free T4 within normal limits at 1.18 -Patient received IV levothyroxine 500 mcg x 1 in ED; currently on levothyroxine 50 mcg daily Recent diagnosis of left lower extremity DVT; remains on home dose of Eliquis 5 mg twice daily History of hypertension; patient takes Lasix 40 mg daily which have been placed on hold given hypotension History of hyperlipidemia; currently not on any statin therapy DVT prophylaxis; SCDs/Eliquis CODE STATUS; full code
[2024-09-05] MEDS: PANTOPRAZOLE 40 MG TABLET PO SCH (08:59)
[2024-09-05] MEDS: predniSONE 20 MG TAB PO SCH (08:59)
--- NOTE | 2024-09-05 10:00 | P.PN ---
Subjective Progress Note Date: 09/05/24 Principal diagnosis: Cellulitis Patient feels well today. Denies pain anywhere. Tolerating diet. No nausea or vomiting. Vital signs are stable. White blood cell count normal yesterday. Objective - Vital Signs Vital signs: Vital Signs Temp 97.4 F L 09/05/24 07:43 Pulse 62 09/05/24 07:43 Resp 18 09/05/24 07:43 BP 127/77 09/05/24 07:43 Pulse Ox 96 09/05/24 07:49 FiO2 Intake & Output 09/04/24 09/05/24 09/05/24 18:59 06:59 18:59 Intake Total 1626 590 Output Total 125 100 Balance 1501 490 Intake: IV 900 Lactated Ringers 1,000 ml 900 @ 75 mls/hr IV .[id number] [facility] Rx#:[id number] Oral 726 590 Output: Urine 125 100 Other: Voiding Method Indwelling Catheter Indwelling Catheter - Exam Skin beneath bilateral breast folds and groin reveal excoriation with mild erythema, mild tenderness, no fluctuance, no suspicion for abscess at this time - Labs CBC & Chem 7: 09/04/24 04:35 09/04/24 08:53 Labs: Microbiology - Last 24 Hours (Table) 09/02/24 11:20 Blood Culture - Preliminary Blood 09/02/24 15:54 Gram Stain - Final Groin Wound Culture - Final Escherichia coli Klebsiella oxytoca Strep agalactiae - (group b) Assessment and Plan (1) Abdominal wall cellulitis Narrative/Plan: Patient seems to be slowly improving. Continue antibiotics for suspected cellulitis. No obvious abscess. Continue treatment of skin folds. Current Visit: No Status: Acute Code(s): L03.311 - CELLULITIS OF ABDOMINAL WALL SNOMED Code(s): 44587152
--- NOTE | 2024-09-05 10:52 | P.PN ---
Subjective Progress Note Date: 09/05/24 74-year-old female seen in the emergency department, room 8. I was notified by Dr. Zhang about this patient. This patient apparently was brought in from home, because of apparent mental status changes. The patient is alert and awake. She knows where she is at. She knows the year. She knows the current president. The patient was evaluated in the ER, and found to be hypothermic, and hypotensive. The patient denies all complaints including any sort of pain shortness of breath, etc. She seems very stable, and her blood pressure when I was there, was 81/50. She apparently received 2 L of warm fluids. She apparently has a history of hyperlipidemia, hypertension, and hypothyroidism. Her medications include Eliquis, Pepcid, Synthroid, nystatin powder, Lasix, and potassium. The patient is on Eliquis, because of a previous and recent diagnosis of left lower extremity DVT. Current labs include a white count 7.8, hemoglobin hematocrit normal, and a platelet count of 195,000. Sodium 136, p otassium 3.7, chlorides 105, CO2 15, anion gap 16, BUN and creatinine are 16 and 0.93. The patient does have an anion gap metabolic acidosis. Total protein 5.3. TSH is elevated at 5.010. Urine shows trace protein and 3+ ketones. Chest x-ray shows no acute disease. The patient's EKG shows sinus bradycardia, with a rate of 53 bpm. Progress note dated September 03, 2024. This is a 74-year-old female who was seen in the emergency department yesterday. She came in with hypotension, and hypothermia. We thought the patient either had sepsis, or myxedema coma. She did receive adequate amounts of hydrocortisone, and Synthroid. Currently, she is seen in the intensive care unit room 255. The patient is on 3 L of oxygen. She is receiving norepinephrine at 1.3 mcg/min, and lactated Ringer's at [address] was negative. The patient is getting hydrocortisone 50 mg every 6 hours. She also received a large dose of Synthroid yesterday, and 50 mcg daily. Her procalcitonin level was normal at 0.26. Antibiotics will be discontinued. White count 11.5, hemoglobin 12.4, hematocrit 39.2, platelet count 216,000. Sodium 139, potassium 3.9, chlorides 110, CO2 13, anion gap 16, BUN 14, and creatinine 1. Glucose 123. Calcium 8.3. Cultures of the patient's groin, show evidence of Escherichia coli, Klebsiella oxytoca, and group B strep. Brain CT showed no acute intracranial process. Progress note dated September 04, 2024. 74-year-old female seen today in room 255. The patient is on 3 L of oxygen. She is getting lactated Ringer's at 75 cc an hour. She is an awake and alert, without any distress. The patient continues on cefepime as per infectious diseases. The patient is stable to be moved to the general medical floor. She has no specific complaints. Current laboratory data includes a white count of 10.2, hemoglobin 12.1, hematocrit 37.9, and a normal platelet count. Sodium 138, potassium 3.9, chlorides 111, CO2 18, anion gap normal, BUN 16, creatinine 0.97. Glucose 156. Calcium 8.4. The patient is seen today September 05, 2024 in follow-up on the regular medical floor. She was transferred out of the intensive care unit yesterday. She is awake and alert in no acute distress. She is maintaining good O2 saturations in the 90s on 2 L/min per nasal cannula. She is feeling quite a bit better. Groin wound culture is positive for E. coli, Klebsiella oxytoca strep agalactiae, group B. She remains on cefepime. Anticoagulated with Eliquis. Remains on Solu-Cortef. Remains on IV Protonix. Objective - Vital Signs Vital signs: Vital Signs Temp 97.4 F L 09/05/24 07:43 Pulse 62 09/05/24 07:43 Resp 18 09/05/24 07:43 BP 127/77 09/05/24 07:43 Pulse Ox 96 09/05/24 07:49 FiO2 Intake & Output 09/04/24 09/05/24 09/05/24 18:59 06:59 18:59 Intake Total 1626 590 Output Total 125 100 Balance 1501 490 Intake: IV 900 Lactated Ringers 1,000 ml 900 @ 75 mls/hr IV .[id number] [facility] Rx#:[id number] Oral 726 590 Output: Urine 125 100 Other: Voiding Method Indwelling Catheter Indwelling Catheter - Exam GENERAL EXAM: Alert, pleasant 74-year-old female, on 2 L nasal cannula, comfortable in no apparent distress. HEAD: Normocephalic. EYES: Normal reaction of pupils, equal size. NOSE: Clear with pink turbinates. THROAT: No erythema or exudates. NECK: No masses, no JVD. CHEST: No chest wall deformity. LUNGS: Equal air entry with no crackles, wheeze, rhonchi or dullness. CVS: S1 and S2 normal with no audible murmur, regular rhythm. ABDOMEN: No hepatosplenomegaly, normal bowel sounds, no guarding or rigidity. SPINE: No scoliosis or deformity SKIN: Small areas of redness and excoriation including groin, abdomen, thighs CENTRAL NERVOUS SYSTEM: No focal deficits, tone is normal in all 4 extremities. EXTREMITIES: There is 1+ peripheral edema. No clubbing, no cyanosis. Peripheral pulses are intact. - Labs CBC & Chem 7: 09/04/24 04:35 09/04/24 08:53 Labs: Microbiology - Last 24 Hours (Table) 09/02/24 11:20 Blood Culture - Preliminary Blood 09/02/24 15:54 Gram Stain - Final Groin Wound Culture - Final Escherichia coli Klebsiella oxytoca Strep agalactiae - (group b) Assessment and Plan Assessment: Hypotension and hypothermia, of unclear etiology, rule out myxedema coma. Recovered Hypotension, possibly related to underlying sepsis, although the patient's procalcitonin level was normal Excoriation and redness of the groin, thigh, abdomen. Culture positive for E. coli, Klebsiella oxytoca, strep agalactiae group B History of hypothyroidism, with elevated TSH Recent diagnosis of left lower extremity DVT History of hypertension History of hyperlipidemia Morbid obesity Plan: The patient was seen and evaluated Medications reviewed Discontinue solu Cortef Initiate prednisone 20 mg daily Discontinue IV Protonix Initiate oral Protonix Antibiotics per ID service Titrate down the FiO2 as tolerated Increase her activity as tolerated This patient was seen independently by the pulmonary nurse practitioner addressing pulmonary issues I have personally seen and examined the patient, performed the documentation and the assessment and plan as written. Number of minutes spent on the visit: 24 Dictation was produced using [employer] dictation software. Please excuse any grammatical, word or spelling errors.
--- NOTE | 2024-09-05 16:57 | P.PN ---
Subjective Progress Note Date: 09/05/24 74-year-old female with a past medical history significant for hypertension hyperlipidemia hypothyroidism, the patient was brought into the hospital for evaluation of mental status changes patient mention he tried to stand up and felt so weak that she fell backwards however the patient denies h itting her head has been complaining of generalized weakness and no energy patient denies having any headache or URI symptoms the patient was aware that she was at [facility] and no nausea vomiting abdominal pain or any diarrhea patient on presentation to the hospital was noticed to be hypothermic with a temperature of 88.4 F patient was tachycardic and mildly hypotensive also mild hypoxia but no need for supplemental oxygen patient did have a white count of 7.8 creatinine 0.93 electrolytes are normal liver enzymes are normal urine has been negative patient did have a chest x-ray no definite acute cardiopulmonary disease process patient was started on vancomycin and Zosyn infectious disease was consulted concerning for sepsis patient did have a extensive fungal dermatitis to the groin and breast fold area with the patient has for a while also noted to have increasing swelling redness of left lower extremity but no open wound or any drainage 24-hour interval change 09/04/2024 - the patient remains to be afebrile, patient is on 2 L nasal cannula supplemental oxygen and denies any shortness of breath no chest pain or cough.Patient denies having any nausea or vomiting, no abdominal pain and no diarrhea has been reported and denies pain to the lower extremity. Patient white count normalized to 10.2, creatinine 0.97 culture growing Klebsie lla E. coli and strep patient presented to hospital with sepsis in this patient who did have a hypo thermia tachycardia hypotension source is likely extensive left lower extremity cellulitis in this patient who did have extensive cutaneous candidiasis of the breast and abdominal fold area likely from gram-positive skin joy gram- negative infection less likely but not at excluded -nystatin powder to the breast and abdominal fold area twice a day patient local culture currently growing strep E. coli Klebsiella patient is covered with cefepime to continue and monitor clinical course closely 09/05/2024 in follow-up on the regular medical floor. She was transferred out of the intensive care unit yesterday. She is awake and alert in no acute distress. She is maintaining good O2 saturations in the 90s on 2 L/min per nasal cannula. She is feeling quite a bit better. --Groin wound culture is positive for E. coli, Klebsiella oxytoca strep agalactiae, group B. She remains on cefepime. Anticoagulated with Eliquis. Remains on Solu-Cortef. Remains on IV Protonix. -Plan is to transition patient to oral prednisone 20 mg daily; DC IV Protonix and start patient on oral Protonix 40 mg daily -Continue with IV antibiotics in form of cefepime; ID on board; await final recommendations Objective - Vital Signs Vital signs: Vital Signs Temp 97.4 F L 09/05/24 07:43 Pulse 62 09/05/24 07:43 Resp 18 09/05/24 07:43 BP 127/77 09/05/24 07:43 Pulse Ox 96 09/05/24 07:49 FiO2 Intake & Output 09/04/24 09/05/24 09/05/24 18:59 06:59 18:59 Intake Total 1626 590 Output Total 125 100 Balance 1501 490 Intake: IV 900 Lactated Ringers 1,000 ml 900 @ 75 mls/hr IV .[id number] [facility] Rx#:[id number] Oral 726 590 Output: Urine 125 100 Other: Voiding Method Indwelling Catheter Indwelling Catheter Indwelling Catheter - Exam No acute distress, oriented 3. The patient is awake and alert. She denies all complaints. The patient is currently on 3 L. HEENT examination is grossly unremarkable. Mucous membranes are moist. No oral lesions. Neck supple. Full range of motion. No adenopathy thyromegaly or neck vein distention. Cardiovascular examination reveals regular rhythm rate. S1-S2 normal. No S3 or S4. No discernible murmur noted. Lungs reveal clear breath sounds. Breath sounds are equal bilaterally. No adventitious lung sounds including wheezes rhonchi or crackles.Abdomen obese. No masses. Extremities are intact. No cyanosis clubbing or edema. Skin reveals multiple areas of excoriation, under her pannus, groin, and under her breast. Neurologic examination is brief but nonfocal. - Labs CBC & Chem 7: 09/04/24 04:35 09/04/24 08:53 Labs: Microbiology - Last 24 Hours (Table) 09/02/24 11:20 Blood Culture - Preliminary Blood 09/02/24 15:54 Gram Stain - Final Groin Wound Culture - Final Escherichia coli Klebsiella oxytoca Strep agalactiae - (group b) Assessment and Plan Assessment: Hypotension and hypothermia, of unclear etiology, rule out myxedema coma versus sepsis related to extensive left lower extremity cellulitis with extensive cutaneous candidiasis of the breast and abdominal folds -ID on board and recommending nystatin powder at the breast and abdominal folds twice daily -ID recommending to continue with IV cefepime -We will monitor CBC, CRP and procalcitonin Hypotension, possibly related to underlying sepsis, related to extensive left lower extremity cellulitis/candidiasis -Local treatment with nystatin powder and IV cefepime for cellulitis -Blood cultures are obtained and pending History of hypothyroidism, with elevated TSH; TSH elevated at 5.010; Free T4 within normal limits at 1.18 -Patient received IV levothyroxine 500 mcg x 1 in ED; currently on levothyroxine 50 mcg daily Recent diagnosis of left lower extremity DVT; remains on home dose of Eliquis 5 mg twice daily History of hypertension; patient takes Lasix 40 mg daily which have been placed on hold given hypotension History of hyperlipidemia; currently not on any statin therapy DVT prophylaxis; SCDs/Eliquis CODE STATUS; full code
--- NOTE | 2024-09-05 21:57 | P.PN ---
Subjective Progress Note Date: 09/05/24 Principal diagnosis: Reason for follow-up is left lower extremity cellulitis This is a telehealth visit Patient is a 74-year-old female with a past medical history signif icant for hypertension hyperlipidemia hypothyroidism, the patient was brought into the hospital for evaluation of mental status changes patient was significantly hypothermic hypotensive on presentation to the hospital noted to have extensive cutaneous kidney disease and left lower extremity cellulitis requiring admission to ICU. On today's evaluation that is 09/05/2024, the patient continues to be afebrile, the patient is on 2 L nasal oxygen and breathing comfortably, the Pt denies having any chest pain or cough, the patient denies having any abdominal pain no vomiting or any diarrhea has been reported by the nursing staff, denies pain to the lower extremity. Patient white count normalized to 10.2, creatinine 0.97 blood culture has been negative Objective - Vital Signs Vital signs: Vital Signs Temp 97.4 F L 09/05/24 07:43 Pulse 62 09/05/24 07:43 Resp 18 09/05/24 07:43 BP 127/77 09/05/24 07:43 Pulse Ox 96 09/05/24 07:49 FiO2 Intake & Output 09/04/24 09/05/24 09/05/24 18:59 06:59 18:59 Intake Total 1626 590 Output Total 125 100 Balance 1501 490 Intake: IV 900 Lactated Ringers 1,000 ml 900 @ 75 mls/hr IV .[id number] [facility] Rx#:[id number] Oral 726 590 Output: Urine 125 100 Other: Voiding Method Indwelling Catheter Indwelling Catheter Indwelling Catheter - Exam Elderly female lying in the bed in no distress No tachypnea or accessory muscle respiration use Unlabored breathing left lower extremity swelling redness slightly decreased Patient is awake alert oriented x 3 - Labs CBC & Chem 7: 09/04/24 04:35 09/04/24 08:53 Labs: Microbiology - Last 24 Hours (Table) 09/02/24 11:20 Blood Culture - Preliminary Blood 09/02/24 15:54 Gram Stain - Final Groin Wound Culture - Final Escherichia coli Klebsiella oxytoca Strep agalactiae - (group b) Assessment and Plan (1) Sepsis Current Visit: Yes Status: Acute Code(s): A41.9 - SEPSIS, UNSPECIFIED ORGANISM SNOMED Code(s): 35692383 (2) Candidal intertrigo Current Visit: No Status: Acute Code(s): B37.2 - CANDIDIASIS OF SKIN AND NAIL SNOMED Code(s): 213706266 (3) Cellulitis of groin Current Visit: No Status: Acute Code(s): L03.314 - CELLULITIS OF GROIN SNOMED Code(s): 92899542 (4) Left leg cellulitis Current Visit: No Status: Acute Code(s): L03.116 - CELLULITIS OF LEFT LOWER LIMB SNOMED Code(s): 06981505980163766 Plan: 1patient presented to hospital with sepsis in this patient who did have a hy pothermia tachycardia hypotension source is likely extensive left lower extremity cellulitis in this patient who did have extensive cutaneous candidiasis of the breast and abdominal fold area likely from gram-positive skin joy gram-negative infection less likely but not at excluded 2--nystatin powder to the breast and abdominal fold area twice a day 3patient local culture currently growing strep E. coli Klebsiella 4-patient clinically improved with cefepime to continue and will transition to oral antibiotic upon discharge Dictation was produced using ROI² dictation software. please excuse any grammatical, word or spelling errors. Time with Patient: Less than 30
--- NOTE | 2024-09-06 14:00 | P.PN ---
Subjective Progress Note Date: 09/06/24 SURGICAL PROGRESS NOTE CHIEF COMPLAINT: Candidiasis infection HISTORY OF PRESENT ILLNESS: Patient reports improvement in her skin. No new complaints. Afebrile. PHYSICAL EXAM: VITAL SIGNS: Reviewed. GENERAL: Well-developed in no acute distress. ABDOMEN: Soft. Nondistended. Nontender. NEUROLOGIC: Alert and oriented. Cranial nerves II through XII grossly intact. ASSESSMENT: 1. Candidal intertrigo. Extensive cutaneous candidiasis under the breasts and skin folds PLAN: -No surgical intervention planned -Continue antifungals and antibiotics per ID service Physician Bistro Attendant note has been reviewed by physician. Signing provider agrees with the documented findings, assessment, and plan of care. Objective - Vital Signs Vital signs: Vital Signs Temp 97.4 F L 09/06/24 12:05 Pulse 70 09/06/24 12:05 Resp 20 09/06/24 12:05 BP 118/68 09/06/24 12:05 Pulse Ox 93 L 09/06/24 12:05 FiO2 Intake & Output 09/05/24 09/06/24 09/06/24 18:59 06:59 18:59 Intake Total 2390 Output Total 50 50 Balance -50 2340 Intake: IV 1200 Lactated Ringers 1,000 ml 1200 @ 75 mls/hr IV .[id number] [facility] Rx#:[id number] Intake, IV Titration 200 Amount Cefepime 2 gm In Sodium 200 Chloride 0.9% 100 ml @ 25 mls/hr IVPB Q12H [facility] Rx# :[id number] Oral 990 Output: Urine 50 50 Other: Voiding Method Indwelling Catheter Indwelling Catheter # Voids 2 2 # Bowel Movements 1 1 - Labs CBC & Chem 7: 09/04/24 04:35 09/04/24 08:53 Labs: Microbiology - Last 24 Hours (Table) 09/02/24 11:20 Blood Culture - Preliminary Blood
--- NOTE | 2024-09-06 15:34 | P.PN ---
Subjective Progress Note Date: 09/06/24 74-year-old female with a past medical history significant for hypertension hyperlipidemia hypothyroidism, the patient was brought into the hospital for evaluation of mental status changes patient mention he tried to stand up and felt so weak that she fell backwards however the patient denies hitting her head has been complaining of generalized weakness and no energy patient denies having any headache or URI symptoms the patient was aware that she was at [facility] and no nausea vomiting abdominal pain or any diarrhea patient on presentation to the hospital was noticed to be hypothermic with a temperature of 88.4 F patient was tachycardic and mildly hypotensive also mild hypoxia but no need for supplemental oxygen patient did have a white count of 7.8 creatinine 0.93 electrolytes are normal liver enzymes are normal urine has been negative patient did have a chest x-ray no definite acute cardiopulmonary disease process patient was started on vancomycin and Zosyn infectious disease was consulted concerning for sepsis patient did have a extensive fungal dermatitis to the groin and breast fold area with the patient has for a while also noted to have increasing swelling redness of left lower extremity but no open wound or any drainage 24-hour interval change 09/04/2024 - the patient remains to be afebrile, patient is on 2 L nasal cannula supplemental oxygen and denies any shortness of breath no chest pain or cough.Patient denies having any nausea or vomiting, no abdominal pain and no diarrhea has been reported and denies pain to the lower extremity. Patient white count normalized to 10.2, creatinine 0.97 culture growing Klebs iella E. coli and strep patient presented to hospital with sepsis in this patient who did have a hy pothermia tachycardia hypotension source is likely extensive left lower extremity cellulitis in this patient who did have extensive cutaneous candidiasis of the breast and abdominal fold area likely from gram-positive skin joy gram-negative infection less likely but not at excluded -nystatin powder to the breast and abdominal fold area twice a day patient local culture currently growing strep E. coli Klebsiella patient is covered with cefepime to continue and monitor clinical course closely 09/05/2024 in follow-up on the regular medical floor. She was transferred out of the intensive care unit yesterday. She is awake and alert in no acute distress. She is maintaining good O2 saturations in the 90s on 2 L/min per nasal cannula. She is feeling quite a bit better. --Groin wound culture is positive for E. coli, Klebsiella oxytoca strep agalactiae, group B. She remains on cefepime. Anticoagulated with Eliquis. Remains on Solu-Cortef. Remains on IV Protonix. -Plan is to transition patient to oral prednisone 20 mg daily; DC IV Protonix and start patient on oral Protonix 40 mg daily -Continue with IV antibiotics in form of cefepime; ID on board; await final recommendations 09/06/2024 Patient is seen and evaluated in follow-up today continues to the ICU with infectious disease, general surgery, and pulmonary microsoft windows engineer following. Patient is maintained on antibiotics and wound culture showing E. coli, Klebsiella oxytoca, strep agalactieae group B currently maintained on Mycostatin powder along with cefepime and will continue. Patient with generalized weakness awaiting to be evaluated by PT/OT therapy and patient would likely benefit from ECF on discharge. Surgery following recommending to continue with antifungals and antibiotics with no plans of surgical intervention at this time. Continue daily washing and drying of multiple folds within the scans. Patient is afebrile and white count has normalized. Case management on consult for possible ECF. Review of systems: Constitutional: No reports of fatigue, fever, or chills Cardiovascular: No reports of chest pain or palpitations Respiratory: No reports of shortness of breath or cough GI: No reports of nausea, vomiting, or diarrhea : No reports of dysuria , patient continues with indwelling Daugherty catheter for retention Neurovascular: reports of generalized weakness All medications have been reviewed Physical exam: Gen: This is a 74-year-old female who is awake, alert and oriented x 2-3, well- developed, elderly appearing, morbidly obese HEENT: Head is atraumatic, normocephalic. Pupils equal, round. Sclerae is anicteric. NECK: Supple. No JVD. No lymphadenopathy. No thyromegaly. LUNGS: Diminished breath sounds bilaterally otherwise clear to auscultation. A few scattered expiratory wheezes noted at the bases on the left, some coarse rhonchi also noted. No intercostal retractions. HEART: Regular rate and rhythm. No murmur. ABDOMEN: Soft. Obese bowel sounds are present. No masses. No tenderness. EXTREMITIES: No pedal edema. No calf tenderness. Generalized lower extremity edema and large overall body habitus NEUROLOGICAL: Patient is awake, alert and oriented x2. Cranial nerves 2 through 12 are grossly intact. Diffusely weak Assessment: Hypotension and hypothermia, of unclear etiology, likely sepsis, present on admission related to extensive left lower extremity cellulitis with extensive cutaneous candidiasis of the breast and abdominal folds Hypotension, likely related to underlying sepsis, related to extensive left lower extremity cellulitis/candidiasis History of hypothyroidism, with elevated TSH; TSH elevated at 5.010; Free T4 wit hin normal limits at 1.18 Recent diagnosis of left lower extremity DVT; remains on home dose of Eliquis 5 mg twice daily History of hypertension; patient takes Lasix 40 mg daily which have been placed on hold given hypotension History of hyperlipidemia; currently not on any statin therapy Morbid obesity with a BMI 59.4 GI prophylaxis DVT prophylaxis Full code Plan: Patient is continued on IV antibiotics with infectious disease following along with local wound care Awaiting PT/OT therapy evaluation Continue indwelling Daugherty catheter for retention and monitor I and O Patient would likely benefit from ECF for continued strength and mobility. Case management following and will discuss further regarding discharge planning Will follow-up on repeat labs and replace electrolytes per protocol Possible discharge planning in the next 24 to 48 hours to ECF The impression and plan of care has been dictated by Julia Saavedra, Nurse Practitioner as directed. Dr. Candice MD I have performed a history and examination and MDM of this patient, discussed the same with the dictator, and agree with the dictator's assessment and plan as written ,documented as a scribe. Based on total visit time, I have performed more than 50% of the visit. Objective - Vital Signs Vital signs: Vital Signs Temp 97.4 F L 09/06/24 07:16 Pulse 78 09/06/24 07:16 Resp 20 09/06/24 07:16 BP 116/74 09/06/24 07:16 Pulse Ox 97 09/06/24 08:04 FiO2 Intake & Output 09/05/24 09/06/24 09/06/24 18:59 06:59 18:59 Intake Total 2390 Output Total 50 50 Balance -50 2340 Intake: IV 1200 Lactated Ringers 1,000 ml 1200 @ 75 mls/hr IV .[id number] [facility] Rx#:[id number] Intake, IV Titration 200 Amount Cefepime 2 gm In Sodium 200 Chloride 0.9% 100 ml @ 25 mls/hr IVPB Q12H [facility] Rx# :[id number] Oral 990 Output: Urine 50 50 Other: Voiding Method Indwelling Catheter # Voids 2 2 # Bowel Movements 1 1 - Labs CBC & Chem 7: 09/04/24 04:35 09/04/24 08:53 Labs: Microbiology - Last 24 Hours (Table) 09/02/24 11:20 Blood Culture - Preliminary Blood
--- NOTE | 2024-09-06 20:49 | P.PN ---
Subjective Progress Note Date: 09/06/24 74-year-old female seen in the emergency department, room 8. I was notified by Dr. Zhang about this patient. This patient apparently was brought in from home, because of apparent mental status changes. The patient is alert and awake. She knows where she is at. She knows the year. She knows the current president. The patient was evaluated in the ER, and found to be hypothermic, and hypotensive. The patient denies all complaints including any sort of pain shortness of breath, etc. She seems very stable, and her blood pressure when I was there, was 81/50. She apparently received 2 L of warm fluids. She apparently has a history of hyperlipidemia, hypertension, and hypothyroidism. Her medications include Eliquis, Pepcid, Synthroid, nystatin powder, Lasix, and potassium. The patient is on Eliquis, because of a previous and recent diagnosis of left lower extremity DVT. Current labs include a white count 7.8, hemoglobin hematocrit normal, and a platelet count of 195,000. Sodium 136, potassium 3.7, chlorides 105, CO2 15, anion gap 16, BUN and creatinine are 16 and 0.93. The patient does have an anion gap metabolic acidosis. Total protein 5.3. TSH is elevated at 5.010. Urine shows trace protein and 3+ ketones. Chest x-ray shows no acute disease. The patient's EKG shows sinus bradycardia, with a rate of 53 bpm. Progress note dated September 03, 2024. This is a 74-year-old female who was seen in the emergency department yesterday. She came in with hypotension, and hypothermia. We thought the patient either had sepsis, or myxedema coma. She did receive adequate amounts of hydrocortisone, and Synthroid. Currently, she is seen in the intensive care unit room 255. The patient is on 3 L of oxygen. She is receiving norepinephrine at 1.3 mcg/min, and lactated Ringer's at [address] was negative. The patient is getting hydrocortisone 50 mg every 6 hours. She also received a large dose of Synthroid yesterday, and 50 mcg daily. Her procalcitonin level was normal at 0.26. Antibiotics will be discontinued. White count 11.5, hemoglobin 12.4, hematocrit 39.2, platelet count 216,000. Sodium 139, potassium 3.9, chlorides 110, CO2 13, anion gap 16, BUN 14, and creatinine 1. Glucose 123. Calcium 8.3. Cultures of the patient's groin, show evidence of Escherichia coli, Klebsiella oxytoca, and group B strep. Brain CT showed no acute intracranial process. Progress note dated September 04, 2024. 74-year-old female seen today in room 255. The patient is on 3 L of oxygen. She is getting lactated Ringer's at 75 cc an hour. She is an awake and alert, without any distress. The patient continues on cefepime as per infectious diseases. The patient is stable to be moved to the general medical floor. She has no specific complaints. Current laboratory data includes a white count of 10.2, hemoglobin 12.1, hematocrit 37.9, and a normal platelet count. Sodium 138, potassium 3.9, chlorides 111, CO2 18, anion gap normal, BUN 16, creatinine 0.97. Glucose 156. Calcium 8.4. The patient is seen today September 05, 2024 in follow-up on the regular medical floor. She was transferred out of the intensive care unit yesterday. She is awake and alert in no acute distress. She is maintaining good O2 saturations in the 90s on 2 L/min per nasal cannula. She is feeling quite a bit better. Groin wound culture is positive for E. coli, Klebsiella oxytoca strep agalactiae, group B. She remains on cefepime. Anticoagulated with Eliquis. Remains on Solu-Cortef. Remains on IV Protonix. On 09/06/2024, the patient is awake and alert and she denies having any specific complaints. She is currently on room air oxygen. Pulse ox on room air is above 90%. While on 2 L, his oxygen saturation is in order of 97%. Hemodynamically stable. Afebrile. She is on levothyroxine 50 mcg p.o. daily. She is also on anticoagulants for previous history of a left lower extremity DVT. Hypotension has recovered. The white cell count is at 10.2 with a hemoglobin 12.1 and a platelet count of 167. The patient had a component of metabolic acidosis of an anion gap type which improved and the serum bicarb is up to 18. The procalcitonin level at the time of admission was 0.26. Troponins were negative. Free T4 was low at 1.2 and her TSH was at 5.01. Renal function is stable. Serum cortisol has not been checked. She does have intercrural candidiasis. She remains on empiric antibiotic coverage with IV Rocephin. Objective - Vital Signs Vital signs: Vital Signs Temp 97.4 F L 09/06/24 12:05 Pulse 70 09/06/24 12:05 Resp 20 09/06/24 12:05 BP 118/68 09/06/24 12:05 Pulse Ox 93 L 09/06/24 12:05 FiO2 Intake & Output 09/05/24 09/06/24 09/06/24 18:59 06:59 18:59 Intake Total 2390 Output Total 50 50 Balance -50 2340 Intake: IV 1200 Lactated Ringers 1,000 ml 1200 @ 75 mls/hr IV .[id number] [facility] Rx#:[id number] Intake, IV Titration 200 Amount Cefepime 2 gm In Sodium 200 Chloride 0.9% 100 ml @ 25 mls/hr IVPB Q12H [facility] Rx# :[id number] Oral 990 Output: Urine 50 50 Other: Voiding Method Indwelling Catheter Indwelling Catheter # Voids 2 2 # Bowel Movements 1 1 - Exam GENERAL EXAM: Alert, pleasant 74-year-old female, on 2 L nasal cannula, comfortable in no apparent distress. HEAD: Normocephalic. EYES: Normal reaction of pupils, equal size. NOSE: Clear with pink turbinates. THROAT: No erythema or exudates. NECK: No masses, no JVD. CHEST: No chest wall deformity. LUNGS: Equal air entry with no crackles, wheeze, rhonchi or dullness. CVS: S1 and S2 normal with no audible murmur, regular rhythm. ABDOMEN: No hepatosplenomegaly, normal bowel sounds, no guarding or rigidity. SPINE: No scoliosis or deformity SKIN: Small areas of redness and excoriation including groin, abdomen, thighs CENTRAL NERVOUS SYSTEM: No focal deficits, tone is normal in all 4 extremities. EXTREMITIES: There is 1+ peripheral edema. No clubbing, no cyanosis. Peripheral pulses are intact. - Labs CBC & Chem 7: 09/04/24 04:35 09/04/24 08:53 Labs: Microbiology - Last 24 Hours (Table) 09/02/24 11:20 Blood Culture - Preliminary Blood Assessment and Plan Plan: Hypotension and hypothermia, of unclear etiology, recovered and the patient is currently normotensive. Procalcitonin level is not elevated and the patient remains on empiric antibiotic coverage with IV Rocephin Intercrural candidiasis, excoriation and redness of the groin, thigh, abdomen. Culture positive for E. coli, Klebsiella oxytoca, strep agalactiae group B History of hypothyroidism, with elevated TSH Recent diagnosis of left lower extremity DVT History of hypertension History of hyperlipidemia Morbid obesity with a body mass index of 59.4 and features of obstructive sleep apnea Hepatic steatosis Mild to moderate vertebral compression deformity of the T3 vertebral body and mild compression deformity of T2 Plan: Continue anticoagulation with Eliquis Discontinue prednisone Antibiotics per ID service Titrate down the FiO2 as tolerated Increase her activity as tolerated Outpatient sleep study to rule out obstructive sleep apnea
--- NOTE | 2024-09-06 21:24 | P.PN ---
Subjective Progress Note Date: 09/06/24 Principal diagnosis: Reason for follow-up is left lower extremity cellulitis Patient is a 74-year-old female with a past medical history significant for hypertension hyperlipidemia hypothyroidism, the patient was brought into the hospital for evaluation of mental status changes patient was significantly hypothermic hypotensive on presentation to the hospital noted to have extensive cutaneous kidney disease and left lower extremity cellulitis requiring admission to ICU. On today's evaluation that is 09/06/2024, Patient is afebrile patient is currently on 2 L nasal cannula oxygen and denies having any shortness of breath, the patient denies any chest pain or cough, the patient denies any nausea vomiting did not have any abdominal pain and no diarrhea, swelling redness to the left leg has slightly decreased. Patient did not have any CBC done today blood culture have been negative Objective - Vital Signs Vital signs: Vital Signs Temp 97.4 F L 09/06/24 12:05 Pulse 70 09/06/24 12:05 Resp 20 09/06/24 12:05 BP 118/68 09/06/24 12:05 Pulse Ox 93 L 09/06/24 12:05 FiO2 Intake & Output 09/05/24 09/06/24 09/06/24 18:59 06:59 18:59 Intake Total 2390 Output Total 50 50 Balance -50 2340 Intake: IV 1200 Lactated Ringers 1,000 ml 1200 @ 75 mls/hr IV .[id number] [facility] Rx#:[id number] Intake, IV Titration 200 Amount Cefepime 2 gm In Sodium 200 Chloride 0.9% 100 ml @ 25 mls/hr IVPB Q12H [facility] Rx# :[id number] Oral 990 Output: Urine 50 50 Other: Voiding Method Indwelling Catheter Indwelling Catheter # Voids 2 2 # Bowel Movements 1 1 - Exam GENERAL DESCRIPTION: An elderly female up in the chair in no distress RESPIRATORY SYSTEM: Unlabored breathing , decreased breath sounds at bases HEART: S1 S2 regular rate and rhythm , ABDOMEN: Soft , no tenderness EXTREMITIES: Left leg redness slightly decreased - Labs CBC & Chem 7: 09/04/24 04:35 09/04/24 08:53 Labs: Microbiology - Last 24 Hours (Table) 09/02/24 11:20 Blood Culture - Preliminary Blood Assessment and Plan (1) Sepsis Current Visit: Yes Status: Acute Code(s): A41.9 - SEPSIS, UNSPECIFIED ORGANISM SNOMED Code(s): 63078781 (2) Candidal intertrigo Current Visit: No Status: Acute Code(s): B37.2 - CANDIDIASIS OF SKIN AND NAIL SNOMED Code(s): 399407663 (3) Cellulitis of groin Current Visit: No Status: Acute Code(s): L03.314 - CELLULITIS OF GROIN SNOMED Code(s): 94077459 (4) Left leg cellulitis Current Visit: No Status: Acute Code(s): L03.116 - CELLULITIS OF LEFT LOWER LIMB SNOMED Code(s): 24196921800723337 Plan: 1patient presented to hospital with sepsis in this patient who did have a hypothermia tachycardia hypotension source is likely extensive left lower extremity cellulitis in this patient who did have extensive cutaneous candidiasis of the breast and abdominal fold area likely from gram-positive skin joy gram-negative infection less likely but not at excluded 2-patient local culture currently growing strep E. coli Klebsiella 3-patient to continue with-nystatin powder to the breast and abdominal fold area twice a day 4-patient to continue with cefepime while inpatient and will transition to oral antibiotic upon discharge Dictation was produced using [employer] dictation software. please excuse any grammatical, word or spelling errors. Time with Patient: Less than 30
[2024-09-07 08:54] LABS: BUN/Creat Ratio 20.44 Ratio (12.00-20.00); Blood Urea Nitrogen 18.4 mg/dL (9.0-27.0); Carbon Dioxide 25.2 mmol/L (21.6-31.8); Chloride 105 mmol/L (96-109); Glucose 140 mg/dL (70-110); Magnesium 2.2 mg/dL (1.5-2.4); Potassium 3.7 mmol/L (3.5-5.5); Sodium 138 mmol/L (135-145)
[2024-09-07 08:55] LABS: ALT 17 U/L (8-44); AST 18 U/L (13-35); Albumin 3.1 g/dL (3.8-4.9); Albumin/Globulin Ratio 1.41 Ratio (1.60-3.17); Alkaline Phosphatase 74 U/L (41-126); Calcium 8.6 mg/dL (8.7-10.3); Globulin 2.2 g/dL (1.6-3.3); Total Bilirubin 0.4 mg/dL (0.3-1.2); Total Protein 5.3 g/dL (6.2-8.2)
[2024-09-07 09:44] LABS: Basophils # (M) 0 X 10*3/uL (0.00-0.10); Eosinophils # (M) 0.09 X 10*3/uL (0.04-0.35); HCT 37.3 % (37.2-46.3); HGB 12.2 g/dL (12.0-15.0); Lymphocytes # (M) 0.88 X 10*3/uL (0.90-5.00); MCH 29.9 pg (27.0-32.0); MCHC 32.7 g/dL (32.0-37.0); MCV 91.4 FL (80.0-97.0); Mean Platelet Volume 11.5 FL (9.5-12.2); Monocytes # (M) 0.44 X 10*3/uL (0.20-1.00); Myelocytes % 2 % (0-0); NRBC Per 100 WBC 0 X 10*3/uL (0.00-0.01); Neutrophils # (M) 7.22 X 10*3/uL (1.80-7.70); Neutrophils % (M) 82 %; Platelet Count 105 X 10*3/uL (140-440); RBC 4.08 X 10*6/uL (4.10-5.20); RBC Morphology Normal (Normal); RDW 14.4 % (11.5-14.5); WBC 8.81 X 10*3/uL (4.50-10.00)
--- NOTE | 2024-09-07 13:22 | P.PN ---
Subjective Progress Note Date: 09/07/24 SURGICAL PROGRESS NOTE CHIEF COMPLAINT: Candidiasis infection HISTORY OF PRESENT ILLNESS: Patient with no new complaints. Vital stable. WBC 8.81 PHYSICAL EXAM: VITAL SIGNS: Reviewed. GENERAL: Well-developed in no acute distress. ABDOMEN: Soft. Nondistended. Nontender. NEUROLOGIC: Alert and oriented. Cranial nerves II through XII grossly intact. ASSESSMENT: 1. Candidal intertrigo. Extensive cutaneous candidiasis under the breasts and skin folds PLAN: -No surgical intervention planned -Continue antifungals and antibiotics per ID service -Surgical service will sign off. Please call with any questions or concerns. Physician Manager Culture note has been reviewed by physician. Signing provider agrees with the documented findings, assessment, and plan of care. Objective - Vital Signs Vital signs: Vital Signs Temp 97.4 F L 09/07/24 07:35 Pulse 77 09/07/24 07:35 Resp 15 09/07/24 07:35 BP 100/64 09/07/24 07:35 Pulse Ox 94 L 09/07/24 07:51 FiO2 Intake & Output 09/06/24 09/07/24 09/07/24 18:59 06:59 18:59 Intake Total 540 Balance 540 Intake: Oral 540 Other: Voiding Method Indwelling Catheter Bedside Commode Bedside Commode Diaper Diaper # Voids 1 1 # Bowel Movements 1 1 - Labs CBC & Chem 7: 09/07/24 04:29 09/07/24 04:29 Labs: Abnormal Lab Results - Last 24 Hours (Table) 09/07/24 09/07/24 Range/Units 04:29 04:29 RBC 4.08 L (4.10-5.20) X 10*6/uL Plt Count 105 L (140-440) X 10*3/uL Lymphocytes # (Manual) 0.88 L (0.90-5.00) X 10*3/uL BUN/Creatinine Ratio 20.44 H (12.00-20.00) Ratio Glucose 140 H (70-110) mg/dL Calcium 8.6 L (8.7-10.3) mg/dL Total Protein 5.3 L (6.2-8.2) g/dL Albumin 3.1 L (3.8-4.9) g/dL Albumin/Globulin Ratio 1.41 L (1.60-3.17) Ratio
--- NOTE | 2024-09-07 13:56 | P.PN ---
Subjective Progress Note Date: 09/07/24 Principal diagnosis: Reason for follow-up is left lower extremity cellulitis Patient is a 74-year-old female with a past medical history significant for hypertension hyperlipidemia hypothyroidism, the patient was brought into the hospital for evaluation of mental status changes patient was significantly hypothermic hypotensive on presentation to the hospital noted to have extensive cutaneous kidney disease and left lower extremity cellulitis requiring admission to ICU. On today's evaluation that is 09/07/2024, patient has been afebrile, patient is breathing comfortably and is currently on 2 L nasal cannula oxygen, patient denies having any significant cough no chest pain, patient denies nausea vomiting or diarrhea and no abdominal pain and denies pain to the lower extremity. Patient white count is 8.81, creatinine 0.9 Objective - Vital Signs Vital signs: Vital Signs Temp 97.4 F L 09/07/24 07:35 Pulse 77 09/07/24 07:35 Resp 15 09/07/24 07:35 BP 100/64 09/07/24 07:35 Pulse Ox 94 L 09/07/24 07:51 FiO2 Intake & Output 09/06/24 09/07/24 09/07/24 18:59 06:59 18:59 Intake Total 540 Balance 540 Intake: Oral 540 Other: Voiding Method Indwelling Catheter Bedside Commode Bedside Commode Diaper Diaper # Voids 1 # Bowel Movements 1 - Exam GENERAL DESCRIPTION: An elderly female up in the chair in no distress RESPIRATORY SYSTEM: Unlabored breathing , decreased breath sounds at bases HEART: S1 S2 regular rate and rhythm , ABDOMEN: Soft , no tenderness EXTREMITIES: Bilateral lower extremity wrapped in José Manuel wrap - Labs CBC & Chem 7: 09/07/24 04:29 09/07/24 04:29 Labs: Abnormal Lab Results - Last 24 Hours (Table) 09/07/24 09/07/24 Range/Units 04:29 04:29 RBC 4.08 L (4.10-5.20) X 10*6/uL Plt Count 105 L (140-440) X 10*3/uL Lymphocytes # (Manual) 0.88 L (0.90-5.00) X 10*3/uL BUN/Creatinine Ratio 20.44 H (12.00-20.00) Ratio Glucose 140 H (70-110) mg/dL Calcium 8.6 L (8.7-10.3) mg/dL Total Protein 5.3 L (6.2-8.2) g/dL Albumin 3.1 L (3.8-4.9) g/dL Albumin/Globulin Ratio 1.41 L (1.60-3.17) Ratio Assessment and Plan (1) Sepsis Current Visit: Yes Status: Acute Code(s): A41.9 - SEPSIS, UNSPECIFIED ORGANISM SNOMED Code(s): 18959443 (2) Candidal intertrigo Current Visit: No Status: Acute Code(s): B37.2 - CANDIDIASIS OF SKIN AND NAIL SNOMED Code(s): 432600871 (3) Cellulitis of groin Current Visit: No Status: Acute Code(s): L03.314 - CELLULITIS OF GROIN SNOMED Code(s): 89899541 (4) Left leg cellulitis Current Visit: No Status: Acute Code(s): L03.116 - CELLULITIS OF LEFT LOWER LIMB SNOMED Code(s): 90364560230289120 Plan: 1patient presented to hospital with sepsis in this patient who did have a hy pothermia tachycardia hypotension source is likely extensive left lower extremity cellulitis in this patient who did have extensive cutaneous candidiasis of the breast and abdominal fold area likely from gram-positive skin joy gram-negative infection less likely but not at excluded 2-patient local culture currently growing strep E. coli Klebsiella 3-patient to continue with-nystatin powder to the breast and abdominal fold area twice a day x 7 days on discharge 4-patient to continue with cefepime while inpatient and will transition to oral Ceftin 500 mg twice daily for 7 days on discharge discussed with NEON PUMPER for admitting team Dictation was produced using [employer] dictation software. please excuse any grammatical, word or spelling errors. Time with Patient: Less than 30
--- NOTE | 2024-09-07 14:33 | P.DS ---
Providers Date of admission: 09/02/24 15:21 Expected date of discharge: 09/07/24 Attending physician: eRba Bowens Consults: 09/02/24 14:47 Consult Physician Routine Consulting Provider: Deon Blackwell Consult Reason/Comments: cellulitis, fascitis Do you want consulting provider notified?: Yes Consult Physician Routine Consulting Provider: Andreina Nugent Consult Reason/Comments: sepsis Do you want consulting provider notified?: Yes 09/02/24 15:13 Consult Physician Stat Consulting Provider: Jimbo Dunn Consult Reason/Comments: Critical care management Do you want consulting provider notified?: Yes Primary care physician: Yadira Alberto Hospital Course: Final diagnosis Hypotension and hypothermia, likely sepsis, present on admission related to extensive left lower extremity cellulitis with extensive cutaneous candidiasis of the breast and abdominal folds Hypotension, likely related to underlying sepsis, related to extensive left lower extremity cellulitis/candidiasis History of hypothyroidism, with elevated TSH; free T4 within normal limits Recent diagnosis of left lower extremity DVT; remains on home dose of Eliquis 5 mg twice daily History of hypertension History of hyperlipidemia Morbid obesity with a BMI 59.4 GI prophylaxis DVT prophylaxis Full code Discharge disposition Patient is being discharged in a stable condition with guarded prognosis to [facility]. Patient will follow-up with Dr. Alberto in the outpatient setting upon discharge. Patient is to continue with oral Ceftin twice daily for 10-day course along with continued wound care and outpatient follow-up with pulmonary as scheduled. Patient will need outpatient sleep study testing once discharged from [facility]. Total time taken is greater than 35 minutes. Hospital course This is a 74-year-old female who was recently admitted with features of sepsis with septic shock, present on admission initially in the ICU for some time on pressor support. Patient is out of the ICU maintained on IV cefepime and will transition to oral Ceftin for a 10-day course per ID recommendations. Patient continues to have extensive gluteal fold yeast along with upper and lower extremities and multiple folds in the buttock area and the thighs and around the back and has been maintained on nystatin powder and cream and will continue. Patient is noted to have some hematuria most likely secondary to the Eliquis although recently diagnosed with DVT recommend to continue on 5 mg twice daily and hemoglobin is stable above 12. Patient is significantly excoriated in the groin area as well and recommend keeping dry as much as possible. Patient with generalized weakness lives at home although will need rehab. Patient was evaluated by PT/OT therapy recommending rehab and patient is agreeable. Patient has been accepted at [facility] and has received insurance authorization. Patient will also need outpatient follow-up studies for further sleep testing with pulmonary outpatient. Please refer to other consultation notes for further HPI. Patient was taking Lasix therapy and will hold for now and reevaluate after repeat labs of CBC, CMP, magnesium in 2 to 3 days. Currently no reports of chest pain, shortness of breath, or palpitations. Patient is afebrile. No reports of nausea or vomiting and patient is tolerating diet. Patient will be discharged to [facility] today. Guarded prognosis and high risk for readmissions given significant comorbidities. Physical exam: Gen: This is a 74-year-old female who is awake, alert and oriented x 3, well- developed, elderly appearing, morbidly obese HEENT: Head is atraumatic, normocephalic. Pupils equal, round. Sclerae is anicteric. NECK: Supple. No JVD. No lymphadenopathy. No thyromegaly. LUNGS: Diminished breath sounds bilaterally with some coarse scattered rhonchi. No intercostal retractions. HEART: S1, S2 are muffled ABDOMEN: Soft. Morbidly obese bowel sounds are present. No masses. No tenderness. EXTREMITIES: No pedal edema. No calf tenderness. NEUROLOGICAL: Patient is awake, alert and oriented x3. Cranial nerves 2 through 12 are grossly intact. Diffusely weak Please refer to medication reconciliation sheet for a list of medications. The impression and plan of care has been dictated by Julia Saavedra, Nurse Practitioner as directed. Dr. Candice MD I have performed a history and examination and MDM of this patient, discussed the same with the dictator, and agree with the dictator's assessment and plan as written ,documented as a scribe. Based on total visit time, I have performed more than 50% of the visit. Patient Condition at Discharge: Fair Plan - Discharge Summary Discharge Rx Participant: No New Discharge Prescriptions: New predniSONE [Deltasone] 20 mg PO DAILY tab cefuroxime axetiL [Ceftin] 500 mg PO BID 10 Days #20 tab Midodrine [ProAmatine] 10 mg PO AC-TID tab Pantoprazole [Protonix] 40 mg PO AC-BRKFST tab Continue Nystatin 100,000Unit/gm Cream [Mycostatin Cream] 1 applic TOPICAL BID Levothyroxine Sodium [Synthroid] 50 mcg PO DAILY Apixaban [Eliquis] 5 mg PO BID Nystatin 100,000 Unit/gm Powd [Mycostatin Powder] 1 applic TOPICAL TID Discontinued Furosemide [Lasix] 40 mg PO DAILY tab Famotidine [Pepcid] 20 mg PO HS Potassium Chloride ER [K-Dur 20] 20 meq PO DAILY #30 tab Discharge Medication List Apixaban [Eliquis] 5 mg PO BID 06/10/24 [History] Levothyroxine Sodium [Synthroid] 50 mcg PO DAILY 09/02/24 [History] Nystatin 100,000 Unit/gm Powd [Mycostatin Powder] 1 applic TOPICAL TID 09/02/24 [History] Nystatin 100,000Unit/gm Cream [Mycostatin Cream] 1 applic TOPICAL BID 09/02/24 [History] Midodrine [ProAmatine] 10 mg PO AC-TID tab 09/07/24 [Rx] Pantoprazole [Protonix] 40 mg PO AC-BRKFST tab 09/07/24 [Rx] cefuroxime axetiL [Ceftin] 500 mg PO BID 10 Days #20 tab 09/07/24 [Rx] predniSONE [Deltasone] 20 mg PO DAILY tab 09/07/24 [Rx] Follow up Appointment(s)/Referral(s): Yadira Alberto DO [Primary Care Provider] - 1-2 days Vic August MD [STAFF PHYSICIAN] - 1 Week Activity/Diet/Wound Care/Special Instructions: Patient is going to [employer] Activity as tolerated Continue with wound care to the folds of the body including upper and lower extremities, back, buttock, legs, and torso Continue antibiotic therapy for 10 days Repeat CBC, CMP in 2 to 3 days Continue Eliquis Follow-up with pulmonary outpatient for further sleep studies Discharge/Stand Alone Forms: Community Resources, Help In The Home Discharge Disposition: TRANSFER TO SNF/ECF
--- NOTE | 2024-09-07 15:25 | P.PN ---
Subjective Progress Note Date: 09/07/24 74-year-old female seen in the emergency department, room 8. I was notified by Dr. Zhang about this patient. This patient apparently was brought in from home, because of apparent mental status changes. The patient is alert and awake. She knows where she is at. She knows the year. She knows the current president. The patient was evaluated in the ER, and found to be hypothermic, and hypotensive. The patient denies all complaints including any sort of pain shortness of breath, etc. She seems very stable, and her blood pressure when I was there, was 81/50. She apparently received 2 L of warm fluids. She apparently has a history of hyperlipidemia, hypertension, and hypothyroidism. Her medications include Eliquis, Pepcid, Synthroid, nystatin powder, Lasix, and potassium. The patient is on Eliquis, because of a previous and recent diagnosis of left lower extremity DVT. Current labs include a white count 7.8, hemoglobin hematocrit normal, and a platelet count of 195,000. Sodium 136, potassium 3.7, chlorides 105, CO2 15, anion gap 16, BUN and creatinine are 16 and 0.93. The patient does have an anion gap metabolic acidosis. Total protein 5.3. TSH is elevated at 5.010. Urine shows trace protein and 3+ ketones. Chest x-ray shows no acute disease. The patient's EKG shows sinus bradycardia, with a rate of 53 bpm. Progress note dated September 03, 2024. This is a 74-year-old female who was seen in the emergency department yesterday. She came in with hypotension, and hypothermia. We thought the patient either had sepsis, or myxedema coma. She did receive adequate amounts of hydrocortisone, and Synthroid. Currently, she is seen in the intensive care unit room 255. The patient is on 3 L of oxygen. She is receiving norepinephrine at 1.3 mcg/min, and lactated Ringer's at [address] was negative. The patient is getting hydrocortisone 50 mg every 6 hours. She also received a large dose of Synthroid yesterday, and 50 mcg daily. Her procalcitonin level was normal at 0.26. Antibiotics will be discontinued. White count 11.5, hemoglobin 12.4, hematocrit 39.2, platelet count 216,000. Sodium 139, potassium 3.9, chlorides 110, CO2 13, anion gap 16, BUN 14, and creatinine 1. Glucose 123. Calcium 8.3. Cultures of the patient's groin, show evidence of Escherichia coli, Klebsiella oxytoca, and group B strep. Brain CT showed no acute intracranial process. Progress note dated September 04, 2024. 74-year-old female seen today in room 255. The patient is on 3 L of oxygen. She is getting lactated Ringer's at 75 cc an hour. She is an awake and alert, without any distress. The patient continues on cefepime as per infectious diseases. The patient is stable to be moved to the general medical floor. She has no specific complaints. Current laboratory data includes a white count of 10.2, hemoglobin 12.1, hematocrit 37.9, and a normal platelet count. Sodium 138, potassium 3.9, chlorides 111, CO2 18, anion gap normal, BUN 16, creatinine 0.97. Glucose 156. Calcium 8.4. The patient is seen today September 05, 2024 in follow-up on the regular medical floor. She was transferred out of the intensive care unit yesterday. She is awake and alert in no acute distress. She is maintaining good O2 saturations in the 90s on 2 L/min per nasal cannula. She is feeling quite a bit better. Groin wound culture is positive for E. coli, Klebsiella oxytoca strep agalactiae, group B. She remains on cefepime. Anticoagulated with Eliquis. Remains on Solu-Cortef. Remains on IV Protonix. On 09/06/2024, the patient is awake and alert and she denies having any specific complaints. She is currently on room air oxygen. Pulse ox on room air is above 90%. While on 2 L, his oxygen saturation is in order of 97%. Hemodynamically stable. Afebrile. She is on levothyroxine 50 mcg p.o. daily. She is also on anticoagulants for previous history of a left lower extremity DVT. Hypotension has recovered. The white cell count is at 10.2 with a hemoglobin 12.1 and a platelet count of 167. The patient had a component of metabolic acidosis of an anion gap type which improved and the serum bicarb is up to 18. The procalcitonin level at the time of admission was 0.26. Troponins were negative. Free T4 was low at 1.2 and her TSH was at 5.01. Renal function is stable. Serum cortisol has not been checked. She does have intercrural candidiasis. She remains on empiric antibiotic coverage with IV Rocephin. On 09/07/2024, the patient remains on room air oxygen. Afebrile. Hemodynamically stable. Taken off the oral prednisone as of yesterday. The patient remains on IV cefepime. Objective - Vital Signs Vital signs: Vital Signs Temp 97.4 F L 09/07/24 07:35 Pulse 77 09/07/24 07:35 Resp 15 09/07/24 07:35 BP 100/64 09/07/24 07:35 Pulse Ox 94 L 09/07/24 07:51 FiO2 Intake & Output 09/06/24 09/07/24 09/07/24 18:59 06:59 18:59 Intake Total 540 Balance 540 Intake: Oral 540 Other: Voiding Method Indwelling Catheter Bedside Commode Bedside Commode Diaper Diaper # Voids 1 1 # Bowel Movements 1 1 - Exam GENERAL EXAM: Alert, pleasant 74-year-old female, on 2 L nasal cannula, comfortable in no apparent distress. HEAD: Normocephalic. EYES: Normal reaction of pupils, equal size. NOSE: Clear with pink turbinates. THROAT: No erythema or exudates. NECK: No masses, no JVD. CHEST: No chest wall deformity. LUNGS: Equal air entry with no crackles, wheeze, rhonchi or dullness. CVS: S1 and S2 normal with no audible murmur, regular rhythm. ABDOMEN: No hepatosplenomegaly, normal bowel sounds, no guarding or rigidity. SPINE: No scoliosis or deformity SKIN: Small areas of redness and excoriation including groin, abdomen, thighs CENTRAL NERVOUS SYSTEM: No focal deficits, tone is normal in all 4 extremities. EXTREMITIES: There is 1+ peripheral edema. No clubbing, no cyanosis. Peripheral pulses are intact. - Labs CBC & Chem 7: 09/07/24 04:29 09/07/24 04:29 Labs: Abnormal Lab Results - Last 24 Hours (Table) 09/07/24 09/07/24 Range/Units 04:29 04:29 RBC 4.08 L (4.10-5.20) X 10*6/uL Plt Count 105 L (140-440) X 10*3/uL Lymphocytes # (Manual) 0.88 L (0.90-5.00) X 10*3/uL BUN/Creatinine Ratio 20.44 H (12.00-20.00) Ratio Glucose 140 H (70-110) mg/dL Calcium 8.6 L (8.7-10.3) mg/dL Total Protein 5.3 L (6.2-8.2) g/dL Albumin 3.1 L (3.8-4.9) g/dL Albumin/Globulin Ratio 1.41 L (1.60-3.17) Ratio Assessment and Plan Plan: Hypotension and hypothermia, of unclear etiology, recovered and the patient is currently normotensive. Procalcitonin level is not elevated is on IV cefepime Intercrural candidiasis, excoriation and redness of the groin, thigh, abdomen. Culture positive for E. coli, Klebsiella oxytoca, strep agalactiae group B History of hypothyroidism, with elevated TSH Recent diagnosis of left lower extremity DVT History of hypertension History of hyperlipidemia Morbid obesity with a body mass index of 59.4 and features of obstructive sleep apnea Hepatic steatosis Mild to moderate vertebral compression deformity of the T3 vertebral body and mild compression deformity of T2 Plan: Continue anticoagulation with Eliquis Patient is off steroids Antibiotics per ID service Titrate down the FiO2 as tolerated Increase her activity as tolerated Outpatient sleep study to rule out obstructive sleep apnea patient is going to [facility] today. Pulmonary will sign off.
[2024-09-07 16:11] VITALS: BP 145/93; PULSE 90; RESP 17; TEMP 96.8
--- NOTE | 2024-09-10 13:15 | CDI ---
Documentation Clarification Form Date: 09/10/2024 12:44:55 PM From: Treasure Puckett RN, CCDS Email: [email or web address] Admit Date: 09/02/2024 03:21:00 PM Patient Name: Jasmin Bailon Visit Number: [id number] Discharge Date: 09/07/2024 05:33:00 PM ATTENTION: The Clinical Documentation Specialists (CDI) and [facility] Coding Staff appreciate your assistance in clarifying documentation. Please respond to the clarification below the line at the bottom and electronically sign. The CDI & [facility] Coding staff will review the response and follow-up if needed. Please note: Queries are made part of the Legal Health Record. If you have any questions, please contact the author of this message via ITS. Doctor Harvey, Your patient has the documented symptom of Altered Mental Status and change in mental status documented in the H&P and progress notes. Additional clarification regarding the etiology/cause of this symptom is requested. History/Risk Factors: HTN, hyperlipidemia and hypothyroidism. Presents with change in mental status and hypotension. Admitted with hypotension and hypothermia, likely sepsis, present on admission related to extensive left lower extremity cellulitis. Clinical Indicators: ED: "This is a 74-year-old female who presents to the emergency department because of altered mental status." 09/02 H&P: "The patient is complaining of change in mental status and hypotension. Severe sepsis with hypotension, hypothermia possibly secondary to diffuse cellulitis and infection, rule out necrotizing fasciitis." Discharge summary: "recently admitted with features of sepsis with septic shock, present on admission initially in the ICU for some time on pressor support. Hypotension and hypothermia, likely sepsis, present on admission related to extensive left lower extremity cellulitis." 09/02 CT brain: Nonspecific white matter changes, likely secondary to chronic small vessel ischemic disease Treatment: IV Cefepime 2gm Q12H 09/03-09/07; IV Levophed titrated 09/02-09/04; IV Zosyn 3.375gm x1 on 09/02; IV Vancomycin 1750mg x1 on 09/02; IV Vancomycin 1750mg x1 on 09/03; 1L 0.9 NS IV bolus x1 on 09/02; ICU monitoring Please clarify the etiology of the symptom of Altered Mental Status: [ x ] Toxic encephalopathy due to Sepsis from Cellulitis [ ] No additional diagnosis [ ] Other condition (please specify) [ ] Unable to determine MTDD
--- NOTE | 2024-09-10 13:22 | CDI ---
Documentation Clarification Form Date: 09/10/2024 01:15:57 PM From: Treasure Puckett RN, CCDS Email: [email or web address] Admit Date: 09/02/2024 03:21:00 PM Patient Name: Jasmin Bailon Visit Number: [id number] Discharge Date: 09/07/2024 05:33:00 PM ATTENTION: The Clinical Documentation Specialists (CDI) and [facility] Coding Staff appreciate your assistance in clarifying documentation. Please respond to the clarification below the line at the bottom and electronically sign. The CDI & [facility] Coding staff will review the response and follow-up if needed. Please note: Queries are made part of the Legal Health Record. If you have any questions, please contact the author of this message via ITS. Doctor Nereyda Harvey The discharge summary indicates the patient recently admitted with features of sepsis with septic shock, present on admission. Additional clarification is requested. Patient history/risk factors: HTN, hyperlipidemia and hypothyroidism. Presents with change in mental status and hypotension. Admitted with hypotension and hypothermia, likely sepsis, present on admission related to extensive left lower extremity cellulitis. Clinical Indicators: 09/02 Vital signs: Temp 88.4, HR 48, RR 22, BP 69/37 ED: "This is a 74-year-old female who presents to the emergency department because of altered mental status." 09/02 H&P: "The patient is complaining of change in mental status and hypotension Severe sepsis with hypotension, hypothermia possibly secondary to diffuse cellulitis and infection, rule out necrotizing fasciitis." Discharges summary: "recently admitted with features of sepsis with septic shock, present on admission initially in the ICU for some time on pressor support." Treatment: IV Cefepime 2gm Q12H 09/03-09/07; IV Levophed titrated 09/02-09/04; IV Zosyn 3.375gm x1 on 09/02; IV Vancomycin 1750mg x1 on 09/02; IV Vancomycin 1750mg x1 on 09/03; 1L 0.9 NS IV bolus x1 on 09/02; ICU monitoring Please clarify if Septic shock is a valid diagnosis: [ x ] Yes, Septic Shock is a valid diagnosis [ ] No, Septic Shock was ruled out [ ] Other, please specify [ ] Unable to determine MTDD
== END 2024-09-07 17:33 | DRG 871 ==
LOC: EC 09:50 → 2SICU 15:21 → 5NMEDONC 09-04 12:20
PROVIDERS: ADMIT Hospitalist; ATTEND Hospitalist
PROC: 3E033XZ Introduction of Vasopressor into Peripheral Vein, Percutaneous Approach (ICD-10-PCS; principal; 2024-09-02)
DX: A41.9 Sepsis, unspecified organism (principal); G92.9 Unspecified toxic encephalopathy; R65.21 Severe sepsis with septic shock; L03.115 Cellulitis of right lower limb; L03.116 Cellulitis of left lower limb; I82.402 Acute embolism and thrombosis of unspecified deep veins of left lower extremity; L03.314 Cellulitis of groin; B37.89 Other sites of candidiasis; L03.311 Cellulitis of abdominal wall; Z68.43 Body mass index [BMI] 50.0-59.9, adult; D68.32 Hemorrhagic disorder due to extrinsic circulating anticoagulants; E87.20 Acidosis, unspecified; R65.20 Severe sepsis without septic shock; I95.9 Hypotension, unspecified; E66.01 Morbid (severe) obesity due to excess calories; I10 Essential (primary) hypertension; E78.5 Hyperlipidemia, unspecified; E03.9 Hypothyroidism, unspecified; B37.2 Candidiasis of skin and nail; E07.9 Disorder of thyroid, unspecified; B96.20 Unspecified Escherichia coli [E. coli] as the cause of diseases classified elsewhere; R31.9 Hematuria, unspecified; T45.515A Adverse effect of anticoagulants, initial encounter; B36.8 Other specified superficial mycoses; M72.9 Fibroblastic disorder, unspecified; J45.909 Unspecified asthma, uncomplicated; K76.0 Fatty (change of) liver, not elsewhere classified; M43.8X4 Other specified deforming dorsopathies, thoracic region; T68.XXXA Hypothermia, initial encounter; Z87.891 Personal history of nicotine dependence; Z79.899 Other long term (current) drug therapy; Z79.890 Hormone replacement therapy
CPT/HCPCS: 36415; 51702; 70450; 71045; 80048; 80053; 81003; 82803; 83605; 83735; 84132; 84145; 84439; 84443; 84481; 84484; 85025; 85027; 85610; 85730; 87040; 87070; 87077; 87186; 87205; 93005; 94760; 96365; 96366; 96368; 96375; 99291

== ENCOUNTER 2024-11-06 11:39 | Emergency (ER) | payer MEDICARE ==
--- NOTE | 2024-11-06 12:13 | ED ---
Extremity Problem HPI - General Chief complaint: Extremity Problem,Nontraumatic Stated complaint: SWELLING R ARM Time Seen by Provider: 11/06/24 11:51 Source: patient, EMS, RN notes reviewed Mode of arrival: EMS Limitations: no limitations - History of Present Illness Initial comments: This is a 74-year-old female with history of LLE DVT presenting via EMS from [facility] for right upper extremity erythema and edema noticed today. Patient states staff from [facility] said her arm appeared red and swollen, calling EMS for further evaluation at ER. Patient denies noticing redness or swelling. Denies associated pain or L ROM. Endorses use of Eliquis. Denies fever, chills, chest pain, dyspnea. MD Complaint: extremity swelling Onset/Timin -: days(s) Location: right, upper extremity History of Same: Yes Radiation: none Severity scale (1-10): 0 Associated Symptoms: denies other symptoms - Related Data Home Medications Medication Instructions Recorded Confirmed Apixaban [Eliquis] 5 mg PO BID 06/10/24 09/02/24 Levothyroxine Sodium [Synthroid] 50 mcg PO DAILY 09/02/24 09/02/24 Nystatin 100,000 Unit/gm Powd 1 applic TOPICAL TID 09/02/24 09/02/24 [Mycostatin Powder] Nystatin 100,000Unit/gm Cream 1 applic TOPICAL BID 09/02/24 09/02/24 [Mycostatin Cream] Previous Rx's Medication Instructions Recorded Midodrine [ProAmatine] 10 mg PO AC-TID tab 09/07/24 Pantoprazole [Protonix] 40 mg PO AC-BRKFST tab 09/07/24 cefuroxime axetiL [Ceftin] 500 mg PO BID 10 Days #20 tab 09/07/24 predniSONE [Deltasone] 20 mg PO DAILY tab 09/07/24 Allergies Allergy/AdvReac Type Severity Reaction Status Date / Time No Known Allergies Allergy Verified 11/06/24 11:45 Review of Systems ROS Statement: Those systems with pertinent positive or pertinent negative responses have been documented in the HPI. ROS Other: All systems not noted in ROS Statement are negative. 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 Past Surgical History: No Surgical Hx Reported Additional Past Surgical History / Comment(s): Left ankle surgery Past Anesthesia/Blood Transfusion Reactions: No Reported Reaction Past Psychological History: No Psychological Hx Reported Smoking Status: Former smoker Past Alcohol Use History: None Reported Past Drug Use History: None Reported - Past Family History Mother Family Medical History: Diabetes Mellitus General Exam Limitations: no limitations General appearance: alert, in no apparent distress Head exam: Present: atraumatic, normocephalic, normal inspection Eye exam: Present: normal appearance, PERRL, EOMI. Absent: scleral icterus, conjunctival injection, periorbital swelling ENT exam: Present: normal exam, mucous membranes moist Neck exam: Present: normal inspection. Absent: tenderness, meningismus, lymphadenopathy Respiratory exam: Present: normal lung sounds bilaterally. Absent: respiratory distress, wheezes, rales, rhonchi, stridor Cardiovascular Exam: Present: regular rate, normal rhythm, normal heart sounds. Absent: systolic murmur, diastolic murmur, rubs, gallop, clicks GI/Abdominal exam: Present: soft, normal bowel sounds. Absent: distended, tenderness, guarding, rebound, rigid Extremities exam: Present: normal inspection, full ROM, normal capillary refill, other (No obvious swelling or redness discrepancy between 2 upper extremities. Distal neurovascular and motor function intact. Radial pulse +2 bilaterally. Capillary refill less than 2 seconds.). Absent: tenderness, pedal edema, joint swelling, calf tenderness Back exam: Present: normal inspection Neurological exam: Present: alert, oriented X3, CN II-XII intact Psychiatric exam: Present: normal affect, normal mood Skin exam: Present: warm, dry, intact, normal color. Absent: rash Course Vital Signs 11/06/24 11/06/24 11/06/24 11:41 13:45 14:45 Temperature 97.8 F 97.6 F Pulse Rate 78 80 75 Respiratory 20 19 18 Rate Blood Pressure 117/64 104/56 120/53 O2 Sat by Pulse 94 L 97 94 L Oximetry Medical Decision Making - Medical Decision Making Was pt. sent in by a medical professional or institution (, PA, DISTRIBUTION CLERK, urgent c are, hospital, or group home...) When possible be specific @ -No Did you speak to anyone other than the patient for history (EMS, parent, family, police, friend...)? What history was obtained from this source @ -No Did you review nursing and triage notes (agree or disagree)? Why? @ -I reviewed and agree with nursing and triage notes Were old charts reviewed (outside hosp., previous admission, EMS record, old EKG, old radiological studies, urgent care reports/EKG's, group home records)? Report findings @ -No old charts were reviewed Differential Diagnosis (chest pain, altered mental status, abdominal pain women, abdominal pain men, vaginal bleeding, weakness, fever, dyspnea, syncope, h eadache, dizziness, GI bleed, back pain, seizure, CVA, palpatations, mental health, musculoskeletal)? @ -DVT, PAD, PVD, arterial occlusion, cellulitis, this is not an exhaustive list EKG interpreted by me (3pts min.). @ -Not done X-rays interpreted by me (1pt min.). @ -None done CT interpreted by me (1pt min.). @ -None done U/S interpreted by me (1pt. min.). @ -Right upper extremity Doppler ultrasound is negative for DVT. What testing was considered but not performed or refused? (CT, X-rays, U/S, labs)? Why? @ -None What meds were considered but not given or refused? Why? @ -None Did you discuss the management of the patient with other professionals (professionals i.e. , PA, DISTRIBUTION CLERK, lab, RT, psych nurse, child welfare social worker, senior functional analyst, teacher, submarine advisory team watch officer, child welfare caseworker)? Give summary @ -No Was smoking cessation discussed for >3mins.? @ -No Was critical care preformed (if so, how long)? @ -No Were there social determinants of health that impacted care today? How? (Home lessness, low income, unemployed, alcoholism, drug addiction, transportation, low edu. Level, literacy, decrease access to med. care, prison, rehab)? @ -No Was there de-escalation of care discussed even if they declined (Discuss DNR or withdrawal of care, Hospice)? DNR status @ -No What co-morbidities impacted this encounter? (DM, HTN, Smoking, COPD, CAD, Cancer, CVA, ARF, Chemo, Hep., AIDS, mental health diagnosis, sleep apnea, morbid obesity)? @ -None Was patient admitted / discharged? Hospital course, mention meds given and route, prescriptions, significant lab abnormalities, going to OR and other pertinent info. @ -Lab work shows hemoglobin of 10.4 which is only slightly below norm for patient. Lab work otherwise unremarkable. Right upper extremity Doppler ultrasound is negative for DVT. Patient discharged back tomorrow in. Discussed patient with Dr. Michele. Undiagnosed new problem with uncertain prognosis? @ -No Drug Therapy requiring intensive monitoring for toxicity (Heparin, Nitro, Insulin, Cardizem)? @ -No Were any procedures done? @ -No Diagnosis/symptom? @ -No diagnosis/abnormal finding Acute, or Chronic, or Acute on Chronic? @ -Acute Uncomplicated (without systemic symptoms) or Complicated (systemic symptoms)? @ -Uncomplicated Side effects of treatment? @ -No Exacerbation, Progression, or Severe Exacerbation? @ -No Poses a threat to life or bodily function? How? (Chest pain, [place], [place], pneumonia, PE, COPD, DKA, ARF, appy, cholecystitis, CVA, Diverticulitis, Homicidal, Suicidal, threat to staff... and all critical care pts) @ -No - Lab Data Result diagrams: 11/06/24 12:12 11/06/24 12:12 Lab Results 11/06/24 11/06/24 11/06/24 Range/Units 12:12 12:12 12:12 WBC 6.0 (3.8-10.6) k/uL RBC 3.53 L (3.80-5.40) m/uL Hgb 10.4 L (11.4-16.0) gm/dL Hct 32.0 L (34.0-46.0) % MCV 90.7 D (80.0-100.0) fL MCH 29.6 (25.0-35.0) pg MCHC 32.6 (31.0-37.0) g/dL RDW 15.8 H (11.5-15.5) % Plt Count 326 (150-450) k/uL MPV 7.7 Neutrophils % 58 % Lymphocytes % 22 % Monocytes % 9 % Eosinophils % 9 % Basophils % 0 % Neutrophils # 3.5 (1.3-7.7) k/uL Lymphocytes # 1.3 (1.0-4.8) k/uL Monocytes # 0.5 (0-1.0) k/uL Eosinophils # 0.5 (0-0.7) k/uL Basophils # 0.0 (0-0.2) k/uL PT 11.8 (10.0-12.5) sec INR 1.1 (<1.2) APTT 25.2 (22.0-30.0) sec Sodium 138 (137-145) mmol/L Potassium 4.6 (3.5-5.1) mmol/L Chloride 103 (98-107) mmol/L Carbon Dioxide 30 (22-30) mmol/L Anion Gap 5 mmol/L BUN 12 (7-17) mg/dL Creatinine 0.96 (0.52-1.04) mg/dL Est GFR (CKD-EPI)AfAm 67 (>60 ml/min/1.73 sqM) Est GFR (CKD-EPI)NonAf 59 (>60 ml/min/1.73 sqM) Glucose 111 H (74-99) mg/dL Calcium 8.4 (8.4-10.2) mg/dL Total Bilirubin 0.8 (0.2-1.3) mg/dL AST 22 (14-36) U/L ALT 11 (4-34) U/L Alkaline Phosphatase 63 (38-126) U/L Total Protein 6.7 (6.3-8.2) g/dL Albumin 2.8 L (3.5-5.0) g/dL Disposition Clinical Impression: No diagnosis Disposition: HOME SELF-CARE Condition: Good Is patient prescribed a controlled substance at d/c from ED?: No Referrals: Viet Alaniz MD [Primary Care Provider] - 1-2 days Time of Disposition: 13:49
[2024-11-06 12:28] LABS: Basophils % (A) 0 %; Eosinophils # (A) 0.5 k/uL (0-0.7); Eosinophils % (A) 9 %; HGB 10.4 gm/dL (11.4-16.0); Lymphocytes # (A) 1.3 k/uL (1.0-4.8); Lymphocytes % (A) 22 %; MCH 29.6 pg (25.0-35.0); MCHC 32.6 g/dL (31.0-37.0); Mean Platelet Volume 7.7; Monocytes # (A) 0.5 k/uL (0-1.0); Monocytes % (A) 9 %; Neutrophils # (A) 3.5 k/uL (1.3-7.7); Neutrophils % (A) 58 %; Platelet Count 326 k/uL (150-450); RBC 3.53 m/uL (3.80-5.40); RDW 15.8 % (11.5-15.5)
[2024-11-06 12:37] LABS: INR 1.1 (<1.2); Prothrombin Time 11.8 sec (10.0-12.5)
[2024-11-06 12:38] LABS: Partial Thromboplastin Time 25.2 sec (22.0-30.0)
[2024-11-06 12:41] LABS: MCV 90.7 fL (80.0-100.0)
[2024-11-06 12:59] LABS: ALT 11 U/L (4-34); African American GFR (CKD) 67 (>60 ml/min/1.73 sqM); Albumin 2.8 g/dL (3.5-5.0); Anion Gap 5 mmol/L; Blood Urea Nitrogen 12 mg/dL (7-17); Calcium 8.4 mg/dL (8.4-10.2); Carbon Dioxide 30 mmol/L (22-30); Chloride 103 mmol/L (98-107); Glucose 111 mg/dL (74-99); Non-African American GFR(CKD) 59 (>60 ml/min/1.73 sqM); Sodium 138 mmol/L (137-145); Total Bilirubin 0.8 mg/dL (0.2-1.3); Total Protein 6.7 g/dL (6.3-8.2)
[2024-11-06 13:07] LABS: AST 22 U/L (14-36); Alkaline Phosphatase 63 U/L (38-126); Potassium 4.6 mmol/L (3.5-5.1)
--- NOTE | 2024-11-06 13:13 | US ---
EXAMINATION TYPE: US venous doppler duplex UE RT DATE OF EXAM: 11/06/2024 COMPARISON: No relevant priors CLINICAL INDICATION: Female, 74 years old with history of Edema, erythema, history of DVT; Former smo ker; Previous DVT LLE; Patient denies any other signs, symptoms, or relevant history TECHNIQUE: Grayscale, color Doppler and spectral Doppler imaging of the upper extremity. SIDE PERFORMED: Right VESSELS IMAGED: IJV Subclavian Vein Axilla Vein Brachial Vein(s) Radial Paired Veins Ulnar Paired Veins Cephalic Vein* Basilic Vein* (*superficial vessels) FINDINGS: Clavicle lump seen and felt while scanning - ? bony abnormality seen at lump Right Arm: Negative for DVT Left Arm: NA Grayscale, color doppler, spectral doppler imaging performed of the deep veins of the upper extremiti es. IMPRESSION: No evidence of right upper extremity DVT. [facility], , 11/06/2024 1:11 PM
[2024-11-06 13:51] VITALS: TEMP 97.6
[2024-11-06 14:47] VITALS: BP 120/53; PULSE 75; RESP 18
== END 2024-11-06 14:52 | disposition home or self-care (01) ==
LOC: EC 11:39
DX: R22.31 Localized swelling, mass and lump, right upper limb (principal); Z87.891 Personal history of nicotine dependence
CPT/HCPCS: 36415; 80053; 85025; 85610; 85730; 99284